=== PATIENT | female | born 1940 | race Caucasian/White ===

== ENCOUNTER 2016-03-19 00:30 | Emergency (ER) | payer MEDICARE, OTHER ==
[2016-03-19] MEDS ORDERED: SODIUM CHLORIDE 0.9% 1,000 ML IV ONE (00:59)
--- NOTE | 2016-03-19 01:16 | ED ---
Psych HPI - General Source: patient, EMS, RN notes reviewed Mode of arrival: EMS <Albertina Morgan - Last Filed: 03/19/16 03:36> <Vivek Lal - Last Filed: 03/19/16 07:09> - General Chief Complaint: Psychiatric Symptoms Stated Complaint: Mental Health Time Seen by Provider: 03/19/16 00:41 - History of Present Illness Initial Comments: Patient is 75-year-old female who presents to the emergency room for psychiatric evaluation. Patient has a history of schizophrenia and states that the Perez in. Patient's states he has been having increasing voices in her head. Patient states "the devil's are speaking to me". Patient states that she is on Seroquel and it has not been helping. Patient denies suicidal or homicidal ideations. Patient also states over the past few days she's been having pain in her bladder raiding up to her flank area. Patient states she feels like she is having a hard time eating and is urinating more frequently. Patient denies any fevers or chills. Patient denies chest pain, shortness of breath, headache, dizziness. (Albertina Morgan) - Related Data Home Medications Medication Instructions Recorded Confirmed Cholecalciferol [Vitamin D3] 2,000 unit PO BID 08/23/13 03/19/16 Donepezil [Aricept] 10 mg PO BID 08/23/13 03/19/16 Multivitamins, Thera [Multivitamin] 1 tab PO DAILY 08/23/13 03/19/16 Atorvastatin [Lipitor] 20 mg PO HS 04/12/15 03/19/16 QUEtiapine [SEROquel] 50 mg PO BID 04/12/15 03/19/16 Pepto-Bismol Puentes Chew 1 tab PO BID 07/30/15 03/19/16 traMADol HCL/ACETAMINOPHEN 1 tab PO BID PRN 07/30/15 03/19/16 [Ultracet 37.5-325] Carvedilol [Coreg] 3.125 mg PO BID 12/25/15 03/19/16 Melatonin 10 mg PO HS 12/25/15 03/19/16 amLODIPine [Norvasc] 2.5 mg PO HS 12/25/15 03/19/16 QUEtiapine FUMARATE [SEROquel] 450 mg PO HS 03/19/16 03/19/16 hydrOXYzine HCL 25 mg PO DAILY 03/19/16 03/19/16 Allergies Allergy/AdvReac Type Severity Reaction Status Date / Time adhesive tape Allergy Unknown Verified 03/19/16 00:52 cephalexin monohydrate Allergy Unknown Verified 03/19/16 00:52 [From Keflex] fluoxetine HCl [From Prozac] Allergy Unknown Verified 03/19/16 00:52 ketorolac tromethamine Allergy Unknown Verified 03/19/16 00:52 [From Toradol] latex Allergy Unknown Verified 03/19/16 00:52 phenelzine sulfate Allergy Unknown Verified 03/19/16 00:52 [From Nardil] Phenothiazines Allergy Unknown Verified 03/19/16 00:52 propoxyphene napsylate Allergy Unknown Verified 03/19/16 00:52 [From Darvocet-N 100] Review of Systems ROS Other: All systems not noted in ROS Statement are negative. <Albertina Morgan - Last Filed: 03/19/16 03:36> ROS Other: All systems not noted in ROS Statement are negative. <Vivek Lal - Last Filed: 03/19/16 07:09> ROS Statement: Those systems with pertinent positive or pertinent negative responses have been documented in the HPI. Past Medical History Past Medical History: COPD, GERD/Reflux, Hypertension, Seizure Disorder Additional Past Medical History / Comment(s): back pain, Alzheimers, vitamin D deficiency, right bundle branch block History of Any Multi-Drug Resistant Organisms: None Reported Past Surgical History: Orthopedic Surgery Past Psychological History: Schizophrenia Smoking Status: Former smoker Past Alcohol Use History: None Reported Past Drug Use History: None Reported <Albertina Morgan - Last Filed: 03/19/16 03:36> General Exam Limitations: no limitations General appearance: alert, in no apparent distress Head exam: Present: atraumatic, normocephalic, normal inspection Eye exam: Present: normal appearance ENT exam: Present: normal exam Neck exam: Present: normal inspection Respiratory exam: Present: normal lung sounds bilaterally. Absent: respiratory distress Cardiovascular Exam: Present: regular rate, normal rhythm, normal heart sounds GI/Abdominal exam: Present: soft, normal bowel sounds. Absent: distended, tenderness, guarding, rebound, rigid Extremities exam: Present: normal inspection Back exam: Present: normal inspection Neurological exam: Present: alert, oriented X3, CN II-XII intact, normal gait Psychiatric exam: Present: normal affect, normal mood Skin exam: Present: warm, dry, intact, normal color. Absent: rash <Albertina Morgan - Last Filed: 03/19/16 03:36> <Vivek Lal - Last Filed: 03/19/16 07:09> - General Exam Comments Initial Comments: Laying in exam room in no acute distress. (Albertina Morgan) Course <Albertina Morgan - Last Filed: 03/19/16 03:36> <Vivek Lal - Last Filed: 03/19/16 07:09> Vital Signs 03/19/16 00:48 Temperature 97.6 F Pulse Rate 58 L Respiratory 18 Rate Blood Pressure 139/63 O2 Sat by Pulse 97 Oximetry - Reevaluation(s) Reevaluation #1: 03/19/16 03:36 Patient's labs and urinalysis reviewed, no medical concerns noted. Patient cleared for psych evaluation (Albertina Morgan) Medical Decision Making - Lab Data Result diagrams: 03/19/16 03:05 03/19/16 03:05 <Albertina Morgan - Last Filed: 03/19/16 03:36> - Lab Data Result diagrams: 03/19/16 03:05 03/19/16 03:05 <Vivek Lal - Last Filed: 03/19/16 07:09> - Medical Decision Making 75 female year for evaluation of psychiatric disease, patient was cleared for psychiatric evaluation, patient seated viral bisected intake, patient cleared for discharge back to [facility]. (Vivek Lal) - Lab Data Lab Results 03/19/16 03/19/16 03/19/16 Range/Units 01:05 03:05 03:05 WBC 5.9 (3.8-10.6) k/uL RBC 4.55 (3.80-5.40) m/uL Hgb 13.2 (11.4-16.0) gm/dL Hct 41.8 (34.0-46.0) % MCV 91.8 (80.0-100.0) fL MCH 28.9 (25.0-35.0) pg MCHC 31.5 (31.0-37.0) g/dL RDW 13.5 (11.5-15.5) % Plt Count 226 (150-450) k/uL Neutrophils % 45 % Lymphocytes % 39 % Monocytes % 7 % Eosinophils % 5 % Basophils % 1 % Neutrophils # 2.6 (1.3-7.7) k/uL Lymphocytes # 2.3 (1.0-4.8) k/uL Monocytes # 0.4 (0-1.0) k/uL Eosinophils # 0.3 (0-0.7) k/uL Basophils # 0.0 (0-0.2) k/uL Hypochromasia Slight Sodium 146 H (137-145) mmol/L Potassium 4.2 (3.5-5.1) mmol/L Chloride 111 H (98-107) mmol/L Carbon Dioxide 23 (22-30) mmol/L Anion Gap 12 mmol/L BUN 33 H (7-17) mg/dL Creatinine 0.88 (0.52-1.04) mg/dL Est GFR (MDRD) Af Amer >60 (>60 ml/min/1.73 sqM) Est GFR (MDRD) Non-Af >60 (>60 ml/min/1.73 sqM) Glucose 87 (74-99) mg/dL Calcium 10.5 H (8.4-10.2) mg/dL Total Bilirubin 0.4 (0.2-1.3) mg/dL AST 26 (14-36) U/L ALT 29 (9-52) U/L Alkaline Phosphatase 84 (38-126) U/L Total Protein 6.8 (6.3-8.2) g/dL Albumin 3.9 (3.5-5.0) g/dL Urine Color Yellow Urine Appearance Clear (Clear) Urine pH 5.0 (5.0-8.0) Ur Specific [place] 1.023 (1.001-1.035) Urine Protein 1+ H (Negative) Urine Glucose (UA) Negative (Negative) Urine Ketones Negative (Negative) Urine Blood Negative (Negative) Urine Nitrate Negative (Negative) Urine Bilirubin Negative (Negative) Urine Urobilinogen <2.0 (<2.0) mg/dL Ur Leukocyte Esterase Trace H (Negative) Urine RBC 1 (0-5) /hpf Urine WBC 3 (0-5) /hpf Ur Squamous Epith Cells 3 (0-4) /hpf Urine Bacteria Rare H (None) /hpf Hyaline Casts 3 H (0-2) /lpf Urine Mucus Rare H (None) /hpf Urine Opiates Screen Not Detected (NotDetected) Ur Oxycodone Screen Not Detected (NotDetected) Urine Methadone Screen Not Detected (NotDetected) Ur Propoxyphene Screen Not Detected (NotDetected) Ur Barbiturates Screen Not Detected (NotDetected) U Tricyclic Antidepress Detected H (NotDetected) Ur Phencyclidine Scrn Not Detected (NotDetected) Ur Amphetamines Screen Not Detected (NotDetected) U Methamphetamines Scrn Not Detected (NotDetected) U Benzodiazepines Scrn Not Detected (NotDetected) Urine Cocaine Screen Not Detected (NotDetected) U Marijuana (THC) Screen Not Detected (NotDetected) Disposition <Albertina Morgan L - Last Filed: 03/19/16 03:36> <Vivek Lal B - Last Filed: 03/19/16 07:09> Clinical Impression: Psychosis, Acute anxiety Disposition: HOME SELF-CARE Condition: Good Instructions: Altered Mental Status (ED), Brief Psychotic Disorder (ED) Referrals: Ayad Chaparro MD [Primary Care Provider] - 1-2 days
[2016-03-19 01:33] LABS: Appearance,Urine Clear (Clear); Bacteria,Urine Rare /hpf; Bilirubin,Urine Negative (Negative); Glucose,Urine (UA) Negative (Negative); Ketones,Urine Negative (Negative); Leukocyte Esterase,Urine Trace (Negative); Mucus,Urine Rare /hpf; Nitrite,Urine Negative (Negative); Particle Count 2645; Protein,Urine 1+ (Negative); RBC,Urine 1 /hpf (0-5); Specific Gravity,Urine 1.023 (1.001-1.035); Squamous Epithelial Cell,Urine 3 /hpf (0-4); UA Billing (MACRO vs. MICRO) MICRO; Urobilinogen,Urine <2.0 mg/dL (<2.0); WBC,Urine 3 /hpf (0-5)
[2016-03-19 03:21] LABS: Basophils % (A) 1 %; CH 28.6; CHCM 31.3; Eosinophils # (A) 0.3 k/uL (0-0.7); Eosinophils % (A) 5 %; HCT 41.8 % (34.0-46.0); HDW 2.59; HGB 13.2 gm/dL (11.4-16.0); Hypochromasia Slight; Luc % (Auto) 4; Lymphocytes # (A) 2.3 k/uL (1.0-4.8); Lymphocytes % (A) 39 %; MCH 28.9 pg (25.0-35.0); MCHC 31.5 g/dL (31.0-37.0); MCV 91.8 fL (80.0-100.0); Mean Platelet Volume 6.6; Monocytes # (A) 0.4 k/uL (0-1.0); Monocytes % (A) 7 %; Neutrophils # (A) 2.6 k/uL (1.3-7.7); Neutrophils % (A) 45 %; RBC 4.55 m/uL (3.80-5.40); RDW 13.5 % (11.5-15.5); WBC 5.9 k/uL (3.8-10.6)
[2016-03-19 03:33] LABS: ALT 29 U/L (9-52); AST 26 U/L (14-36); Alkaline Phosphatase 84 U/L (38-126); Anion Gap 12 mmol/L; Blood Urea Nitrogen 33 mg/dL (7-17); Calcium 10.5 mg/dL (8.4-10.2); Carbon Dioxide 23 mmol/L (22-30); Chloride 111 mmol/L (98-107); Glucose 87 mg/dL (74-99); Non-African American GFR(MDRD) >60 (>60 ml/min/1.73 sqM); Potassium 4.2 mmol/L (3.5-5.1); Sodium 146 mmol/L (137-145); Total Bilirubin 0.4 mg/dL (0.2-1.3); Total Protein 6.8 g/dL (6.3-8.2)
[2016-03-19 08:29] VITALS: BP 106/60; PULSE 78; RESP 16; TEMP 98
== END 2016-03-19 08:40 | disposition home or self-care (01) ==
LOC: EC 00:30
DX: F20.9 Schizophrenia, unspecified (principal); R39.89 Other symptoms and signs involving the genitourinary system; R10.9 Unspecified abdominal pain; I10 Essential (primary) hypertension; G30.9 Alzheimer's disease, unspecified; G40.909 Epilepsy, unspecified, not intractable, without status epilepticus; Z87.891 Personal history of nicotine dependence; Z79.899 Other long term (current) drug therapy; Z91.09 Other allergy status, other than to drugs and biological substances; Z88.1 Allergy status to other antibiotic agents; Z88.8 Allergy status to other drugs, medicaments and biological substances; Z88.6 Allergy status to analgesic agent; Z91.040 Latex allergy status
CPT/HCPCS: 36415; 80053; 80306; 81001; 85025; 87086; 99284

== ENCOUNTER 2016-06-06 20:56 | Emergency (ER) | payer MEDICARE, OTHER ==
[2016-06-06 21:10] VITALS: RESP 18
--- NOTE | 2016-06-06 21:24 | ED ---
General Adult HPI - General Chief complaint: Urogenital Stated complaint: UTI Time Seen by Provider: 06/06/16 21:03 Source: patient, RN notes reviewed Mode of arrival: EMS Limitations: no limitations - History of Present Illness Initial comments: Patient 75-year-old female who presents emergency room today with a chief complaint of increased urinary frequency. She does admit that it feels like a bladder infection that she's had in the past. She does admit that symptoms been off and on over the last 4 weeks. Patient does admit to some low back pain. She admits that she's also worried about maybe a possible kidney stone that she's had once in the past. She denies any other complaints or symptoms. Patient denies any recent fever, chills, shortness of breath, chest pain, back pain, abdominal pain, nausea or vomiting, numbness or tingling, hematuria, constipation or diarrhea, headaches or visual changes, or any other complaints. - Related Data Home Medications Medication Instructions Recorded Confirmed Cholecalciferol [Vitamin D3] 2,000 unit PO BID 08/23/13 06/06/16 Donepezil [Aricept] 10 mg PO BID 08/23/13 06/06/16 Multivitamins, Thera [Multivitamin] 1 tab PO DAILY 08/23/13 06/06/16 Atorvastatin [Lipitor] 20 mg PO HS 04/12/15 06/06/16 QUEtiapine [SEROquel] 50 mg PO BID 04/12/15 06/06/16 Pepto-Bismol Puentes Chew 1 tab PO BID 07/30/15 06/06/16 traMADol HCL/ACETAMINOPHEN 1 tab PO TID PRN 07/30/15 06/06/16 [Ultracet 37.5-325] Carvedilol [Coreg] 3.125 mg PO BID 12/25/15 06/06/16 Melatonin 10 mg PO HS 12/25/15 06/06/16 amLODIPine [Norvasc] 2.5 mg PO HS 12/25/15 06/06/16 hydrOXYzine HCL 25 mg PO HS 03/19/16 06/06/16 QUEtiapine FUMARATE [SEROquel] 100 mg PO HS 06/06/16 06/06/16 QUEtiapine FUMARATE [SEROquel] 400 mg PO HS 06/06/16 06/06/16 Sennosides [Senna] 8.6 mg PO HS 06/06/16 06/06/16 Previous Rx's Medication Instructions Recorded Nitrofurantoin Monohyd/M-Cryst 100 mg PO Q12HR #14 cap 06/06/16 [Macrobid] Phenazopyridine [Pyridium] 100 mg PO TID 3 Days 06/06/16 Tamsulosin [Flomax] 0.4 mg PO DAILY #7 cap 06/06/16 Allergies Allergy/AdvReac Type Severity Reaction Status Date / Time adhesive tape Allergy Unknown Verified 06/06/16 21:45 cephalexin monohydrate Allergy Unknown Verified 06/06/16 21:45 [From Keflex] fluoxetine HCl [From Prozac] Allergy Unknown Verified 06/06/16 21:45 ketorolac tromethamine Allergy Unknown Verified 06/06/16 21:45 [From Toradol] latex Allergy Unknown Verified 06/06/16 21:45 phenelzine sulfate Allergy Unknown Verified 06/06/16 21:45 [From Nardil] Phenothiazines Allergy Unknown Verified 06/06/16 21:45 propoxyphene napsylate Allergy Unknown Verified 06/06/16 21:45 [From Darvocet-N 100] Review of Systems ROS Statement: Those systems with pertinent positive or pertinent negative responses have been documented in the HPI. ROS Other: All systems not noted in ROS Statement are negative. Past Medical History Past Medical History: COPD, GERD/Reflux, Hypertension, Seizure Disorder Additional Past Medical History / Comment(s): back pain, Alzheimers, vitamin D deficiency, right bundle branch block History of Any Multi-Drug Resistant Organisms: None Reported Past Surgical History: Orthopedic Surgery Past Psychological History: Schizophrenia Smoking Status: Former smoker Past Alcohol Use History: None Reported Past Drug Use History: None Reported General Exam - General Exam Comments Initial Comments: General: The patient is awake and alert, in no distress, and does not appear acutely ill. Eye: Pupils are equal, round and reactive to light, extra-ocular movements are intact. No nystagmus. There is normal conjunctiva bilaterally. No signs of icterus. Ears, nose, mouth and throat: There are moist mucous membranes and no oral lesions. Neck: The neck is supple, there is no tenderness or JVD. Cardiovascular: There is a regular rate and rhythm. No murmur, rub or gallop is appreciated. Respiratory: Lungs are clear to auscultation, respirations are non-labored, breath sounds are equal. No wheezes, stridor, rales, or rhonchi. Gastrointestinal: Soft, non-distended, non-tender abdomen without masses or organomegaly noted. There is no rebound or guarding present. No CVA tenderness. Bowel sounds are unremarkable. Musculoskeletal: Normal ROM, no tenderness. Strength 5/5. Sensation intact. Pulses equal bilaterally 2+. Neurological: A&O x 3. CN II-XII intact, There are no obvious motor or sensory deficits. Coordination appears grossly intact. Speech is normal. Skin: Skin is warm and dry and no rashes or lesions are noted. Psychiatric: Cooperative, appropriate mood & affect, normal judgment. Limitations: no limitations Course Vital Signs 06/06/16 20:59 Temperature 97.9 F Pulse Rate 82 Respiratory 18 Rate Blood Pressure 122/64 O2 Sat by Pulse 96 Oximetry Medical Decision Making - Medical Decision Making Patient reexamined at this time shows no signs of distress. Resting comfortably at the stretcher. Patient's urinalysis reviewed and does show 6 white cells. Patient does admit to increased dysuria symptoms. Will be started on antibiotics. Culture pending. Patient was given first dose here in the emergency room also given prescription to go home with. Patient advised follow-up the family doctor over the next 2 days return if any symptoms increase or worsen. - Lab Data Lab Results 06/06/16 Range/Units 22:10 Urine Color Yellow Urine Appearance Clear (Clear) Urine pH 5.5 (5.0-8.0) Ur Specific [place] 1.023 (1.001-1.035) Urine Protein 1+ H (Negative) Urine Glucose (UA) Negative (Negative) Urine Ketones Negative (Negative) Urine Blood Negative (Negative) Urine Nitrite Negative (Negative) Urine Bilirubin Negative (Negative) Urine Urobilinogen <2.0 (<2.0) mg/dL Ur Leukocyte Esterase Small H (Negative) Urine RBC 1 (0-5) /hpf Urine WBC 6 H (0-5) /hpf Ur Squamous Epith Cells 4 (0-4) /hpf Hyaline Casts 22 H (0-2) /lpf Urine Mucus Occasional H (None) /hpf Disposition Clinical Impression: UTI (urinary tract infection) Disposition: HOME SELF-CARE Condition: Good Instructions: Urinary Tract Infection in Women (ED) Additional Instructions: Please use medication as discussed. Please follow-up with family doctor in the next 2 days of symptoms have not improved. Please return to emergency room if the symptoms increase or worsen or for any other concerns. Prescriptions: Nitrofurantoin Monohyd/M-Cryst [Macrobid] 100 mg PO Q12HR #14 cap Phenazopyridine [Pyridium] 100 mg PO TID 3 Days Tamsulosin [Flomax] 0.4 mg PO DAILY #7 cap Referrals: None,Stated [Primary Care Provider] - 1-2 days Kwasi Adkins MD [STAFF PHYSICIAN] - 1-2 days Time of Disposition: 22:32
--- NOTE | 2016-06-06 22:06 | XR ---
EXAMINATION TYPE: XR KUB DATE OF EXAM: 06/06/2016 9:38 PM COMPARISON: 08/23/2013 HISTORY: Pain TECHNIQUE: Two standing upright views FINDINGS: The visualized lung bases and pleural spaces are negative. There is no bowel obstruction. N o pneumatosis or pneumoperitoneum. There are several surgical clips redemonstrated. There are also multifocal high density foci throughout the 4 quadrants of the abdomen, likely ingeste d material which was not seen on the prior study. Bones and soft tissues are otherwise unremarkable for acute findings. IMPRESSION: 1. NO ACUTE RADIOGRAPHIC PROCESS. 2. However, Scattered ingested material noted.
[2016-06-06 22:26] LABS: Appearance,Urine Clear (Clear); Bilirubin,Urine Negative (Negative); Glucose,Urine (UA) Negative (Negative); Ketones,Urine Negative (Negative); Leukocyte Esterase,Urine Small (Negative); Mucus,Urine Occasional /hpf; Nitrite,Urine Negative (Negative); PH, Urine 5.5 (5.0-8.0); Particle Count 4267; Protein,Urine 1+ (Negative); RBC,Urine 1 /hpf (0-5); Specific Gravity,Urine 1.023 (1.001-1.035); Squamous Epithelial Cell,Urine 4 /hpf (0-4); UA Billing (MACRO vs. MICRO) MICRO; Urobilinogen,Urine <2.0 mg/dL (<2.0); WBC,Urine 6 /hpf (0-5)
[2016-06-06] MEDS ORDERED: TAMSULOSIN 0.4 MG CAP.ER.24H PO STA (22:33)
[2016-06-06] MEDS ORDERED: NITROFURANTOIN MONOHYD/M-CRYST 100 MG CAP PO STA (22:33)
[2016-06-06] MEDS ORDERED: PHENAZOPYRIDINE 100 MG TAB PO STA (22:33)
[2016-06-06 23:11] VITALS: BP 128/75; PULSE 80; TEMP 98.1
== END 2016-06-06 23:11 | disposition home or self-care (01) ==
LOC: EC 20:56 → SUPCPDRO 20:56 → EC 23:11
DX: N39.0 Urinary tract infection, site not specified (principal); M54.5 Low back pain; K21.9 Gastro-esophageal reflux disease without esophagitis; I10 Essential (primary) hypertension; G40.909 Epilepsy, unspecified, not intractable, without status epilepticus; G30.9 Alzheimer's disease, unspecified; F20.9 Schizophrenia, unspecified; Z87.891 Personal history of nicotine dependence; Z79.899 Other long term (current) drug therapy; Z88.1 Allergy status to other antibiotic agents; Z88.6 Allergy status to analgesic agent; Z88.8 Allergy status to other drugs, medicaments and biological substances; Z91.040 Latex allergy status; Z91.018 Allergy to other foods; Z88.5 Allergy status to narcotic agent
CPT/HCPCS: 74000; 81001; 87086; 99284

== ENCOUNTER 2016-06-10 23:17 | Emergency (ER) | payer MEDICARE, OTHER ==
[2016-06-10 23:29] VITALS: RESP 18
[2016-06-11 00:27] LABS: Bacteria,Urine Occasional /hpf; Calcium Oxalate Crystals,Urine Moderate /hpf; Mucus,Urine Moderate /hpf; Particle Count 12985; RBC,Urine 17 /hpf (0-5); Squamous Epithelial Cell,Urine 3 /hpf (0-4); WBC,Urine 4 /hpf (0-5)
[2016-06-11 00:29] LABS: Appearance,Urine Slightly Cloudy (Clear)
[2016-06-11 00:30] LABS: UA Billing (MACRO vs. MICRO) MICRO
[2016-06-11] MEDS ORDERED: SULFAMETHOX-TMP 800-160MG 1 EACH TAB PO STA (01:28)
[2016-06-11] MEDS ORDERED: ACETAMINOPHEN TAB 325 MG TAB PO STA (01:29)
--- NOTE | 2016-06-11 01:29 | ED ---
General Adult HPI - General Chief complaint: Back Pain/Injury Stated complaint: Pain all over Time Seen by Provider: 06/10/16 23:28 Source: patient Mode of arrival: EMS Limitations: no limitations - Related Data Home Medications Medication Instructions Recorded Confirmed Cholecalciferol [Vitamin D3] 2,000 unit PO BID 08/23/13 06/06/16 Donepezil [Aricept] 10 mg PO BID 08/23/13 06/06/16 Multivitamins, Thera [Multivitamin] 1 tab PO DAILY 08/23/13 06/06/16 Atorvastatin [Lipitor] 20 mg PO HS 04/12/15 06/06/16 QUEtiapine [SEROquel] 50 mg PO BID 04/12/15 06/06/16 Pepto-Bismol Puentes Chew 1 tab PO BID 07/30/15 06/06/16 traMADol HCL/ACETAMINOPHEN 1 tab PO TID PRN 07/30/15 06/06/16 [Ultracet 37.5-325] Carvedilol [Coreg] 3.125 mg PO BID 12/25/15 06/06/16 Melatonin 10 mg PO HS 12/25/15 06/06/16 amLODIPine [Norvasc] 2.5 mg PO HS 12/25/15 06/06/16 hydrOXYzine HCL 25 mg PO HS 03/19/16 06/06/16 QUEtiapine FUMARATE [SEROquel] 100 mg PO HS 06/06/16 06/06/16 QUEtiapine FUMARATE [SEROquel] 400 mg PO HS 06/06/16 06/06/16 Sennosides [Senna] 8.6 mg PO HS 06/06/16 06/06/16 Previous Rx's Medication Instructions Recorded Nitrofurantoin Monohyd/M-Cryst 100 mg PO Q12HR #14 cap 06/06/16 [Macrobid] Phenazopyridine [Pyridium] 100 mg PO TID 3 Days 06/06/16 Tamsulosin [Flomax] 0.4 mg PO DAILY #7 cap 06/06/16 Sulfamethox-Tmp 800-160Mg [Bactrim 1 each PO Q12HR #6 tab 06/11/16 Ds] Allergies Allergy/AdvReac Type Severity Reaction Status Date / Time adhesive tape Allergy Unknown Verified 06/06/16 21:45 cephalexin monohydrate Allergy Unknown Verified 06/06/16 21:45 [From Keflex] fluoxetine HCl [From Prozac] Allergy Unknown Verified 06/06/16 21:45 ketorolac tromethamine Allergy Unknown Verified 06/06/16 21:45 [From Toradol] latex Allergy Unknown Verified 06/06/16 21:45 phenelzine sulfate Allergy Unknown Verified 06/06/16 21:45 [From Nardil] Phenothiazines Allergy Unknown Verified 06/06/16 21:45 propoxyphene napsylate Allergy Unknown Verified 06/06/16 21:45 [From Darvocet-N 100] Review of Systems ROS Statement: Those systems with pertinent positive or pertinent negative responses have been documented in the HPI. ROS Other: All systems not noted in ROS Statement are negative. Past Medical History Past Medical History: COPD, GERD/Reflux, Hypertension, Seizure Disorder Additional Past Medical History / Comment(s): back pain, Alzheimers, vitamin D deficiency, right bundle branch block History of Any Multi-Drug Resistant Organisms: None Reported Past Surgical History: Orthopedic Surgery Past Psychological History: Schizophrenia Smoking Status: Former smoker Past Alcohol Use History: None Reported Past Drug Use History: None Reported General Exam Limitations: no limitations Course Vital Signs 06/10/16 23:25 Temperature 97.6 F Pulse Rate 89 Respiratory 18 Rate Blood Pressure 121/58 O2 Sat by Pulse 98 Oximetry Medical Decision Making - Lab Data Lab Results 06/11/16 Range/Units 00:00 Urine Color Dark [place] Urine Appearance Slightly Cloudy H (Clear) Urine RBC 17 H (0-5) /hpf Urine WBC 4 (0-5) /hpf Ur Squamous Epith Cells 3 (0-4) /hpf Calcium Oxalate Crystal Moderate H (None) /hpf Urine Bacteria Occasional H (None) /hpf Hyaline Casts 8 H (0-2) /lpf Urine Mucus Moderate H (None) /hpf Disposition Clinical Impression: Urinary tract infection Disposition: HOME SELF-CARE Condition: Fair Instructions: Chronic Back Pain (ED) Prescriptions: Sulfamethox-Tmp 800-160Mg [Bactrim Ds] 1 each PO Q12HR #6 tab Referrals: None,Stated [Primary Care Provider] - 1-2 days
[2016-06-11 03:09] VITALS: BP 124/60; PULSE 92; TEMP 98.4
== END 2016-06-11 02:55 | disposition home or self-care (01) ==
LOC: EC 23:17
DX: N39.0 Urinary tract infection, site not specified (principal); J44.9 Chronic obstructive pulmonary disease, unspecified; K21.9 Gastro-esophageal reflux disease without esophagitis; I10 Essential (primary) hypertension; G40.909 Epilepsy, unspecified, not intractable, without status epilepticus; F20.9 Schizophrenia, unspecified; Z87.891 Personal history of nicotine dependence; Z79.899 Other long term (current) drug therapy; Z88.1 Allergy status to other antibiotic agents; Z88.6 Allergy status to analgesic agent; Z91.040 Latex allergy status; Z88.5 Allergy status to narcotic agent; Z88.8 Allergy status to other drugs, medicaments and biological substances; Z91.048 Other nonmedicinal substance allergy status
CPT/HCPCS: 81001; 87086; 99284

== ENCOUNTER 2016-08-28 23:11 | Emergency (ER) | payer MEDICARE, OTHER ==
[2016-08-28] MEDS ORDERED: ONDANSETRON 4 MG/2 ML VIAL IVP STA (23:38)
[2016-08-29 00:28] LABS: Appearance,Urine Clear (Clear); Bilirubin,Urine Negative (Negative); Glucose,Urine (UA) Negative (Negative); Ketones,Urine Negative (Negative); Leukocyte Esterase,Urine Trace (Negative); Mucus,Urine Rare /hpf; Nitrite,Urine Negative (Negative); Particle Count 663; Protein,Urine Trace (Negative); RBC,Urine <1 /hpf (0-5); Specific Gravity,Urine 1.016 (1.001-1.035); Squamous Epithelial Cell,Urine <1 /hpf (0-4); UA Billing (MACRO vs. MICRO) MICRO; Urobilinogen,Urine <2.0 mg/dL (<2.0); WBC,Urine 4 /hpf (0-5)
[2016-08-29 00:33] LABS: Basophils # (A) 0.1 k/uL (0-0.2); Basophils % (A) 1 %; CH 28.1; CHCM 32.5; Eosinophils # (A) 0.2 k/uL (0-0.7); Eosinophils % (A) 4 %; HCT 38.8 % (34.0-46.0); HDW 2.78; HGB 12.7 gm/dL (11.4-16.0); Luc # (Auto) 0.17; Luc % (Auto) 3; Lymphocytes # (A) 2.1 k/uL (1.0-4.8); Lymphocytes % (A) 39 %; MCH 28.6 pg (25.0-35.0); MCHC 32.9 g/dL (31.0-37.0); MCV 87.1 fL (80.0-100.0); Mean Platelet Volume 7.1; Monocytes # (A) 0.4 k/uL (0-1.0); Monocytes % (A) 7 %; Neutrophils # (A) 2.4 k/uL (1.3-7.7); Neutrophils % (A) 45 %; RBC 4.45 m/uL (3.80-5.40); RDW 15.2 % (11.5-15.5); WBC 5.3 k/uL (3.8-10.6); WBC (Perox) 5.38
[2016-08-29 00:41] LABS: Partial Thromboplastin Time 23.3 sec (22.0-30.0); Prothrombin Time 10.1 sec (9.0-12.0)
[2016-08-29 00:42] LABS: ALT 36 U/L (9-52); AST 30 U/L (14-36); Alkaline Phosphatase 85 U/L (38-126); Amylase 53 U/L (30-110); Anion Gap 9 mmol/L; Blood Urea Nitrogen 28 mg/dL (7-17); Carbon Dioxide 23 mmol/L (22-30); Chloride 111 mmol/L (98-107); Glucose 92 mg/dL (74-99); Non-African American GFR(MDRD) >60 (>60 ml/min/1.73 sqM); Potassium 4.2 mmol/L (3.5-5.1); Sodium 143 mmol/L (137-145); Total Bilirubin 0.3 mg/dL (0.2-1.3); Total Protein 6.4 g/dL (6.3-8.2)
[2016-08-29 00:56] LABS: Creatine Kinase 167 U/L (30-135)
[2016-08-29 01:09] LABS: Troponin I <0.012 ng/mL (0.000-0.034)
[2016-08-29 01:20] LABS: Creatine Kinase MB 2.5 ng/mL (0.0-2.4)
--- NOTE | 2016-08-29 02:07 | XR ---
EXAM: XR Abdomen, 1 View CLINICAL HISTORY: Reason: abdominal pain TECHNIQUE: Frontal supine view of the abdomen/pelvis. COMPARISON: 06/06/2016 FINDINGS: Abdomen: Nonobstructive bowel gas pattern. No free air. Cholecystectomy clips in the right upper quadrant. Multiple scattered densities are again noted likely within the bowel which may be related to ingested material. Calcified uterine fibroid projected over the pelvis. Bones: Degenerative changes of the spine. Soft tissues: Surgical clips projected over the right breast. Lower chest: Normal. IMPRESSION: Nonobstructive bowel gas pattern with scattered disease likely throughout the bowel which may represent ingested material. No free air.
--- NOTE | 2016-08-29 02:26 | ED ---
General Adult HPI - General Chief complaint: Abdominal Pain Stated complaint: CHEST PAIN Time Seen by Provider: 08/28/16 23:16 Source: patient, EMS, RN notes reviewed, old records reviewed Mode of arrival: EMS Limitations: no limitations - History of Present Illness Initial comments: 75-year-old female presenting with chief complaint dysuria and urinary frequency. Patient states she's had these symptoms for approximately 6 weeks. Her primary care physician is aware. She was treated with Bactrim for UTI. She believes her urinary tract infection is persisting. She also reports some intermittent abdominal pain. Patient denies fever. Denies flank pain. Denies chest pain or shortness of breath. Denies nausea vomiting or diarrhea. - Related Data Home Medications Medication Instructions Recorded Confirmed Cholecalciferol [Vitamin D3] 2,000 unit PO BID 08/23/13 06/06/16 Donepezil [Aricept] 10 mg PO BID 08/23/13 06/06/16 Multivitamins, Thera [Multivitamin] 1 tab PO DAILY 08/23/13 06/06/16 Atorvastatin [Lipitor] 20 mg PO HS 04/12/15 06/06/16 QUEtiapine [SEROquel] 50 mg PO BID 04/12/15 06/06/16 Pepto-Bismol Puentes Chew 1 tab PO BID 07/30/15 06/06/16 traMADol HCL/ACETAMINOPHEN 1 tab PO TID PRN 07/30/15 06/06/16 [Ultracet 37.5-325] Carvedilol [Coreg] 3.125 mg PO BID 12/25/15 06/06/16 Melatonin 10 mg PO HS 12/25/15 06/06/16 amLODIPine [Norvasc] 2.5 mg PO HS 12/25/15 06/06/16 hydrOXYzine HCL 25 mg PO HS 03/19/16 06/06/16 QUEtiapine FUMARATE [SEROquel] 100 mg PO HS 06/06/16 06/06/16 QUEtiapine FUMARATE [SEROquel] 400 mg PO HS 06/06/16 06/06/16 Sennosides [Senna] 8.6 mg PO HS 06/06/16 06/06/16 Previous Rx's Medication Instructions Recorded Nitrofurantoin Monohyd/M-Cryst 100 mg PO Q12HR #14 cap 06/06/16 [Macrobid] Phenazopyridine [Pyridium] 100 mg PO TID 3 Days 06/06/16 Tamsulosin [Flomax] 0.4 mg PO DAILY #7 cap 06/06/16 Sulfamethox-Tmp 800-160Mg [Bactrim 1 each PO Q12HR #6 tab 06/11/16 Ds] Allergies Allergy/AdvReac Type Severity Reaction Status Date / Time adhesive tape Allergy Unknown Verified 06/06/16 21:45 cephalexin monohydrate Allergy Unknown Verified 06/06/16 21:45 [From Keflex] fluoxetine HCl [From Prozac] Allergy Unknown Verified 06/06/16 21:45 ketorolac tromethamine Allergy Unknown Verified 06/06/16 21:45 [From Toradol] latex Allergy Unknown Verified 06/06/16 21:45 phenelzine sulfate Allergy Unknown Verified 06/06/16 21:45 [From Nardil] Phenothiazines Allergy Unknown Verified 06/06/16 21:45 propoxyphene napsylate Allergy Unknown Verified 06/06/16 21:45 [From Darvocet-N 100] Review of Systems ROS Statement: Those systems with pertinent positive or pertinent negative responses have been documented in the HPI. ROS Other: All systems not noted in ROS Statement are negative. Past Medical History Past Medical History: COPD, GERD/Reflux, Hypertension, Seizure Disorder Additional Past Medical History / Comment(s): back pain, Alzheimers, vitamin D deficiency, right bundle branch block History of Any Multi-Drug Resistant Organisms: None Reported Past Surgical History: Orthopedic Surgery Past Psychological History: Schizophrenia Smoking Status: Former smoker Past Alcohol Use History: None Reported Past Drug Use History: None Reported General Exam Limitations: no limitations General appearance: alert, in no apparent distress Head exam: Present: atraumatic, normocephalic Eye exam: Present: normal appearance, PERRL ENT exam: Present: normal exam, mucous membranes moist Neck exam: Present: normal inspection. Absent: tenderness, full ROM Respiratory exam: Present: normal lung sounds bilaterally. Absent: respiratory distress, wheezes Cardiovascular Exam: Present: regular rate, normal rhythm GI/Abdominal exam: Present: soft. Absent: distended, tenderness, guarding, rebound Extremities exam: Present: normal inspection, normal capillary refill. Absent: pedal edema Neurological exam: Present: alert, oriented X3, CN II-XII intact. Absent: motor sensory deficit Psychiatric exam: Present: normal affect, normal mood Skin exam: Present: warm, dry. Absent: cyanosis, diaphoretic Course Vital Signs 08/28/16 08/29/16 23:31 01:12 Temperature 98.2 F Pulse Rate 65 65 Respiratory 20 20 Rate Blood Pressure 115/62 130/59 O2 Sat by Pulse 95 96 Oximetry Medical Decision Making - Medical Decision Making 75-year-old female presenting with chief complaint of dysuria and urinary frequency. She does have a history of urinary tract infection. She states the symptoms have been present for 6 months. She denies fever or chills. Denies nausea vomiting or diarrhea. Patient's vital signs are unremarkable. Laboratory studies which included CMP and CBC because the patient did report some intermittent abdominal pain were unremarkable. Urinalysis is not significant for infection, urine culture is obtained and results are pending. X -ray of the abdomen shows scattered radiopaque material throughout the colon, no obstruction, no free air. Patient denies ingesting anything other than food. Is unknown what this radiopaque material represents. Patient's abdomen is soft, no rebound or guarding. Patient does live in a assisted living facility, and she sees a physician at this facility. She will be able to follow up with this physician regarding urine culture. She does state that this physician is aware of these symptoms. Diagnosis: Dysuria, without signs of urinary tract infection. - Lab Data Result diagrams: 08/29/16 00:25 08/29/16 00:25 Lab Results 08/29/16 08/29/16 08/29/16 Range/Units 00:15 00:25 00:25 WBC (3.8-10.6) k/uL RBC (3.80-5.40) m/uL Hgb (11.4-16.0) gm/dL Hct (34.0-46.0) % MCV (80.0-100.0) fL MCH (25.0-35.0) pg MCHC (31.0-37.0) g/dL RDW (11.5-15.5) % Plt Count (150-450) k/uL Neutrophils % % Lymphocytes % % Monocytes % % Eosinophils % % Basophils % % Neutrophils # (1.3-7.7) k/uL Lymphocytes # (1.0-4.8) k/uL Monocytes # (0-1.0) k/uL Eosinophils # (0-0.7) k/uL Basophils # (0-0.2) k/uL PT (9.0-12.0) sec INR (<1.2) APTT (22.0-30.0) sec Sodium 143 (137-145) mmol/L Potassium 4.2 (3.5-5.1) mmol/L Chloride 111 H (98-107) mmol/L Carbon Dioxide 23 (22-30) mmol/L Anion Gap 9 mmol/L BUN 28 H (7-17) mg/dL Creatinine 0.90 (0.52-1.04) mg/dL Est GFR (MDRD) Af Amer >60 (>60 ml/min/1.73 sqM) Est GFR (MDRD) Non-Af >60 (>60 ml/min/1.73 sqM) Glucose 92 (74-99) mg/dL Plasma Lactic Acid Sergio (0.7-2.0) mmol/L Calcium 10.0 (8.4-10.2) mg/dL Total Bilirubin 0.3 (0.2-1.3) mg/dL AST 30 (14-36) U/L ALT 36 (9-52) U/L Alkaline Phosphatase 85 (38-126) U/L Total Creatine Kinase 167 H (30-135) U/L CK-MB (CK-2) 2.5 H* (0.0-2.4) ng/mL CK-MB (CK-2) Rel Index 1.5 Troponin I <0.012 (0.000-0.034) ng/mL Total Protein 6.4 (6.3-8.2) g/dL Albumin 3.8 (3.5-5.0) g/dL Amylase 53 (30-110) U/L Lipase 194 (23-300) U/L Urine Color Light Yellow Urine Appearance Clear (Clear) Urine pH 6.0 (5.0-8.0) Ur Specific [place] 1.016 (1.001-1.035) Urine Protein Trace H (Negative) Urine Glucose (UA) Negative (Negative) Urine Ketones Negative (Negative) Urine Blood Negative (Negative) Urine Nitrite Negative (Negative) Urine Bilirubin Negative (Negative) Urine Urobilinogen <2.0 (<2.0) mg/dL Ur Leukocyte Esterase Trace H (Negative) Urine RBC <1 (0-5) /hpf Urine WBC 4 (0-5) /hpf Ur Squamous Epith Cells <1 (0-4) /hpf Hyaline Casts 1 (0-2) /lpf Urine Mucus Rare H (None) /hpf 08/29/16 08/29/16 08/29/16 Range/Units 00:25 00:25 00:25 WBC 5.3 (3.8-10.6) k/uL RBC 4.45 (3.80-5.40) m/uL Hgb 12.7 (11.4-16.0) gm/dL Hct 38.8 (34.0-46.0) % MCV 87.1 (80.0-100.0) fL MCH 28.6 (25.0-35.0) pg MCHC 32.9 (31.0-37.0) g/dL RDW 15.2 (11.5-15.5) % Plt Count 244 (150-450) k/uL Neutrophils % 45 % Lymphocytes % 39 % Monocytes % 7 % Eosinophils % 4 % Basophils % 1 % Neutrophils # 2.4 (1.3-7.7) k/uL Lymphocytes # 2.1 (1.0-4.8) k/uL Monocytes # 0.4 (0-1.0) k/uL Eosinophils # 0.2 (0-0.7) k/uL Basophils # 0.1 (0-0.2) k/uL PT 10.1 (9.0-12.0) sec INR 1.0 (<1.2) APTT 23.3 (22.0-30.0) sec Sodium (137-145) mmol/L Potassium (3.5-5.1) mmol/L Chloride (98-107) mmol/L Carbon Dioxide (22-30) mmol/L Anion Gap mmol/L BUN (7-17) mg/dL Creatinine (0.52-1.04) mg/dL Est GFR (MDRD) Af Amer (>60 ml/min/1.73 sqM) Est GFR (MDRD) Non-Af (>60 ml/min/1.73 sqM) Glucose (74-99) mg/dL Plasma Lactic Acid Sergio 1.2 (0.7-2.0) mmol/L Calcium (8.4-10.2) mg/dL Total Bilirubin (0.2-1.3) mg/dL AST (14-36) U/L ALT (9-52) U/L Alkaline Phosphatase (38-126) U/L Total Creatine Kinase (30-135) U/L CK-MB (CK-2) (0.0-2.4) ng/mL CK-MB (CK-2) Rel Index Troponin I (0.000-0.034) ng/mL Total Protein (6.3-8.2) g/dL Albumin (3.5-5.0) g/dL Amylase (30-110) U/L Lipase (23-300) U/L Urine Color Urine Appearance (Clear) Urine pH (5.0-8.0) Ur Specific [place] (1.001-1.035) Urine Protein (Negative) Urine Glucose (UA) (Negative) Urine Ketones (Negative) Urine Blood (Negative) Urine Nitrite (Negative) Urine Bilirubin (Negative) Urine Urobilinogen (<2.0) mg/dL Ur Leukocyte Esterase (Negative) Urine RBC (0-5) /hpf Urine WBC (0-5) /hpf Ur Squamous Epith Cells (0-4) /hpf Hyaline Casts (0-2) /lpf Urine Mucus (None) /hpf Disposition Clinical Impression: Dysuria Disposition: HOME SELF-CARE Condition: Good Instructions: Dysuria (ED) Referrals: Miguel Wilkes DO [Primary Care Provider] - 1-2 days Time of Disposition: 02:25
[2016-08-29 02:38] VITALS: BP 123/65; PULSE 78; RESP 18; TEMP 97.7
== END 2016-08-29 02:44 | disposition home or self-care (01) ==
LOC: EC 23:11
DX: R30.0 Dysuria (principal); R35.0 Frequency of micturition; R10.9 Unspecified abdominal pain; R93.3 Abnormal findings on diagnostic imaging of other parts of digestive tract; I10 Essential (primary) hypertension; E55.9 Vitamin D deficiency, unspecified; F20.9 Schizophrenia, unspecified; Z87.891 Personal history of nicotine dependence; Z79.899 Other long term (current) drug therapy; G30.9 Alzheimer's disease, unspecified; Z88.1 Allergy status to other antibiotic agents; Z88.5 Allergy status to narcotic agent; Z88.6 Allergy status to analgesic agent; Z88.8 Allergy status to other drugs, medicaments and biological substances; Z91.040 Latex allergy status; Z91.09 Other allergy status, other than to drugs and biological substances; Z87.440 Personal history of urinary (tract) infections
CPT/HCPCS: 36415; 80053; 82150; 82550; 82553; 83605; 83690; 84484; 85025; 85610; 85730; 81001; 87086; 74000; 99285; 96374; J2405

== ENCOUNTER 2016-10-20 07:08 | Day surgery (SDC) | payer MEDICARE, OTHER ==
[2016-10-19 14:12] VITALS: BMI 26.6
[~2016-10-20 07:08] MED LIST: DEXAMETHASONE SOD PHOSPHATE 10 MG/ML 1 ML VIAL IV ONE; HEPARIN SODIUM,PORCINE 5,000 UNIT/ML 1 ML VIAL SQ ONE; HYDROmorphone 1 MG/ML 1 ML SYRINGE IVP PRN; LACTATED RINGERS 1,000 ML IV SCH; LIDOCAINE 1% 20 ML VIAL (10MG/ML) FOR IV START INTRADERMA PRN; ONDANSETRON 4 MG/2 ML VIAL IVP ONE; Pre Op ABX Message 1 EACH MISC MISCELLANE ONE
[2016-10-20 09:11] LABS: Glucose,Whole Blood 84 mg/dL (75-99)
[2016-10-20] MEDS ORDERED: LIDOCAINE 1% INJ 10MG/ML (20 ML MDV) ONE (10:34)
[2016-10-20] MEDS ORDERED: fentaNYL (PF) 50 MCG/ML 2 ML AMP ONE (10:34)
[2016-10-20] MEDS ORDERED: PROPOFOL 10 MG/ML 20 ML VIAL IV ONE (10:34)
[2016-10-20] MEDS ORDERED: SUCCINYLCHOLINE CHLORIDE 100 MG/5 ML SYR IV ONE (10:34)
[2016-10-20] MEDS ORDERED: MIDAZOLAM 2 MG/2 ML VIAL ONE (10:34)
[2016-10-20] MEDS ORDERED: ePHEDrine SULFATE/0.9% NACL/PF 50 MG/5 ML SYRINGE IV ONE (10:34)
[2016-10-20] MEDS ORDERED: BUPIVACAINE (PF) 0.25% 30 ML VIAL SQ ONE ×2 (10:59)
--- NOTE | 2016-10-20 11:33 | P.OP ---
Date of Procedure: 10/20/16 Preoperative Diagnosis: Left upper back lipoma Postoperative Diagnosis: Left upper back lipoma Procedure(s) Performed: Excision of the left upper back lipoma Deep subcutaneous extending intramuscular. Anesthesia: CORNELLA Surgeon: Fredis Howard Pathology: other Operative Findings: There by 4.5 cm x 2.5 cm lobular lipoma was intramuscular and deep subcutaneous Description of Procedure: Patient name 6-year-old female who presented with painful swelling in the left upper back. She was diagnosed as having a lipoma. Patient had had preoperative operating holding area and appropriate consent was obtained using the operating room placed in left lateral decubitus position after anesthesia. There was prepped and draped in usual sterile surgical fashion after appropriate timeout. After introduction local anesthesia and incision was made in the transverse direction with the help of a 15 blade and the skin and subcutis tissue with the help of electrocautery exposing the deep subcutaneous lipoma. Bleeding particularly careful not to transect through the lipoma capsule was dissected from surrounding tissue the left cautery and blunt dissection and noted to be arm intramuscular. Started with the electrocautery and was completely removed and submitted for pathology. Mrs. secured with the help of electrocautery and subcutis tissue was closed with interrupted 3-0 Vicryl skin was closed 4-0 Monocryl and Dermabond was applied. Patient was extubated and taken to recovery room in stable condition after the application of appropriate pressure dressing. Patient tolerated procedure well though no complications. Plan - Discharge Summary New Discharge Prescriptions: New Ibuprofen [Motrin] 800 mg PO Q8H PRN #20 tab PRN Reason: Pain No Action Donepezil [Aricept] 10 mg PO BID Multivitamins, Thera [Multivitamin] 1 tab PO DAILY Cholecalciferol [Vitamin D3] 2,000 unit PO BID Atorvastatin [Lipitor] 20 mg PO HS traMADol HCL/ACETAMINOPHEN [Ultracet 37.5-325] 1 tab PO TID PRN PRN Reason: Pain Pepto-Bismol Puentes Chew 1 tab PO BID Melatonin 10 mg PO HS Carvedilol [Coreg] 3.125 mg PO BID amLODIPine [Norvasc] 2.5 mg PO HS hydrOXYzine HCL 25 mg PO HS QUEtiapine FUMARATE [SEROquel] 100 mg PO HS Sennosides [Senna] 8.6 mg PO HS QUEtiapine FUMARATE [SEROquel] 400 mg PO HS Sulfamethox-Tmp 800-160Mg [Bactrim Ds] 1 each PO Q12HR #6 tab [place]-3 Fatty Acids/Fish Oil [Fish Oil 1,000 mg Softgel] 1 each PO DAILY Loperamide [Imodium] 2 mg PO DAILY PRN PRN Reason: Diarrhea Discharge Medication List Cholecalciferol [Vitamin D3] 2,000 unit PO BID 08/23/13 [History] Donepezil [Aricept] 10 mg PO BID 08/23/13 [History] Multivitamins, Thera [Multivitamin] 1 tab PO DAILY 08/23/13 [History] Atorvastatin [Lipitor] 20 mg PO HS 04/12/15 [History] Pepto-Bismol Puentes Chew 1 tab PO BID 07/30/15 [History] traMADol HCL/ACETAMINOPHEN [Ultracet 37.5-325] 1 tab PO TID PRN 07/30/15 [ History] Carvedilol [Coreg] 3.125 mg PO BID 12/25/15 [History] Melatonin 10 mg PO HS 12/25/15 [History] amLODIPine [Norvasc] 2.5 mg PO HS 12/25/15 [History] hydrOXYzine HCL 25 mg PO HS 03/19/16 [History] QUEtiapine FUMARATE [SEROquel] 100 mg PO HS 06/06/16 [History] QUEtiapine FUMARATE [SEROquel] 400 mg PO HS 06/06/16 [History] Sennosides [Senna] 8.6 mg PO HS 06/06/16 [History] Sulfamethox-Tmp 800-160Mg [Bactrim Ds] 1 each PO Q12HR #6 tab 06/11/16 [Rx] Loperamide [Imodium] 2 mg PO DAILY PRN 10/19/16 [History] [place]-3 Fatty Acids/Fish Oil [Fish Oil 1,000 mg Softgel] 1 each PO DAILY [History] Ibuprofen [Motrin] 800 mg PO Q8H PRN #20 tab 10/20/16 [Rx] Follow up Appointment(s)/Referral(s): Fredis Howard MD [STAFF PHYSICIAN] - 2 Weeks Activity/Diet/Wound Care/Special Instructions: regular diet ambulate a tolerated. Shower in 24 hours Discharge Disposition: HOME SELF-CARE
[2016-10-20 11:36] VITALS: RESP 16; TEMP 97.1
[2016-10-20] MEDS ORDERED: ACETAMINOPHEN TAB 325 MG TAB PO ONE (12:34)
[2016-10-20] MEDS ORDERED: traMADol 50 MG TAB PO ONE (12:34)
[2016-10-20 12:44] VITALS: BP 151/72; PULSE 86
== END 2016-10-20 13:20 ==
LOC: OR 07:08
PROVIDERS: ATTEND Surgery
DX: D17.1 Benign lipomatous neoplasm of skin and subcutaneous tissue of trunk (principal); F09 Unspecified mental disorder due to known physiological condition; F20.9 Schizophrenia, unspecified; F31.9 Bipolar disorder, unspecified; G60.9 Hereditary and idiopathic neuropathy, unspecified; I10 Essential (primary) hypertension; K21.9 Gastro-esophageal reflux disease without esophagitis; E11.9 Type 2 diabetes mellitus without complications; I73.9 Peripheral vascular disease, unspecified; E78.2 Mixed hyperlipidemia; K58.9 Irritable bowel syndrome, unspecified; I45.10 Unspecified right bundle-branch block; J44.9 Chronic obstructive pulmonary disease, unspecified; E55.9 Vitamin D deficiency, unspecified; R56.9 Unspecified convulsions; Z79.82 Long term (current) use of aspirin; Z79.899 Other long term (current) drug therapy; Z88.6 Allergy status to analgesic agent; Z88.1 Allergy status to other antibiotic agents; Z88.5 Allergy status to narcotic agent; Z88.8 Allergy status to other drugs, medicaments and biological substances; Z87.891 Personal history of nicotine dependence; Z91.048 Other nonmedicinal substance allergy status; Z91.040 Latex allergy status
CPT/HCPCS: 88304; 21932; J2250; J1644; J1100; J2405; J2001; J3010; J0330; J2704

== ENCOUNTER 2016-11-26 09:04 | Emergency (ER) | payer MEDICARE, OTHER ==
[2016-11-26] MEDS ORDERED: IPRATROPIUM-ALBUTEROL 3 ML NEB INHALATION STA (09:51)
--- NOTE | 2016-11-26 10:12 | ED ---
URI HPI - General Chief Complaint: Upper Respiratory Infection Stated Complaint: Allergies Time Seen by Provider: 11/26/16 09:18 Source: patient, EMS, RN notes reviewed Mode of arrival: EMS Limitations: no limitations - History of Present Illness Initial Comments: 76-year-old female presents emergency Department chief complaint of ALLERGIES. Patient states that she's had increased sees no ALLERGIES issues. She does take Claritin 10 mg daily. She states is not helping and she is requesting Flonase. Patient states that she believes she has bronchitis that she has a productive cough at times. She states she has noticed some wheezing. Denies smoking. Patient also complains urinary frequency though she states is a chronic problem. She states that medicines that she's taken in the past for have not helped. Patient denies fever, chills, chest pain, vomiting diarrhea constipation. - Related Data Home Medications Medication Instructions Recorded Confirmed Cholecalciferol [Vitamin D3] 2,000 unit PO BID 08/23/13 10/20/16 Donepezil [Aricept] 10 mg PO BID 08/23/13 10/20/16 Multivitamins, Thera [Multivitamin] 1 tab PO DAILY 08/23/13 10/20/16 Atorvastatin [Lipitor] 20 mg PO HS 04/12/15 10/20/16 Pepto-Bismol Puentes Chew 1 tab PO BID 07/30/15 10/20/16 traMADol HCL/ACETAMINOPHEN 1 tab PO TID PRN 07/30/15 10/20/16 [Ultracet 37.5-325] Carvedilol [Coreg] 3.125 mg PO BID 12/25/15 10/20/16 Melatonin 10 mg PO HS 12/25/15 10/20/16 amLODIPine [Norvasc] 2.5 mg PO HS 12/25/15 10/20/16 hydrOXYzine HCL 25 mg PO HS 03/19/16 10/20/16 QUEtiapine FUMARATE [SEROquel] 100 mg PO HS 06/06/16 10/20/16 QUEtiapine FUMARATE [SEROquel] 400 mg PO HS 06/06/16 10/20/16 Sennosides [Senna] 8.6 mg PO HS 06/06/16 10/20/16 Loperamide [Imodium] 2 mg PO DAILY PRN 10/19/16 10/20/16 [place]-3 Fatty Acids/Fish Oil [Fish 1 each PO DAILY 10/19/16 10/20/16 Oil 1,000 mg Softgel] Previous Rx's Medication Instructions Recorded Sulfamethox-Tmp 800-160Mg [Bactrim 1 each PO Q12HR #6 tab 06/11/16 Ds] Ibuprofen [Motrin] 800 mg PO Q8H PRN #20 tab 10/20/16 Azithromycin [Zithromax Z-pack] 0 mg PO DIRECTED #1 pack 11/26/16 Fluticasone Nasal [place] [Flonase 2 spr EA NOSTRIL DAILY #1 bottle 11/26/16 Nasal [place]] methylPREDNISolone [Medrol Dose 4 mg PO DIRECTED #1 pack 11/26/16 Pack] Allergies Allergy/AdvReac Type Severity Reaction Status Date / Time adhesive tape Allergy Unknown Verified 11/26/16 09:08 cephalexin monohydrate Allergy Unknown Verified 11/26/16 09:08 [From Keflex] fluoxetine HCl [From Prozac] Allergy Unknown Verified 11/26/16 09:08 ketorolac tromethamine Allergy Unknown Verified 11/26/16 09:08 [From Toradol] latex Allergy Unknown Verified 11/26/16 09:08 phenelzine sulfate Allergy Unknown Verified 11/26/16 09:08 [From Nardil] Phenothiazines Allergy Unknown Verified 11/26/16 09:08 propoxyphene napsylate Allergy Unknown Verified 11/26/16 09:08 [From Darvocet-N 100] Review of Systems ROS Statement: Those systems with pertinent positive or pertinent negative responses have been documented in the HPI. ROS Other: All systems not noted in ROS Statement are negative. Past Medical History Past Medical History: COPD, GERD/Reflux, Hypertension, Seizure Disorder Additional Past Medical History / Comment(s): back pain, Alzheimers, vitamin D deficiency, right bundle branch block History of Any Multi-Drug Resistant Organisms: None Reported Past Surgical History: Orthopedic Surgery Past Anesthesia/Blood Transfusion Reactions: Unable to Obtain Past Psychological History: Schizophrenia Smoking Status: Former smoker Past Alcohol Use History: None Reported Past Drug Use History: None Reported - Past Family History Mother Family Medical History: Unable to Obtain General Exam General appearance: alert, in no apparent distress Head exam: Present: atraumatic, normocephalic, normal inspection Eye exam: Present: normal appearance, PERRL, EOMI. Absent: scleral icterus, conjunctival injection, periorbital swelling ENT exam: Present: normal exam, normal oropharynx, mucous membranes moist, TM's normal bilaterally, normal external ear exam Neck exam: Present: normal inspection, full ROM. Absent: tenderness, meningismus, lymphadenopathy Respiratory exam: Present: wheezes. Absent: normal lung sounds bilaterally, respiratory distress, rales, rhonchi, stridor Cardiovascular Exam: Present: regular rate, normal rhythm, normal heart sounds. Absent: systolic murmur, diastolic murmur, rubs, gallop, clicks GI/Abdominal exam: Present: soft, normal bowel sounds. Absent: distended, tenderness, guarding, rebound, rigid Course Vital Signs 11/26/16 11/26/16 11/26/16 09:09 09:54 10:00 Temperature 98 F Pulse Rate 60 74 74 Respiratory 16 16 16 Rate Blood Pressure 165/85 O2 Sat by Pulse 98 Oximetry Medical Decision Making - Medical Decision Making 76-year-old female presented emergency from for cough congestion. Patient has atelectasis noted on x-ray. Patient has acute bronchitis and will be started on Steroids, antibiotics. Patient also some proteinuria which she states she's had this in the past but did recommend that she needs to follow up for 24-hour urine protein. Return parameters were discussed. - Lab Data Lab Results 11/26/16 Range/Units 11:05 Urine Color Yellow Urine Appearance Clear (Clear) Urine pH 6.5 (5.0-8.0) Ur Specific [place] 1.021 (1.001-1.035) Urine Protein 3+ H (Negative) Urine Glucose (UA) Negative (Negative) Urine Ketones Negative (Negative) Urine Blood Trace H (Negative) Urine Nitrite Negative (Negative) Urine Bilirubin Negative (Negative) Urine Urobilinogen <2.0 (<2.0) mg/dL Ur Leukocyte Esterase Negative (Negative) Urine RBC 4 (0-5) /hpf Urine WBC 4 (0-5) /hpf Ur Squamous Epith Cells 1 (0-4) /hpf Urine Bacteria Rare H (None) /hpf Hyaline Casts 1 (0-2) /lpf Urine Mucus Occasional H (None) /hpf Disposition Clinical Impression: Urinary frequency, Acute bronchitis Disposition: HOME SELF-CARE Condition: Stable Instructions: Acute Bronchitis (ED) Additional Instructions: Please return to the Emergency Department if symptoms worsen or any other concerns. Prescriptions: Azithromycin [Zithromax Z-pack] 0 mg PO DIRECTED #1 pack Fluticasone Nasal [place] [Flonase Nasal [place]] 2 spr EA NOSTRIL DAILY #1 bottle methylPREDNISolone [Medrol Dose Pack] 4 mg PO DIRECTED #1 pack Referrals: Todd Rushnig MD [Primary Care Provider] - 1-2 days Time of Disposition: 11:22
--- NOTE | 2016-11-26 10:35 | XR ---
EXAMINATION TYPE: XR chest 2V DATE OF EXAM: 11/26/2016 HISTORY: Cough. REFERENCE: Previous study dated 12/25/2015. FINDINGS: There is chronic volume loss in the right hemithorax. There is some platelike atelectasis i n the right midlung. The lungs are otherwise clear. Pleural space are clear. The heart is not enlarge d. IMPRESSION: PLATELIKE ATELECTASIS, RIGHT MIDLUNG.
[2016-11-26 11:17] LABS: Appearance,Urine Clear (Clear); Bacteria,Urine Rare /hpf; Bilirubin,Urine Negative (Negative); Glucose,Urine (UA) Negative (Negative); Ketones,Urine Negative (Negative); Leukocyte Esterase,Urine Negative (Negative); Mucus,Urine Occasional /hpf; Nitrite,Urine Negative (Negative); PH, Urine 6.5 (5.0-8.0); Particle Count 4153; Protein,Urine 3+ (Negative); RBC,Urine 4 /hpf (0-5); Specific Gravity,Urine 1.021 (1.001-1.035); Squamous Epithelial Cell,Urine 1 /hpf (0-4); UA Billing (MACRO vs. MICRO) MICRO; Urobilinogen,Urine <2.0 mg/dL (<2.0); WBC,Urine 4 /hpf (0-5)
[2016-11-26 11:42] VITALS: BP 169/82; PULSE 78; RESP 18; TEMP 97.4
== END 2016-11-26 13:00 | disposition home or self-care (01) ==
LOC: EC 09:04
DX: J20.9 Acute bronchitis, unspecified (principal); R35.0 Frequency of micturition; K21.9 Gastro-esophageal reflux disease without esophagitis; I10 Essential (primary) hypertension; G40.909 Epilepsy, unspecified, not intractable, without status epilepticus; F20.9 Schizophrenia, unspecified; Z87.891 Personal history of nicotine dependence; Z79.899 Other long term (current) drug therapy; Z88.1 Allergy status to other antibiotic agents; Z88.5 Allergy status to narcotic agent; Z88.6 Allergy status to analgesic agent; Z91.040 Latex allergy status; Z91.018 Allergy to other foods; Z88.8 Allergy status to other drugs, medicaments and biological substances
CPT/HCPCS: 71020; 81001; 94640; 99284

== ENCOUNTER 2017-04-24 16:31 | Emergency (ER) | payer MEDICARE, OTHER ==
[2017-04-24 16:42] VITALS: BP 155/75; PULSE 77; RESP 18; TEMP 98.5
[2017-04-24 17:20] LABS: Basophils % (A) 1 %; Eosinophils # (A) 0.3 k/uL (0-0.7); Eosinophils % (A) 6 %; HCT 40.7 % (34.0-46.0); HGB 12.9 gm/dL (11.4-16.0); Lymphocytes # (A) 1.8 k/uL (1.0-4.8); Lymphocytes % (A) 32 %; MCH 26.5 pg (25.0-35.0); MCHC 31.8 g/dL (31.0-37.0); MCV 83.4 fL (80.0-100.0); Mean Platelet Volume 7.2; Monocytes # (A) 0.5 k/uL (0-1.0); Monocytes % (A) 10 %; Neutrophils # (A) 2.6 k/uL (1.3-7.7); Neutrophils % (A) 48 %; Platelet Count 269 k/uL (150-450); RBC 4.88 m/uL (3.80-5.40); RDW 15.1 % (11.5-15.5); WBC 5.5 k/uL (3.8-10.6)
[2017-04-24 17:22] LABS: Appearance,Urine Cloudy (Clear); Bacteria,Urine Occasional /hpf; Bilirubin,Urine Negative (Negative); Blood,Urine Moderate (Negative); Color,Urine Yellow; Glucose,Urine (UA) Negative (Negative); Ketones,Urine Negative (Negative); Leukocyte Esterase,Urine Trace (Negative); Mucus,Urine Rare /hpf; Nitrite,Urine Negative (Negative); Protein,Urine 2+ (Negative); RBC,Urine 141 /hpf (0-5); Specific Gravity,Urine 1.015 (1.001-1.035); Squamous Epithelial Cell,Urine 1 /hpf (0-4); Urobilinogen,Urine <2.0 mg/dL (<2.0); WBC,Urine 40 /hpf (0-5)
[2017-04-24 17:31] LABS: Amphetamine Screen,Urine Not Detected (NotDetected); Barbiturate Screen,Urine Not Detected (NotDetected); Benzodiazepines Screen,Urine Not Detected (NotDetected); Cocaine Screen,Urine Not Detected (NotDetected); Methadone Screen, Urine Not Detected (NotDetected); Opiate Screen,Urine Detected (NotDetected); Oxycodone Screen, Urine Not Detected (NotDetected); Phencyclidine Screen,Urine Not Detected (NotDetected); Tricyclic Antidepressant,Urine Detected (NotDetected); Urn Cannabinoid Scrn Not Detected (NotDetected)
--- NOTE | 2017-04-24 17:32 | ED ---
General Adult HPI - General Source: patient, RN notes reviewed, old records reviewed Mode of arrival: EMS Limitations: no limitations <Vivek Lal - Last Filed: 04/24/17 17:31> <Pal Gonzalez - Last Filed: 04/24/17 22:36> - General Chief complaint: Altered Mental Status Stated complaint: Mental Health Eval Time Seen by Provider: 04/24/17 16:36 - History of Present Illness Initial comments: This 76-year-old female for evaluation today. He presents today for evaluation because she is hearing and seeing spirits. Patient denies focal suicide or homicide. Denies new drugs or alcohol (Vivek Lal) - Related Data Home Medications Medication Instructions Recorded Confirmed Cholecalciferol [Vitamin D3] 2,000 unit PO BID@0900,1700 08/23/13 04/24/17 Donepezil [Aricept] 10 mg PO BID@0900,2100 08/23/13 04/24/17 Multivitamins, Thera [Multivitamin] 1 tab PO DAILY@0900 08/23/13 04/24/17 Atorvastatin [Lipitor] 20 mg PO HS@2100 04/12/15 04/24/17 Carvedilol [Coreg] 3.125 mg PO BID@0900,2100 12/25/15 04/24/17 Melatonin 10 mg PO HS@2100 12/25/15 04/24/17 amLODIPine [Norvasc] 2.5 mg PO HS@2100 12/25/15 04/24/17 QUEtiapine FUMARATE [SEROquel] 100 mg PO HS@2100 06/06/16 04/24/17 QUEtiapine FUMARATE [SEROquel] 400 mg PO HS@2100 06/06/16 04/24/17 Loperamide [Imodium] 2 mg PO DAILY PRN 10/19/16 04/24/17 [place]-3 Fatty Acids/Fish Oil [Fish 1 cap PO DAILY@0900 10/19/16 04/24/17 Oil 1,000 mg Softgel] Acetaminophen [Tylenol] 650 mg PO Q6H PRN 04/24/17 04/24/17 Albuterol Nebulized [Ventolin 2.5 mg INHALATION RT-Q6H PRN 04/24/17 04/24/17 Nebulized] Bismuth Subsalicylate [Kaopectate] 262 mg PO BID@0900,209904/24/17 04/24/17 Ciprofloxacin HCl [Cipro] 250 mg PO BID@0900,209904/24/17 04/24/17 Ciprofloxacin HCl [Cipro] 250 mg PO ONCE PRN 04/24/17 04/24/17 Divalproex [Depakote] 250 mg PO DAILY@1700 04/24/17 04/24/17 HYDROcodone/APAP 5-325MG [[place] 1 tab PO BID@0900,209904/24/17 04/24/17 5-325] Loratadine 10 mg PO HS@209904/24/17 04/24/17 Nitrofurantoin Monohyd/M-Cryst 100 mg PO BID@0900,1700 04/24/17 04/24/17 [Macrobid] QUEtiapine [SEROquel] 200 mg PO BID@0900,1700 04/24/17 04/24/17 Sodium Chloride [[place]] 1 spray EA NOSTRIL DAILY PRN 04/24/17 04/24/17 guaiFENesin [guaiFENesin Oral 200 mg PO Q4H 04/24/17 04/24/17 Solution] traZODone HCL 25 mg PO HS@209904/24/17 04/24/17 Allergies Allergy/AdvReac Type Severity Reaction Status Date / Time adhesive tape Allergy Unknown Verified 04/24/17 17:07 cephalexin monohydrate Allergy Unknown Verified 04/24/17 17:07 [From Keflex] fluoxetine HCl [From Prozac] Allergy Unknown Verified 04/24/17 17:07 ketorolac tromethamine Allergy Unknown Verified 04/24/17 17:07 [From Toradol] latex Allergy Unknown Verified 04/24/17 17:07 phenelzine sulfate Allergy Unknown Verified 04/24/17 17:07 [From Nardil] Phenothiazines Allergy Unknown Verified 04/24/17 17:07 propoxyphene napsylate Allergy Unknown Verified 04/24/17 17:07 [From Darvocet-N 100] Review of Systems ROS Other: All systems not noted in ROS Statement are negative. <Vivek Lal - Last Filed: 04/24/17 17:31> ROS Other: All systems not noted in ROS Statement are negative. <Pal Gonzalez - Last Filed: 04/24/17 22:36> ROS Statement: Those systems with pertinent positive or pertinent negative responses have been documented in the HPI. Past Medical History Past Medical History: COPD, GERD/Reflux, Hypertension, Seizure Disorder Additional Past Medical History / Comment(s): back pain, Alzheimers, vitamin D deficiency, right bundle branch block History of Any Multi-Drug Resistant Organisms: ESBL Date of last positivie culture/infection: 04/20/17 MDRO Source:: ESBL URINE Past Surgical History: Orthopedic Surgery Past Anesthesia/Blood Transfusion Reactions: Unable to Obtain Past Psychological History: Schizophrenia Smoking Status: Former smoker Past Alcohol Use History: None Reported Past Drug Use History: None Reported - Past Family History Mother Family Medical History: Unable to Obtain <Vivek Lal - Last Filed: 04/24/17 17:31> General Exam Limitations: no limitations <Vivek Lal - Last Filed: 04/24/17 17:31> Course <Vivek Lal - Last Filed: 04/24/17 17:31> <Pal Gonzalez - Last Filed: 04/24/17 22:36> Vital Signs 04/24/17 16:37 Temperature 98.5 F Pulse Rate 77 Respiratory 18 Rate Blood Pressure 155/75 O2 Sat by Pulse 98 Oximetry - Reevaluation(s) Reevaluation #1: 04/24/17 17:32 Patient is medically clear for psychiatric evaluation (Vivek Lal) Medical Decision Making <Vivek Lal - Last Filed: 04/24/17 17:31> - Lab Data Result diagrams: 04/24/17 17:09 04/24/17 17:09 <Pal Gonzalez - Last Filed: 04/24/17 22:36> - Medical Decision Making 76 yo female signed out by previous physician awaiting EPS evaluation for hallucinations. Patient does have history of mental illness, she follows with [facility]. She is evaluated by EPS emergency department, and his tremor patient is stable for discharge. Urinalysis does show signs of infection , she will be treated for cystitis and UTI. Patient will be discharged to the detention. Patient and her family are comfortable with this plan. (Pal Gonzalez) - Lab Data Lab Results 04/24/17 04/24/17 04/24/17 Range/Units 17:09 17:09 17:09 WBC 5.5 (3.8-10.6) k/uL RBC 4.88 (3.80-5.40) m/uL Hgb 12.9 (11.4-16.0) gm/dL Hct 40.7 (34.0-46.0) % MCV 83.4 (80.0-100.0) fL MCH 26.5 (25.0-35.0) pg MCHC 31.8 (31.0-37.0) g/dL RDW 15.1 (11.5-15.5) % Plt Count 269 (150-450) k/uL Neutrophils % 48 % Lymphocytes % 32 % Monocytes % 10 % Eosinophils % 6 % Basophils % 1 % Neutrophils # 2.6 (1.3-7.7) k/uL Lymphocytes # 1.8 (1.0-4.8) k/uL Monocytes # 0.5 (0-1.0) k/uL Eosinophils # 0.3 (0-0.7) k/uL Basophils # 0.0 (0-0.2) k/uL Sodium 145 (137-145) mmol/L Potassium 4.6 (3.5-5.1) mmol/L Chloride 106 (98-107) mmol/L Carbon Dioxide 27 (22-30) mmol/L Anion Gap 12 mmol/L BUN 23 H (7-17) mg/dL Creatinine 0.83 (0.52-1.04) mg/dL Est GFR (CKD-EPI)AfAm 80 (>60 ml/min/1.73 sqM) Est GFR (CKD-EPI)NonAf 69 (>60 ml/min/1.73 sqM) Glucose 100 H (74-99) mg/dL Calcium 10.4 H (8.4-10.2) mg/dL Phosphorus 3.5 (2.5-4.5) mg/dL Magnesium 2.0 (1.6-2.3) mg/dL Total Bilirubin 0.3 (0.2-1.3) mg/dL AST 34 (14-36) U/L ALT 25 (9-52) U/L Alkaline Phosphatase 90 (38-126) U/L Total Protein 6.9 (6.3-8.2) g/dL Albumin 4.0 (3.5-5.0) g/dL Urine Color Yellow Urine Appearance Cloudy H (Clear) Urine pH 8.0 (5.0-8.0) Ur Specific [place] 1.015 (1.001-1.035) Urine Protein 2+ H (Negative) Urine Glucose (UA) Negative (Negative) Urine Ketones Negative (Negative) Urine Blood Moderate H (Negative) Urine Nitrite Negative (Negative) Urine Bilirubin Negative (Negative) Urine Urobilinogen <2.0 (<2.0) mg/dL Ur Leukocyte Esterase Trace H (Negative) Urine RBC 141 H (0-5) /hpf Urine WBC 40 H (0-5) /hpf Ur Squamous Epith Cells 1 (0-4) /hpf Urine Bacteria Occasional H (None) /hpf Urine Mucus Rare H (None) /hpf Salicylates <1.0 mg/dL Urine Opiates Screen Detected H (NotDetected) Ur Oxycodone Screen Not Detected (NotDetected) Urine Methadone Screen Not Detected (NotDetected) Ur Propoxyphene Screen Not Detected (NotDetected) Acetaminophen <10.0 ug/mL Ur Barbiturates Screen Not Detected (NotDetected) U Tricyclic Antidepress Detected H (NotDetected) Ur Phencyclidine Scrn Not Detected (NotDetected) Ur Amphetamines Screen Not Detected (NotDetected) U Methamphetamines Scrn Not Detected (NotDetected) U Benzodiazepines Scrn Not Detected (NotDetected) Urine Cocaine Screen Not Detected (NotDetected) U Marijuana (THC) Screen Not Detected (NotDetected) Serum Alcohol <10 mg/dL Disposition <Vivek Lal - Last Filed: 04/24/17 17:31> Time of Disposition: 22:36 <Pal Gonzalez - Last Filed: 04/24/17 22:36> Clinical Impression: Urinary tract infection, Delirium due to general medical condition Disposition: HOME SELF-CARE Condition: Good Instructions: Urinary Tract Infection in Women (ED) Referrals: Todd Rushing MD [Primary Care Provider] - 1-2 days
[2017-04-24 17:37] LABS: ALT 25 U/L (9-52); AST 34 U/L (14-36); Acetaminophen <10.0 ug/mL; Alcohol <10 mg/dL; Alkaline Phosphatase 90 U/L (38-126); Anion Gap 12 mmol/L; Blood Urea Nitrogen 23 mg/dL (7-17); Calcium 10.4 mg/dL (8.4-10.2); Carbon Dioxide 27 mmol/L (22-30); Chloride 106 mmol/L (98-107); Glucose 100 mg/dL (74-99); Phosphorus 3.5 mg/dL (2.5-4.5); Potassium 4.6 mmol/L (3.5-5.1); Salicylate <1.0 mg/dL; Sodium 145 mmol/L (137-145); Total Bilirubin 0.3 mg/dL (0.2-1.3); Total Protein 6.9 g/dL (6.3-8.2)
[2017-04-24] MEDS ORDERED: NITROFURANTOIN MONOHYD/M-CRYST 100 MG CAP PO STA (20:54)
[2017-04-24] MEDS ORDERED: NITROFURANTOIN MONOHYD/M-CRYST 100 MG CAP PO SCH (21:00)
== END 2017-04-24 23:19 | disposition home or self-care (01) ==
LOC: EC 16:31
DX: N39.0 Urinary tract infection, site not specified (principal); F05 Delirium due to known physiological condition; G40.909 Epilepsy, unspecified, not intractable, without status epilepticus; I10 Essential (primary) hypertension; G30.9 Alzheimer's disease, unspecified; E55.9 Vitamin D deficiency, unspecified; F20.9 Schizophrenia, unspecified; Z87.891 Personal history of nicotine dependence; Z79.891 Long term (current) use of opiate analgesic; Z79.899 Other long term (current) drug therapy; Z88.1 Allergy status to other antibiotic agents; Z88.5 Allergy status to narcotic agent; Z88.6 Allergy status to analgesic agent; Z88.8 Allergy status to other drugs, medicaments and biological substances; Z91.040 Latex allergy status; Z91.048 Other nonmedicinal substance allergy status; Z87.39 Personal history of other diseases of the musculoskeletal system and connective tissue
CPT/HCPCS: 36415; 80053; 80306; 80320; 81001; 83520; 83735; 84100; 85025; 99285

== ENCOUNTER 2017-07-05 22:30 | Emergency (ER) | payer MEDICARE, OTHER ==
[2017-07-05 22:44] VITALS: TEMP 98.9
[2017-07-06 00:04] VITALS: BP 117/56; PULSE 77; RESP 18
[2017-07-06 00:09] LABS: Appearance,Urine Cloudy (Clear); Bacteria,Urine Many /hpf; Bilirubin,Urine Negative (Negative); Blood,Urine Negative (Negative); Color,Urine Yellow; Glucose,Urine (UA) Negative (Negative); Hyaline Casts,Urine 5 /lpf (0-2); Ketones,Urine Negative (Negative); Leukocyte Esterase,Urine Large (Negative); Mucus,Urine Occasional /hpf; Nitrite,Urine Positive (Negative); PH, Urine 6.5 (5.0-8.0); Protein,Urine 1+ (Negative); RBC,Urine 2 /hpf (0-5); Specific Gravity,Urine 1.021 (1.001-1.035); Squamous Epithelial Cell,Urine 4 /hpf (0-4); Urobilinogen,Urine <2.0 mg/dL (<2.0); WBC,Urine 155 /hpf (0-5)
[2017-07-06] MEDS ORDERED: ACETAMINOPHEN TAB 325 MG TAB PO STA (00:18)
[2017-07-06 00:48] LABS: Basophils % (A) 1 %; Eosinophils # (A) 0.3 k/uL (0-0.7); Eosinophils % (A) 5 %; HCT 39.5 % (34.0-46.0); HGB 12.7 gm/dL (11.4-16.0); Lymphocytes # (A) 1.8 k/uL (1.0-4.8); Lymphocytes % (A) 36 %; MCV 84.2 fL (80.0-100.0); Mean Platelet Volume 6.9; Monocytes # (A) 0.5 k/uL (0-1.0); Monocytes % (A) 9 %; Neutrophils # (A) 2.3 k/uL (1.3-7.7); Neutrophils % (A) 46 %; Platelet Count 252 k/uL (150-450); RBC 4.69 m/uL (3.80-5.40); RDW 15.5 % (11.5-15.5); WBC 5.1 k/uL (3.8-10.6)
[2017-07-06] MEDS ORDERED: CIPROFLOXACIN HCL 500 MG TAB PO STA (00:52)
--- NOTE | 2017-07-06 00:55 | ED ---
General Adult HPI - General Chief complaint: Recheck/Abnormal Lab/Rx Stated complaint: Back pain Time Seen by Provider: 07/06/17 00:03 Source: patient, EMS Mode of arrival: EMS Limitations: no limitations - History of Present Illness Initial comments: 6 years O female complaining about pain in the supine. The area denies any fever or chills she said she also has pain in the lower back area she denies any trauma any fall recently. Denies any headache no neck stiffness no chest pain or shortness of breath no nausea no vomiting no sinus symptoms of TIA or CVA - Related Data Home Medications Medication Instructions Recorded Confirmed Cholecalciferol [Vitamin D3] 2,000 unit PO BID@0900,17008/23/13 07/05/17 Donepezil [Aricept] 10 mg PO BID@0900,209908/23/13 07/05/17 Multivitamins, Thera [Multivitamin] 1 tab PO DAILY@89908/23/13 07/05/17 Atorvastatin [Lipitor] 20 mg PO HS@209904/12/15 07/05/17 Carvedilol [Coreg] 3.125 mg PO BID@0900,209912/25/15 07/05/17 Melatonin 10 mg PO HS@209912/25/15 07/05/17 amLODIPine [Norvasc] 2.5 mg PO HS@209912/25/15 07/05/17 QUEtiapine FUMARATE [SEROquel] 400 mg PO HS@209906/06/16 07/05/17 Loperamide [Imodium] 2 mg PO DAILY PRN 10/19/16 07/05/17 [place]-3 Fatty Acids/Fish Oil [Fish 1 cap PO DAILY@89910/19/16 07/05/17 Oil 1,000 mg Softgel] Acetaminophen [Tylenol] 650 mg PO Q6H PRN 04/24/17 07/05/17 Albuterol Nebulized [Ventolin 2.5 mg INHALATION RT-Q6H PRN 04/24/17 07/05/17 Nebulized] Bismuth Subsalicylate [Kaopectate] 262 mg PO BID@0900,209904/24/17 07/05/17 Divalproex [Depakote] 250 mg PO DAILY@169904/24/17 07/05/17 HYDROcodone/APAP 5-325MG [[place] 1 tab PO BID@0900,2100 04/24/17 07/05/17 5-325] Loratadine 10 mg PO HS@209904/24/17 07/05/17 Sodium Chloride [[place]] 1 spray EA NOSTRIL DAILY PRN 04/24/17 07/05/17 guaiFENesin [guaiFENesin Oral 200 mg PO Q4H 04/24/17 07/05/17 Solution] traZODone HCL 25 mg PO HS@2100 04/24/17 07/05/17 QUEtiapine FUMARATE [SEROquel] 200 mg PO BID@0900,1700 07/05/17 07/05/17 Allergies Allergy/AdvReac Type Severity Reaction Status Date / Time adhesive tape Allergy Unknown Verified 07/05/17 23:07 cephalexin monohydrate Allergy Unknown Verified 07/05/17 23:07 [From Keflex] fluoxetine HCl [From Prozac] Allergy Unknown Verified 07/05/17 23:07 ketorolac tromethamine Allergy Unknown Verified 07/05/17 23:07 [From Toradol] latex Allergy Unknown Verified 07/05/17 23:07 phenelzine sulfate Allergy Unknown Verified 07/05/17 23:07 [From Nardil] Phenothiazines Allergy Unknown Verified 07/05/17 23:07 propoxyphene napsylate Allergy Unknown Verified 07/05/17 23:07 [From Darvocet-N 100] Review of Systems ROS Statement: Those systems with pertinent positive or pertinent negative responses have been documented in the HPI. ROS Other: All systems not noted in ROS Statement are negative. Past Medical History Past Medical History: COPD, GERD/Reflux, Hypertension, Seizure Disorder Additional Past Medical History / Comment(s): back pain, Alzheimers, vitamin D deficiency, right bundle branch block History of Any Multi-Drug Resistant Organisms: ESBL Date of last positivie culture/infection: 04/20/17 MDRO Source:: ESBL URINE Past Surgical History: Orthopedic Surgery Past Anesthesia/Blood Transfusion Reactions: Unable to Obtain Past Psychological History: Schizophrenia Smoking Status: Former smoker Past Alcohol Use History: None Reported Past Drug Use History: None Reported - Past Family History Mother Family Medical History: Unable to Obtain General Exam - General Exam Comments Initial Comments: General: The patient is awake and alert, in no distress, and does not appear acutely ill. GCS is 15 Skin: Skin is warm and dry and no rashes or lesions are noted. Eye: Pupils are equal, round and reactive to light, extra-ocular movements are intact; there is normal conjunctiva bilaterally. Ears, nose, mouth and throat: There are moist mucous membranes and no oral lesions. Neck: The neck is supple, there is no tenderness or JVD. Cardiovascular: There is a regular rate and rhythm. No murmur, rub or gallop is appreciated. Respiratory: To auscultation bilateral, no wheezing no rhonchi no distress respiratory rose noticed Gastrointestinal: Tender over the suprapubic area apart from that rest of the abdomen is fine positive bowel sounds no guarding no rebounds Back: There is no tenderness to palpation in the midline. There is no obvious deformity. Musculoskeletal: Normal ROM, no tenderness, There is no pedal edema. There is no calf tenderness or swelling. No cords were appreciated. Neurological: CN II-XII intact, Cranial nerves III through XII are intact. There are no obvious motor or sensory deficits. Coordination appears grossly intact. Speech is normal. Psychiatric: Cooperative, appropriate mood & affect, normal judgment. Limitations: no limitations Course Vital Signs 07/05/17 07/06/17 22:41 00:03 Temperature 98.9 F Pulse Rate 76 77 Respiratory 16 18 Rate Blood Pressure 137/65 117/56 O2 Sat by Pulse 91 L 94 L Oximetry Medical Decision Making - Lab Data Result diagrams: 07/06/17 00:34 07/06/17 00:34 Lab Results 07/05/17 07/06/17 07/06/17 Range/Units 23:47 00:34 00:34 WBC 5.1 (3.8-10.6) k/uL RBC 4.69 (3.80-5.40) m/uL Hgb 12.7 (11.4-16.0) gm/dL Hct 39.5 (34.0-46.0) % MCV 84.2 (80.0-100.0) fL MCH 27.0 (25.0-35.0) pg MCHC 32.0 (31.0-37.0) g/dL RDW 15.5 (11.5-15.5) % Plt Count 252 (150-450) k/uL Neutrophils % 46 % Lymphocytes % 36 % Monocytes % 9 % Eosinophils % 5 % Basophils % 1 % Neutrophils # 2.3 (1.3-7.7) k/uL Lymphocytes # 1.8 (1.0-4.8) k/uL Monocytes # 0.5 (0-1.0) k/uL Eosinophils # 0.3 (0-0.7) k/uL Basophils # 0.0 (0-0.2) k/uL Sodium 147 H (137-145) mmol/L Potassium 4.2 (3.5-5.1) mmol/L Chloride 108 H (98-107) mmol/L Carbon Dioxide 28 (22-30) mmol/L Anion Gap 11 mmol/L BUN 28 H (7-17) mg/dL Creatinine 0.80 (0.52-1.04) mg/dL Est GFR (CKD-EPI)AfAm 83 (>60 ml/min/1.73 sqM) Est GFR (CKD-EPI)NonAf 72 (>60 ml/min/1.73 sqM) Glucose 90 (74-99) mg/dL Calcium 10.2 (8.4-10.2) mg/dL Total Bilirubin 0.2 (0.2-1.3) mg/dL AST 26 (14-36) U/L ALT 35 (9-52) U/L Alkaline Phosphatase 74 (38-126) U/L Total Protein 6.1 L (6.3-8.2) g/dL Albumin 3.6 (3.5-5.0) g/dL Amylase 57 (30-110) U/L Lipase 133 (23-300) U/L Urine Color Yellow Urine Appearance Cloudy H (Clear) Urine pH 6.5 (5.0-8.0) Ur Specific [place] 1.021 (1.001-1.035) Urine Protein 1+ H (Negative) Urine Glucose (UA) Negative (Negative) Urine Ketones Negative (Negative) Urine Blood Negative (Negative) Urine Nitrite Positive H (Negative) Urine Bilirubin Negative (Negative) Urine Urobilinogen <2.0 (<2.0) mg/dL Ur Leukocyte Esterase Large H (Negative) Urine RBC 2 (0-5) /hpf Urine WBC 155 H (0-5) /hpf Ur Squamous Epith Cells 4 (0-4) /hpf Urine Bacteria Many H (None) /hpf Hyaline Casts 5 H (0-2) /lpf Urine Mucus Occasional H (None) /hpf Disposition Clinical Impression: Cystitis Disposition: HOME SELF-CARE Condition: Good Is patient prescribed a controlled substance at d/c from ED?: No Referrals: Charles Adames MD [Primary Care Provider] - 1-2 days
[2017-07-06] MEDS ORDERED: CIPROFLOXACIN HCL 500 MG TAB ONE (01:00)
[2017-07-06 06:00] LABS: Albumin 3.6 g/dL (3.5-5.0); Calcium 10.2 mg/dL (8.4-10.2); Potassium 4.2 mmol/L (3.5-5.1); Total Bilirubin 0.2 mg/dL (0.2-1.3); Total Protein 6.1 g/dL (6.3-8.2)
--- NOTE | 2017-07-06 06:24 | XR ---
EXAM: XR Abdomen, 2 Views CLINICAL HISTORY: Poor historian, bladder pain. TECHNIQUE: Frontal supine view of the abdomen/pelvis. Two images were obtained. COMPARISON: Radiograph dated 08/29/2016. FINDINGS: Intraperitoneal space: Coarse calcification located centrally in the pelvis measuring approximately 3 cm. Surgical clips in the right upper quadrant and right lateral abdominal region. Gastrointestinal tract: Nonspecific and nonobstructive bowel gas pattern. Bones/joints: Osseous degenerative changes. Osseous structures appear intact. IMPRESSION: 1. Stable coarse calcification located centrally in the pelvis measuring approximately 3 cm. This may represent a calcified uterine fibroid although bladder calculus is not excluded. Recommend correlation with prior CT or US imaging if available. 2. Postsurgical changes in the right abdomen. 3. Nonspecific and nonobstructive bowel gas pattern.
== END 2017-07-06 05:10 | disposition home or self-care (01) ==
LOC: EC 22:30
DX: J44.9 Chronic obstructive pulmonary disease, unspecified (principal); I10 Essential (primary) hypertension; E55.9 Vitamin D deficiency, unspecified; G30.9 Alzheimer's disease, unspecified; F20.9 Schizophrenia, unspecified; Z87.891 Personal history of nicotine dependence; Z79.02 Long term (current) use of antithrombotics/antiplatelets; Z79.891 Long term (current) use of opiate analgesic; Z79.899 Other long term (current) drug therapy; Z91.048 Other nonmedicinal substance allergy status; Z88.1 Allergy status to other antibiotic agents; Z88.8 Allergy status to other drugs, medicaments and biological substances; Z88.6 Allergy status to analgesic agent; Z91.040 Latex allergy status; Z88.5 Allergy status to narcotic agent; N30.90 Cystitis, unspecified without hematuria
CPT/HCPCS: 36415; 74018; 80053; 81001; 82150; 83690; 85025; 99284

== ENCOUNTER → 2017-07-10 | Outpatient (CLI) | payer MEDICARE, OTHER ==
--- NOTE | 2017-07-11 13:16 | MM ---
Reason for exam: screening (asymptomatic). Last mammogram was performed 3 years and 3 months ago. History: Patient is postmenopausal and has history of breast cancer at age 67. Benign US breast aspiration single LT of the left breast, April 17, 2014. Excisional biopsy of the right breast, April 18, 2008. Malignant US right guided VAD of the right breast, April 11, 2008. Benign stereotactic core biopsy of the right breast, June 05, 1998. Core biopsy of the right breast. Excisional biopsy of the left breast. Physical Findings: A clinical breast exam by your physician is recommended on an annual basis and results should be correlated with mammographic findings. MG 3D Screening Mammo W/Cad Bilateral CC and MLO view(s) were taken. Prior study comparison: April 17, 2014, left breast MG diagnostic mammo LT wo CAD. March 20, 2014, left breast MG work up mamm w CAD LT. There are scattered fibroglandular densities. Finding: There is a typically benign 18 mm high density, oval mass in the upper outer quadrant of the left breast, previously aspirated. ASSESSMENT: Benign, BI-RAD 2 RECOMMENDATION: Routine screening mammogram of both breasts in 1 year.
== END | disposition home or self-care (01) ==
LOC: RADMAMWWP 14:42
PROVIDERS: ATTEND Family Medicine
DX: Z12.31 Encounter for screening mammogram for malignant neoplasm of breast (principal)
CPT/HCPCS: 77063; 77067

== ENCOUNTER 2018-01-09 17:41 | Inpatient (IN) | payer MEDICARE, OTHER ==
[2018-01-09] MEDS ORDERED: SODIUM CHLORIDE 0.9% 1,000 ML IV STA ×2 (18:01)
--- NOTE | 2018-01-09 18:01 | ED ---
Female Urogenital HPI - General Chief complaint: Urogenital Stated complaint: UTI Time Seen by Provider: 01/09/18 17:53 Source: patient, RN notes reviewed, old records reviewed Mode of arrival: EMS Limitations: no limitations - History of Present Illness Initial comments: This is a 77-year-old female the ER for evaluation of back pain, dysuria, frequency. No fevers no abdominal pain. Patient states she was recently diagnosed with urinary tract infection started on antibiotics, her pain is increased. Patient is a poor strain secondary to history of psychiatric illness MD Complaint: dysuria, other (back pain) -: week(s) Location: other (back) Radiation: non-radiating Severity: moderate Severity scale (1-10): 4 Quality: aching Consistency: constant Improves with: none Worsens with: urination Patient : No Associated Symptoms: abdominal pain, weakness - Related Data Home Medications Medication Instructions Recorded Confirmed Cholecalciferol [Vitamin D3] 2,000 unit PO BID@0900,1700 08/23/13 01/09/18 Donepezil [Aricept] 10 mg PO BID@0900,2100 08/23/13 01/09/18 Multivitamins, Thera [Multivitamin] 1 tab PO DAILY@0900 08/23/13 01/09/18 Atorvastatin [Lipitor] 20 mg PO HS@2100 04/12/15 01/09/18 Carvedilol [Coreg] 3.125 mg PO BID@0900,2100 12/25/15 01/09/18 Melatonin 10 mg PO HS@2100 12/25/15 01/09/18 amLODIPine [Norvasc] 2.5 mg PO HS@2100 12/25/15 01/09/18 QUEtiapine FUMARATE [SEROquel] 400 mg PO HS@2100 06/06/16 01/09/18 [place]-3 Fatty Acids/Fish Oil [Fish 1 cap PO DAILY@0900 10/19/16 01/09/18 Oil 1,000 mg Softgel] Acetaminophen [Tylenol] 650 mg PO Q6H PRN 04/24/17 01/09/18 Albuterol Nebulized [Ventolin 2.5 mg INHALATION RT-Q6H PRN 04/24/17 01/09/18 Nebulized] Bismuth Subsalicylate [Kaopectate] 262 mg PO BID@0900,2100 04/24/17 01/09/18 Divalproex [Depakote] 250 mg PO DAILY@1700 04/24/17 01/09/18 HYDROcodone/APAP 5-325MG [[place] 1 tab PO TID PRN 04/24/17 01/09/18 5-325] Loratadine 10 mg PO HS@2100 04/24/17 01/09/18 QUEtiapine FUMARATE [SEROquel] 200 mg PO BID@0900,1700 07/05/17 01/09/18 QUEtiapine [SEROquel] 100 mg PO HS@2100 01/09/18 01/09/18 Allergies Allergy/AdvReac Type Severity Reaction Status Date / Time adhesive tape Allergy Unknown Verified 01/09/18 17:57 ceftriaxone [From Rocephin] Allergy Rash/Hives Verified 01/09/18 19:05 cephalexin monohydrate Allergy Unknown Verified 01/09/18 17:57 [From Keflex] fluoxetine HCl [From Prozac] Allergy Unknown Verified 01/09/18 17:57 ketorolac tromethamine Allergy Unknown Verified 01/09/18 17:57 [From Toradol] latex Allergy Unknown Verified 01/09/18 17:57 phenelzine sulfate Allergy Unknown Verified 01/09/18 17:57 [From Nardil] Phenothiazines Allergy Unknown Verified 01/09/18 17:57 propoxyphene napsylate Allergy Unknown Verified 01/09/18 17:57 [From Darvocet-N 100] Review of Systems ROS Statement: Those systems with pertinent positive or pertinent negative responses have been documented in the HPI. ROS Other: All systems not noted in ROS Statement are negative. Past Medical History Past Medical History: COPD, Dementia, GERD/Reflux, Hypertension, Seizure Disorder Additional Past Medical History / Comment(s): back pain, Alzheimers, vitamin D deficiency, right bundle branch block History of Any Multi-Drug Resistant Organisms: ESBL Date of last positivie culture/infection: 07/19/17 MDRO Source:: ESBL URINE Past Surgical History: Orthopedic Surgery Past Anesthesia/Blood Transfusion Reactions: Unable to Obtain Past Psychological History: Schizophrenia Smoking Status: Former smoker Past Alcohol Use History: None Reported Past Drug Use History: None Reported - Past Family History Mother Family Medical History: Unable to Obtain General Exam Limitations: no limitations General appearance: alert, in no apparent distress Head exam: Present: atraumatic, normocephalic, normal inspection Eye exam: Present: normal appearance, PERRL, EOMI. Absent: scleral icterus, conjunctival injection, periorbital swelling ENT exam: Present: normal exam, mucous membranes moist Neck exam: Present: normal inspection. Absent: tenderness, meningismus, lymphadenopathy Respiratory exam: Present: normal lung sounds bilaterally. Absent: respiratory distress, wheezes, rales, rhonchi, stridor Cardiovascular Exam: Present: regular rate, normal rhythm, normal heart sounds. Absent: systolic murmur, diastolic murmur, rubs, gallop, clicks GI/Abdominal exam: Present: soft, normal bowel sounds. Absent: distended, tenderness, guarding, rebound, rigid Extremities exam: Present: normal inspection, full ROM, normal capillary refill. Absent: tenderness, pedal edema, joint swelling, calf tenderness Back exam: Present: normal inspection Neurological exam: Present: alert, oriented X3, CN II-XII intact Psychiatric exam: Present: normal affect, normal mood Skin exam: Present: warm, dry, intact, normal color. Absent: rash Course Vital Signs 01/09/18 17:56 Temperature 97.8 F Pulse Rate 86 Respiratory 18 Rate Blood Pressure 131/67 O2 Sat by Pulse 96 Oximetry - Reevaluation(s) Reevaluation #1: 01/09/18 20:03 Medical record is reviewed Reevaluation #2: 01/09/18 20:03 Outpatient testing is reviewed Reevaluation #3: 01/09/18 20:03 Patient still complaining of back pain Medical Decision Making - Medical Decision Making 77 female is a poor strain coming in for ER for evaluation of persistent UTI, UTI symptoms 3 weeks started antibiotics yesterday, pain is improved increased to today, patient will be admitted for IV antibiotics - Lab Data Result diagrams: 01/09/18 18:24 01/09/18 18:24 Lab Results 01/09/18 01/09/18 01/09/18 Range/Units 18:00 18:24 18:24 WBC 5.2 (3.8-10.6) k/uL RBC 4.83 (3.80-5.40) m/uL Hgb 13.0 (11.4-16.0) gm/dL Hct 41.2 (34.0-46.0) % MCV 85.2 (80.0-100.0) fL MCH 26.9 (25.0-35.0) pg MCHC 31.6 (31.0-37.0) g/dL RDW 15.2 (11.5-15.5) % Plt Count 252 (150-450) k/uL Neutrophils % 48 % Lymphocytes % 35 % Monocytes % 8 % Eosinophils % 6 % Basophils % 1 % Neutrophils # 2.5 (1.3-7.7) k/uL Lymphocytes # 1.8 (1.0-4.8) k/uL Monocytes # 0.4 (0-1.0) k/uL Eosinophils # 0.3 (0-0.7) k/uL Basophils # 0.0 (0-0.2) k/uL Sodium 143 (137-145) mmol/L Potassium 4.6 (3.5-5.1) mmol/L Chloride 109 H (98-107) mmol/L Carbon Dioxide 26 (22-30) mmol/L Anion Gap 8 mmol/L BUN 21 H (7-17) mg/dL Creatinine 0.71 (0.52-1.04) mg/dL Est GFR (CKD-EPI)AfAm >90 (>60 ml/min/1.73 sqM) Est GFR (CKD-EPI)NonAf 83 (>60 ml/min/1.73 sqM) Glucose 104 H (74-99) mg/dL Calcium 10.3 H (8.4-10.2) mg/dL Total Bilirubin 0.5 (0.2-1.3) mg/dL AST 34 (14-36) U/L ALT 18 (9-52) U/L Alkaline Phosphatase 93 (38-126) U/L Total Protein 6.9 (6.3-8.2) g/dL Albumin 3.8 (3.5-5.0) g/dL Amylase 55 (30-110) U/L Lipase 119 (23-300) U/L Urine Color Yellow Urine Appearance Clear (Clear) Urine pH 6.5 (5.0-8.0) Ur Specific [place] 1.016 (1.001-1.035) Urine Protein Trace H (Negative) Urine Glucose (UA) Negative (Negative) Urine Ketones Negative (Negative) Urine Blood Negative (Negative) Urine Nitrite Negative (Negative) Urine Bilirubin Negative (Negative) Urine Urobilinogen <2.0 (<2.0) mg/dL Ur Leukocyte Esterase Large H (Negative) Urine RBC 2 (0-5) /hpf Urine WBC 52 H (0-5) /hpf Ur Squamous Epith Cells 4 (0-4) /hpf Urine Bacteria Many H (None) /hpf Urine Mucus Occasional H (None) /hpf - Radiology Data Radiology results: report reviewed (CT abdomen pelvis), image reviewed Disposition Clinical Impression: Urinary tract infection, Urinary frequency, Back pain Disposition: ADMITTED IP TO THIS HOSP Condition: Fair Is patient prescribed a controlled substance at d/c from ED?: No Referrals: Todd Rushing MD [Primary Care Provider] - 1-2 days
[2018-01-09] MEDS ORDERED: cefTRIAXone 2,000 MG in SODIUM CHLORIDE 0.9% 100 ML IVPB STA (18:03)
[2018-01-09 18:13] LABS: Appearance,Urine Clear (Clear); Bacteria,Urine Many /hpf; Bilirubin,Urine Negative (Negative); Blood,Urine Negative (Negative); Color,Urine Yellow; Glucose,Urine (UA) Negative (Negative); Ketones,Urine Negative (Negative); Leukocyte Esterase,Urine Large (Negative); Mucus,Urine Occasional /hpf; Nitrite,Urine Negative (Negative); PH, Urine 6.5 (5.0-8.0); Protein,Urine Trace (Negative); RBC,Urine 2 /hpf (0-5); Specific Gravity,Urine 1.016 (1.001-1.035); Squamous Epithelial Cell,Urine 4 /hpf (0-4); Urobilinogen,Urine <2.0 mg/dL (<2.0); WBC,Urine 52 /hpf (0-5)
[2018-01-09] MEDS ORDERED: MORPHINE SULFATE 4 MG/ML SYRINGE IVP STA (18:32)
[2018-01-09 18:39] LABS: Basophils % (A) 1 %; Eosinophils # (A) 0.3 k/uL (0-0.7); Eosinophils % (A) 6 %; HCT 41.2 % (34.0-46.0); Lymphocytes # (A) 1.8 k/uL (1.0-4.8); Lymphocytes % (A) 35 %; MCH 26.9 pg (25.0-35.0); MCHC 31.6 g/dL (31.0-37.0); MCV 85.2 fL (80.0-100.0); Mean Platelet Volume 6.7; Monocytes # (A) 0.4 k/uL (0-1.0); Monocytes % (A) 8 %; Neutrophils # (A) 2.5 k/uL (1.3-7.7); Neutrophils % (A) 48 %; Platelet Count 252 k/uL (150-450); RBC 4.83 m/uL (3.80-5.40); RDW 15.2 % (11.5-15.5); WBC 5.2 k/uL (3.8-10.6)
[2018-01-09 18:45] LABS: ALT 18 U/L (9-52); AST 34 U/L (14-36); Albumin 3.8 g/dL (3.5-5.0); Alkaline Phosphatase 93 U/L (38-126); Amylase 55 U/L (30-110); Anion Gap 8 mmol/L; Blood Urea Nitrogen 21 mg/dL (7-17); Calcium 10.3 mg/dL (8.4-10.2); Carbon Dioxide 26 mmol/L (22-30); Chloride 109 mmol/L (98-107); Glucose 104 mg/dL (74-99); Lipase 119 U/L (23-300); Potassium 4.6 mmol/L (3.5-5.1); Sodium 143 mmol/L (137-145); Total Bilirubin 0.5 mg/dL (0.2-1.3); Total Protein 6.9 g/dL (6.3-8.2)
[2018-01-09] MEDS ORDERED: SODIUM CHLORIDE 0.9% 1,000 ML IV ONE (20:01)
[2018-01-09] MEDS ORDERED: LEVOFLOXACIN 750MG-D5W PMX 750 MG in DEXTROSE/WATER 1 150ML.BAG IVPB STA (20:01)
[2018-01-09] MEDS ORDERED: QUEtiapine 400 MG TAB PO SCH (21:00)
--- NOTE | 2018-01-09 21:19 | CT ---
EXAMINATION TYPE: CT abdomen pelvis wo con DATE OF EXAM: 01/09/2018 COMPARISON: 08/07/2015 HISTORY: pain, UTI CT DLP: 662 mGycm Automated exposure control for dose reduction was used. TECHNIQUE: Helical acquisition of images was performed from the lung bases through the pelvis. FINDINGS: There is some patchy atelectasis at the right lung base. There is mild pleural thickening right poste rior lung base. There are clips apparently from cholecystectomy. There is 4 cm rounded low-density fo cus in the posterior right lobe of the liver. Bile ducts are not dilated. There is no evidence of spl enic mass. There is no pancreatic mass. Stomach appears normal. There is no adrenal mass. Kidneys show left-sided calcifications that could b e mostly vascular. Abdominal aorta is atheromatous. There is no retroperitoneal adenopathy. Bladder d istends smoothly. There is no free fluid in the pelvis. There is no inguinal hernia. There is no sign of pelvic mass. There is no intestinal wall thickening. There are no dilated loops. There is no mese nteric edema. There are some dilated vessels over the anterior lower abdomen. This could be collatera l flow from venous occlusive disease. IMPRESSION: MULTIPLE NONOBSTRUCTING LEFT RENAL CALCIFICATIONS. THIS IS NOT SIGNIFICANTLY DIFFERENT THAN OLD EXAM. NO RENAL OBSTRUCTION. Varicose veins over the anterior lower abdomen. Low-density liver mass in the posterior right lobe is probably a cyst and unchanged compared to old exam.
[2018-01-09] MEDS ORDERED: ALBUTEROL NEBULIZED 2.5 MG/3 ML INHALATION PRN (23:09)
[2018-01-09] MEDS ORDERED: ACETAMINOPHEN TAB 325 MG TAB PO PRN (23:09)
[2018-01-10] MEDS: amLODIPine 2.5 MG TAB PO SCH ×2 (00:29→20:35)
[2018-01-10] MEDS: QUEtiapine 100 MG TAB PO SCH ×2 (00:29→20:37)
[2018-01-10] MEDS: ATORVASTATIN 20 MG TAB PO SCH ×2 (00:29→20:35)
[2018-01-10] MEDS: MORPHINE SULFATE 4 MG/ML SYRINGE IVP PRN ×2 (00:33→08:54)
[2018-01-10 06:17] VITALS: BMI 29.6
[2018-01-10] MEDS: CHOLECALCIFEROL 1,000 UNIT TAB PO SCH ×2 (08:12→16:23)
[2018-01-10] MEDS: DONEPEZIL 10 MG TAB PO SCH ×2 (08:12→20:35)
[2018-01-10] MEDS: QUEtiapine 200 MG TAB PO SCH ×3 (08:12→20:37)
[2018-01-10] MEDS: ENOXAPARIN 40 MG/0.4 ML SYRINGE SQ SCH (08:12)
[2018-01-10] MEDS: MULTIVITAMINS, THERA 1 EACH TAB PO SCH (08:12)
[2018-01-10] MEDS: ACETAMINOPHEN TAB 500 MG TAB PO SCH (17:47)
[2018-01-10] MEDS: BACLOFEN 10 MG TAB PO SCH ×2 (17:47→20:42)
[2018-01-10] MEDS: NAPROXEN 250 MG TAB PO SCH ×2 (17:47→20:41)
--- NOTE | 2018-01-10 17:52 | HP ---
HISTORY AND PHYSICAL DATE OF ADMISSION: 01/09/2018 DATE OF SERVICE: 01/10/2018 PRESENTING COMPLAINT: Urinary frequency. HISTORY OF PRESENTING COMPLAINT: This is a 77-year-old patient who is a resident of [facility], being followed by Dr. Rushing. Chronic stable medical conditions include coronary artery disease, COPD, dementia, GERD, hypertension, seizure disorder, hypothyroid, vitamin D deficiency, right bundle branch block. The patient has had chronic low back pain. The patient also had a UTI with ESBL back in July of this year. The patient has been having more urinary frequency, dysuria and she was therefore admitted from the [facility] thru the EMS ambulance. Ambulance report states that the patient is able to actually get up from bed and walk to the stretcher. The patient denies any fever and chills. Appetite is okay. Does feel a bit weak and tired. Admitted for the same. REVIEW OF SYSTEM: CONSTITUTIONAL: Tired. HEENT none. RESPIRATORY: Occasionally short of breath. CARDIOVASCULAR: No chest pain. GASTROINTESTINAL: None. GENITOURINARY: Frequency, dysuria. MUSCULOSKELETAL: Chronic low back pain. HEMATOLOGICAL: None. LYMPHATICS: None. PSYCHIATRIC: A bit forgetful. The patient is paranoid about things. Nurse explains that the patient does not want to talk to people at times. Does not want to know people's names. NEUROLOGICAL: None. PAST MEDICAL HISTORY: Coronary artery disease, COPD, dementia, GERD, hypertension, seizure disorder, hypothyroid, chronic low back pain, Alzheimer's, vitamin D deficiency, right bundle branch block, cataract removal, hypothyroid, insomnia, epilepsy, history of DVT, ESBL infection. PAST SURGICAL HISTORY: Right leg fracture surgery. PSYCH HISTORY: History of depression, schizophrenia. SOCIAL HISTORY: Smoked in the past. No alcohol. Resident of [facility]. FAMILY HISTORY: Patient cannot remember. HOME MEDICATIONS: 1. [place] 5 one tablet p.o. t.i.d. p.r.n. 2. Vitamin D3 2000 units p.o. b.i.d. 3. Ventolin 2.5 inhalation every 6 hours p.r.n. 4. Seroquel 200 mg b.i.d. 5. Kaopectate 262 mg b.i.d. 6. Multivitamin 1 tablet p.o. daily. 7. Aricept 10 mg p.o. b.i.d. 8. Coreg 3.125 p.o. b.i.d. 9. Seroquel 400 mg p.o. q.h.s. 10.Seroquel 100 mg q.h.s. 11.Fish oil 1 capsule p.o. daily. 12.Melatonin 10 mg p.o. q.h.s. 13.Claritin 10 mg p.o. q.h.s. 14.Norvasc 2.5 mg p.o. at bedtime. 15.Depakote 250 mg p.o. daily. 16.Lipitor 20 mg q.h.s. ALLERGIES: TO ADHESIVES, CEFTRIAXONE, KEFLEX, AND PROZAC, KETOROLAC, LATEX, AND [QAMARKER] 100. EXAMINATION: VITAL SIGNS: Afebrile, pulse 86, respiratory 18, blood pressure 130/67, pulse ox 96% on room air. GENERAL APPEARANCE: Average build, lying in bed, a bit anxious-appearing. EYES: Pupils equal. Conjunctivae normal. HEENT: External appearance of nose and ears normal. Oral cavity normal. NECK: JVD not raised. Mass not palpable. Respiratory effort normal. LUNGS: Decreased breath sounds. CARDIOVASCULAR: 1st and 2nd sounds normal. No edema. ABDOMEN: Minimal suprapubic tenderness. Liver and spleen not palpable. LYMPHATICS: No lymph nodes palpable in neck or axillae. PSYCHIATRY: Patient is able answer simple questions. There is no tenderness in the renal angle. NEUROLOGICAL: Pupils equal. Cranial nerves grossly intact. Power and sensation grossly intact. MUSCULOSKELETAL: Evidence of osteoarthritis especially in the hands and knees. INVESTIGATIONS: White count 5.2, hemoglobin 13, potassium 4.6, BUN 21, creatinine 0.71. UA positive for leukocyte esterase, WBC. ASSESSMENT: 1. Acute urinary tract infection with cystitis. 2. Chronic low back pain, probably musculoskeletal. 3. Mild cognitive impairment from underlying probably late onset Alzheimer's dementia. 4. Coronary artery disease. 5. Chronic obstructive pulmonary disease in an ex-smoker. 6. Gastroesophageal reflux disease. 7. Hypertension. PLAN: Patient is started on Levaquin. For the patient's chronic back pain, we will start the patient on naproxen 250 mg 3 times a day. Also use baclofen for muscle spasms and heating pad. Other home medications are resumed. Urine was sent off for culture. Care was discussed with the patient. Because of patient's paranoia, will also get a psychiatry opinion. Patient on a rather hefty dose of Seroquel. Copy to Dr. Rushing. EKATERINA / SIMEON: [id number] /
[2018-01-10] MEDS ORDERED: LEVOFLOXACIN 750MG-D5W PMX 750 MG in DEXTROSE/WATER 1 150ML.BAG IVPB SCH (20:00)
--- NOTE | 2018-01-10 20:22 | XR ---
EXAMINATION TYPE: XR lumbosacral spine min 4V DATE OF EXAM: 01/10/2018 COMPARISON: 08/23/2013 HISTORY: Low back pain TECHNIQUE: 5 views FINDINGS: There is mild lumbar levoscoliosis. There is degenerative disc space narrowing throughout t he lumbar spine. There is vacuum disc phenomenon at multiple levels. There is no compression fracture . Sacroiliac joints are intact. IMPRESSION: Spondylotic changes with levoscoliosis. No fracture seen. No significant change compared to old exam.
[2018-01-10] MEDS: HYDROcodone/APAP 5-325MG 1 EACH TAB PO PRN (20:35)
[2018-01-10] MEDS: MELATONIN 5 MG TABLET PO SCH (20:37)
[2018-01-10] MEDS: DIVALPROEX 250 MG TABLET.DR PO SCH (20:38)
[2018-01-10] MEDS: CARVEDILOL 3.125 MG TAB PO SCH (20:44)
[2018-01-10] MEDS: BISMUTH SUBSALICYLATE 262 MG PO SCH (22:52)
[2018-01-11] MEDS: ACETAMINOPHEN TAB 500 MG TAB PO SCH ×4 (00:31→17:34)
[2018-01-11] MEDS: BACLOFEN 10 MG TAB PO SCH ×3 (09:15→20:01)
[2018-01-11] MEDS: CHOLECALCIFEROL 1,000 UNIT TAB PO SCH ×2 (09:16→17:33)
[2018-01-11] MEDS: CARVEDILOL 3.125 MG TAB PO SCH ×2 (09:16→20:02)
[2018-01-11] MEDS: BISMUTH SUBSALICYLATE 262 MG PO SCH ×2 (09:16→20:17)
[2018-01-11] MEDS: DONEPEZIL 10 MG TAB PO SCH ×2 (09:17→20:00)
[2018-01-11] MEDS: NAPROXEN 250 MG TAB PO SCH ×3 (09:17→20:01)
[2018-01-11] MEDS: ENOXAPARIN 40 MG/0.4 ML SYRINGE SQ SCH (09:17)
[2018-01-11] MEDS: QUEtiapine 200 MG TAB PO SCH ×3 (09:18→20:00)
[2018-01-11] MEDS: MULTIVITAMINS, THERA 1 EACH TAB PO SCH (12:28)
[2018-01-11] MEDS: DIVALPROEX 250 MG TABLET.DR PO SCH (17:34)
[2018-01-11] MEDS: HYDROcodone/APAP 5-325MG 1 EACH TAB PO PRN (19:39)
[2018-01-11] MEDS: MELATONIN 5 MG TABLET PO SCH (19:59)
[2018-01-11] MEDS ORDERED: LEVOFLOXACIN 750 MG TAB PO SCH (20:00)
[2018-01-11] MEDS: QUEtiapine 100 MG TAB PO SCH (20:00)
[2018-01-11] MEDS: ATORVASTATIN 20 MG TAB PO SCH (20:01)
[2018-01-11] MEDS: amLODIPine 2.5 MG TAB PO SCH (20:01)
--- NOTE | 2018-01-11 21:59 | PN ---
PROGRESS NOTE DATE OF SERVICE: 01/11/2018 PRESENTING COMPLAINT: Urinary frequency. INTERVAL HISTORY: This patient was admitted with acute UTI, cystitis, low back pain, x-rays confirming arthritis of the lumbar spine. Also awaiting psychiatry input for paranoia. Otherwise, tolerating a diet. Urine symptoms are a bit better. Lying in bed. REVIEW OF SYSTEMS: Done for constitutional, cardiovascular, GI, pulmonary; relevant findings as above. CURRENT MEDICATIONS: Reviewed. They include Levaquin. PHYSICAL EXAMINATION: VITAL SIGNS: Temperature 97.8, pulse 85, respiration 20, blood pressure 156/83, pulse ox 93% on room air. GENERAL APPEARANCE: Lying in bed, awake. EYES: Pupils equal. Conjunctivae normal. NECK: JVD not raised. Mass not palpable. RESPIRATORY: Effort normal. LUNGS: Decreased breath sounds. CARDIOVASCULAR: First and second sounds normal. No edema. ABDOMEN: Soft, non-tender. Liver and spleen not palpable. PSYCHIATRY: Awake. Does answer simple questions. INVESTIGATIONS: No blood work from today. Urine culture growing gram-negative bacilli. ASSESSMENT: 1. Acute urinary tract infection with cystitis growing gram-negative bacilli. 2. Chronic low back pain from lumbar osteoarthritis. 3. Mild cognitive impairment from underlying late-onset Alzheimer's dementia. 4. Coronary artery disease. 5. Chronic obstructive pulmonary disease in an ex-smoker. 6. Gastroesophageal reflux disease. 7. Hypertension. PLAN: Continue with current antibiotic. Patient's back pain is somewhat better. Awaiting input from Psychiatry. Care was discussed with the patient. MMODL / IJN: [id number] /
[2018-01-12] MEDS: ACETAMINOPHEN TAB 500 MG TAB PO SCH ×4 (02:19→17:12)
[2018-01-12] MEDS: HYDROcodone/APAP 5-325MG 1 EACH TAB PO PRN (06:19)
[2018-01-12 06:31] VITALS: BP 147/82; PULSE 81; RESP 18; TEMP 98.1
[2018-01-12] MEDS: BISMUTH SUBSALICYLATE 262 MG PO SCH (08:04)
[2018-01-12] MEDS: NAPROXEN 250 MG TAB PO SCH ×2 (08:12→15:25)
[2018-01-12] MEDS: DONEPEZIL 10 MG TAB PO SCH (08:12)
[2018-01-12] MEDS: CHOLECALCIFEROL 1,000 UNIT TAB PO SCH ×2 (08:12→17:11)
[2018-01-12] MEDS: CARVEDILOL 3.125 MG TAB PO SCH (08:12)
[2018-01-12] MEDS: BACLOFEN 10 MG TAB PO SCH ×2 (08:12→15:25)
[2018-01-12] MEDS: QUEtiapine 200 MG TAB PO SCH ×2 (08:12→17:11)
[2018-01-12] MEDS: MULTIVITAMINS, THERA 1 EACH TAB PO SCH (08:13)
[2018-01-12] MEDS: ENOXAPARIN 40 MG/0.4 ML SYRINGE SQ SCH (08:13)
--- NOTE | 2018-01-12 10:10 | P.CN ---
Psychiatric Consult - . Consult date: 01/12/18 Consult:: Lin 01/11/18 17:06 Assessment and Plan Assessment: This is a 77-year-old female the ER for evaluation of back pain, dysuria, frequency. No fevers no abdominal pain. Patient states she was recently diagnosed with urinary tract infection started on antibiotics, her pain is increased. Home Medications Medication Instructions Recorded Confirmed Cholecalciferol [Vitamin D3] 2,000 unit PO BID@0900,1700 08/23/13 01/09/18 Donepezil [Aricept] 10 mg PO BID@0900,209908/23/13 01/09/18 Multivitamins, Thera [Multivitamin] 1 tab PO DAILY@0900 08/23/13 01/09/18 Atorvastatin [Lipitor] 20 mg PO HS@209904/12/15 01/09/18 Carvedilol [Coreg] 3.125 mg PO BID@0900,209912/25/15 01/09/18 Melatonin 10 mg PO HS@209912/25/15 01/09/18 amLODIPine [Norvasc] 2.5 mg PO HS@209912/25/15 01/09/18 QUEtiapine FUMARATE [SEROquel] 400 mg PO HS@209906/06/16 01/09/18 [place]-3 Fatty Acids/Fish Oil [Fish 1 cap PO DAILY@0900 10/19/16 01/09/18 Oil 1,000 mg Softgel] Acetaminophen [Tylenol] 650 mg PO Q6H PRN 04/24/17 01/09/18 Albuterol Nebulized [Ventolin 2.5 mg INHALATION RT-Q6H PRN 04/24/17 01/09/18 Nebulized] Bismuth Subsalicylate [Kaopectate] 262 mg PO BID@0900,209904/24/17 01/09/18 Divalproex [Depakote] 250 mg PO DAILY@169904/24/17 01/09/18 HYDROcodone/APAP 5-325MG [[place] 1 tab PO TID PRN 04/24/17 01/09/18 5-325] Loratadine 10 mg PO HS@209904/24/17 01/09/18 QUEtiapine FUMARATE [SEROquel] 200 mg PO BID@0900,1700 07/05/17 01/09/18 QUEtiapine [SEROquel] 100 mg PO HS@2100 01/09/18 01/09/18 Allergies Allergy/AdvReac Type Severity Reaction Status Date / Time adhesive tape Allergy Unknown Verified 01/09/18 17:57 ceftriaxone [From Rocephin] Allergy Rash/Hives Verified 01/09/18 19:05 cephalexin monohydrate Allergy Unknown Verified 01/09/18 17:57 [From Keflex] fluoxetine HCl [From Prozac] Allergy Unknown Verified 01/09/18 17:57 ketorolac tromethamine Allergy Unknown Verified 01/09/18 17:57 [From Toradol] latex Allergy Unknown Verified 01/09/18 17:57 phenelzine sulfate Allergy Unknown Verified 01/09/18 17:57 [From Nardil] Phenothiazines Allergy Unknown Verified 01/09/18 17:57 propoxyphene napsylate Allergy Unknown Verified 01/09/18 17:57 [From Darvocet-N 100] Past Medical History Past Medical History: COPD, Dementia, GERD/Reflux, Hypertension, Seizure Disorder Additional Past Medical History / Comment(s): back pain, Alzheimers, vitamin D deficiency, right bundle branch block History of Any Multi-Drug Resistant Organisms: ESBL Date of last positivie culture/infection: 07/19/17 MDRO Source:: ESBL URINE Past Surgical History: Orthopedic Surgery Past Anesthesia/Blood Transfusion Reactions: Unable to Obtain Past Psychological History: Schizophrenia Smoking Status: Former smoker Past Alcohol Use History: None Reported Past Drug Use History: None Reported - Past Family History Mother Family Medical History: Unable to Obtain Mental Status Examination - General Appearance: [casual, bizarre, appears older than stated age, Speech/Language: [spontaneous, slow, monotone, expressive, soft] Attitude/Behavior: [cooperative, indifferent] Mood: [euthymic, anxious, elated Affect: [full range] Orientation: [not time, person, place situation] Thought Content: [wnl Risk Factors: [She is not suicidal (ideations, plan), and/or Homicidal ( ideations, plan), other] Perception: [ hallucinations (auditory which has been a lifelong not an acute issue Thought Processes: [goal-oriented, Concentration/Attention Span: [wnl] [Per observation and interview with the patient] Recent Memory: [wnl] [ 2 or 3 out of 3 in 3 minutes] Remote Memory: [wnl] [past events, as related history] Intelligence: [below average[based on history, based on vocabulary, syntax, grammar, and content] Judgement: [good] [per patient's behavior/history of present illness] Insight: [good [understanding severity of illness/history of present illness] Psychiatric impression: 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 exacerbating existing schizophrenia Psychiatric recommendations: Medical comorbidity needs to be treated and continues to be psychotic needs not to be transferred to the geriatric psych unit Thank you for the consult Lewis Samuel do PhD (1) Major neurocognitive disorder due to another medical condition with behavioral disturbance Current Visit: Yes Status: Acute Priority: High Code(s): F02.81 - DEMENTIA IN OTH DISEASES CLASSD ELSWHR W BEHAVIORAL DISTURB SNOMED Code(s): 279000337 (2) Urinary tract infection Current Visit: Yes Status: Acute Priority: High Code(s): N39.0 - URINARY TRACT INFECTION, SITE NOT SPECIFIED SNOMED Code(s): 25257532
[2018-01-12] MEDS ORDERED: NITROFURANTOIN MONOHYD/M-CRYST 100 MG CAP PO SCH (15:00)
--- NOTE | 2018-01-12 15:15 | DS ---
DISCHARGE SUMMARY DATE OF ADMISSION: 01/09/2018 DATE OF DISCHARGE: 01/12/2018 FINAL DIAGNOSES: 1. Acute urinary tract infection with cystitis growing Escherichia coli with extended- spectrum beta-lactamase. 2. Chronic low back pain from lumbar osteoarthritis. 3. Mild cognitive impairment from underlying late onset of Alzheimer's dementia. 4. Coronary artery disease. 5. Chronic obstructive pulmonary disease in an ex-smoker. 6. Gastroesophageal reflux disease. 7. Essential hypertension. 8. Acute psychosis exacerbation from underlying urinary tract infection, exacerbating existing schizophrenia. HOSPITAL COURSE: This patient presented with urinary frequency. Urine culture came back positive for E coli/ESBL. Antibiotic was switched to nitrofurantoin. Also for low back pain she was put on NSAIDs. Lumbar spine x-ray did confirm osteoarthritis. Doing much better right now. Care was discussed with the patient. CONSULTATION: Dr. Samuel from Psychiatry. No change in medications. PHYSICAL EXAMINATION: Temperature 98.1, pulse 81, respiration 18, blood pressure 127/82, pulse ox 93% on room air. LUNGS: Clear. PSYCH: Answering questions. INVESTIGATIONS: White count 5.2, hemoglobin 13. DISCHARGE MEDICATIONS: 1. Vitamin D3 2000 units p.o. b.i.d. 2. Aricept 10 mg b.i.d. 3. Multivitamin 1 tablet p.o. daily. 4. Lipitor 20 mg at bedtime. 5. Coreg 3.125 p.o. b.i.d. 6. Melatonin 10 mg at bedtime. 7. Norvasc 2.5 mg p.o. at bedtime. 8. Fish oil 1000 mg p.o. daily. 9. Tylenol 650 mg q.6 p.r.n. 10.Ventolin 2.5 q.6 p.r.n. 11.Kaopectate 262 mg p.o. b.i.d. 12.Depakote 250 mg p.o. daily at 5 p.m. 13.Baclofen 5 mg p.o. t.i.d. p.r.n. 14.[place] 5 one tablet p.o. t.i.d. p.r.n. 15.Naproxen 250 mg p.o. t.i.d. 16.Macrodantin 100 mg p.o. b.i.d. 17.Seroquel 200 mg b.i.d. 18.Seroquel 400 mg at bedtime. 19.Seroquel 100 mg at bedtime. DISPOSITION: [facility]. Follow up with Dr. Rushing at [facility]. EKATERINA / SIMEON: [id number] /
[2018-01-12] MEDS: DIVALPROEX 250 MG TABLET.DR PO SCH (17:11)
== END 2018-01-12 19:40 | DRG 690 ==
LOC: EC 17:41 → EEVIPCON 20:03 → 4MS4W 20:03
PROVIDERS: ADMIT Hospitalist; ATTEND Hospitalist
DX: N30.00 Acute cystitis without hematuria (principal); F02.81 Dementia in other diseases classified elsewhere, unspecified severity, with behavioral disturbance; J44.9 Chronic obstructive pulmonary disease, unspecified; F20.9 Schizophrenia, unspecified; F02.80 Dementia in other diseases classified elsewhere, unspecified severity, without behavioral disturbance, psychotic disturbance, mood disturbance, and anxiety; G30.1 Alzheimer's disease with late onset; I45.10 Unspecified right bundle-branch block; G40.909 Epilepsy, unspecified, not intractable, without status epilepticus; B96.20 Unspecified Escherichia coli [E. coli] as the cause of diseases classified elsewhere; E03.9 Hypothyroidism, unspecified; E55.9 Vitamin D deficiency, unspecified; G89.29 Other chronic pain; I10 Essential (primary) hypertension; I25.10 Atherosclerotic heart disease of native coronary artery without angina pectoris; K21.9 Gastro-esophageal reflux disease without esophagitis; F32.9 Major depressive disorder, single episode, unspecified; G47.00 Insomnia, unspecified; M47.816 Spondylosis without myelopathy or radiculopathy, lumbar region; Z79.899 Other long term (current) drug therapy; Z87.891 Personal history of nicotine dependence; Z86.718 Personal history of other venous thrombosis and embolism; Z88.1 Allergy status to other antibiotic agents; Z88.5 Allergy status to narcotic agent; Z88.8 Allergy status to other drugs, medicaments and biological substances; Z87.440 Personal history of urinary (tract) infections
CPT/HCPCS: 36415; 72110; 74176; 80053; 81001; 82150; 83690; 85025; 87077; 87086; 87186; 93005; 96361; 96365; 96367; 96375; 99285

== ENCOUNTER 2018-01-20 14:12 | Emergency (ER) | payer MEDICARE, OTHER ==
[2018-01-20 14:39] VITALS: TEMP 98.6
[2018-01-20 15:15] LABS: Basophils % (A) 1 %; Eosinophils # (A) 0.3 k/uL (0-0.7); Eosinophils % (A) 6 %; HCT 40.5 % (34.0-46.0); HGB 12.5 gm/dL (11.4-16.0); Hypochromasia Slight; Lymphocytes # (A) 1.6 k/uL (1.0-4.8); Lymphocytes % (A) 29 %; MCH 26.9 pg (25.0-35.0); MCV 86.7 fL (80.0-100.0); Mean Platelet Volume 7.1; Monocytes # (A) 0.5 k/uL (0-1.0); Monocytes % (A) 9 %; Neutrophils # (A) 2.8 k/uL (1.3-7.7); Neutrophils % (A) 51 %; Platelet Count 203 k/uL (150-450); RBC 4.67 m/uL (3.80-5.40); RDW 15.5 % (11.5-15.5); WBC 5.6 k/uL (3.8-10.6)
[2018-01-20] MEDS ORDERED: ACETAMINOPHEN TAB 500 MG TAB PO STA (15:19)
[2018-01-20 15:24] LABS: Albumin 3.7 g/dL (3.5-5.0); Calcium 10.3 mg/dL (8.4-10.2); Potassium 4.3 mmol/L (3.5-5.1); Total Bilirubin 0.5 mg/dL (0.2-1.3); Total Protein 6.8 g/dL (6.3-8.2)
--- NOTE | 2018-01-20 15:25 | ED ---
Abdominal Pain HPI - General Source: patient, EMS, old records reviewed Mode of arrival: EMS Limitations: altered mental status - History of Present Illness MD Complaint: abdominal pain -: days(s) Location: suprapubic Quality: aching Improves With: nothing Worsens With: nothing Associated Symptoms: denies other symptoms <Jasmin Stock - Last Filed: 01/20/18 15:22> <Hernandez Clark - Last Filed: 01/20/18 20:15> - General Chief Complaint: Abdominal Pain Stated Complaint: UTI Time Seen by Provider: 01/20/18 14:21 - History of Present Illness Initial Comments: 77-year-old female presents with lower abdominal pain that got worse today. [facility]. Patient has been treated for chronic UTIs over the last 2 weeks and 3 rounds of antibiotics and admission to this hospital. Patient states it's very painful in the suprapubic region. Patient denies any fever nausea vomiting or change of bowels. Patient does wear a depends. Patient denies any back pain. Patient also complaining of some chest pain as well. Patient was brought here by ambulance. Patient does have some dementia difficulty getting history from the patient. (Jasmin Stock) - Related Data Home Medications Medication Instructions Recorded Confirmed Cholecalciferol [Vitamin D3] 2,000 unit PO BID@0900,1700 08/23/13 01/09/18 Donepezil [Aricept] 10 mg PO BID@0900,2100 08/23/13 01/09/18 Multivitamins, Thera [Multivitamin 1 tab PO DAILY@0900 08/23/13 01/09/18 (formulary)] Atorvastatin [Lipitor] 20 mg PO HS@2100 04/12/15 01/09/18 Carvedilol [Coreg] 3.125 mg PO BID@0900,2100 12/25/15 01/09/18 Melatonin 10 mg PO HS@2100 12/25/15 01/09/18 amLODIPine [Norvasc] 2.5 mg PO HS@2100 12/25/15 01/09/18 [place]-3 Fatty Acids/Fish Oil [Fish 1 cap PO DAILY@0900 10/19/16 01/09/18 Oil 1,000 mg Softgel] Acetaminophen [Tylenol] 650 mg PO Q6H PRN 04/24/17 01/09/18 Albuterol Nebulized [Ventolin 2.5 mg INHALATION RT-Q6H PRN 04/24/17 01/09/18 Nebulized] Bismuth Subsalicylate [Kaopectate] 262 mg PO BID@0900,2100 04/24/17 01/09/18 Divalproex [Depakote] 250 mg PO DAILY@1700 04/24/17 01/09/18 Previous Rx's Medication Instructions Recorded Baclofen [Lioresal] 5 mg PO TID PRN tab 01/12/18 HYDROcodone/APAP 5-325MG [[place] 1 tab PO TID PRN #9 tab 01/12/18 5-325] Naproxen [Naprosyn] 250 mg PO TID #21 tab 01/12/18 Nitrofurantoin Macrocrystal 100 mg PO BID #14 cap 01/12/18 [Macrodantin] QUEtiapine FUMARATE [SEROquel] 200 mg PO BID@0900,1700 #6 tablet 01/12/18 QUEtiapine FUMARATE [SEROquel] 400 mg PO HS@2100 #3 tablet 01/12/18 QUEtiapine [SEROquel] 100 mg PO HS@2100 #3 tab 01/12/18 Allergies Allergy/AdvReac Type Severity Reaction Status Date / Time adhesive tape Allergy Unknown Verified 01/09/18 17:57 ceftriaxone [From Rocephin] Allergy Rash/Hives Verified 01/09/18 19:05 cephalexin monohydrate Allergy Unknown Verified 01/09/18 17:57 [From Keflex] fluoxetine HCl [From Prozac] Allergy Unknown Verified 01/09/18 17:57 ketorolac tromethamine Allergy Unknown Verified 01/09/18 17:57 [From Toradol] latex Allergy Unknown Verified 01/09/18 17:57 phenelzine sulfate Allergy Unknown Verified 01/09/18 17:57 [From Nardil] Phenothiazines Allergy Unknown Verified 01/09/18 17:57 propoxyphene napsylate Allergy Unknown Verified 01/09/18 17:57 [From Darvocet-N 100] Review of Systems ROS Other: All systems not noted in ROS Statement are negative. Constitutional: Denies: fever, chills ENT: Denies: throat pain Respiratory: Denies: cough Cardiovascular: Reports: chest pain. Denies: palpitations, dyspnea on exertion Endocrine: Denies: fatigue Gastrointestinal: Reports: abdominal pain. Denies: nausea, vomiting, diarrhea Genitourinary: Denies: urgency, dysuria, frequency, hematuria Musculoskeletal: Denies: back pain Skin: Denies: rash Neurological: Denies: headache, weakness <Jasmin Stock - Last Filed: 01/20/18 15:22> ROS Other: All systems not noted in ROS Statement are negative. <Hernandez Clark - Last Filed: 01/20/18 20:15> ROS Statement: Those systems with pertinent positive or pertinent negative responses have been documented in the HPI. Past Medical History Past Medical History: Coronary Artery Disease (CAD), COPD, Dementia, GERD/Reflux , Hypertension, Seizure Disorder, Thyroid Disorder Additional Past Medical History / Comment(s): Chronic back pain, Alzheimer's, vitamin D deficiency, right bundle branch block, borderline diabetic, cataracts (w/ removal), hypothyroid, insomnia, epilepsy without status epilepticus (per [facility] paperwork), reports DVT and GIB (not in paperwork, self reported). History of Any Multi-Drug Resistant Organisms: ESBL Date of last positivie culture/infection: 01/09/18 MDRO Source:: ESBL URINE Past Surgical History: Orthopedic Surgery Additional Past Surgical History / Comment(s): Right leg fracture w/ surgery Past Anesthesia/Blood Transfusion Reactions: Unable to Obtain Past Psychological History: Depression, Schizophrenia Smoking Status: Former smoker Past Alcohol Use History: None Reported Past Drug Use History: None Reported - Past Family History Mother Family Medical History: Unable to Obtain <Jasmin Stock - Last Filed: 01/20/18 15:22> General Exam Limitations: altered mental status (Dementia) General appearance: alert Head exam: Present: atraumatic, normocephalic, normal inspection Eye exam: Present: normal appearance, PERRL, EOMI. Absent: scleral icterus, conjunctival injection, periorbital swelling ENT exam: Present: normal exam, mucous membranes moist Respiratory exam: Present: normal lung sounds bilaterally. Absent: respiratory distress, wheezes, rales, rhonchi, stridor Cardiovascular Exam: Present: regular rate, normal rhythm, normal heart sounds. Absent: systolic murmur, diastolic murmur, rubs, gallop, clicks GI/Abdominal exam: Present: soft, tenderness (Suprapubic), guarding, normal bowel sounds. Absent: distended, rebound, rigid Neurological exam: Present: alert Psychiatric exam: Present: normal mood, anxious Skin exam: Present: warm, dry, intact, normal color. Absent: rash <Jasmin Stock - Last Filed: 01/20/18 15:22> Vital Signs 01/20/18 01/20/18 01/20/18 14:30 15:50 18:47 Temperature 98.6 F Pulse Rate 71 72 71 Respiratory 18 18 14 Rate Blood Pressure 147/88 143/87 180/74 O2 Sat by Pulse 93 L 94 L 98 Oximetry Medical Decision Making - Lab Data Result diagrams: 01/20/18 14:46 <Jasmin Stock - Last Filed: 01/20/18 15:22> - Lab Data Result diagrams: 01/20/18 14:46 01/20/18 14:46 <Hernandez Clark - Last Filed: 01/20/18 20:15> - Medical Decision Making Medical decision making; this is a 77-year-old female coming from [facility]. Several complaints. She complains of lower abdominal discomfort think she has a persistent urinary tract infection. She's been on antibiotics and currently on Macrobid. Patient's past medical history significant for recurrent urinary tract infections, schizophrenia, multiple chronic medical problems. The patient's labs show white count of 5.6 hemoglobin 12 hematocrit of 40 with a potassium 4.3. BUN 25 creatinine 0.76 GFR 76. Troponin less than 0.012. Urine is otherwise clean times no signs of signs of infection. Patient had CAT scan and reviewed radiologist's his final impression is nonobstructing left renal calcifications. Patchy atelectasis and pleural thickening at the lung bases on the right side more than the left. Mild sigmoid diverticulosis. No sign of acute abdomen and pelvis. No significant change compared to old exam. As read by Dr. Crystal. I discussed the findings with the patient and she states she is glad to hear that she no longer has urinary tract infection. Wants to go back to [facility], her jail. Denying any other medical problems at this time. (Hernandez Clark) - Lab Data Lab Results 01/20/18 01/20/18 01/20/18 Range/Units 14:46 14:46 14:46 WBC 5.6 (3.8-10.6) k/uL RBC 4.67 (3.80-5.40) m/uL Hgb 12.5 (11.4-16.0) gm/dL Hct 40.5 (34.0-46.0) % MCV 86.7 (80.0-100.0) fL MCH 26.9 (25.0-35.0) pg MCHC 31.0 (31.0-37.0) g/dL RDW 15.5 (11.5-15.5) % Plt Count 203 (150-450) k/uL Neutrophils % 51 % Lymphocytes % 29 % Monocytes % 9 % Eosinophils % 6 % Basophils % 1 % Neutrophils # 2.8 (1.3-7.7) k/uL Lymphocytes # 1.6 (1.0-4.8) k/uL Monocytes # 0.5 (0-1.0) k/uL Eosinophils # 0.3 (0-0.7) k/uL Basophils # 0.0 (0-0.2) k/uL Hypochromasia Slight Sodium 147 H (137-145) mmol/L Potassium 4.3 (3.5-5.1) mmol/L Chloride 109 H (98-107) mmol/L Carbon Dioxide 30 (22-30) mmol/L Anion Gap 8 mmol/L BUN 27 H (7-17) mg/dL Creatinine 0.76 (0.52-1.04) mg/dL Est GFR (CKD-EPI)AfAm 88 (>60 ml/min/1.73 sqM) Est GFR (CKD-EPI)NonAf 76 (>60 ml/min/1.73 sqM) Glucose 96 (74-99) mg/dL Calcium 10.3 H (8.4-10.2) mg/dL Total Bilirubin 0.5 (0.2-1.3) mg/dL AST 28 (14-36) U/L ALT 28 (9-52) U/L Alkaline Phosphatase 84 (38-126) U/L Total Creatine Kinase 71 (30-135) U/L CK-MB (CK-2) 1.5 (0.0-2.4) ng/mL CK-MB (CK-2) Rel Index 2.1 Troponin I <0.012 (0.000-0.034) ng/mL Total Protein 6.8 (6.3-8.2) g/dL Albumin 3.7 (3.5-5.0) g/dL Urine Color Urine Appearance (Clear) Urine pH (5.0-8.0) Ur Specific [place] (1.001-1.035) Urine Protein (Negative) Urine Glucose (UA) (Negative) Urine Ketones (Negative) Urine Blood (Negative) Urine Nitrite (Negative) Urine Bilirubin (Negative) Urine Urobilinogen (<2.0) mg/dL Ur Leukocyte Esterase (Negative) 01/20/18 Range/Units 16:25 WBC (3.8-10.6) k/uL RBC (3.80-5.40) m/uL Hgb (11.4-16.0) gm/dL Hct (34.0-46.0) % MCV (80.0-100.0) fL MCH (25.0-35.0) pg MCHC (31.0-37.0) g/dL RDW (11.5-15.5) % Plt Count (150-450) k/uL Neutrophils % % Lymphocytes % % Monocytes % % Eosinophils % % Basophils % % Neutrophils # (1.3-7.7) k/uL Lymphocytes # (1.0-4.8) k/uL Monocytes # (0-1.0) k/uL Eosinophils # (0-0.7) k/uL Basophils # (0-0.2) k/uL Hypochromasia Sodium (137-145) mmol/L Potassium (3.5-5.1) mmol/L Chloride (98-107) mmol/L Carbon Dioxide (22-30) mmol/L Anion Gap mmol/L BUN (7-17) mg/dL Creatinine (0.52-1.04) mg/dL Est GFR (CKD-EPI)AfAm (>60 ml/min/1.73 sqM) Est GFR (CKD-EPI)NonAf (>60 ml/min/1.73 sqM) Glucose (74-99) mg/dL Calcium (8.4-10.2) mg/dL Total Bilirubin (0.2-1.3) mg/dL AST (14-36) U/L ALT (9-52) U/L Alkaline Phosphatase (38-126) U/L Total Creatine Kinase (30-135) U/L CK-MB (CK-2) (0.0-2.4) ng/mL CK-MB (CK-2) Rel Index Troponin I (0.000-0.034) ng/mL Total Protein (6.3-8.2) g/dL Albumin (3.5-5.0) g/dL Urine Color Dark Yellow Urine Appearance Clear (Clear) Urine pH 6.0 (5.0-8.0) Ur Specific [place] 1.024 (1.001-1.035) Urine Protein Trace H (Negative) Urine Glucose (UA) Negative (Negative) Urine Ketones Negative (Negative) Urine Blood Negative (Negative) Urine Nitrite Negative (Negative) Urine Bilirubin Negative (Negative) Urine Urobilinogen <2.0 (<2.0) mg/dL Ur Leukocyte Esterase Negative (Negative) Disposition <Jasmin Stock - Last Filed: 01/20/18 15:22> Is patient prescribed a controlled substance at d/c from ED?: No Time of Disposition: 20:15 <Hernandez Clark - Last Filed: 01/20/18 20:15> Clinical Impression: Abdominal complaints Disposition: HOME SELF-CARE Condition: Fair Referrals: Todd Rushing MD [Primary Care Provider] - 1-2 days
[2018-01-20 15:34] LABS: Creatine Kinase 71 U/L (30-135)
[2018-01-20] MEDS ORDERED: Acetaminophen-Codeine 300-30mg TAB PO STA (15:45)
[2018-01-20 15:47] LABS: Creatine Kinase MB 1.5 ng/mL (0.0-2.4); Troponin I <0.012 ng/mL (0.000-0.034)
--- NOTE | 2018-01-20 15:49 | XR ---
EXAMINATION TYPE: XR abdomen 2V DATE OF EXAM: 01/20/2018 COMPARISON: 07/06/2017 HISTORY: Altered mental status abdominal pain TECHNIQUE: 3 views FINDINGS: There is no sign of intestinal obstruction or pneumoperitoneum. There are clips from cholec ystectomy. Lung bases show subsegmental atelectasis at the lateral right lung base. There is 2 cm jenniffer cified uterine fibroid. There is no evidence of a mass. There are no pathologic calcifications over t he kidneys. IMPRESSION: Nonacute abdomen. No change.
[2018-01-20 16:53] LABS: Appearance,Urine Clear (Clear); Bilirubin,Urine Negative (Negative); Blood,Urine Negative (Negative); Color,Urine Dark Yellow; Glucose,Urine (UA) Negative (Negative); Ketones,Urine Negative (Negative); Leukocyte Esterase,Urine Negative (Negative); Nitrite,Urine Negative (Negative); Protein,Urine Trace (Negative); Specific Gravity,Urine 1.024 (1.001-1.035); Urobilinogen,Urine <2.0 mg/dL (<2.0)
--- NOTE | 2018-01-20 18:51 | CT ---
EXAMINATION TYPE: CT abdomen pelvis wo con DATE OF EXAM: 01/20/2018 COMPARISON: 01/09/2018 HISTORY: Lower abdominal pain, uti CT DLP: 880.2 mGycm Automated exposure control for dose reduction was used. TECHNIQUE: Helical acquisition of images was performed from the lung bases through the pelvis. FINDINGS: There is patchy atelectasis at the lung bases. There is mild pleural thickening at the right posterio r lung base. There is no pericardial effusion. There is 3.5 cm rounded area of hypodensity in the posterior right lobe of the liver. Bile ducts are not dilated. Spleen appears normal. There is no pancreatic mass. There are clips from cholecystectomy . Bile ducts are not dilated. There is no adrenal mass. There are a few calcifications in the left kidney. There is no hydronephros is. Ureters are not dilated. There is no retroperitoneal adenopathy. Bladder distends smoothly. There is no inguinal hernia. There are varicose veins over the lower anterior abdomen in the subcutaneous tissues. There are scattered sigmoid diverticula. There is no sign of diverticulitis. There is 2 cm c alcified mass on the posterior aspect of the uterine fundus that could be calcified exophytic fibroid . There is no compression fracture in the lumbar spine. There is mild lumbar levoscoliosis. There is no free fluid in the pelvis. There is no sign of free air. There is no evidence of bowel obstruction. There is no mesenteric edema or adenopathy. IMPRESSION: NONOBSTRUCTING LEFT RENAL CALCIFICATIONS. PATCHY ATELECTASIS AND PLEURAL THICKENING AT THE LUNG BASES ON THE RIGHT SIDE MORE THAN THE LEFT. MILD SIGMOID DIVERTICULOSIS. NO SIGN OF ACUTE ABDOMEN AND PELV IS. NO SIGNIFICANT CHANGE COMPARED TO OLD EXAM.
[2018-01-20] MEDS ORDERED: HYDROcodone/APAP 5-325MG 1 EACH TAB PO STA (20:36)
[2018-01-20 22:04] VITALS: BP 149/70; PULSE 65; RESP 16
== END 2018-01-20 22:05 | disposition home or self-care (01) ==
LOC: EC 14:12
DX: R10.30 Lower abdominal pain, unspecified (principal); F20.9 Schizophrenia, unspecified; I25.10 Atherosclerotic heart disease of native coronary artery without angina pectoris; J44.9 Chronic obstructive pulmonary disease, unspecified; G30.9 Alzheimer's disease, unspecified; F02.80 Dementia in other diseases classified elsewhere, unspecified severity, without behavioral disturbance, psychotic disturbance, mood disturbance, and anxiety; G40.909 Epilepsy, unspecified, not intractable, without status epilepticus; F32.9 Major depressive disorder, single episode, unspecified; I10 Essential (primary) hypertension; Z79.02 Long term (current) use of antithrombotics/antiplatelets; Z79.899 Other long term (current) drug therapy; Z88.8 Allergy status to other drugs, medicaments and biological substances; Z88.5 Allergy status to narcotic agent; Z88.6 Allergy status to analgesic agent; Z91.048 Other nonmedicinal substance allergy status; Z88.1 Allergy status to other antibiotic agents; Z87.891 Personal history of nicotine dependence
CPT/HCPCS: 36415; 74019; 74176; 80053; 81003; 82550; 82553; 84484; 85025; 93005; 99285

== ENCOUNTER 2018-02-06 22:26 | Inpatient (IN) | payer MEDICARE, OTHER ==
[2018-02-06] MEDS ORDERED: MORPHINE SULFATE 2 MG/ML SYRINGE IVP STA (23:22)
[2018-02-06] MEDS ORDERED: SODIUM CHLORIDE 0.9% 1,000 ML IV STA (23:22)
--- NOTE | 2018-02-07 00:32 | ED ---
Back Pain HPI - General Chief Complaint: Back Pain/Injury Stated Complaint: Back Pain Time Seen by Provider: 02/06/18 22:31 Source: EMS, RN notes reviewed, old records reviewed Limitations: no limitations - History of Present Illness Initial Comments: 77-year-old female presents emergency department today which point of back pain and lower abdominal pain and dysuria. She's been treated multiple times for urinary tract infections. Patient has had low-grade fevers. She lives at [facility] on the [facility]. Was sent here for trouble pain. She's had some chronic abdominal and lower back pain. Patient also states that she's been having some chest pain over the past hour since arriving to emergency department. She complains of wheezing and difficulty in breathing. - Related Data Home Medications Medication Instructions Recorded Confirmed Cholecalciferol [Vitamin D3] 2,000 unit PO BID@0900,1700 08/23/13 01/09/18 Donepezil [Aricept] 10 mg PO BID@0900,209908/23/13 01/09/18 Multivitamins, Thera [Multivitamin 1 tab PO DAILY@0900 08/23/13 01/09/18 (formulary)] Atorvastatin [Lipitor] 20 mg PO HS@2100 04/12/15 01/09/18 Carvedilol [Coreg] 3.125 mg PO BID@0900,2100 12/25/15 01/09/18 Melatonin 10 mg PO HS@2100 12/25/15 01/09/18 amLODIPine [Norvasc] 2.5 mg PO HS@2100 12/25/15 01/09/18 [place]-3 Fatty Acids/Fish Oil [Fish 1 cap PO DAILY@0900 10/19/16 01/09/18 Oil 1,000 mg Softgel] Acetaminophen [Tylenol] 650 mg PO Q6H PRN 04/24/17 01/09/18 Albuterol Nebulized [Ventolin 2.5 mg INHALATION RT-Q6H PRN 04/24/17 01/09/18 Nebulized] Bismuth Subsalicylate [Kaopectate] 262 mg PO BID@0900,2100 04/24/17 01/09/18 Divalproex [Depakote] 250 mg PO DAILY@1700 04/24/17 01/09/18 Previous Rx's Medication Instructions Recorded Baclofen [Lioresal] 5 mg PO TID PRN tab 01/12/18 HYDROcodone/APAP 5-325MG [[place] 1 tab PO TID PRN #9 tab 01/12/18 5-325] Naproxen [Naprosyn] 250 mg PO TID #21 tab 01/12/18 Nitrofurantoin Macrocrystal 100 mg PO BID #14 cap 01/12/18 [Macrodantin] QUEtiapine FUMARATE [SEROquel] 200 mg PO BID@0900,1700 #6 tablet 01/12/18 QUEtiapine FUMARATE [SEROquel] 400 mg PO HS@2100 #3 tablet 01/12/18 QUEtiapine [SEROquel] 100 mg PO HS@2100 #3 tab 01/12/18 Allergies Allergy/AdvReac Type Severity Reaction Status Date / Time adhesive tape Allergy Unknown Verified 02/06/18 22:28 ceftriaxone [From Rocephin] Allergy Rash/Hives Verified 02/06/18 22:28 cephalexin monohydrate Allergy Unknown Verified 02/06/18 22:28 [From Keflex] fluoxetine HCl [From Prozac] Allergy Unknown Verified 02/06/18 22:28 ketorolac tromethamine Allergy Unknown Verified 02/06/18 22:28 [From Toradol] latex Allergy Unknown Verified 02/06/18 22:28 phenelzine sulfate Allergy Unknown Verified 02/06/18 22:28 [From Nardil] Phenothiazines Allergy Unknown Verified 02/06/18 22:28 propoxyphene napsylate Allergy Unknown Verified 02/06/18 22:28 [From Darvocet-N 100] Review of Systems ROS Statement: Those systems with pertinent positive or pertinent negative responses have been documented in the HPI. ROS Other: All systems not noted in ROS Statement are negative. Past Medical History Past Medical History: Coronary Artery Disease (CAD), COPD, Dementia, GERD/Reflux , Hypertension, Seizure Disorder, Thyroid Disorder Additional Past Medical History / Comment(s): Chronic back pain, Alzheimer's, vitamin D deficiency, right bundle branch block, borderline diabetic, cataracts (w/ removal), hypothyroid, insomnia, epilepsy without status epilepticus (per [facility] paperwork), reports DVT and GIB (not in paperwork, self reported). History of Any Multi-Drug Resistant Organisms: ESBL Date of last positivie culture/infection: 01/09/18 MDRO Source:: ESBL URINE Past Surgical History: Orthopedic Surgery Additional Past Surgical History / Comment(s): Right leg fracture w/ surgery Past Anesthesia/Blood Transfusion Reactions: Unable to Obtain Past Psychological History: Depression, Schizophrenia Smoking Status: Former smoker Past Alcohol Use History: None Reported Past Drug Use History: None Reported - Past Family History Mother Family Medical History: Unable to Obtain General Exam - General Exam Comments Initial Comments: 77-year-old female. Alert and oriented. No significant distress. Limitations: no limitations General appearance: alert, in no apparent distress Head exam: Present: atraumatic, normocephalic, normal inspection Eye exam: Present: normal appearance, PERRL, EOMI. Absent: scleral icterus, conjunctival injection, periorbital swelling ENT exam: Present: normal exam, mucous membranes moist Neck exam: Present: normal inspection. Absent: tenderness, meningismus, lymphadenopathy Respiratory exam: Present: normal lung sounds bilaterally. Absent: respiratory distress, wheezes, rales, rhonchi, stridor Cardiovascular Exam: Present: regular rate, normal rhythm, normal heart sounds. Absent: systolic murmur, diastolic murmur, rubs, gallop, clicks GI/Abdominal exam: Present: soft, tenderness (Lower abdominal tenderness), normal bowel sounds. Absent: distended, guarding, rebound, rigid Extremities exam: Present: normal inspection, full ROM, normal capillary refill. Absent: tenderness, pedal edema, joint swelling, calf tenderness Back exam: Present: normal inspection Neurological exam: Present: alert, oriented X3, CN II-XII intact Psychiatric exam: Present: normal affect, normal mood Skin exam: Present: warm, dry, intact, normal color. Absent: rash Course Vital Signs 02/06/18 02/07/18 22:28 00:39 Temperature 99.1 F Pulse Rate 83 74 Respiratory 16 20 Rate Blood Pressure 119/66 120/58 O2 Sat by Pulse 93 L 94 L Oximetry Medical Decision Making - Medical Decision Making Patient is a 77-year-old female with lower abdominal pain, dysuria. Patient reports she's been having chronic lower abdominal pain for quite some time. She 's been off and on antibiotics for the past month. She was recently treated for UTI. Patient is demented. She also complains of some chest pain in our prior to onset. D-dimer was noted to be elevated. CT angio chest was completed. This was negative for PE. There is evidence of some right-sided effusion and atelectasis. Patient CT abdomen and pelvis was completed. This was negative for any acute intra-abdominal process. Patient was noted to have a significant UTI given at this time. Did start the Patient on Levaquin. She does have a multiple antibiotic ALLERGY list. Patient will be admitted at this time for continued IV antibiotics for the UTI and chest pain. - Lab Data Result diagrams: 02/07/18 00:40 02/07/18 00:40 Lab Results 02/07/18 02/07/18 02/07/18 Range/Units 00:11 00:40 00:40 WBC 7.3 (3.8-10.6) k/uL RBC 4.22 (3.80-5.40) m/uL Hgb 11.4 (11.4-16.0) gm/dL Hct 36.7 (34.0-46.0) % MCV 86.8 (80.0-100.0) fL MCH 26.9 (25.0-35.0) pg MCHC 31.0 (31.0-37.0) g/dL RDW 15.6 H (11.5-15.5) % Plt Count 218 (150-450) k/uL Neutrophils % 65 % Lymphocytes % 22 % Monocytes % 6 % Eosinophils % 5 % Basophils % 0 % Neutrophils # 4.7 (1.3-7.7) k/uL Lymphocytes # 1.6 (1.0-4.8) k/uL Monocytes # 0.4 (0-1.0) k/uL Eosinophils # 0.3 (0-0.7) k/uL Basophils # 0.0 (0-0.2) k/uL Hypochromasia Slight PT (9.0-12.0) sec INR (<1.2) APTT (22.0-30.0) sec D-Dimer (<0.60) mg/L FEU Sodium 143 (137-145) mmol/L Potassium 4.8 (3.5-5.1) mmol/L Chloride 110 H (98-107) mmol/L Carbon Dioxide 26 (22-30) mmol/L Anion Gap 7 mmol/L BUN 43 H (7-17) mg/dL Creatinine 0.89 (0.52-1.04) mg/dL Est GFR (CKD-EPI)AfAm 72 (>60 ml/min/1.73 sqM) Est GFR (CKD-EPI)NonAf 63 (>60 ml/min/1.73 sqM) Glucose 109 H (74-99) mg/dL Calcium 10.0 (8.4-10.2) mg/dL Total Bilirubin 0.4 (0.2-1.3) mg/dL AST 26 (14-36) U/L ALT 31 (9-52) U/L Alkaline Phosphatase 83 (38-126) U/L Troponin I (0.000-0.034) ng/mL Total Protein 6.1 L (6.3-8.2) g/dL Albumin 3.4 L (3.5-5.0) g/dL Amylase 40 (30-110) U/L Lipase 72 (23-300) U/L Urine Color Yellow Urine Appearance Cloudy H (Clear) Urine pH 5.5 (5.0-8.0) Ur Specific [place] 1.025 (1.001-1.035) Urine Protein 1+ H (Negative) Urine Glucose (UA) Negative (Negative) Urine Ketones Negative (Negative) Urine Blood Large H (Negative) Urine Nitrite Negative (Negative) Urine Bilirubin Negative (Negative) Urine Urobilinogen 2.0 (<2.0) mg/dL Ur Leukocyte Esterase Large H (Negative) Urine RBC 76 H (0-5) /hpf Urine WBC 128 H (0-5) /hpf Ur Squamous Epith Cells 9 H (0-4) /hpf Hyaline Casts 388 H (0-2) /lpf Urine Mucus Few H (None) /hpf 02/07/18 02/07/18 Range/Units 00:40 00:40 WBC (3.8-10.6) k/uL RBC (3.80-5.40) m/uL Hgb (11.4-16.0) gm/dL Hct (34.0-46.0) % MCV (80.0-100.0) fL MCH (25.0-35.0) pg MCHC (31.0-37.0) g/dL RDW (11.5-15.5) % Plt Count (150-450) k/uL Neutrophils % % Lymphocytes % % Monocytes % % Eosinophils % % Basophils % % Neutrophils # (1.3-7.7) k/uL Lymphocytes # (1.0-4.8) k/uL Monocytes # (0-1.0) k/uL Eosinophils # (0-0.7) k/uL Basophils # (0-0.2) k/uL Hypochromasia PT 9.5 (9.0-12.0) sec INR 0.9 (<1.2) APTT 28.7 (22.0-30.0) sec D-Dimer 2.47 H (<0.60) mg/L FEU Sodium (137-145) mmol/L Potassium (3.5-5.1) mmol/L Chloride (98-107) mmol/L Carbon Dioxide (22-30) mmol/L Anion Gap mmol/L BUN (7-17) mg/dL Creatinine (0.52-1.04) mg/dL Est GFR (CKD-EPI)AfAm (>60 ml/min/1.73 sqM) Est GFR (CKD-EPI)NonAf (>60 ml/min/1.73 sqM) Glucose (74-99) mg/dL Calcium (8.4-10.2) mg/dL Total Bilirubin (0.2-1.3) mg/dL AST (14-36) U/L ALT (9-52) U/L Alkaline Phosphatase (38-126) U/L Troponin I <0.012 (0.000-0.034) ng/mL Total Protein (6.3-8.2) g/dL Albumin (3.5-5.0) g/dL Amylase (30-110) U/L Lipase (23-300) U/L Urine Color Urine Appearance (Clear) Urine pH (5.0-8.0) Ur Specific [place] (1.001-1.035) Urine Protein (Negative) Urine Glucose (UA) (Negative) Urine Ketones (Negative) Urine Blood (Negative) Urine Nitrite (Negative) Urine Bilirubin (Negative) Urine Urobilinogen (<2.0) mg/dL Ur Leukocyte Esterase (Negative) Urine RBC (0-5) /hpf Urine WBC (0-5) /hpf Ur Squamous Epith Cells (0-4) /hpf Hyaline Casts (0-2) /lpf Urine Mucus (None) /hpf 02/07/18 03:25 EKG performed at 015 shows normal sinus rhythm, right bundle-branch block. Abnormal EKG. Ventricular rate 76 bpm. NH interval is 1 200 ms. QRS duration is 138 ms. QT QTc is 46/456 ms. - Radiology Data Radiology results: report reviewed CT shows no evidence of PE. Infiltrate atelectasis mainly in the right lower lobe improved compared to old computed tomography scan. CT abdomen and pelvis shows mild sigmoid diverticulosis without diverticulitis. Mild infiltrate and atelectasis of the right lung base. Nonobstructing small left renal colliculi. Hepatic cysts is unchanged. No acute abdomen on the in the abdomen or pelvis. There is dilated subcutaneous veins in lower abdomen. Pains are not well visualized on exam. Left iliac vein is hypoplastic or absent. This is unchanged. Chest x-ray shows minimal pleural fluid or atelectasis in the right lung without significant change. No heart failure. Disposition Clinical Impression: Urinary tract infection, Back pain, Chest pain Disposition: ADMITTED IP TO THIS HOSP Condition: Stable Is patient prescribed a controlled substance at d/c from ED?: No Referrals: Todd Rushing MD [Primary Care Provider] - 1-2 days Time of Disposition: 03:49
[2018-02-07 00:40] LABS: Appearance,Urine Cloudy (Clear); Bilirubin,Urine Negative (Negative); Blood,Urine Large (Negative); Color,Urine Yellow; Glucose,Urine (UA) Negative (Negative); Hyaline Casts,Urine 388 /lpf (0-2); Ketones,Urine Negative (Negative); Leukocyte Esterase,Urine Large (Negative); Mucus,Urine Few /hpf; Nitrite,Urine Negative (Negative); PH, Urine 5.5 (5.0-8.0); Protein,Urine 1+ (Negative); RBC,Urine 76 /hpf (0-5); Specific Gravity,Urine 1.025 (1.001-1.035); Squamous Epithelial Cell,Urine 9 /hpf (0-4); WBC,Urine 128 /hpf (0-5)
[2018-02-07 00:58] LABS: Basophils % (A) 0 %; Eosinophils # (A) 0.3 k/uL (0-0.7); Eosinophils % (A) 5 %; HCT 36.7 % (34.0-46.0); HGB 11.4 gm/dL (11.4-16.0); Hypochromasia Slight; Lymphocytes # (A) 1.6 k/uL (1.0-4.8); Lymphocytes % (A) 22 %; MCH 26.9 pg (25.0-35.0); MCV 86.8 fL (80.0-100.0); Mean Platelet Volume 7.1; Monocytes # (A) 0.4 k/uL (0-1.0); Monocytes % (A) 6 %; Neutrophils # (A) 4.7 k/uL (1.3-7.7); Neutrophils % (A) 65 %; Platelet Count 218 k/uL (150-450); RBC 4.22 m/uL (3.80-5.40); RDW 15.6 % (11.5-15.5); WBC 7.3 k/uL (3.8-10.6)
[2018-02-07] MEDS ORDERED: LEVOFLOXACIN 750MG-D5W PMX 750 MG in DEXTROSE/WATER 1 150ML.BAG IVPB STA (00:59)
[2018-02-07 01:07] LABS: Albumin 3.4 g/dL (3.5-5.0); Potassium 4.8 mmol/L (3.5-5.1); Total Bilirubin 0.4 mg/dL (0.2-1.3); Total Protein 6.1 g/dL (6.3-8.2)
--- NOTE | 2018-02-07 01:13 | XR ---
EXAMINATION TYPE: XR chest 2V DATE OF EXAM: 02/07/2018 COMPARISON: 11/26/2016 HISTORY: Low back pain TECHNIQUE: Frontal and lateral views of the chest are obtained. FINDINGS: There is no heart failure nor confluent pneumonic infiltrate. There is tiny amount of flui d in the right minor fissure. The bony thorax is intact. Thoracic aorta is atheromatous. IMPRESSION: Minimal pleural fluid or atelectasis in the right lung without significant change. No he art failure.
--- NOTE | 2018-02-07 01:15 | XR ---
EXAMINATION TYPE: XR KUB DATE OF EXAM: 02/07/2018 COMPARISON: 01/20/2018 HISTORY: Low back pain TECHNIQUE: 2 views supine FINDINGS: There is no sign of intestinal obstruction or pneumoperitoneum. Fecal pattern is normal. Th ere is calcified uterine fibroid. There are clips from cholecystectomy. There is mild lumbar levoscol iosis. IMPRESSION: Nonacute abdomen. No change.
[2018-02-07 01:42] LABS: INR 0.9 (<1.2); Partial Thromboplastin Time 28.7 sec (22.0-30.0); Prothrombin Time 9.5 sec (9.0-12.0)
[2018-02-07 01:50] LABS: D-Dimer 2.47 mg/L FEU (<0.60)
--- NOTE | 2018-02-07 03:06 | CT ---
EXAMINATION TYPE: CT chest angio for PE DATE OF EXAM: 02/07/2018 COMPARISON: 07/09/2012 HISTORY: R/O PE CT DLP: 426.20 mGycm Automated exposure control for dose reduction was used. CONTRAST: CT Chest for pulmonary embolism performed with with IV Contrast, patient injected with 100 mL of Isov ue 370. There are 3-D post processed images. FINDINGS: The heart size is normal. There is no pericardial effusion. There is some patchy infiltrate and atele ctasis in the right lower lobe and to a lesser extent the left lower lobe. There is no definite pleur al effusion. Thoracic aorta is intact. There is no evidence of aneurysm or dissection. There is normal contrast op acification of the pulmonary arteries. I see no filling defect. There is no mediastinal adenopathy. T here are no hilar masses. The bony thorax is intact. IMPRESSION: No evidence of pulmonary embolism. There is infiltrate and atelectasis mainly in the right lower lobe that is improved compared to old CT scan.
[2018-02-07] MEDS ORDERED: MORPHINE SULFATE 2 MG/ML SYRINGE IVP ONE (03:12)
--- NOTE | 2018-02-07 03:20 | CT ---
EXAMINATION TYPE: CT abdomen pelvis w con DATE OF EXAM: 02/07/2018 COMPARISON: 01/20/2018 HISTORY: Pain CT DLP: 824.20 mGycm Automated exposure control for dose reduction was used. TECHNIQUE: Helical acquisition of images was performed from the lung bases through the pelvis. CONTRAST: Performed without Oral Contrast and with IV Contrast, patient injected with 100 mL of Isovue 370. FINDINGS: There is some atelectasis and mild pleural thickening at the right lung base. There is no pericardial effusion. Heart size is normal. There is a oval-shaped 4.3 cm low-density area in the posterior lateral right lobe of the liver. Sple en appears normal. There is no pancreatic mass. There are clips from cholecystectomy. Bile ducts are not dilated. There is no adrenal mass. There are multiple small calculi in the left kidney that measure up to 5 mm. There is no hydronephros is. Ureters are not dilated. Abdominal aorta appears normal. There is no retroperitoneal adenopathy. The stomach appears normal. There is no evidence of free air. The bladder distends smoothly. There is no inguinal hernia. There a re some varicose veins over the anterior abdomen. There are multiple sigmoid diverticula. I see no si gn of diverticulitis. Uterus is anteverted. There are some spondylotic changes in the lumbar spine. T here is degenerative disc space narrowing at multiple levels. There is no compression fracture. Bony pelvis is intact. There is mild lumbar levoscoliosis. I see no focal bone destruction. There is poste rior 2.5 cm calcified mass in the pelvis that could be exophytic uterine fibroid on the posterior wal l. IMPRESSION: MILD SIGMOID DIVERTICULOSIS WITHOUT DIVERTICULITIS. MILD INFILTRATE AND ATELECTASIS AT THE RIGHT LUNG BASE. NONOBSTRUCTING SMALL LEFT RENAL CALCULI. HEPATIC CYST UNCHANGED. NO ACUTE ABNORMALITY WITHIN THE ABDOMEN AND PELVIS. THERE IS DILATED SUBCUTANEOUS VEINS ACROSS THE LOWER ABDOMEN. VEINS ARE NOT WELL EVALUATED ON THIS E XAM. THE LEFT ILIAC VEIN IS HYPOPLASTIC OR ABSENT. UNCHANGED.
[2018-02-07] MEDS ORDERED: ALBUTEROL NEBULIZED 2.5 MG/3 ML INHALATION PRN (03:49)
[2018-02-07] MEDS ORDERED: NALOXONE 0.4 MG/ML 1 ML VIAL IV PRN (04:24)
[2018-02-07] MEDS ORDERED: IBUPROFEN 400 MG TAB PO PRN (04:24)
[2018-02-07] MEDS ORDERED: ACETAMINOPHEN TAB 325 MG TAB PO PRN (04:24)
[2018-02-07] MEDS ORDERED: ONDANSETRON 4 MG/2 ML VIAL IVP PRN (04:24)
[2018-02-07] MEDS ORDERED: NON-FORMULARY DRUG (Omega-3 Fatty Acids/Fish Oil [Fish Oil 1,000 Mg Softgel] 1 CAP) PO SCH (09:00)
[2018-02-07] MEDS ORDERED: PANTOPRAZOLE 40 MG/10 ML VIAL IV SCH (09:00)
[2018-02-07] MEDS ORDERED: BISMUTH SUBSALICYLATE 262 MG PO SCH (09:00)
[2018-02-07] MEDS: DONEPEZIL 10 MG TAB PO SCH ×2 (09:54→21:31)
[2018-02-07] MEDS: CARVEDILOL 3.125 MG TAB PO SCH ×2 (09:54→21:30)
[2018-02-07] MEDS: CHOLECALCIFEROL 1,000 UNIT TAB PO SCH ×2 (09:54→17:09)
[2018-02-07] MEDS: NAPROXEN 250 MG TAB PO SCH ×3 (09:54→23:50)
[2018-02-07] MEDS: QUEtiapine 200 MG TAB PO SCH ×2 (09:54→17:09)
[2018-02-07] MEDS: HYDROcodone/APAP 5-325MG 1 EACH TAB PO PRN ×2 (15:17→21:38)
[2018-02-07] MEDS: DIVALPROEX 250 MG TABLET.DR PO SCH (17:09)
[2018-02-07] MEDS ORDERED: ALPRAZolam 0.25 MG TAB PO PRN (18:39)
[2018-02-07 19:31] VITALS: BMI 32.3
--- NOTE | 2018-02-07 19:45 | HP ---
DOS: 02/07/18 HISTORY AND PHYSICAL CHIEF COMPLAINTS: Back pain and UTI. HISTORY OF PRESENT ILLNESS: This 77-year-old woman with a past medical history of COPD, CAD, dementia, history of GERD, hypertension, seizure disorder, being followed by Dr. Rushing in the outpatient setting, was complaining of back pain, lower abdominal pain, dysuria. Patient was found to have UTI. Patient was admitted for further evaluation and treatment. There is no history of any fever, rigor or chills. No history of headache, loss of consciousness, seizures. D-dimer was elevated at 2.47. The patient also had a chest CTA which showed no evidence of pulmonary embolism. Infiltrate in the right lower lobe was suspected. The patient also had abdomen and pelvis CT scan which showed mild sigmoid diverticulosis without any diverticulitis. No chest pain. No palpitations. No fever. PAST MEDICAL HISTORY: 1. History of dementia. 2. History of COPD. 3. GERD. 4. Hypertension. 5. Seizure disorder. 6. Hypothyroidism. 7. Chronic low back pain. 8. History of dementia. 9. Right bundle block. 10.ESBL urine. HOME MEDICATIONS: 1. Seroquel 400 mg at bedtime. 2. Seroquel 200 mg p.o. b.i.d. 3. Seroquel 100 mg p.o. at bedtime. 4. Fish oil 1 p.o. daily. 5. Naprosyn 250 mg p.o. daily. 6. Multivitamins 1 p.o. daily. 7. Melatonin 10 mg at bedtime. 8. Claritin 10 mg daily. 9. [place] 5 mg t.i.d. p.r.n. 10.Aricept 10 mg b.i.d. 11.Depakote 250 mg p.o. daily. 12.Vitamin D3 2000 b.i.d. 13.Coreg 3.125 mg p.o. b.i.d. 14.Bismuth 262 mg p.o. b.i.d. 15.Lioresal 5 mg p.o. t.i.d. p.r.n. 16.Lipitor 20 mg at bedtime. 17.Tylenol 650 q.6 p.r.n. ALLERGIES: 1. ADHESIVE TAPE. 2. CEFTRIAXONE. 3. CEPHALEXIN. 4. FLUOXETINE. 5. KETOROLAC. 6. LATEX. 7. NARDIL. 8. PHENOTHIAZINE. 9. PROPOXYPHENE. Family history, social history, review of systems could not be taken because of the patient's change in mental status. PHYSICAL EXAMINATION: Patient's pulse is 73, blood pressure 138/77, respiration 16, temperature 97.9, pulse ox 94% on room air. HEENT: Conjunctivae normal. NECK: No jugular venous distention. CARDIOVASCULAR SYSTEM: S1, S2 muffled. RESPIRATORY SYSTEM: Breath sounds diminished at the bases. A few scattered rhonchi and crackles. ABDOMEN: Soft, non-tender. No mass palpable. LEGS: No edema. No swelling. NERVOUS SYSTEM: Higher functions as mentioned earlier. Moves all 4 limbs. No focal motor or sensory deficit. LYMPHATICS: No lymph node palpable in neck, axillae or groin. SKIN: No ulcer, rash, bleeding. LABS: CBC within normal limits. D-dimer is 2.47. Sodium 143, potassium 4.8 and albumin is 3.4. UA noted. ASSESSMENT: 1. Acute urinary tract infection, present on admission, not related to Zhang catheter. 2. Low back pain. 3. Lower abdominal pain. 4. Possible atelectasis, infiltrate in the right lower lobe. 5. History of coronary artery disease. 6. History of chronic obstructive pulmonary disease. 7. Dementia. 8. Gastroesophageal reflux disease. 9. Hypertension. 10.History of seizure disorder. 11.Hypothyroidism. 12.Chronic back pain. 13.History of vitamin D deficiency. 14.Right bundle branch block on EKG. 15.History of cataracts. 16.History of hypothyroidism. 17.History of epilepsy and status epilepticus. 18.History of deep venous thrombosis and gastrointestinal bleed. 19.History of extended-spectrum beta-lactamase in the urine. 20.History of depression. 21.Schizophrenia. RECOMMENDATIONS AND DISCUSSION: In this 77-year-old woman who presented with multiple complex medical issues, we will monitor the patient closely, continue the current management, continue with symptomatic treatment, continue with the broad-spectrum IV antibiotics. Resume the home medications. Cultures. Guarded prognosis because of multiple complex medical issues. Further recommendations to follow. See orders for further details. MMODL / IJN: [id number] / [facility]ALLY INSANEInna
[2018-02-07] MEDS: HEPARIN SODIUM,PORCINE 5,000 UNIT/ML 1 ML VIAL SQ SCH (21:31)
[2018-02-07] MEDS: ATORVASTATIN 20 MG TAB PO SCH (21:31)
[2018-02-07] MEDS: amLODIPine 2.5 MG TAB PO SCH (21:31)
[2018-02-07] MEDS: MELATONIN 5 MG TABLET PO SCH (21:31)
[2018-02-07] MEDS: QUEtiapine 100 MG TAB PO SCH (23:30)
[2018-02-07] MEDS: QUEtiapine 400 MG TAB PO SCH (23:30)
[2018-02-08] MEDS ORDERED: LEVOFLOXACIN 500MG-D5W PMX 500 MG in DEXTROSE/WATER 1 100ML.BAG IVPB SCH (02:00)
[2018-02-08] MEDS: MULTIVITAMINS, THERA 1 EACH TAB PO SCH (07:51)
[2018-02-08] MEDS: HYDROcodone/APAP 5-325MG 1 EACH TAB PO PRN ×2 (07:52→19:25)
[2018-02-08] MEDS: LORATADINE 10 MG TAB PO SCH (07:52)
[2018-02-08] MEDS: DONEPEZIL 10 MG TAB PO SCH ×2 (07:52→22:03)
[2018-02-08] MEDS: PANTOPRAZOLE 40 MG TABLET PO SCH (07:52)
[2018-02-08] MEDS: CARVEDILOL 3.125 MG TAB PO SCH ×2 (07:52→22:02)
[2018-02-08] MEDS: CHOLECALCIFEROL 1,000 UNIT TAB PO SCH ×2 (07:53→16:46)
[2018-02-08] MEDS: QUEtiapine 200 MG TAB PO SCH ×2 (07:54→16:47)
[2018-02-08] MEDS: HEPARIN SODIUM,PORCINE 5,000 UNIT/ML 1 ML VIAL SQ SCH ×2 (07:54→22:03)
[2018-02-08] MEDS: NAPROXEN 250 MG TAB PO SCH ×3 (07:54→22:04)
[2018-02-08 09:39] LABS: Anion Gap 6 mmol/L; Blood Urea Nitrogen 26 mg/dL (7-17); Calcium 9.6 mg/dL (8.4-10.2); Carbon Dioxide 26 mmol/L (22-30); Chloride 111 mmol/L (98-107); Glucose 100 mg/dL (74-99); Potassium 4.4 mmol/L (3.5-5.1); Sodium 143 mmol/L (137-145)
[2018-02-08 10:25] LABS: Basophils % (A) 1 %; Eosinophils # (A) 0.3 k/uL (0-0.7); Eosinophils % (A) 8 %; HCT 36.8 % (34.0-46.0); HGB 11.4 gm/dL (11.4-16.0); Hypochromasia Moderate; Lymphocytes # (A) 1.2 k/uL (1.0-4.8); Lymphocytes % (A) 30 %; MCH 27.5 pg (25.0-35.0); MCHC 31.1 g/dL (31.0-37.0); MCV 88.4 fL (80.0-100.0); Mean Platelet Volume 7.2; Monocytes # (A) 0.3 k/uL (0-1.0); Monocytes % (A) 8 %; Neutrophils % (A) 50 %; Platelet Count 218 k/uL (150-450); RBC 4.16 m/uL (3.80-5.40); RDW 15.5 % (11.5-15.5)
[2018-02-08] MEDS: DIVALPROEX 250 MG TABLET.DR PO SCH (16:46)
[2018-02-08] MEDS: ATORVASTATIN 20 MG TAB PO SCH (22:02)
[2018-02-08] MEDS: MELATONIN 5 MG TABLET PO SCH (22:03)
[2018-02-08] MEDS: QUEtiapine 400 MG TAB PO SCH (22:03)
[2018-02-08] MEDS: amLODIPine 2.5 MG TAB PO SCH (22:03)
[2018-02-08] MEDS: QUEtiapine 100 MG TAB PO SCH (22:03)
[2018-02-08] MEDS: PHENAZOPYRIDINE 100 MG TAB PO SCH (22:05)
[2018-02-08] MEDS: BACLOFEN 10 MG TAB PO PRN (23:00)
--- NOTE | 2018-02-08 23:55 | PN ---
PROGRESS NOTE DATE OF SERVICE: 02/08/2018. HISTORY: This 77-year-old woman was admitted with back pain and urinary tract infection related to Zhang catheter. She has improved significantly. No chest pain. No palpitations. No fever. EXAM: Alert and oriented x3. Pulse is 71, blood pressure 159/90, respirations 17, temperature 98.2, pulse ox normal at 93 percent on room air. HEENT: Conjunctivae normal. NECK: Supple. No JVD. CARDIOVASCULAR: S1 and S2 muffled. LUNGS: Breath sounds diminished at the bases. No rhonchi, no crackles. ABDOMEN: Soft, nontender. No mass. EXTREMITIES: No edema, no swelling. NERVOUS SYSTEM: No focal deficits. LABS: CBC within normal, sodium 140, potassium 4.3. Microbiology culture showed . Urine culture grew gram-negative bacilli. ASSESSMENT: 1. Acute urinary tract infection, present on admission, not related to Zhang catheter. 2. Low back pain. 3. Lower abdominal pain. 4. Possible atelectasis/infiltrate in the right lower lobe. 5. History of coronary artery disease. 6. History of chronic obstructive pulmonary disease. 7. Dementia. 8. Gastroesophageal reflux disease. 9. Hypertension. 10.History off seizure disorder. 11.Hypothyroidism. 12.History of back pain. 13.History of vitamin D deficiency. 14.Right bundle branch block on EKG. 15.History of cataracts. 16.History of hypothyroidism. 17.History of epilepsy and status epilepticus. 18.History of deep venous thrombosis and GI bleed. 19.History of ESBL organism in the urine. 20.History of depression. 21.History of schizophrenia. 22.FULL CODE. RECOMMENDATIONS AND DISCUSSION: I recommend to continue current management and symptomatic treatment. Await for the final ID of the organism. Guarded prognosis because of multiple complex medical issues. Further recommendations to follow. MMODL / IJN: [id number] /
[2018-02-09] MEDS: MORPHINE SULFATE 4 MG/ML SYRINGE IV PRN (00:58)
[2018-02-09] MEDS ORDERED: LEVOFLOXACIN 500 MG TAB PO SCH (05:00)
[2018-02-09] MEDS: HYDROcodone/APAP 5-325MG 1 EACH TAB PO PRN ×2 (06:02→22:40)
[2018-02-09 08:07] LABS: Basophils % (A) 0 %; Eosinophils # (A) 0.3 k/uL (0-0.7); Eosinophils % (A) 6 %; HGB 11.1 gm/dL (11.4-16.0); Hypochromasia Slight; Lymphocytes # (A) 0.8 k/uL (1.0-4.8); Lymphocytes % (A) 17 %; MCH 26.6 pg (25.0-35.0); MCHC 30.9 g/dL (31.0-37.0); MCV 86.1 fL (80.0-100.0); Mean Platelet Volume 6.9; Monocytes # (A) 0.4 k/uL (0-1.0); Monocytes % (A) 8 %; Neutrophils # (A) 3.2 k/uL (1.3-7.7); Neutrophils % (A) 66 %; Platelet Count 241 k/uL (150-450); RBC 4.18 m/uL (3.80-5.40); RDW 15.4 % (11.5-15.5); WBC 4.8 k/uL (3.8-10.6)
[2018-02-09 08:26] LABS: Calcium 9.8 mg/dL (8.4-10.2); Potassium 4.6 mmol/L (3.5-5.1)
[2018-02-09] MEDS: CARVEDILOL 3.125 MG TAB PO SCH ×2 (09:03→22:39)
[2018-02-09] MEDS: PANTOPRAZOLE 40 MG TABLET PO SCH (09:03)
[2018-02-09] MEDS: DONEPEZIL 10 MG TAB PO SCH ×2 (09:03→22:40)
[2018-02-09] MEDS: MULTIVITAMINS, THERA 1 EACH TAB PO SCH (09:03)
[2018-02-09] MEDS: HEPARIN SODIUM,PORCINE 5,000 UNIT/ML 1 ML VIAL SQ SCH ×2 (09:03→22:39)
[2018-02-09] MEDS: CHOLECALCIFEROL 1,000 UNIT TAB PO SCH ×2 (09:03→16:38)
[2018-02-09] MEDS: LORATADINE 10 MG TAB PO SCH (09:03)
[2018-02-09] MEDS: PHENAZOPYRIDINE 100 MG TAB PO SCH ×3 (09:04→22:41)
[2018-02-09] MEDS: QUEtiapine 200 MG TAB PO SCH ×2 (09:04→18:36)
[2018-02-09] MEDS: NAPROXEN 250 MG TAB PO SCH ×3 (09:05→22:41)
[2018-02-09] MEDS: ERTAPENEM 1 GM in SODIUM CHLORIDE 0.9% 50 ML IVPB SCH (16:39)
[2018-02-09] MEDS: DIVALPROEX 250 MG TABLET.DR PO SCH (16:39)
--- NOTE | 2018-02-09 21:47 | PN ---
PROGRESS NOTE DATE OF SERVICE: 02/09/2018 This 77-year-old woman who was admitted with pain and UTI not related to Zhang catheter is improving significantly. No chest pain. No palpitations. No fever. ESBL E coli has been grown from the culture. The patient was started on Invanz and ID has been consulted. No chest pain. No palpitation. PHYSICAL EXAMINATION: Pulse 86, blood pressure 141/90, respirations 16, temperature 98.1, pulse ox 93% on room air. HEENT: Conjunctivae normal. NECK: No jugular venous distention. CARDIOVASCULAR SYSTEM: S1, S2 muffled. RESPIRATORY SYSTEM: Breath sounds diminished at the bases. A few scattered rhonchi. ABDOMEN: Soft, non-tender. NERVOUS SYSTEM: No focal deficit. LABS: Urine culture noted. WBC 4.8. Sodium 143. ASSESSMENT: 1. Acute urinary tract infection with extended-spectrum beta-lactamase Escherichia coli. 2. Low back pain. 3. Lower abdominal pain. 4. Possible atelectasis/infiltrate in the right lower lobe. 5. History of coronary artery disease. 6. History of chronic obstructive pulmonary disease. 7. Dementia. 8. Gastroesophageal reflux disease. 9. Hypertension. 10.History of seizure disorder. 11.Hypothyroidism. 12.History of back pain. 13.History of vitamin D deficiency. 14.Right bundle branch block on the EKG. 15.History of cataracts. 16.History of hypothyroidism. 17.History of epilepsy and status epilepticus. 18.History of deep venous thrombosis and gastrointestinal bleed. 19.History of extended-spectrum beta-lactamase organism in the urine. 20.History of depression. 21.History of schizophrenia. 22.FULL CODE. RECOMMENDATIONS AND DISCUSSION: I recommend to continue current medication, continue with the monitoring, symptomatic treatment. Continue with Invanz. Closely follow with Infectious Disease. Guarded prognosis because of multiple complex medical issues. Further recommendations to follow. MMODL / IJN: [id number] /
--- NOTE | 2018-02-09 21:53 | CONS ---
CONSULTATION DATE OF SERVICE: 02/09/2018 REASON FOR CONSULTATION: ESBL E coli, urinary tract infection. HISTORY OF PRESENT ILLNESS: The patient is a 77-year-old female with past medical history significant for recurrent urinary tract infection, presenting to the ER with chief complaints of flank pain and dysuria. The patient's symptoms have been going on for about a week. Pain described to be more of a dull aching pain 4-5 out of 10 and no radiation. The patient has been complaining of burning of urine but no hematuria, suprapubic pain, nausea but no vomiting. The patient denies having any chest pain or shortness of breath or cough and no diarrhea. With these symptoms, the patient has been evaluated. On arrival to the ER the patient did have a low-grade fever of 99.1. The patient's white count has been normal. UA was positive with large leukocyte esterases, 128 WBC. The culture showing ESBL E coli. The patient has been treated with Levaquin. I was asked to see the patient today for further recommendation regarding antibiotic therapy. REVIEW OF SYSTEMS: Positive points have been mentioned in the HPI. The rest of 14 review of systems has been negative. PAST MEDICAL HISTORY: Recurrent urinary tract infection, coronary artery disease, COPD, dementia, gastroesophageal reflux disease, hypertension, seizure disorder, hypothyroidism, chronic back pain and recurrent UTI. PAST SURGICAL HISTORY: Right leg fracture with surgery. SOCIAL HISTORY: Remote history of smoking. No drinking or drug use. FAMILY HISTORY: No pertinent findings noticed. ALLERGIES: TO CEFTRIAXONE, CEPHALEXIN, FLUOXETINE, LASIX. MEDICATION: Medications include the patient is currently on Levaquin, Tylenol, [place], Norvasc, Lipitor, baclofen, Coreg, vitamin D3, Depakote, Aricept, heparin, Motrin, Claritin, melatonin, Narcan, naproxen, Zofran, Protonix. EXAMINATION: Blood pressure is 141/90 with a pulse of 83, temperature 98.1. She is 93% on room air. General description is an elderly female lying in bed in no distress. No tachypnea or accessory muscles of respiration use. HEENT: Shows no pallor or scleral icterus. Oral mucosa membranes are dry. No pharyngeal erythema or thrush. Neck: Trachea central. No thyromegaly. Lungs: Unlabored breathing. Clear to auscultation anteriorly. No wheeze or crackles. Heart S1, S2. Regular rate and rhythm. ABDOMEN: Soft, no tenderness. No guarding or rigidity. No organomegaly. EXTREMITIES: No edema of the feet. Skin examination: No rash or mass palpable. Neurological: Patient is awake, alert, oriented times three. Mood and affect normal. LABS: Hemoglobin 11.1, white count 4.3, BUN of 28, creatinine 0.71. Electrolytes have been normal. Urine has been positive. The patient did have a KUB x-ray which shows no acute abdomen. No change. The patient also had a CT of the abdomen and pelvis which shows mild sigmoid diverticulosis without diverticulitis and nonspecific small left renal calculi. DIAGNOSTIC IMPRESSION AND PLAN: 1. Patient with ESBL E coli urinary tract infection in a patient who does have recurrent urinary tract infection. The CT abdomen and pelvis does shows a left renal calculi but nonobstructive and no evidence of any hydronephrosis. 2. Positive blood culture with gram-positive cocci. PLAN: 1. Discontinue Levaquin. 2. Repeat blood cultures x1 to document clearance of bacteremia. 3. Will add Invanz 1 g daily to cover for ESBL E coli. Patient likely will need a midline. 4. Followup blood culture has been negative. To finish at least 10 day course of therapy. 5. We will follow up on clinical condition and culture to further adjust medication if needed. Thank you for this consultation. Will follow this patient along with you. MMODL / IJN: [id number] /
[2018-02-09] MEDS: ATORVASTATIN 20 MG TAB PO SCH (22:39)
[2018-02-09] MEDS: amLODIPine 2.5 MG TAB PO SCH (22:39)
[2018-02-09] MEDS: MELATONIN 5 MG TABLET PO SCH (22:40)
[2018-02-09] MEDS: QUEtiapine 400 MG TAB PO SCH (22:40)
[2018-02-09] MEDS: QUEtiapine 100 MG TAB PO SCH (22:40)
[2018-02-09] MEDS: LORATADINE 10 MG TAB PO PRN (23:18)
[2018-02-10] MEDS: MORPHINE SULFATE 4 MG/ML SYRINGE IV PRN (01:38)
[2018-02-10] MEDS: PHENAZOPYRIDINE 100 MG TAB PO SCH ×3 (09:32→23:10)
[2018-02-10] MEDS: QUEtiapine 200 MG TAB PO SCH ×2 (09:32→19:32)
[2018-02-10] MEDS: DONEPEZIL 10 MG TAB PO SCH ×2 (09:33→22:09)
[2018-02-10] MEDS: NAPROXEN 250 MG TAB PO SCH ×3 (09:33→23:10)
[2018-02-10] MEDS: CHOLECALCIFEROL 1,000 UNIT TAB PO SCH ×2 (09:33→19:30)
[2018-02-10] MEDS: MULTIVITAMINS, THERA 1 EACH TAB PO SCH (09:34)
[2018-02-10] MEDS: LORATADINE 10 MG TAB PO PRN (09:34)
[2018-02-10] MEDS: PANTOPRAZOLE 40 MG TABLET PO SCH (09:34)
[2018-02-10] MEDS: CARVEDILOL 3.125 MG TAB PO SCH ×2 (09:35→22:09)
[2018-02-10] MEDS: HEPARIN SODIUM,PORCINE 5,000 UNIT/ML 1 ML VIAL SQ SCH ×2 (09:35→22:09)
[2018-02-10] MEDS: ERTAPENEM 1 GM in SODIUM CHLORIDE 0.9% 50 ML IVPB SCH (11:46)
[2018-02-10] MEDS: HYDROcodone/APAP 5-325MG 1 EACH TAB PO PRN ×2 (12:32→19:32)
[2018-02-10] MEDS: BACLOFEN 10 MG TAB PO PRN (12:37)
[2018-02-10] MEDS: DIVALPROEX 250 MG TABLET.DR PO SCH (19:31)
[2018-02-10] MEDS: amLODIPine 2.5 MG TAB PO SCH (22:09)
[2018-02-10] MEDS: ATORVASTATIN 20 MG TAB PO SCH (22:09)
[2018-02-10] MEDS: MELATONIN 5 MG TABLET PO SCH (22:09)
[2018-02-10 22:16] LABS: Glucose,Whole Blood 140 mg/dL (75-99)
[2018-02-10] MEDS: QUEtiapine 100 MG TAB PO SCH (23:10)
[2018-02-10] MEDS: QUEtiapine 400 MG TAB PO SCH (23:10)
[2018-02-11] MEDS: HYDROcodone/APAP 5-325MG 1 EACH TAB PO PRN ×2 (07:06→15:38)
[2018-02-11] MEDS: PANTOPRAZOLE 40 MG TABLET PO SCH (07:06)
--- NOTE | 2018-02-11 07:57 | PN ---
PROGRESS NOTE DATE OF SERVICE: 02/10/2018 This 77-year-old woman was admitted with acute UTI with ESBL E coli, is being closely monitored. No chest pain. No palpitations. No fever. Sensorium is improving. EXAM: Alert and oriented x3. pulse 67, blood pressure 97/60, respiration 20, temperature 97.9, pulse ox 91 percent on room air. HEENT: Conjunctivae normal. Oral mucosa moist. NECK: No jugular venous distention. No lymph node enlargement. CARDIOVASCULAR: S1, S2. RESPIRATORY: Diminished breath sounds muffled at the bases. Bilateral scattered rhonchi, no crackles. ABDOMEN: Soft, nontender. LEGS: No swelling. NERVOUS SYSTEM: Higher function mentioned earlier. Moves all four limbs. LAB STUDIES: At this time shows WBC 4.2, hemoglobin 7.1. Cultures noted and blood cultures grew out Micrococcus. ASSESSMENT: 1. Acute urinary tract infection with ESBL E coli. 2. Micrococcus from the blood cultures. 3. Low back pain. 4. Lower abdominal pain. 5. Possible atelectasis, infiltrate of the right lower lobe. 6. History of coronary artery disease. 7. History of chronic obstructive pulmonary disease. 8. Dementia. 9. Gastroesophageal reflux disease. 10.Hypertension. 11.History of seizure disorder. 12.History hypothyroidism. 13.History back pain. 14.History of vitamin D deficiency. 15.Right bundle branch block on EKG. 16.History of cataracts. 17.History of hypothyroidism. 18.History of epilepsy and status epilepticus. 19.History of DVT and GI bleed. 20.History ESBL organisms previously in the urine. 21.History of depression. 22.History of schizophrenia. 23.FULL CODE. RECOMMENDATION: Continue current management, continue symptomatic treatment. Continue with IV antibiotics. Closely follow with Infectious Disease. Increase ambulation. Further recommendation to follow: Prognosis guarded. Blood cultures noted. MMODL / IJN: [id number] /
[2018-02-11] MEDS: HEPARIN SODIUM,PORCINE 5,000 UNIT/ML 1 ML VIAL SQ SCH ×2 (08:39→20:39)
[2018-02-11] MEDS: CHOLECALCIFEROL 1,000 UNIT TAB PO SCH ×2 (08:40→17:49)
[2018-02-11] MEDS: PHENAZOPYRIDINE 100 MG TAB PO SCH ×3 (08:40→20:40)
[2018-02-11] MEDS: CARVEDILOL 3.125 MG TAB PO SCH ×2 (08:40→23:05)
[2018-02-11] MEDS: DONEPEZIL 10 MG TAB PO SCH ×2 (08:40→20:39)
[2018-02-11] MEDS: NAPROXEN 250 MG TAB PO SCH ×3 (08:42→23:06)
[2018-02-11] MEDS: QUEtiapine 200 MG TAB PO SCH ×2 (08:43→17:49)
[2018-02-11] MEDS: MULTIVITAMINS, THERA 1 EACH TAB PO SCH (08:45)
[2018-02-11] MEDS: LORATADINE 10 MG TAB PO PRN (09:24)
--- NOTE | 2018-02-11 09:25 | PN ---
PROGRESS NOTE DATE OF SERVICE: 02/10/2018 REASON FOR FOLLOWUP: 1. ESBL E. coli urinary tract infection. 2. Positive blood culture with micrococcus species. INTERVAL HISTORY: The patient is currently afebrile. She is breathing comfortably. The patient denies any chest pain or shortness of breath, cough, abdominal pain, nausea, vomiting or diarrhea. PHYSICAL EXAMINATION: Blood pressure 124/77, pulse of 91, temperature 98.7, he is 91% on room air. General description is an elderly female lying in bed in no distress. Respiratory System: Unlabored breathing, clear to auscultation anteriorly. Heart: S1, S2. Regular rate and rhythm. Abdomen: Soft, no tenderness. LABS: Hemoglobin is 11.1, white count 4.8, BUN of 28, creatinine 0.7. The blood culture is a micrococcus species. DIAGNOSTIC IMPRESSION AND PLAN: 1. Patient with ESBL E. coli urinary tract infection. The patient did have a history of recurrent UTI. She will continue with IV Invanz for another 7-10 days. 2. Positive blood culture with micrococcus species, likely contamination. No need for therapy for the same. MMODL / IJN: [id number] /
[2018-02-11] MEDS: ERTAPENEM 1 GM in SODIUM CHLORIDE 0.9% 50 ML IVPB SCH (11:25)
[2018-02-11] MEDS: DIVALPROEX 250 MG TABLET.DR PO SCH (17:50)
[2018-02-11] MEDS: ATORVASTATIN 20 MG TAB PO SCH (20:40)
[2018-02-11] MEDS: MELATONIN 5 MG TABLET PO SCH (20:40)
[2018-02-11] MEDS: QUEtiapine 400 MG TAB PO SCH (20:40)
[2018-02-11] MEDS: QUEtiapine 100 MG TAB PO SCH (20:40)
[2018-02-11] MEDS: amLODIPine 2.5 MG TAB PO SCH (23:05)
--- NOTE | 2018-02-11 23:43 | PN ---
PROGRESS NOTE DATE OF SERVICE: 02/11/2018 REASON FOR FOLLOWUP: ESBL E coli urinary tract infection with positive blood culture, likely contamination. INTERVAL HISTORY: The patient is currently afebrile. She is breathing comfortably. Complaining of some substernal discomfort. No nausea, no vomiting. No chest pain, shortness of breath or cough and no diarrhea. PHYSICAL EXAMINATION: Blood pressure is 122/78 with a pulse of 94, temperature 98.8. She is 98% on room air. GENERAL DESCRIPTION: An elderly female lying in bed in no distress. RESPIRATORY SYSTEM: Unlabored breathing. Clear to auscultation anteriorly. HEART: S1, S2. Regular rate and rhythm. ABDOMEN: Soft. LABS: No new labs been obtained today. Blood culture repeat has been negative so far. DIAGNOSTIC IMPRESSION AND PLAN: 1. Patient with ESBL and E coli urinary tract infection. The patient is currently on . She will get PICC line tomorrow to continue with IV Invanz for another week to finish a course of therapy. 2. Positive blood culture, likely contamination. If repeat culture negative no need for therapy for the same condition. MMODL / IJN: [id number] /
--- NOTE | 2018-02-12 01:19 | PN ---
PROGRESS NOTE DATE OF SERVICE: 02/11/2018. HISTORY: This 77-year-old woman was admitted with UTI, ESBL E coli. The patient is on broad- spectrum IV antibiotics. Infectious Disease is following the patient closely. Recommend Invanz for another 7 to 10 days. No chest pain. No palpitations. No fever. Blood culture, positive, possibly contaminant. No chest pain, no palpitation. EXAM: Alert, oriented x3. Pulse 94, blood pressure 140/70, respirations 18, temperature 98.8, pulse ox 90% on room air. HEENT: Conjunctivae normal. NECK: No JVD. CARDIOVASCULAR: S1 and S2 muffled. LUNGS: Breath sounds diminished at the bases. No rhonchi, no crackles. ABDOMEN: Soft, nontender. EXTREMITIES: No edema. NERVOUS SYSTEM: No focal deficits. LABS: At this time WBC 4.2, hemoglobin 7.1, glucose 140. Blood culture noted. ASSESSMENT: 1. Acute urinary tract infection with ESBL E coli present on admission. 2. Micrococcus from the blood culture, possibly contaminant. 3. Low back pain. 4. Lower abdominal pain. 5. Possible atelectasis, right lower lobe, without any evidence of pneumonia. 6. History of coronary artery disease. 7. Chronic obstructive pulmonary disease. 8. Dementia. 9. Gastroesophageal reflux disease. 10.Hypertension. 11.History of seizure disorder. 12.History of hypothyroidism. 13.History of back pain. 14.History of vitamin D deficiency. 15.Right bundle branch block on EKG. 16.History of cataracts. 17.Hypothyroidism. 18.History of epilepsy and status epilepticus. 19.History of DVT, GI bleed history. 20.ESBL organism previously in the urine. 21.History of depression. 22.FULL CODE. RECOMMENDATIONS: Recommend to continue current medications, monitoring and symptomatic treatment. Continue Invanz as recommended by Dr. Schilling. PT and OT evaluation and social work and case management to evaluate for discharge planning. Guarded prognosis. Further recommendations to follow. MMODL / IJN: [id number] / MTDD
[2018-02-12] MEDS: MULTIVITAMINS, THERA 1 EACH TAB PO SCH (07:43)
[2018-02-12 07:44] VITALS: RESP 16
[2018-02-12] MEDS: CARVEDILOL 3.125 MG TAB PO SCH (07:44)
[2018-02-12] MEDS: PANTOPRAZOLE 40 MG TABLET PO SCH (07:44)
[2018-02-12] MEDS: CHOLECALCIFEROL 1,000 UNIT TAB PO SCH ×2 (07:44→16:17)
[2018-02-12] MEDS: DONEPEZIL 10 MG TAB PO SCH ×2 (07:44→22:35)
[2018-02-12] MEDS: NAPROXEN 250 MG TAB PO SCH ×2 (07:45→16:17)
[2018-02-12] MEDS: HEPARIN SODIUM,PORCINE 5,000 UNIT/ML 1 ML VIAL SQ SCH ×2 (07:45→22:35)
[2018-02-12] MEDS: PHENAZOPYRIDINE 100 MG TAB PO SCH ×2 (07:46→16:16)
[2018-02-12] MEDS: QUEtiapine 200 MG TAB PO SCH ×2 (07:46→16:17)
[2018-02-12 09:03] LABS: HCT 35.8 % (34.0-46.0); HGB 11.4 gm/dL (11.4-16.0); Hypochromasia Slight; MCH 27.2 pg (25.0-35.0); MCHC 31.9 g/dL (31.0-37.0); MCV 85.5 fL (80.0-100.0); Mean Platelet Volume 7.5; Platelet Count 236 k/uL (150-450); RBC 4.18 m/uL (3.80-5.40); RDW 15.6 % (11.5-15.5); WBC 4.2 k/uL (3.8-10.6)
[2018-02-12 10:35] LABS: Band Neutrophils % 22 %; Eosinophils # (M) 0.04 k/uL (0-0.7); Lymphocytes # (M) 0.71 k/uL (1.0-4.8); Monocytes # (M) 0.34 k/uL (0-1.0); Neutrophils % (M) 54 %; Nucleated Red Blood Cells 0 /100 WBC (0-0); Total Cells Counted 200
[2018-02-12 10:36] LABS: Anisocytosis (M) Present; Poikilocytosis (M) Present
[2018-02-12 10:37] LABS: Ovalocytes Present; Polychromasia Present
[2018-02-12 10:56] LABS: Glucose,Whole Blood 216 mg/dL (75-99)
--- NOTE | 2018-02-12 11:24 | CT ---
EXAMINATION TYPE: CT brain wo con for TPA DATE OF EXAM: 02/12/2018 HISTORY: Stroke symptoms CT DLP: 1020.8 mGycm. Automated Exposure Control for Dose Reduction was Utilized. TECHNIQUE: CT scan of the head is performed without contrast. COMPARISON: CT brain July 08, 2014. FINDINGS: There is no acute intracranial hemorrhage or midline shift identified. There is diffuse v entricular and sulcal prominence consistent with diffuse age-related cerebral atrophy. Slightly more prominent atrophy of bilateral frontal and temporal lobes, left slightly greater than right is redemo nstrated. There is low-attenuation in the deep and periventricular white matter consistent with chron ic small vessel ischemic change. Vague area of low-attenuation high right parietal superficial white matter axial image 39 is unchanged from prior study favoring chronic small vessel ischemic change. Th e globes are intact and the visualized sinuses are clear. Hypoplastic or non-formed right frontal sin us is redemonstrated. Prominent tortuous basilar artery is redemonstrated without significant inter desiree change. IMPRESSION: No acute intracranial hemorrhage or midline shift. There is fairly moderate diffuse age -related cerebral atrophy most prominent over bilateral frontal and temporal lobes, left greater than right and moderate chronic small vessel ischemic change redemonstrated. No significant change from prior CT
--- NOTE | 2018-02-12 11:56 | CT ---
EXAMINATION TYPE: CODE STROKE: CTA head neck DATE OF EXAM: 02/12/2018 HISTORY: Stroke symptoms COMPARISON: CT brain of the same date CT DLP: 343.4 mGycm. Automated Exposure Control for Dose Reduction was Utilized. TECHNIQUE: CTA scan of the neck is performed with IV Contrast, patient injected with 64 mL of Isovue 370, axial images are obtained, coronal and sagittal reformatted images are reviewed. Three-D recons tructed images are created on an independent workstation and reviewed. FINDINGS: Carotid/Vascular Structures: There is a conventional three-vessel branch pattern of the aortic arch. There is tortuosity of the left common carotid however the carotid arteries appear patent bilaterally including the common carotid arteries, carotid bulbs, and internal carotid arteries. The distal left internal carotid artery is also tortuous. No hemodynamically significant stenosis is seen. However, there is minimal less than 30% caliber on the left of the M3 segment of the middle cerebral artery me asuring a distance of 2 mm with narrowing of approximately 30% as seen on the 3-D images. The vertebral arteries are patent. The basilar artery demonstrates tortuosity and ectasia measuring u p to 5.0 cm. The [place] appears intact. No sizable intracranial aneurysm is seen. No large vessel vascular occlusion or focal stenosis. No evidence of arterial venous malformation or significa nt shunting. Other: Visualized portions of the brain are discussed on the CT brain dictation of same date. IMPRESSION: 1. No evidence of vascular occlusion. 2. Short segment nonhemodynamically significant mild stenosis of the M3 segment of the left middle ce rebral artery. 3. 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 4. No hemodynamically significant stenosis of major vasculature the head or neck.
[2018-02-12] MEDS ORDERED: ASPIRIN 325 MG TAB PO SCH (12:00)
[2018-02-12] MEDS: ERTAPENEM 1 GM in SODIUM CHLORIDE 0.9% 50 ML IVPB SCH (12:23)
--- NOTE | 2018-02-12 13:01 | P.CN ---
Psychiatric Consult - . Consult date: 02/12/18 Consult:: 02/12/18 10:06 psychiatric history and noncompliance? 02/12/18 12:59 Assessment and Plan Assessment: 77-year-old female presents emergency department today which point of back pain and lower abdominal pain and dysuria. She's been treated multiple times for urinary tract infections. Patient has had low-grade fevers. She lives at [facility] on the [facility]. Was sent here for trouble pain. She's had some chronic abdominal and lower back pain. Patient also states that she's been having some chest pain over the past hour since arriving to emergency department. She complains of wheezing and difficulty in breathing. - Related Data Home Medications Medication Instructions Recorded Confirmed Cholecalciferol [Vitamin D3] 2,000 unit PO BID@0900,1700 08/23/13 01/09/18 Donepezil [Aricept] 10 mg PO BID@0900,209908/23/13 01/09/18 Multivitamins, Thera [Multivitamin 1 tab PO DAILY@0900 08/23/13 01/09/18 (formulary)] Atorvastatin [Lipitor] 20 mg PO HS@2100 04/12/15 01/09/18 Carvedilol [Coreg] 3.125 mg PO BID@0900,209912/25/15 01/09/18 Melatonin 10 mg PO HS@209912/25/15 01/09/18 amLODIPine [Norvasc] 2.5 mg PO HS@2100 12/25/15 01/09/18 [place]-3 Fatty Acids/Fish Oil [Fish 1 cap PO DAILY@0900 10/19/16 01/09/18 Oil 1,000 mg Softgel] Acetaminophen [Tylenol] 650 mg PO Q6H PRN 04/24/17 01/09/18 Albuterol Nebulized [Ventolin 2.5 mg INHALATION RT-Q6H PRN 04/24/17 01/09/18 Nebulized] Bismuth Subsalicylate [Kaopectate] 262 mg PO BID@0900,2100 04/24/17 01/09/18 Divalproex [Depakote] 250 mg PO DAILY@1700 04/24/17 01/09/18 Previous Rx's Medication Instructions Recorded Baclofen [Lioresal] 5 mg PO TID PRN tab 12/07/18 HYDROcodone/APAP 5-325MG [[place] 1 tab PO TID PRN #9 tab 01/12/18 5-325] Naproxen [Naprosyn] 250 mg PO TID #21 tab 01/12/18 Nitrofurantoin Macrocrystal 100 mg PO BID #14 cap 01/12/18 [Macrodantin] QUEtiapine FUMARATE [SEROquel] 200 mg PO BID@0900,1700 #6 tablet 01/12/18 QUEtiapine FUMARATE [SEROquel] 400 mg PO HS@2100 #3 tablet 01/12/18 QUEtiapine [SEROquel] 100 mg PO HS@2100 #3 tab 01/12/18 Allergies Allergy/AdvReac Type Severity Reaction Status Date / Time adhesive tape Allergy Unknown Verified 02/06/18 22:28 ceftriaxone [From Rocephin] Allergy Rash/Hives Verified 02/06/18 22:28 cephalexin monohydrate Allergy Unknown Verified 02/06/18 22:28 [From Keflex] fluoxetine HCl [From Prozac] Allergy Unknown Verified 02/06/18 22:28 ketorolac tromethamine Allergy Unknown Verified 02/06/18 22:28 [From Toradol] latex Allergy Unknown Verified 02/06/18 22:28 phenelzine sulfate Allergy Unknown Verified 02/06/18 22:28 [From Nardil] Phenothiazines Allergy Unknown Verified 02/06/18 22:28 propoxyphene napsylate Allergy Unknown Verified 02/06/18 22:28 [From Darvocet-N 100] Past Medical History Past Medical History: Coronary Artery Disease (CAD), COPD, Dementia, GERD/Reflux , Hypertension, Seizure Disorder, Thyroid Disorder Additional Past Medical History / Comment(s): Chronic back pain, Alzheimer's, vitamin D deficiency, right bundle branch block, borderline diabetic, cataracts (w/ removal), hypothyroid, insomnia, epilepsy without status epilepticus (per [facility] paperwork), reports DVT and GIB (not in paperwork, self reported). History of Any Multi-Drug Resistant Organisms: ESBL Date of last positivie culture/infection: 01/09/18 MDRO Source:: ESBL URINE Past Surgical History: Orthopedic Surgery Additional Past Surgical History / Comment(s): Right leg fracture w/ surgery Past Anesthesia/Blood Transfusion Reactions: Unable to Obtain Past Psychological History: Depression, Schizophrenia Smoking Status: Former smoker Past Alcohol Use History: None Reported Past Drug Use History: None Reported - Past Family History Mother Family Medical History: Unable to Obtain Mental Status Examination - General Appearance: [casual, bizarre, appears older than stated age, Speech/Language: [spontaneous, slow, monotone, expressive, soft] Attitude/Behavior: [cooperative, indifferent] Mood: [euthymic, anxious Affect: [full range] Orientation: [not time, person, place situation] Thought Content: [wnl Risk Factors: [She is not suicidal (ideations, plan), and/or Homicidal ( ideations, plan), other] Perception: [ hallucinations (auditory which has been a lifelong not an acute issue Thought Processes: [goal-oriented, Concentration/Attention Span: [wnl] [Per observation and interview with the patient] Recent Memory: [wnl] [ 2 or 3 out of 3 in 3 minutes] Remote Memory: [wnl] [past events, as related history] Intelligence: [below average[based on history, based on vocabulary, syntax, grammar, and content] Judgement: [good] [per patient's behavior/history of present illness] Insight: [good [understanding severity of illness/history of present illness] Psychiatric impression: Neurocognitive disorder worsened due to urinary tract infection causing acute psychosis exacerbating existing schizophrenia Psychiatric recommendations: Medical comorbidity needs to be treated and continue the psychiatric medications and needs not to be transferred to a geriatric psych unit or any other psychiatric unit Thank you for the consult Lewis Samuel do PhD Time with Patient: Less than 30
[2018-02-12] MEDS: DIVALPROEX 250 MG TABLET.DR PO SCH (16:17)
[2018-02-12 16:54] LABS: Appearance,Urine Clear (Clear); Bacteria,Urine Rare /hpf; Bilirubin,Urine 2+ (Negative); Blood,Urine Negative (Negative); Color,Urine Dark Brown; Glucose,Urine (UA) Negative (Negative); Granular Casts,Urine 3 /lpf (0); Ketones,Urine Negative (Negative); Leukocyte Esterase,Urine Negative (Negative); Mucus,Urine Rare /hpf; Nitrite,Urine Positive (Negative); Protein,Urine 1+ (Negative); RBC,Urine 11 /hpf (0-5)
--- NOTE | 2018-02-12 17:35 | PN ---
PROGRESS NOTE DATE OF SERVICE: 02/12/2018 REASON FOR FOLLOWUP VISIT: 1. ESBL E. coli urinary tract infection. 2. Positive blood culture, likely contamination. INTERVAL HISTORY: The patient is currently afebrile. She is breathing comfortably. Denies having any chest pain. No cough. No abdominal pain or any diarrhea. PHYSICAL EXAMINATION: Blood pressure 97/55 with a pulse of 79, temperature is 97.5, she is 91% on room air. General description is an elderly female, lying in bed in no distress. Respiratory system: Unlabored breathing. Clear to auscultation anteriorly. Heart: S1, S2. Regular rate and rhythm. Abdomen soft. LABS: Hemoglobin 11.4, white count 4.2. DIAGNOSTIC IMPRESSION AND PLAN: 1. Patient with an ESBL E. coli urinary tract infection. Patient is currently on Invanz. She will need a med line and continue with Invanz for about a week to finish course of therapy. 2. Positive blood culture, likely skin contamination. No need for therapy for the same. MMODL / IJN: [id number] /
[2018-02-12] MEDS: MELATONIN 5 MG TABLET PO SCH (22:35)
[2018-02-12] MEDS: ATORVASTATIN 20 MG TAB PO SCH (22:35)
[2018-02-12] MEDS: QUEtiapine 400 MG TAB PO SCH (22:36)
[2018-02-12] MEDS: QUEtiapine 100 MG TAB PO SCH (22:36)
--- NOTE | 2018-02-13 00:02 | PN ---
PROGRESS NOTE DATE OF SERVICE: 02/12/2018. PRESENTING COMPLAINT: Altered mental status. INTERVAL HISTORY: This is a patient admitted with fevers and chills. Found to have a UTI with ESBL E coli. Has been on antibiotics. The patient was also evaluated by Psychiatry who felt the patient probably had acute psychosis with worsening from schizophrenia. Earlier today, the patient became more lethargic and CT scan of the brain was done that did not show any stroke. I did order a stat CT scan of the brain and also spoke to the nurse who spoke to the stroke team. They did not feel the need for any further workup. It was felt to be more metabolic. I did order some Narcan in the evening, to which the patient did respond. The patient also being followed by Dr. Schilling. REVIEW OF SYSTEMS: Could not be done earlier today as patient was still somewhat lethargic. CURRENT MEDICATIONS: Reviewed, that include IV Invanz, Seroquel. The patient has also got Xanax, p.r.n. baclofen, p.r.n. Depakote, Aricept, [place] and Claritin. PHYSICAL EXAMINATION: Temperature 97.5, pulse 79, respirations 16, blood pressure 97/65, pulse ox 91 percent. GENERAL APPEARANCE: Lying in bed, lethargic, but arousable. EYES: Pupils equal. Conjunctivae normal. HEENT: External nose and ears normal. Oral cavity normal. NECK: JVD unable to assess. Mass not palpable. Respiratory effort normal. LUNGS: Clear. CARDIOVASCULAR: 1st and 2nd heart sounds. No edema. ABDOMEN: Soft, nontender, liver and spleen not palpable. PSYCHIATRY: Lethargic but arousable. Pupils equal. No facial asymmetry. No weakness on any particular side. INVESTIGATIONS: White count 4.2, hemoglobin 11.4. Accu-Cheks are noted. CT angio does not show any acute stroke. CT scan of the brain also does not show any acute event. ASSESSMENT: 1. Acute metabolic encephalopathy, probably combination of medications and sepsis infection. 2. Coronary artery disease. 3. Chronic obstructive pulmonary disease in a prior smoker. 4. Gastroesophageal reflux disease. 5. Essential hypertension. 6. Chronic lumbar osteoarthritis. 7. Chronic schizophrenia. 8. Acute urinary tract infection from E coli/ESBL. PLAN: I did the neuro workup in the daytime. It all came back negative. I will go ahead and stop patient's Xanax, Claritin, any morphine, and also the baclofen, antihistamine, Aricept, Claritin. Continue with Seroquel. I do expect patient to turn around. I do expect patient to turn around in 24 hours. EKATERINA / SIMEON: [id number] /
[2018-02-13] MEDS: NAPROXEN 250 MG TAB PO SCH ×4 (00:13→21:19)
[2018-02-13] MEDS: PHENAZOPYRIDINE 100 MG TAB PO SCH ×2 (00:13→11:58)
[2018-02-13] MEDS: amLODIPine 2.5 MG TAB PO SCH ×2 (00:15→22:39)
[2018-02-13] MEDS: CARVEDILOL 3.125 MG TAB PO SCH ×3 (00:15→22:39)
[2018-02-13] MEDS: HEPARIN SODIUM,PORCINE 5,000 UNIT/ML 1 ML VIAL SQ SCH ×2 (11:54→21:20)
[2018-02-13] MEDS: PANTOPRAZOLE 40 MG TABLET PO SCH (11:55)
[2018-02-13] MEDS: CHOLECALCIFEROL 1,000 UNIT TAB PO SCH ×2 (11:55→17:27)
[2018-02-13] MEDS: ASPIRIN 81 MG PO SCH (11:55)
[2018-02-13] MEDS: MULTIVITAMINS, THERA 1 EACH TAB PO SCH (11:56)
[2018-02-13] MEDS: QUEtiapine 200 MG TAB PO SCH ×2 (11:57→17:27)
[2018-02-13] MEDS: ERTAPENEM 1 GM in SODIUM CHLORIDE 0.9% 50 ML IVPB SCH (12:32)
[2018-02-13] MEDS: DIVALPROEX 250 MG TABLET.DR PO SCH (17:27)
[2018-02-13] MEDS: QUEtiapine 400 MG TAB PO SCH (21:20)
[2018-02-13] MEDS: QUEtiapine 100 MG TAB PO SCH (21:20)
[2018-02-13] MEDS: MELATONIN 5 MG TABLET PO SCH (21:20)
[2018-02-13] MEDS: ATORVASTATIN 20 MG TAB PO SCH (21:20)
--- NOTE | 2018-02-14 03:13 | PN ---
PROGRESS NOTE DATE OF SERVICE: 02/13/2018. REASON FOR FOLLOWUP: ESBL E coli urinary tract infection. INTERVAL HISTORY: The patient is currently afebrile. She is breathing comfortably. Slightly lethargic, though no chest pain. No abdominal pain and no diarrhea. PHYSICAL EXAMINATION: Blood pressure 126/74 with a pulse of 71, temperature 98.4. He is 92% on room air. GENERAL DESCRIPTION: An elderly female lying in bed in no distress. RESPIRATORY SYSTEM: Unlabored breathing. Clear to auscultation anteriorly. HEART: S1, S2. Regular rate and rhythm. ABDOMEN: Soft, no tenderness. LABS: No new lab have been obtained today. DIAGNOSTIC IMPRESSION/PLAN: Patient with ESBL E coli urinary tract infection, currently covered with Invanz, for which the patient has received about 5 days of antibiotic therapy. Continue to monitor the patient closely. Continue supportive care. MMODL / IJN: [id number] /
--- NOTE | 2018-02-14 03:13 | PN ---
PROGRESS NOTE DATE OF SERVICE: 02/13/2018. PRESENTING COMPLAINT: Tired. INTERVAL HISTORY: Patient admitted with fever, chills. Found to have a UTI with ESBL E coli, on antibiotics. The patient also has underlying schizophrenia, also had episode of metabolic encephalopathy. Some of the sedative medications were held back. The patient is doing much better, awake today. Did tolerate some diet. Lying in bed. REVIEW OF SYSTEMS: Done for constitutional, cardiovascular, GI, pulmonary; relevant findings as above. CURRENT MEDICATIONS: Reviewed, include IV Invanz. PHYSICAL EXAMINATION: Temperature 98.6, pulse 76, respirations 16, blood pressure 111/74, pulse ox 92 percent on room air. GENERAL APPEARANCE: Lying in bed, more awake. EYES: Conjunctivae normal. NECK: JVD unable to assess. Mass not palpable. Respiratory effort normal. LUNGS: Clear. CARDIOVASCULAR: 1st and 2nd sounds. No edema. ABDOMEN: Soft, nontender. Liver and spleen not palpable. PSYCHIATRY: Far more awake, answering questions. INVESTIGATIONS: 1. C diff negative. Acute metabolic encephalopathy, probably combination of medication and sepsis, much improved. 2. Coronary artery disease. 3. Chronic obstructive pulmonary disease in a prior smoker. 4. Gastroesophageal reflux disease. 5. Essential hypertension. 6. Chronic lumbar osteoarthritis. 7. Chronic schizophrenia. 8. Acute urinary tract infection from E coli/ESBL. PLAN: Overall patient is doing better. Continue current medication and treatment plan. Looking at possible ECF. MMODL / IJN: [id number] /
[2018-02-14] MEDS: ERTAPENEM 1 GM in SODIUM CHLORIDE 0.9% 50 ML IVPB SCH (10:38)
[2018-02-14] MEDS: CARVEDILOL 3.125 MG TAB PO SCH (10:39)
[2018-02-14] MEDS: QUEtiapine 200 MG TAB PO SCH ×2 (10:39→16:15)
[2018-02-14] MEDS: HEPARIN SODIUM,PORCINE 5,000 UNIT/ML 1 ML VIAL SQ SCH (10:39)
[2018-02-14] MEDS: NAPROXEN 250 MG TAB PO SCH ×2 (10:39→16:14)
[2018-02-14] MEDS: CHOLECALCIFEROL 1,000 UNIT TAB PO SCH ×2 (10:39→16:14)
[2018-02-14] MEDS: PANTOPRAZOLE 40 MG TABLET PO SCH (10:39)
[2018-02-14] MEDS: ASPIRIN 81 MG PO SCH (10:41)
[2018-02-14] MEDS: MULTIVITAMINS, THERA 1 EACH TAB PO SCH (10:41)
[2018-02-14 14:48] VITALS: BP 133/83; PULSE 73; TEMP 98.2
--- NOTE | 2018-02-14 15:03 | PN ---
PROGRESS NOTE DATE OF SERVICE: 02/14/2018 REASON FOR FOLLOWUP: ESBL E coli urinary tract infection. INTERVAL HISTORY: The patient is currently afebrile. She is more awake, alert. She is breathing comfortably. No chest pain. No cough. No abdominal pain and no diarrhea. PHYSICAL EXAMINATION: Blood pressure 130/81 with a pulse of 76, temperature 98.7. She is 92% on room air. General description is an elderly female, lying in bed in no distress. RESPIRATORY SYSTEM: Unlabored breathing, clear to auscultation anteriorly. HEART: S1, S2. Regular rate and rhythm. ABDOMEN: Soft, no tenderness. LABS: White count of 4.8. DIAGNOSTIC IMPRESSION AND PLAN: Patient with ESBL Escherichia coli urinary tract infection. The patient did have history of recurrent urinary tract infection. Currently on Invanz with clinical improvement. Continue with Invanz for another 5 days to finish a course of therapy. Continue supportive care. MMODL / IJN: [id number] /
--- NOTE | 2018-02-14 15:55 | DS ---
DISCHARGE SUMMARY DATE OF ADMISSION: 02/09/2018 DATE OF DISCHARGE: 02/14/2018 FINAL DIAGNOSES: 1. Acute urinary tract infection from Escherichia coli ESBL causing sepsis, present on admission. 2. Acute metabolic encephalopathy from above and sepsis, now resolved. 3. Coronary artery disease. 4. Chronic obstructive pulmonary disease in an ex-smoker. 5. Gastroesophageal reflux disease. 6. Essential hypertension. 7. Chronic lumbar osteoarthritis. 8. Chronic schizophrenia. CONSULTATIONS: Dr. Schilling from ID, Dr. Samuel from Psychiatry. HOSPITAL COURSE: This patient presented with sepsis picture, found to have UTI, ESBL in the urine. Responded well to antibiotics. The patient becoming encephalopathic. I did stop patient's Aricept and antihistaminic, probably corresponding with the side effects. Did really well after these were stopped and will not start these again. The patient can be given DC trial of Zhang down the road. Patient is tolerating a diet. PHYSICAL EXAMINATION: Temperature 98.2, pulse 73, respiratory rate 16, blood pressure 133/83, pulse ox 98 percent on room air. LUNGS: Decreased breath sounds. ABDOMEN: Soft, nontender. The patient is able to answer simple questions. INVESTIGATIONS: White count 4.2, hemoglobin 11.4. Urine culture did show E coli ESBL. Blood cultures grew micrococcus, felt to be contaminant. DISCHARGE MEDICATIONS: 1. Multivitamin 1 tablet p.o. daily. 2. Lipitor 20 mg q.h.s. 3. Coreg 3.125 p.o. b.i.d. 4. Melatonin 10 mg p.o. q.h.s. 5. Fish oil 1000 mg p.o. daily. 6. Depakote 250 mg p.o. daily 5:00 pm. 7. Baclofen 5 mg p.o. t.i.d. p.r.n. 8. Naproxen 250 mg p.o. t.i.d. for 1 week, then p.r.n. 9. Seroquel 200 mg b.i.d. at 9:00 am and 5:00 pm 400 mg q.h.s. at 9:00 pm. 10.Seroquel 100 mg q.h.s. at 9:00 pm. 11.Ventolin 2.5 q.6h p.r.n. 12.Aspirin 81 mg a day. 13.Invanz 1 g IV piggyback daily for 5 days. 14.[place] 5 one tablet p.o. t.i.d. p.r.n. DISPOSITION: [facility]. FOLLOWUP: Follow up with Dr. Rushing at the [facility]. Prognosis is guarded. Copy to Dr. Rushing. MMODL / TOBIN: [id number] /
[2018-02-14] MEDS: DIVALPROEX 250 MG TABLET.DR PO SCH (16:14)
== END 2018-02-14 17:49 | DRG 871 ==
LOC: EC 22:26 → INTOOBSV 02-07 03:49 → 4SSUR 02-07 03:49 → OBSVTOIN 02-09 12:24
PROVIDERS: ADMIT Hospitalist; ATTEND Hospitalist
PROC: 05HC33Z Insertion of Infusion Device into Left Basilic Vein, Percutaneous Approach (ICD-10-PCS; principal; 2018-02-12 10:00)
PROC: B54NZZA Ultrasonography of Left Upper Extremity Veins, Guidance (ICD-10-PCS; 2018-02-12 10:00)
DX: A41.51 Sepsis due to Escherichia coli [E. coli] (principal); G92 Toxic encephalopathy; N39.0 Urinary tract infection, site not specified; E03.9 Hypothyroidism, unspecified; F02.80 Dementia in other diseases classified elsewhere, unspecified severity, without behavioral disturbance, psychotic disturbance, mood disturbance, and anxiety; F20.9 Schizophrenia, unspecified; G30.9 Alzheimer's disease, unspecified; G40.909 Epilepsy, unspecified, not intractable, without status epilepticus; G89.29 Other chronic pain; T50.905A Adverse effect of unspecified drugs, medicaments and biological substances, initial encounter; I10 Essential (primary) hypertension; I25.10 Atherosclerotic heart disease of native coronary artery without angina pectoris; I45.10 Unspecified right bundle-branch block; J44.9 Chronic obstructive pulmonary disease, unspecified; K21.9 Gastro-esophageal reflux disease without esophagitis; K57.30 Diverticulosis of large intestine without perforation or abscess without bleeding; M47.816 Spondylosis without myelopathy or radiculopathy, lumbar region; N20.0 Calculus of kidney; Z16.12 Extended spectrum beta lactamase (ESBL) resistance; Z79.899 Other long term (current) drug therapy; Z86.19 Personal history of other infectious and parasitic diseases; Z86.718 Personal history of other venous thrombosis and embolism; Z87.440 Personal history of urinary (tract) infections; Z87.891 Personal history of nicotine dependence; Z88.1 Allergy status to other antibiotic agents; Z88.5 Allergy status to narcotic agent; Z88.8 Allergy status to other drugs, medicaments and biological substances; Z91.040 Latex allergy status; Z98.42 Cataract extraction status, left eye; Z98.41 Cataract extraction status, right eye
CPT/HCPCS: 36410; 36415; 70450; 70496; 70498; 71046; 71275; 74018; 74177; 76937; 80048; 80053; 81001; 82150; 83690; 84484; 85025; 85379; 85610; 85730; 87040; 87077; 87086; 87186; 87324; 93005; 94640; 96361; 96365; 96366; 96375; 96376; 99285

== ENCOUNTER 2018-06-20 02:26 | Inpatient (IN) | payer MEDICARE, OTHER ==
[2018-06-20] MEDS ORDERED: cefTRIAXone IN SWFI 1,000 MG/10 ML SYRINGE IVP ONE (04:09)
[2018-06-20 07:47] LABS: Albumin 3.5 g/dL (3.5-5.0); Calcium 10.5 mg/dL (8.4-10.2); Magnesium 2.6 mg/dL (1.6-2.3); T4, Free (Free Thyroxine) 0.96 ng/dL (0.78-2.19); Total Bilirubin 0.7 mg/dL (0.2-1.3); Total Protein 6.3 g/dL (6.3-8.2)
[2018-06-20 07:48] LABS: Potassium 5.3 mmol/L (3.5-5.1)
[2018-06-20 07:52] LABS: Basophils % (A) 1 %; Eosinophils # (A) 0.4 k/uL (0-0.7); Eosinophils % (A) 6 %; HCT 38.3 % (34.0-46.0); Lymphocytes # (A) 1.8 k/uL (1.0-4.8); Lymphocytes % (A) 30 %; MCH 27.3 pg (25.0-35.0); MCHC 31.2 g/dL (31.0-37.0); MCV 87.5 fL (80.0-100.0); Monocytes # (A) 0.4 k/uL (0-1.0); Monocytes % (A) 6 %; Neutrophils # (A) 3.2 k/uL (1.3-7.7); Neutrophils % (A) 54 %; Platelet Count 196 k/uL (150-450); RBC 4.37 m/uL (3.80-5.40); RDW 15.4 % (11.5-15.5); WBC 5.9 k/uL (3.8-10.6)
[2018-06-20 08:21] LABS: Appearance,Urine Cloudy (Clear); Bacteria,Urine Occasional /hpf; Bilirubin,Urine 1+ (Negative); Blood,Urine Negative (Negative); Color,Urine Dark Brown; Glucose,Urine (UA) Negative (Negative); Hyaline Casts,Urine 28 /lpf (0-2); Ketones,Urine Trace (Negative); Leukocyte Esterase,Urine Large (Negative); Mucus,Urine Few /hpf; Nitrite,Urine Negative (Negative); PH, Urine 5.5 (5.0-8.0); Protein,Urine 1+ (Negative); RBC,Urine 12 /hpf (0-5); Specific Gravity,Urine 1.032 (1.001-1.035); Squamous Epithelial Cell,Urine 1 /hpf (0-4); WBC,Urine 34 /hpf (0-5)
[2018-06-20] MEDS ORDERED: ALBUTEROL NEBULIZED 2.5 MG/3 ML INHALATION PRN (10:44)
[2018-06-20] MEDS ORDERED: ACETAMINOPHEN TAB 325 MG TAB PO PRN (10:44)
[2018-06-20] MEDS ORDERED: SODIUM CHLORIDE 0.9% 1,000 ML IV SCH (11:00)
[2018-06-20] MEDS ORDERED: LEVOFLOXACIN 500MG-D5W PMX 500 MG in DEXTROSE/WATER 1 100ML.BAG IVPB SCH (12:00)
--- NOTE | 2018-06-20 12:14 | XR ---
EXAM: XR Chest, 2 Views CLINICAL HISTORY: chest pain, sob TECHNIQUE: Frontal and lateral views of the chest. COMPARISON: No relevant prior studies available. FINDINGS: Lungs: Low lung volumes. Prominent pulmonary vascularity. Mild basilar atelectasis or developing infiltrate. Pleural space: Possible trace right pleural effusion. Heart: Prominent cardiac mediastinal silhouette. Mediastinum: See above. Bones/joints: No definite acute fracture. IMPRESSION: 1. Prominent pulmonary vascularity. Mild basilar atelectasis or developing infiltrate. 2. Possible trace right pleural effusion. 3. Prominent cardiac mediastinal silhouette. Compare to priors if available.
--- NOTE | 2018-06-20 14:06 | P.HPIM ---
History of Present Illness 77-year-old female the has some mild developmental issues and mental issues along with the dementia was sent in here from long term where she resides at mostly bedbound, was sent in here because of altered mental status. Patient is being treated for urinary tract infection with Macrobid without any significant improvement in her UTI symptoms. Patient denied any cough cough fever chills. Patient is comparing of dysuria and she says she has urinary tract infection patient does have suprapubic tenderness as well as left lower quadrant tenderness as there is no symptoms of colitis will not order any imaging study looking for colitis patient was started on meropenem as patient has ESBL in the past. We'll also consult infectious disease. My suspicion for the colitis is low clinically although patient does have minimal tenderness in the left lower quadrant along with suprapubic tenderness. Patient does have prominence bronchovascular markings and thickening of the lobar septum on the chest x-ray because of borderline kidney function I'll order a BNP I cannot really assess JVD, patient will not be started on Lasix yet patient is saturating well. Review of Systems PHYSICAL EXAMINATION: GENERAL: The patient is alert and oriented x2-3, not in any acute distress. Well developed, well nourished. HEENT: Pupils are round and equally reacting to light. EOMI. No scleral icterus. No conjunctival pallor. Normocephalic, atraumatic. No pharyngeal erythema. No thyromegaly. CARDIOVASCULAR: S1 and S2 present. No murmurs, rubs, or gallops. PULMONARY: Chest is clear to auscultation, no wheezing or crackles. ABDOMEN: Soft, nontender, nondistended, normoactive bowel sounds. No palpable or ganomegaly. MUSCULOSKELETAL: No joint swelling or deformity. EXTREMITIES: No cyanosis, clubbing, or pedal edema. NEUROLOGICAL: Gross neurological examination did not reveal any focal deficits. SKIN: No rashes. Past Medical History Past Medical History: Coronary Artery Disease (CAD), Heart Failure, COPD, Dementia, GERD/Reflux, Hypertension, Seizure Disorder, Thyroid Disorder Additional Past Medical History / Comment(s): Chronic back pain, Alzheimer's, vitamin D deficiency, right bundle branch block, hypothyroid, insomnia, epilepsy -unknown date of last seizure, diverticulosis, gait disturbance-lately in wheelchair, reports DVT and GIB (not in paperwork, self reported). History of Any Multi-Drug Resistant Organisms: ESBL Date of last positivie culture/infection: 03/20/18 MDRO Source:: ESBL URINE Past Surgical History: Orthopedic Surgery Additional Past Surgical History / Comment(s): Right leg fracture w/ surgery, L upper back lipoma removed, bilateral cataract surgery. Past Anesthesia/Blood Transfusion Reactions: Unable to Obtain Smoking Status: Former smoker - Past Family History Mother Family Medical History: Unable to Obtain Additional Family Medical History / Comment(s): Migraines. Father Family Medical History: No Reported History Additional Family Medical History / Comment(s): Father was healthy. Medications and Allergies Home Medications Medication Instructions Recorded Confirmed Type Multivitamins, Thera [Multivitamin 1 tab PO DAILY@0900 08/23/13 06/20/18 History (formulary)] Atorvastatin [Lipitor] 20 mg PO HS@2100 04/12/15 06/20/18 History Carvedilol [Coreg] 3.125 mg PO BID@0900,2100 12/25/15 06/20/18 History Melatonin 10 mg PO HS@2100 12/25/15 06/20/18 History [place]-3 Fatty Acids/Fish Oil [Fish 1 cap PO DAILY@0900 10/19/16 06/20/18 History Oil 1,000 mg Softgel] Acetaminophen [Tylenol] 650 mg PO Q6H PRN 04/24/17 06/20/18 History Divalproex [Depakote] 250 mg PO DAILY@1700 04/24/17 06/20/18 History Naproxen [Naprosyn] 250 mg PO TID #21 tab 01/12/18 06/20/18 Rx QUEtiapine FUMARATE [SEROquel] 200 mg PO BID@0900,1700 #6 tablet 01/12/18 06/20/18 Rx QUEtiapine FUMARATE [SEROquel] 400 mg PO HS@2100 #3 tablet 01/12/18 06/20/18 Rx QUEtiapine [SEROquel] 100 mg PO HS@2100 #3 tab 01/12/18 06/20/18 Rx Albuterol Nebulized [Ventolin 2.5 mg INHALATION RT-Q6H PRN nebu 02/14/18 06/20/18 Rx Nebulized] Aspirin 81 mg PO DAILY chew 02/14/18 06/20/18 Rx HYDROcodone/APAP 5-325MG [[place] 1 tab PO TID PRN #9 tab 02/14/18 06/20/18 Rx 5-325] Baclofen [Lioresal] 5 mg PO TID PRN 06/20/18 06/20/18 History Cholecalciferol (Vitamin D3) 2,000 unit PO DAILY@0900 06/20/18 06/20/18 History [Vitamin D3] Nitrofurantoin Monohyd/M-Cryst 100 mg PO DAILY@0900 06/20/18 06/20/18 History [Macrobid] Allergies Allergy/AdvReac Type Severity Reaction Status Date / Time adhesive tape Allergy Unknown Verified 06/20/18 06:46 ceftriaxone [From Rocephin] Allergy Rash/Hives Verified 06/20/18 06:46 cephalexin monohydrate Allergy Unknown Verified 06/20/18 06:46 [From Keflex] fluoxetine HCl [From Prozac] Allergy Unknown Verified 06/20/18 06:46 ketorolac tromethamine Allergy Unknown Verified 06/20/18 06:46 [From Toradol] latex Allergy Unknown Verified 06/20/18 06:46 phenelzine sulfate Allergy Unknown Verified 06/20/18 06:46 [From Nardil] Phenothiazines Allergy Unknown Verified 06/20/18 06:46 propoxyphene napsylate Allergy Unknown Verified 06/20/18 06:46 [From Darvocet-N 100] Physical Exam Vitals: Vital Signs Temp Pulse Resp BP Pulse Ox 06/20/18 07:33 97.8 F 74 18 124/63 97 Intake and Output 06/19/18 06/20/18 06/20/18 22:59 06:59 14:59 Other: Weight 74.843 kg Results CBC & Chem 7: 06/20/18 02:50 06/20/18 02:50 Labs: Abnormal Lab Results - Last 24 Hours (Table) 06/20/18 06/20/18 Range/Units 02:50 02:50 Potassium 5.3 H (3.5-5.1) mmol/L BUN 51 H (7-17) mg/dL Creatinine 1.19 H (0.52-1.04) mg/dL Calcium 10.5 H (8.4-10.2) mg/dL Magnesium 2.6 H (1.6-2.3) mg/dL AST 38 H (14-36) U/L Alkaline Phosphatase 131 H (38-126) U/L Urine Appearance Cloudy H (Clear) Urine Protein 1+ H (Negative) Urine Ketones Trace H (Negative) Urine Bilirubin 1+ H (Negative) Ur Leukocyte Esterase Large H (Negative) Urine RBC 12 H (0-5) /hpf Urine WBC 34 H (0-5) /hpf Urine WBC Clumps Many H (None) /hpf Urine Bacteria Occasional H (None) /hpf Hyaline Casts 28 H (0-2) /lpf Urine Mucus Few H (None) /hpf Thrombosis Risk Factor Assmnt - Choose All That Apply Any of the Below Risk Factors Present?: Yes Each Factor Represents 1 point: Abnormal pulmonary function (COPD), Obesity (BMI >25), Serious lung disease incl. pneumonia (< 1month) Other Risk Factors: Yes Each Risk Factor Represents 3 Points: Age 75 years or older Other congenital or acquired thrombophilia - If yes, enter type in comment: No Thrombosis Risk Factor Assessment Total Risk Factor Score: 6 Thrombosis Risk Factor Assessment Level: High Risk Assessment and Plan Plan: -Urinary tract infection and cystitis: Patient had ESBL, E. coli in the past patient will be started on meropenem infectious disease will be consulted. -Toxic encephalopathy from urinary tract infection -Possibility pulmonary edema cannot be ruled out we'll obtain BNP patient may required Lasix for oxygen saturations dropped. Do not have any echo cardiac exam reveals this will be ordered -COPD without any acute exacerbation Coronary artery disease -Gastroesophageal reflux disease -Seizure disorder -Hypothyroidism -Mildly elevated the serum potassium: Secondary to hemolysis repeat tomorrow For above-mentioned chronic medical problems patient will be resumed on appropriate home medications -Patient will need pharmacologic GI and DVT prophylaxis
[2018-06-20] MEDS: MEROPENEM 500 MG in SODIUM CHLORIDE 0.9% 50 ML IVPB SCH ×2 (15:15→20:53)
[2018-06-20] MEDS: HEPARIN SODIUM,PORCINE 5,000 UNIT/ML 1 ML VIAL SQ SCH ×2 (17:12→23:36)
[2018-06-20] MEDS: QUEtiapine 200 MG TAB PO SCH (17:12)
[2018-06-20] MEDS: DIVALPROEX 250 MG TABLET.DR PO SCH (17:12)
[2018-06-20] MEDS: MELATONIN 5 MG TABLET PO PRN (20:52)
[2018-06-20] MEDS: ATORVASTATIN 20 MG TAB PO SCH (20:53)
[2018-06-20] MEDS: CARVEDILOL 3.125 MG TAB PO SCH (20:53)
[2018-06-20] MEDS: FAMOTIDINE 20 MG TAB PO SCH (20:53)
[2018-06-20] MEDS ORDERED: FAMOTIDINE 20 MG TAB PO SCH (21:00)
[2018-06-20] MEDS: QUEtiapine 100 MG TAB PO SCH (21:00)
[2018-06-20] MEDS ORDERED: QUEtiapine 400 MG TAB PO SCH (21:00)
--- NOTE | 2018-06-20 22:14 | P.CONS ---
History of Present Illness - Reason for Consult Consult date: 06/20/18 Urinary tract infection Requesting physician: Favian García - Chief Complaint Mental status changes - History of Present Illness Patient is 77 year female senior living resident has been admitted to the hospital for mental status changes and a urinary tract infection apparently not responded to the oral Macrobid, the patient denies high-grade fever rigors o r chills no chest pain or shortness of breath occasional cough patient be complaining of lower abdominal pain mostly suprapubic area more of a dull aching pain and unable to quantify it any further today complaining of some burning and frequency of urine but no flank pain no nausea no vomiting no diarrhea with the symptoms that the patient has been admitted to the hospital on admission the patient has been afebrile and white count was normal the patient did have significantly positive UA and this patient has recent urine culture done back in March 2018 was positive for ESBL E. coli hence the patient was started on meropenem 500 mg twice a day and infectious disease was consulted for further recommendation regarding antibiotic therapy Review of Systems Positive points has been mentioned in HPI rest of the systems negative Past Medical History Past Medical History: Coronary Artery Disease (CAD), Heart Failure, COPD, D ementia, GERD/Reflux, Hypertension, Seizure Disorder, Thyroid Disorder Additional Past Medical History / Comment(s): Chronic back pain, Alzheimer's, vitamin D deficiency, right bundle branch block, hypothyroid, insomnia, epilepsy -unknown date of last seizure, diverticulosis, gait disturbance-lately in wheelchair, reports DVT and GIB (not in paperwork, self reported). History of Any Multi-Drug Resistant Organisms: ESBL Year Discovered:: 03/20/18 MDRO Source:: ESBL URINE Past Surgical History: Orthopedic Surgery Additional Past Surgical History / Comment(s): Right leg fracture w/ surgery, L upper back lipoma removed, bilateral cataract surgery. Past Anesthesia/Blood Transfusion Reactions: Unable to Obtain Smoking Status: Former smoker - Past Family History Mother Family Medical History: Unable to Obtain Additional Family Medical History / Comment(s): Migraines. Father Family Medical History: No Reported History Additional Family Medical History / Comment(s): Father was healthy. Medications and Allergies Home Medications Medication Instructions Recorded Confirmed Type Multivitamins, Thera [Multivitamin 1 tab PO DAILY@0900 08/23/06/20/18 History (formulary)] Atorvastatin [Lipitor] 20 mg PO HS@2100 04/12/15 06/20/18 History Carvedilol [Coreg] 3.125 mg PO BID@0900,2100 12/25/15 06/20/18 History Melatonin 10 mg PO HS@2100 12/25/15 06/20/18 History [place]-3 Fatty Acids/Fish Oil [Fish 1 cap PO DAILY@0900 10/19/16 06/20/18 History Oil 1,000 mg Softgel] Acetaminophen [Tylenol] 650 mg PO Q6H PRN 04/24/17 06/20/18 History Divalproex [Depakote] 250 mg PO DAILY@1700 04/24/17 06/20/18 History Naproxen [Naprosyn] 250 mg PO TID #21 tab 01/12/18 06/20/18 Rx QUEtiapine FUMARATE [SEROquel] 200 mg PO BID@0900,1700 #6 tablet 01/12/18 06/20/18 Rx QUEtiapine FUMARATE [SEROquel] 400 mg PO HS@2100 #3 tablet 01/12/18 06/20/18 Rx QUEtiapine [SEROquel] 100 mg PO HS@2100 #3 tab 01/12/18 06/20/18 Rx Albuterol Nebulized [Ventolin 2.5 mg INHALATION RT-Q6H PRN nebu 02/14/18 Rx Nebulized] Aspirin 81 mg PO DAILY chew 02/14/18 06/20/18 Rx HYDROcodone/APAP 5-325MG [[place] 1 tab PO TID PRN #9 tab 02/14/18 06/20/18 Rx 5-325] Baclofen [Lioresal] 5 mg PO TID PRN 06/20/18 06/20/18 History Cholecalciferol (Vitamin D3) 2,000 unit PO DAILY@0900 06/20/18 06/20/18 History [Vitamin D3] Nitrofurantoin Monohyd/M-Cryst 100 mg PO DAILY@0900 06/20/18 06/20/18 History [Macrobid] Allergies Allergy/AdvReac Type Severity Reaction Status Date / Time adhesive tape Allergy Unknown Verified 06/20/18 06:46 ceftriaxone [From Rocephin] Allergy Rash/Hives Verified 06/20/18 06:46 cephalexin monohydrate Allergy Unknown Verified 06/20/18 06:46 [From Keflex] fluoxetine HCl [From Prozac] Allergy Unknown Verified 06/20/18 06:46 ketorolac tromethamine Allergy Unknown Verified 06/20/18 06:46 [From Toradol] latex Allergy Unknown Verified 06/20/18 06:46 phenelzine sulfate Allergy Unknown Verified 06/20/18 06:46 [From Nardil] Phenothiazines Allergy Unknown Verified 06/20/18 06:46 propoxyphene napsylate Allergy Unknown Verified 06/20/18 06:46 [From Darvocet-N 100] Physical Exam Vitals: Vital Signs Temp Pulse Resp BP Pulse Ox 06/20/18 14:01 97.9 F 75 18 131/63 100 06/20/18 07:33 97.8 F 74 18 124/63 97 Intake and Output 06/20/18 06/20/18 06/20/18 06:59 14:59 22:59 Intake Total 100 Balance 100 Intake: Intake, IV Titration 100 Amount Sodium Chloride 0.9% 1, 100 000 ml @ 100 mls/hr IV . Q10H [facility] Rx#:[id number] Other: # Voids 2 Weight 74.843 kg GENERAL DESCRIPTION: An elderly female lying in bed, no distress. No tachypnea or accessory muscle of respiration use. HEENT: Shows Pallor , no scleral icterus. Oral mucous membrane is dry. No pharyngeal erythema or thrush NECK: Trachea central, no thyromegaly. LUNGS: Unlabored breathing. Clear to auscultation anteriorly. No wheeze or crackle. HEART: S1, S2, regular rate and rhythm. No loud murmur ABDOMEN: Soft, no tenderness , guarding or rigidity, no organomegaly EXTREMITIES: No edema of feet. SKIN: No rash, no masses palpable. NEUROLOGICAL: The patient is awake, alert, oriented x2, mood and affect normal. Results CBC & Chem 7: 06/20/18 02:50 06/20/18 02:50 Labs: Abnormal Lab Results - Last 24 Hours (Table) 06/20/18 06/20/18 Range/Units 02:50 02:50 Potassium 5.3 H (3.5-5.1) mmol/L BUN 51 H (7-17) mg/dL Creatinine 1.19 H (0.52-1.04) mg/dL Calcium 10.5 H (8.4-10.2) mg/dL Magnesium 2.6 H (1.6-2.3) mg/dL AST 38 H (14-36) U/L Alkaline Phosphatase 131 H (38-126) U/L Urine Appearance Cloudy H (Clear) Urine Protein 1+ H (Negative) Urine Ketones Trace H (Negative) Urine Bilirubin 1+ H (Negative) Ur Leukocyte Esterase Large H (Negative) Urine RBC 12 H (0-5) /hpf Urine WBC 34 H (0-5) /hpf Urine WBC Clumps Many H (None) /hpf Urine Bacteria Occasional H (None) /hpf Hyaline Casts 28 H (0-2) /lpf Urine Mucus Few H (None) /hpf Assessment and Plan Assessment: 1-patient admitted to the hospital with mental status changes which is likely multifactorial in this patient who do have a lower abdominal pain with significant positive UA and urinary symptoms likely representing a symptomatic urinary tract infection that has failed outpatient Macrobid therapy with a history of ESBL E. coli could be dealing with the same pathogen or other resistant gram-negative in this patient who is a senior living resident (1) Urinary tract infection Current Visit: Yes Status: Acute Priority: High Code(s): N39.0 - URINARY TRACT INFECTION, SITE NOT SPECIFIED SNOMED Code(s): 74115824 Plan: 1-the meropenem dose should be adjusted up to 1 g every 12 hours according to her creatinine clearance of 47 ml/ minute 2-gentle IV fluid We will follow-up on clinical condition and cultures to further adjust medication if needed Thank you for this consultation will follow this patient along with you Time with Patient: Greater than 30
[2018-06-21] MEDS: FAMOTIDINE 20 MG TAB PO SCH (07:34)
[2018-06-21] MEDS: CARVEDILOL 3.125 MG TAB PO SCH ×2 (07:34→20:12)
[2018-06-21] MEDS: HEPARIN SODIUM,PORCINE 5,000 UNIT/ML 1 ML VIAL SQ SCH ×3 (07:34→23:29)
[2018-06-21] MEDS: ASPIRIN 81 MG PO SCH (07:34)
[2018-06-21] MEDS: QUEtiapine 200 MG TAB PO SCH ×2 (07:34→18:01)
[2018-06-21] MEDS: MEROPENEM 1,000 MG in SODIUM CHLORIDE 0.9% 50 ML IVPB SCH ×2 (07:34→20:11)
[2018-06-21 09:17] VITALS: BMI 27.6
[2018-06-21 09:26] LABS: HCT 38.2 % (34.0-46.0); HGB 11.6 gm/dL (11.4-16.0); Hypochromasia Slight; MCH 26.9 pg (25.0-35.0); MCHC 30.3 g/dL (31.0-37.0); MCV 88.9 fL (80.0-100.0); Mean Platelet Volume 7.6; Platelet Count 201 k/uL (150-450); RBC 4.29 m/uL (3.80-5.40); WBC 4.3 k/uL (3.8-10.6)
[2018-06-21 09:46] LABS: Potassium 4.2 mmol/L (3.5-5.1)
[2018-06-21] MEDS: NITROGLYCERIN OINT 1 INCH/GM PACKET TOPICAL SCH ×3 (11:42→23:29)
--- NOTE | 2018-06-21 11:48 | ECHOF ---
Referral Reason:chf MEASUREMENTS -------- HEIGHT: 165.1 cm WEIGHT: 74.8 kg BP: 131/63 RVIDd: 3.5 cm (< 3.3) IVSd: 1.1 cm (0.6 - 1.1) LVIDd: 3.2 cm (3.9 - 5.3) LVPWd: 1.2 cm (0.6 - 1.1) IVSs: 1.5 cm LVIDs: 2.5 cm LVPWs: 1.3 cm LA Diam: 3.0 cm (2.7 - 3.8) LAESV Index (A-L): 17.62 ml/m Ao Diam: 2.9 cm (2.0 - 3.7) AV Cusp: 1.7 cm (1.5 - 2.6) EPSS: 0.4 cm MV E Ignacio: 0.87 m/s MV DecT: 179 ms MV A Ignacio: 1.16 m/s MV E/A Ratio: 0.75 RAP: 15.00 mmHg RVSP: 34.37 mmHg %FS: 0.00 % IVSd: 1.47 cm (0.6 - 1.1) MV EF SLOPE: 21.32 mm/s (70 - 150) MV EXCURSION: 0.89 cm (> 18.000) FINDINGS -------- Sinus rhythm. This was a technically adequate study. The left ventricular size is normal. There is borderline concentric left ventricular hypertrophy. Overall left ventricular systolic function is normal with, an EF between 60 - 65 %. The right ventricle is mildly enlarged. The left atrial size is normal. The right atrium is normal in size. Interatrial and interventricular septum intact. There is mild aortic valve sclerosis. The mitral valve leaflets are mildly thickened. Mild mitral annular calcification present. Mild m itral regurgitation is present. Mild tricuspid regurgitation present. There is borderline pulmonary hypertension. The right ventr icular systolic pressure, as measured by Doppler, is 34.37mmHg. The pulmonic valve was not well visualized. The aortic root size is normal. Normal inferior vena cava with less than 50% inspiratory collapse consistent with estimated right atr ial pressure of 15 mmHg. There is no pericardial effusion. CONCLUSIONS -------- 1. Sinus rhythm. 2. This was a technically adequate study. 3. The left ventricular size is normal. 4. There is borderline concentric left ventricular hypertrophy. 5. Overall left ventricular systolic function is normal with, an EF between 60 - 65 %. 6. The right ventricle is mildly enlarged. 7. The left atrial size is normal. 8. The right atrium is normal in size. 9. Interatrial and interventricular septum intact. 10. There is mild aortic valve sclerosis. 11. The mitral valve leaflets are mildly thickened. 12. Mild mitral annular calcification present. 13. Mild mitral regurgitation is present. 14. Mild tricuspid regurgitation present. 15. There is borderline pulmonary hypertension. 16. The right ventricular systolic pressure, as measured by Doppler, is 34.37mmHg. 17. The pulmonic valve was not well visualized. 18. The aortic root size is normal. 19. Normal inferior vena cava with less than 50% inspiratory collapse consistent with estimated right atrial pressure of 15 mmHg. 20. There is no pericardial effusion. ASSOCIATE PROFESSOR OF PHYSICS: CATHY Helms
[2018-06-21] MEDS ORDERED: LEVOFLOXACIN 250MG-D5W PMX 250 MG in DEXTROSE/WATER 1 50ML.BAG IVPB SCH (13:00)
[2018-06-21] MEDS: DIVALPROEX 250 MG TABLET.DR PO SCH (18:00)
--- NOTE | 2018-06-21 18:07 | PN ---
PROGRESS NOTE DATE OF SERVICE: 06/21/2018. REASON FOR FOLLOWUP: Urinary tract infection. INTERVAL HISTORY: The patient is currently afebrile. The patient is breathing comfortably. She was complaining of some chest pain earlier for which the patient says that she took some medication. No shortness of breath or cough. Still has some abdominal pain though and no diarrhea. PHYSICAL EXAMINATION: Blood pressure 148/72 with a pulse of 80, temperature 98. She is 96% on room air. General description is an elderly female, lying in bed in no distress. Respiratory system: Unlabored breathing. Clear to auscultation anteriorly. Heart S1, S2. Regular rate and rhythm. Abdomen soft. No tenderness. LABS: Hemoglobin is 11.1, white count 4.3, BUN of 30, creatinine 0.78. No urine culture in the system. DIAGNOSTIC IMPRESSION AND PLAN: Patient admitted to the hospital with mental status changes. The patient who did have a history of ESBL E coli UTI with concern for a infection. Unfortunately no urine culture has been done. Those will be ordered. Keep the patient on meropenem 2 g to which the patient has clinically responded. Continue with meropenem 1 g q12 and continue supportive care. MMODL / IJN: [id number] /
[2018-06-21 19:17] LABS: Appearance,Urine Cloudy (Clear); Bilirubin,Urine Negative (Negative); Blood,Urine Negative (Negative); Color,Urine Yellow; Glucose,Urine (UA) Negative (Negative); Ketones,Urine Negative (Negative); Leukocyte Esterase,Urine Negative (Negative); Mucus,Urine Rare /hpf; Nitrite,Urine Negative (Negative); Protein,Urine Trace (Negative); Specific Gravity,Urine 1.018 (1.001-1.035); Urobilinogen,Urine <2.0 mg/dL (<2.0)
[2018-06-21] MEDS: QUEtiapine 100 MG TAB PO SCH (20:12)
[2018-06-21] MEDS: ATORVASTATIN 20 MG TAB PO SCH (20:12)
[2018-06-21] MEDS: MELATONIN 5 MG TABLET PO PRN (20:52)
--- NOTE | 2018-06-21 22:58 | PN ---
PROGRESS NOTE DATE OF SERVICE: 06/21/2018. PRESENTING COMPLAINT: UTI. INTERVAL HISTORY: Patient admitted with UTI, on antibiotics. Did tolerate some diet. Earlier when I saw the patient, she did complain of some chest pain, but really could not qualify more. Lying in bed, awake. Appears to be comfortable. REVIEW OF SYSTEMS: Attempted for constitutional, cardiovascular, GI, pulmonary; relevant findings as above. CURRENT MEDICATIONS: Reviewed that include IV meropenem. PHYSICAL EXAMINATION: VITAL SIGNS: Temperature 97.7. Pulse 81, respiration 16, blood pressure 130/84, pulse ox 99% on 2 L. GENERAL APPEARANCE: Lying in bed, awake. EYES: Pupils equal. Conjunctivae normal. NECK: JVD not raised. Mass not palpable. RESPIRATORY: Effort normal. LUNGS: Fair entry. CARDIOVASCULAR: First and second sounds normal. No edema. ABDOMEN: Soft, nontender. PSYCHIATRY: Answering simple questions. INVESTIGATIONS: White count 4.3, potassium 4.2, repeat UA negative for leukocyte esterase. ASSESSMENT: 1. Possible urinary tract infection from cystitis. 2. Coronary artery disease. 3. Chronic obstructive pulmonary disease in an ex-smoker. 4. Gastroesophageal reflux disease. 5. Essential hypertension. 6. Chronic lumbar osteoarthritis. 7. Chronic schizophrenia. PLAN: 1. Continue current medication and treatment plan. 2. Antibiotics per Dr. Schilling. He has ordered a repeat UA. 3. Follow. MMODL / IJN: [id number] /
[2018-06-22 05:25] VITALS: TEMP 98.3
[2018-06-22] MEDS ORDERED: MEROPENEM 1 GM in SODIUM CHLORIDE 0.9% 100 ML IVPB SCH (09:00)
[2018-06-22] MEDS: ASPIRIN 81 MG PO SCH (09:57)
[2018-06-22] MEDS: HEPARIN SODIUM,PORCINE 5,000 UNIT/ML 1 ML VIAL SQ SCH (09:57)
[2018-06-22] MEDS: QUEtiapine 200 MG TAB PO SCH (09:57)
[2018-06-22] MEDS: CARVEDILOL 3.125 MG TAB PO SCH (09:57)
[2018-06-22] MEDS: FAMOTIDINE 20 MG TAB PO SCH (09:57)
[2018-06-22] MEDS: NITROGLYCERIN OINT 1 INCH/GM PACKET TOPICAL SCH (09:58)
[2018-06-22 11:53] VITALS: BP 156/97; PULSE 86; RESP 17
--- NOTE | 2018-06-22 14:27 | DS ---
DISCHARGE SUMMARY DATE OF ADMISSION: 06/20/2018 DATE OF DISCHARGE: 06/22/2018 FINAL DIAGNOSES: 1. Acute urinary tract infection from cystitis, cultures being negative. 2. Coronary artery disease. 3. Chronic obstructive pulmonary disease in an ex-smoker. 4. Gastroesophageal reflux disease. 5. Essential hypertension. 6. Chronic lumbar osteoarthritis. 7. Chronic schizophrenia. HOSPITAL COURSE: This patient with some delay with changing from worsening mental status. Treated for UTI. The patient was doing well here. Afebrile. Normal white count. Today we obtained the results of cultures from the senior care. Dr. Schilling reviewed the same. I discussed with him at length. Decided to give 3 more days of oral antibiotic. Otherwise, patient tolerating a diet, doing well. The patient otherwise is doing well. On examination, temperature 98.3, pulse 86, respiration 17, blood pressure 156/97, pulse ox 96% on room air. LUNGS: Slightly decreased breath sounds. Able to answer simple questions. INVESTIGATIONS: White count of 4.3, hemoglobin 11.6. DISCHARGE MEDICATIONS: 1. Multivitamin 1 tablet p.o. daily. 2. Lipitor 20 mg q.h.s. 3. Coreg 3.125 p.o. b.i.d. 4. Melatonin 10 mg q.h.s. 5. Fish oil 1000 mg p.o. daily. 6. Tylenol 650 mg q.6 p.r.n. 7. Depakote 250 mg p.o. daily at 5 p.m. 8. Seroquel 200 mg b.i.d. at 9 a.m. and 5 p.m.; 400 mg p.o. q.h.s. at 9 p.m. 9. Seroquel 100 mg p.o. q.h.s. at 9 p.m. 10.Ventolin 2.5 q.6 p.r.n. 11.Aspirin 81 mg a day. 12.Baclofen 5 mg p.o. t.i.d. p.r.n. 13.Vitamin D3, 2000 units p.o. daily at 9 a.m. 14.[place] 5 one tablet p.o. t.i.d. p.r.n. 9 tablets. 15.Avelox 400 mg p.o. daily, 3 tablets. 16.Naproxen 250 mg p.o. b.i.d. DISPOSITION: [facility]. Follow up with Dr. Rushing on 06/23/2018. Discussion and discharge planning more 35 minutes. MMBREAL / TOBIN: [id number] /
--- NOTE | 2018-06-22 15:42 | PN ---
PROGRESS NOTE DATE OF SERVICE: 06/22/2018 REASON FOR FOLLOWUP: Urinary tract infection. INTERVAL HISTORY: The patient is currently afebrile. The patient is breathing comfortably. No chest pain, shortness of breath or cough. No abdominal pain. Urinary symptoms have improved. PHYSICAL EXAMINATION: Blood pressure 156/97, pulse of 83, temperature 98.3. She is 96% on room air. General description is an elderly female lying in bed in no distress. RESPIRATORY SYSTEM: Unlabored breathing. Clear to auscultation anteriorly. HEART: S1, S2. Regular rate and rhythm. ABDOMEN: Soft. No tenderness. LABS: The patient did have a repeat urine panel yesterday that is essentially clear. Urine culture has been negative so far. DIAGNOSTIC IMPRESSION AND PLAN: Patient admitted to hospital with mental status changes with concern for a urinary tract infection in a patient with a previous history of ESBL E coli. That is why the patient was treated with meropenem. She did have a repeat UA obtained yesterday which is essentially negative, with no leukocyte esterases. Recommend a short course of oral Levaquin on discharge. This was discussed with the admitting physician and discharge physician. Continue with supportive care. MMODL / IJN: [id number] /
[2018-06-22] MEDS ORDERED: FAMOTIDINE 20 MG TAB PO SCH (21:00)
== END 2018-06-22 16:00 | DRG 689 ==
LOC: EC 02:26 → 3NMEDONC 05:00 → EC 06:11 → OBSVTOIN 08:47
PROVIDERS: ADMIT Hospitalist; ATTEND Hospitalist
DX: N30.90 Cystitis, unspecified without hematuria (principal); G92 Toxic encephalopathy; E03.9 Hypothyroidism, unspecified; F02.80 Dementia in other diseases classified elsewhere, unspecified severity, without behavioral disturbance, psychotic disturbance, mood disturbance, and anxiety; F20.9 Schizophrenia, unspecified; G30.9 Alzheimer's disease, unspecified; G40.909 Epilepsy, unspecified, not intractable, without status epilepticus; I11.0 Hypertensive heart disease with heart failure; I25.10 Atherosclerotic heart disease of native coronary artery without angina pectoris; I50.9 Heart failure, unspecified; J44.9 Chronic obstructive pulmonary disease, unspecified; K21.9 Gastro-esophageal reflux disease without esophagitis; M47.816 Spondylosis without myelopathy or radiculopathy, lumbar region; Z79.82 Long term (current) use of aspirin; Z79.899 Other long term (current) drug therapy; Z86.19 Personal history of other infectious and parasitic diseases; Z87.891 Personal history of nicotine dependence; G89.29 Other chronic pain; Z98.42 Cataract extraction status, left eye; Z98.41 Cataract extraction status, right eye; E55.9 Vitamin D deficiency, unspecified; Z79.891 Long term (current) use of opiate analgesic; Z88.8 Allergy status to other drugs, medicaments and biological substances; Z88.1 Allergy status to other antibiotic agents; Z91.040 Latex allergy status
CPT/HCPCS: 71046; 80048; 80053; 81001; 83735; 83880; 84439; 84443; 84484; 85025; 85027; 87077; 87086; 87186; 93005; 93306; 94760; 96374; 99285

== ENCOUNTER → 2018-12-31 | Day surgery (SDC) | payer MEDICARE, OTHER ==
[2018-12-27 14:44] VITALS: BMI 27.6
[~2018-12-31] MED LIST changes: -DEXAMETHASONE SOD PHOSPHATE 10 MG/ML 1 ML VIAL IV ONE; -HEPARIN SODIUM,PORCINE 5,000 UNIT/ML 1 ML VIAL SQ ONE; -HYDROmorphone 1 MG/ML 1 ML SYRINGE IVP PRN; +LIDOCAINE 1% 20 ML VIAL (10MG/ML) FOR IV START INTRADERMA ONE; -LIDOCAINE 1% 20 ML VIAL (10MG/ML) FOR IV START INTRADERMA PRN; -ONDANSETRON 4 MG/2 ML VIAL IVP ONE; +PROPOFOL 10 MG/ML 20 ML VIAL IV ONE; -Pre Op ABX Message 1 EACH MISC MISCELLANE ONE
[2018-12-31 08:33] VITALS: TEMP 98.4
--- NOTE | 2018-12-31 09:52 | P.PCN ---
Date of Procedure: 12/31/18 Description of Procedure: Brief history: 78-year-old who presents for outpatient EGD and colonoscopy. The patient was initially seen in clinic and found to have an iron deficiency anemia. No signs or symptoms of GI bleeding has been reported however stool testing was positive for blood. The patient is on iron therapy. She reports a remote history of endoscopic evaluation. Procedure performed: Esophagogastroduodenoscopy with biopsy Colonoscopy with biopsy and polypectomy Estimated blood loss: Minimal. Preoperative diagnosis: Iron deficiency anemia Anesthesia: MAC Procedure: After informed consent was obtained from the patient was brought into the endoscopy unit and IV sedation was administered by anesthesia under continuous monitoring. Initially upper endoscopy was done. The Olympus GF 190 video endoscope was inserted into the mouth and esophagus intubated without any difficulty and was gradually advanced into the stomach and duodenum and carefully examined. The bulb and second part of the duodenum appeared normal, with biopsies taken to rule out celiac sprue. The scope was then withdrawn into the stomach adequately insufflated with air and upon careful examination the antrum and body, cardia and fundus appeared normal except for some mild scattered erythema in antrum and body suggestive of mild gastritis with biopsies taken as well as a superficial nonbleeding ulcer in the gastric body. The scope was then withdrawn into the esophagus. The GE junction was located at 40 cm to the incisors. It appeared regular with no erythema erosions or ulcerations. Rest of the esophagus appeared normal. Patient tolerated the procedure well. At this time the patient continued to remain sedation. Initial digital rectal examination was normal. Olympus CF 190 video colonoscope was then inserted into the rectum and gradually advanced to the cecum without any difficulty. The terminal ileum was intubated and appeared normal. Careful examination was performed as the scope was gradually being withdrawn. The prep was excellent. The cecum, ascending colon, transverse colon, descending colon, sigmoid colon and rectum appeared grossly normal with biopsies taken of the right and left colon to rule out microscopic colitis. There was some patchy erythema in the left colon with no other gross abnormalities noted. A thickened fold in the ascending colon was biopsied likely representing a lipoma. A diminutive 2 mm descending colon polyp was removed with cold forceps. Retroflexion was performed in the rectum and no lesions were noted. Patient tolerated the procedure well. Impression: 1. Nonbleeding superficial ulcer in the gastric body. Mild gastritis antrum and body biopsied. Duodenal biopsies. 2. Diminutive descending colon polyp removed with cold forceps. Biopsies of the right and left colon to rule out microscopic colitis (2 areas of mild patchy erythema with no other gross abnormalities noted in the left colon which were included in the biopsies). Thickened ascending colon fold likely representing a lipoma biopsied. Recommendations: Findings of this examination were discussed with the patient as well as her caregiver. Okay to resume diet. Okay to resume medication. Await pathology from biopsies and polypectomy. Continue daily Pepcid. Recommendation is to avoid NSAID use.
[2018-12-31 10:10] VITALS: BP 124/77; PULSE 71; RESP 17
== END | disposition home or self-care (01) ==
LOC: ORWHC2ENDO 07:50
PROVIDERS: ATTEND Internal Medicine
DX: D12.4 Benign neoplasm of descending colon (principal); K52.9 Noninfective gastroenteritis and colitis, unspecified; K29.80 Duodenitis without bleeding; K31.9 Disease of stomach and duodenum, unspecified; K29.70 Gastritis, unspecified, without bleeding; K25.9 Gastric ulcer, unspecified as acute or chronic, without hemorrhage or perforation; D50.9 Iron deficiency anemia, unspecified; E78.5 Hyperlipidemia, unspecified; I50.9 Heart failure, unspecified; I25.10 Atherosclerotic heart disease of native coronary artery without angina pectoris; J44.9 Chronic obstructive pulmonary disease, unspecified; F03.90 Unspecified dementia, unspecified severity, without behavioral disturbance, psychotic disturbance, mood disturbance, and anxiety; K21.9 Gastro-esophageal reflux disease without esophagitis; Z91.040 Latex allergy status; Z88.1 Allergy status to other antibiotic agents; Z88.6 Allergy status to analgesic agent; Z88.5 Allergy status to narcotic agent; Z86.69 Personal history of other diseases of the nervous system and sense organs; Z79.02 Long term (current) use of antithrombotics/antiplatelets; Z79.82 Long term (current) use of aspirin; Z79.1 Long term (current) use of non-steroidal anti-inflammatories (NSAID); Z79.899 Other long term (current) drug therapy; Z87.891 Personal history of nicotine dependence; Z91.048 Other nonmedicinal substance allergy status; Z98.49 Cataract extraction status, unspecified eye; Z98.890 Other specified postprocedural states
CPT/HCPCS: 88305; 45380; 43239; J2704; 45385

== ENCOUNTER 2021-03-07 00:25 | Emergency (ER) | payer MEDICARE, OTHER ==
[2021-03-07 00:31] VITALS: TEMP 97.9
--- NOTE | 2021-03-07 01:36 | CT ---
EXAMINATION TYPE: CT brain cspine wo con DATE OF EXAM: 03/07/2021 COMPARISON: CT brain 02/12/2018, CT scan 6-15 HISTORY: Fall CT DLP: 1358.60 mGycm Automated exposure control for dose reduction was used. There is cerebral cortical atrophy. There is no mass effect or midline shift. There is no evidence of intracranial hemorrhage. Calvarium is intact. There is no evidence of cerebral edema. Cervical vertebra show multilevel spondylotic changes with disc space narrowing and spurring of the e ndplates. Posterior elements are intact. Facet joints are intact. Prevertebral soft tissues are intac t. There is mucosal thickening left maxillary sinus. There is normal aeration of the mastoid air cells. IMPRESSION: Multilevel cervical spondylotic changes. No significant change compared to old exam. Cerebral atrophy. No acute intracranial abnormality. No significant change compared to old exam.
--- NOTE | 2021-03-07 01:47 | XR ---
EXAMINATION TYPE: XR Hip RT and AP Pelvis DATE OF EXAM: 03/07/2021 COMPARISON: 01/20/2018 pelvis x-ray HISTORY: Hip pain TECHNIQUE: 3 views FINDINGS: The pelvic ring appears intact. There is hip joint space narrowing and more on the right si de. Proximal right femur is intact. There is no evidence of fracture. Right uterine fibroid. Sacroili ac joints are intact. IMPRESSION: No acute abnormality of the pelvis and right hip. No change.
--- NOTE | 2021-03-07 01:50 | ED ---
Fall HPI - General Chief Complaint: Fall Stated Complaint: Fall Time Seen by Provider: 03/07/21 00:27 Source: patient Mode of arrival: ambulatory - History of Present Illness Initial Comments: 80 year-old female patient presents to the emergency department for evaluation after having a fall. Patient states she got up to the bathroom without her walker when she lost her balance and fell. She states she did hit her head. She denies loss of consciousness. Denies any neck pain to me but did mention it to the triaging nurse. Patient reports right hip pain. Denies numbness or tingling. Denies any back pain. Denies nausea or vomiting. Denies any use of blood thinners. Patient denies any chest pain, shortness of breath, dizziness, weakness, abdominal pain, or difficulties with bowel movements or urination. - Related Data Home Medications Medication Instructions Recorded Confirmed Multivitamins, Thera [Multivitamin 1 tab PO DAILY 08/23/13 12/31/18 (formulary)] Atorvastatin [Lipitor] 20 mg PO HS 04/12/15 12/31/18 carvediloL [Coreg] 3.125 mg PO BID 12/25/15 12/31/18 Acetaminophen [Tylenol] 650 mg PO Q6H PRN 04/24/17 12/31/18 Divalproex [Depakote] 250 mg PO DAILY@1700 04/24/17 12/31/18 Baclofen [Lioresal] 5 mg PO TID PRN 06/20/18 12/31/18 Cholecalciferol (Vitamin D3) 2,000 unit PO DAILY 06/20/18 12/31/18 [Vitamin D3] Famotidine [Pepcid] 20 mg PO DAILY 12/27/18 12/31/18 Ferrous Sulfate [Feosol] 325 mg PO DAILY 12/27/18 12/31/18 Melatonin 10 mg PO HS 12/27/18 12/31/18 Icard-3 Fatty Acids/Fish Oil [Fish 1 each PO DAILY 12/27/18 12/31/18 Oil 1,000 mg Softgel] QUEtiapine FUMARATE [SEROquel] 400 mg PO HS 12/27/18 12/31/18 Previous Rx's Medication Instructions Recorded QUEtiapine FUMARATE [SEROquel] 200 mg PO BID@0900,1700 #6 tablet 01/12/18 Albuterol Nebulized [Ventolin 2.5 mg INHALATION RT-Q6H PRN nebu 02/14/18 Nebulized] Aspirin 81 mg PO DAILY chew 02/14/18 HYDROcodone/APAP 5-325MG [[place] 1 tab PO TID PRN #9 tab 06/22/18 5-325] Naproxen [Naprosyn] 250 mg PO BID #21 tab 06/22/18 Allergies Allergy/AdvReac Type Severity Reaction Status Date / Time adhesive tape Allergy Unknown Verified 03/07/21 00:30 ceftriaxone [From Rocephin] Allergy Rash/Hives Verified 03/07/21 00:30 cephalexin monohydrate Allergy Unknown Verified 03/07/21 00:30 [From Keflex] fluoxetine HCl [From Prozac] Allergy Unknown Verified 03/07/21 00:30 ketorolac tromethamine Allergy Unknown Verified 03/07/21 00:30 [From Toradol] latex Allergy Unknown Verified 03/07/21 00:30 phenelzine sulfate Allergy Unknown Verified 03/07/21 00:30 [From Nardil] Phenothiazines Allergy Unknown Verified 03/07/21 00:30 propoxyphene napsylate Allergy Unknown Verified 03/07/21 00:30 [From Darvocet-N 100] Review of Systems ROS Statement: Those systems with pertinent positive or pertinent negative responses have been documented in the HPI. ROS Other: All systems not noted in ROS Statement are negative. Past Medical History Past Medical History: Coronary Artery Disease (CAD), Heart Failure, COPD, Dementia, GERD/Reflux, Hypertension, Seizure Disorder, Thyroid Disorder Additional Past Medical History / Comment(s): Chronic back pain, Alzheimer's, vitamin D deficiency, right bundle branch block, hypothyroid, insomnia, epilepsy -unknown date of last seizure, diverticulosis, blood in stool, hx falls, can stand to transfer with assistance., Pt resides at [facility]. History of Any Multi-Drug Resistant Organisms: ESBL Date of last positivie culture/infection: 03/20/18 MDRO Source:: ESBL URINE Past Surgical History: Orthopedic Surgery Additional Past Surgical History / Comment(s): Right leg fracture w/ surgery, L upper back lipoma removed, cataracts Past Anesthesia/Blood Transfusion Reactions: Unable to Obtain Past Psychological History: Anxiety, Depression, Schizoaffective Disorder, Schizophrenia Past Alcohol Use History: None Reported Past Drug Use History: None Reported - Past Family History Mother Family Medical History: Unable to Obtain Additional Family Medical History / Comment(s): Migraines. Father Family Medical History: Unable to Obtain Additional Family Medical History / Comment(s): . General Exam Limitations: no limitations General appearance: alert, in no apparent distress, other (This is a well-developed, well-nourished adult female in no acute distress.) Eye exam: Present: normal appearance, PERRL, EOMI. Absent: scleral icterus, conjunctival injection, nystagmus, periorbital swelling ENT exam: Present: normal exam, normal oropharynx, mucous membranes moist Neck exam: Present: normal inspection, other (Posterior cervical spinal tenderness). Absent: tenderness, meningismus, full ROM (C-spine precautions due to neck pain), lymphadenopathy Respiratory exam: Present: normal lung sounds bilaterally. Absent: respiratory distress, wheezes, rales, rhonchi, stridor Cardiovascular Exam: Present: regular rate, normal rhythm, normal heart sounds. Absent: systolic murmur, diastolic murmur, rubs, gallop, clicks GI/Abdominal exam: Present: soft, normal bowel sounds. Absent: distended, tenderness, guarding, rebound, rigid Back exam: Present: normal inspection. Absent: vertebral tenderness Neurological exam: Present: alert, oriented X3, CN II-XII intact Psychiatric exam: Present: normal affect, normal mood Skin exam: Present: warm, dry, intact, normal color. Absent: rash Course Vital Signs 03/07/21 00:26 Temperature 97.9 F Pulse Rate 77 Respiratory 20 Rate Blood Pressure 148/91 O2 Sat by Pulse 94 L Oximetry Medical Decision Making - Medical Decision Making 80-year-old female patient presenting from [facility] for evaluation after a fall. Physical examination did reveal right lateral hip tenderness. Posterior cervical spinal tenderness. She is neurologically intact. CT brain and C-spine was negative. X-ray of the right hip and pelvis was negative. She'll be discharged back to [facility]. She is agreeable this plan. My attending is Dr. Lal. - Radiology Data Radiology results: report reviewed, image reviewed CT brain and C-spine without contrast was obtained. Report was reviewed in its entirety. Impression by Dr. Knight shows multilevel cervical spondylotic changes. No significant change compared to old exam. Cerebral atrophy. No ac tribal intracranial abnormality. No significant change compared to old exam. X-ray of the right hip and AP pelvis is obtained. Report was reviewed in its entirety. Impression by Dr. Knight shows no acute abnormality of the pelvis and right hip. No change. Disposition Clinical Impression: Fall, Headache, Contusion of right hip Disposition: HOME SELF-CARE Condition: Good Instructions (If sedation given, give patient instructions): Fall Prevention for Older Adults (ED), Head Injury (ED), Contusion in Adults (ED) Additional Instructions: Follow-up with the primary care physician for recheck in 1-2 days. Return parameters were discussed in detail. She verbalizes understanding and agrees with this plan. Is patient prescribed a controlled substance at d/c from ED?: No Referrals: Todd Rushing MD [Primary Care Provider] - 1-2 days Time of Disposition: 01:51
[2021-03-07] MEDS ORDERED: ACETAMINOPHEN TAB 500 MG TAB PO STA (01:55)
[2021-03-07 02:21] VITALS: BP 140/87; PULSE 81; RESP 18
== END 2021-03-07 02:20 | disposition home or self-care (01) ==
LOC: EEVIPCON 00:25 → EC 00:25
DX: S70.01XA Contusion of right hip, initial encounter (principal); R51.9 Headache, unspecified; M54.2 Cervicalgia; I11.0 Hypertensive heart disease with heart failure; I50.9 Heart failure, unspecified; J44.9 Chronic obstructive pulmonary disease, unspecified; I25.10 Atherosclerotic heart disease of native coronary artery without angina pectoris; K21.9 Gastro-esophageal reflux disease without esophagitis; G40.909 Epilepsy, unspecified, not intractable, without status epilepticus; F32.A Depression, unspecified; F41.9 Anxiety disorder, unspecified; F25.9 Schizoaffective disorder, unspecified; G30.9 Alzheimer's disease, unspecified; F02.80 Dementia in other diseases classified elsewhere, unspecified severity, without behavioral disturbance, psychotic disturbance, mood disturbance, and anxiety; Z79.51 Long term (current) use of inhaled steroids; Z79.1 Long term (current) use of non-steroidal anti-inflammatories (NSAID); Z79.82 Long term (current) use of aspirin; Z79.899 Other long term (current) drug therapy; W01.0XXA Fall on same level from slipping, tripping and stumbling without subsequent striking against object, initial encounter
CPT/HCPCS: 70450; 72125; 73502; 99284

== ENCOUNTER 2021-03-14 09:02 | Observation (INO) | payer MEDICARE, OTHER ==
[2021-03-14 09:26] VITALS: RESP 18
--- NOTE | 2021-03-14 09:34 | ED ---
General Adult HPI - General Chief complaint: Fever Stated complaint: fever Time Seen by Provider: 03/14/21 09:03 Source: patient, EMS, RN notes reviewed Mode of arrival: EMS Limitations: no limitations - History of Present Illness Initial comments: Patient is a pleasant 80-year-old female presenting to the emergency department with fever from nursing care facility. Onset of symptoms was unclear. Patient is a poor historian. Patient reported he also had low oxygen levels. Patient does admit to having dry cough however denies any dyspnea. Patient also complains of sinus congestion. Patient denies chronic lung problems. No vomiting or diarrhea. No loss of taste or smell. Patient states overall she is doing fairly well at this time. - Related Data Home Medications Medication Instructions Recorded Confirmed Atorvastatin [Lipitor] 20 mg PO HS@209904/12/15 03/14/21 carvediloL [Coreg] 3.125 mg PO BID@0900,209912/25/15 03/14/21 Acetaminophen [Tylenol] 650 mg PO Q6H PRN 04/24/17 03/14/21 Divalproex [Depakote] 250 mg PO BID@1700,209904/24/17 03/14/21 Baclofen [Lioresal] 5 mg PO TID@0600,1400,2200 06/20/18 03/14/21 Famotidine [Pepcid] 20 mg PO DAILY@0900 12/27/18 03/14/21 Melatonin 10 mg PO HS@209912/27/18 03/14/21 QUEtiapine FUMARATE [SEROquel] 400 mg PO HS@209912/27/18 03/14/21 Aspirin 81 mg PO DAILY@0900 03/14/21 03/14/21 Bismuth Subsalicylate 524 mg PO Q4H PRN 03/14/21 03/14/21 [Pepto-Bismol] Calcium Carbonate [Tums] 1,000 mg PO Q6H PRN 03/14/21 03/14/21 Dextran/Hypromellose/Glycerin 1 drop LEFT EYE Q12H PRN 03/14/21 03/14/21 [Genteal Tears 0.1%-0.2%-0.3%] HYDROcodone/APAP 5-325MG [[place] 1 tab PO Q6H PRN 03/14/21 03/14/21 5-325] Phenyleph/Mineral Oil/Petrolat 1 applic RECTAL QID PRN 03/14/21 03/14/21 [Preparation H Ointment] Suvorexant [Belsomra] 5 mg PO HS@2100 03/14/21 03/14/21 metFORMIN HCL ER [Glucophage XR] 500 mg PO DAILY@0900 03/14/21 03/14/21 Previous Rx's Medication Instructions Recorded QUEtiapine FUMARATE [SEROquel] 200 mg PO BID@0900,1700 #6 tablet 01/12/18 Allergies Allergy/AdvReac Type Severity Reaction Status Date / Time adhesive tape Allergy Unknown Verified 03/14/21 09:10 ceftriaxone [From Rocephin] Allergy Rash/Hives Verified 03/14/21 09:10 cephalexin monohydrate Allergy Unknown Verified 03/14/21 09:10 [From Keflex] fluoxetine HCl [From Prozac] Allergy Unknown Verified 03/14/21 09:10 ketorolac tromethamine Allergy Unknown Verified 03/14/21 09:10 [From Toradol] latex Allergy Unknown Verified 03/14/21 09:10 phenelzine sulfate Allergy Unknown Verified 03/14/21 09:10 [From Nardil] Phenothiazines Allergy Unknown Verified 03/14/21 09:10 propoxyphene napsylate Allergy Unknown Verified 03/14/21 09:10 [From Darvocet-N 100] Review of Systems ROS Statement: Those systems with pertinent positive or pertinent negative responses have been documented in the HPI. ROS Other: All systems not noted in ROS Statement are negative. Constitutional: Reports: as per HPI, fever Eyes: Denies: eye pain ENT: Reports: congestion. Denies: ear pain Respiratory: Reports: cough. Denies: dyspnea Cardiovascular: Denies: chest pain Endocrine: Denies: fatigue Gastrointestinal: Denies: abdominal pain Musculoskeletal: Denies: back pain Skin: Denies: rash Neurological: Denies: weakness Past Medical History Past Medical History: Coronary Artery Disease (CAD), Heart Failure, COPD, Dementia, GERD/Reflux, Hypertension, Seizure Disorder, Thyroid Disorder Additional Past Medical History / Comment(s): Chronic back pain, Alzheimer's, vitamin D deficiency, right bundle branch block, hypothyroid, insomnia, epilepsy -unknown date of last seizure, diverticulosis, blood in stool, hx falls, can stand to transfer with assistance., Pt resides at [facility] on the [place]. History of Any Multi-Drug Resistant Organisms: ESBL Date of last positivie culture/infection: 03/20/18 MDRO Source:: ESBL URINE Past Surgical History: Orthopedic Surgery Additional Past Surgical History / Comment(s): Right leg fracture w/ surgery, L upper back lipoma removed, cataracts Past Anesthesia/Blood Transfusion Reactions: Unable to Obtain Past Psychological History: Anxiety, Depression, Schizoaffective Disorder, Schizophrenia Smoking Status: Former smoker Past Alcohol Use History: None Reported Past Drug Use History: None Reported - Past Family History Mother Family Medical History: Unable to Obtain Additional Family Medical History / Comment(s): Migraines. Father Family Medical History: Unable to Obtain Additional Family Medical History / Comment(s): . General Exam Limitations: no limitations General appearance: alert, in no apparent distress Head exam: Present: normocephalic Eye exam: Present: normal appearance ENT exam: Present: normal oropharynx Neck exam: Present: normal inspection. Absent: tenderness, meningismus Respiratory exam: Present: normal lung sounds bilaterally Cardiovascular Exam: Present: regular rate, normal rhythm GI/Abdominal exam: Present: soft. Absent: tenderness Extremities exam: Present: normal inspection. Absent: pedal edema, calf tenderness Neurological exam: Present: alert Psychiatric exam: Present: normal affect, normal mood Skin exam: Present: normal color. Absent: rash Course Vital Signs 03/14/21 03/14/21 03/14/21 09:10 09:17 09:19 Temperature 98 F Pulse Rate 67 68 Respiratory 16 16 18 Rate Blood Pressure 135/65 O2 Sat by Pulse 90 L 97 Oximetry EKG Findings - EKG Comments: EKG Findings:: Normal sinus rhythm with rate of 68. CO 196. QRS 146. QT 418. QTC 444. Right axis. Right bundle block. No acute ST change. Medical Decision Making - Medical Decision Making Patient reevaluated and resting comfortably in bed. Patient updated on results and plan. Case discussed with Dr. García, who will admit covering Dr. Rushing. - Lab Data Result diagrams: 03/14/21 09:34 03/14/21 09:34 Lab Results 03/14/21 03/14/21 03/14/21 Range/Units 09:20 09:21 09:34 WBC 3.5 L (3.8-10.6) k/uL RBC 4.56 (3.80-5.40) m/uL Hgb 12.9 (11.4-16.0) gm/dL Hct 40.8 (34.0-46.0) % MCV 89.4 (80.0-100.0) fL MCH 28.4 (25.0-35.0) pg MCHC 31.7 (31.0-37.0) g/dL RDW 14.8 (11.5-15.5) % Plt Count 190 (150-450) k/uL MPV 7.9 Neutrophils % 43 % Lymphocytes % 38 % Monocytes % 8 % Eosinophils % 7 % Basophils % 1 % Neutrophils # 1.5 (1.3-7.7) k/uL Lymphocytes # 1.3 (1.0-4.8) k/uL Monocytes # 0.3 (0-1.0) k/uL Eosinophils # 0.3 (0-0.7) k/uL Basophils # 0.0 (0-0.2) k/uL Hypochromasia Slight PT (9.0-12.0) sec INR (<1.2) APTT (22.0-30.0) sec D-Dimer (<0.60) mg/L FEU Sodium (137-145) mmol/L Potassium (3.5-5.1) mmol/L Chloride (98-107) mmol/L Carbon Dioxide (22-30) mmol/L Anion Gap mmol/L BUN (7-17) mg/dL Creatinine (0.52-1.04) mg/dL Est GFR (CKD-EPI)AfAm (>60 ml/min/1.73 sqM) Est GFR (CKD-EPI)NonAf (>60 ml/min/1.73 sqM) Glucose (74-99) mg/dL Plasma Lactic Acid Sergio 0.9 (0.7-2.0) mmol/L Calcium (8.4-10.2) mg/dL Total Bilirubin (0.2-1.3) mg/dL AST (14-36) U/L ALT (4-34) U/L Alkaline Phosphatase (38-126) U/L Troponin I (0.000-0.034) ng/mL Total Protein (6.3-8.2) g/dL Albumin (3.5-5.0) g/dL Urine Color Urine Appearance (Clear) Urine pH (5.0-8.0) Ur Specific [place] (1.001-1.035) Urine Protein (Negative) Urine Glucose (UA) (Negative) Urine Ketones (Negative) Urine Blood (Negative) Urine Nitrite (Negative) Urine Bilirubin (Negative) Urine Urobilinogen (<2.0) mg/dL Ur Leukocyte Esterase (Negative) Urine RBC (0-5) /hpf Urine WBC (0-5) /hpf Ur Squamous Epith Cells (0-4) /hpf Urine Mucus (None) /hpf Coronavirus (PCR) Not Detected (Not Detectd) Influenza Type A RNA (Not Detectd) Influenza Type B (PCR) (Not Detectd) 03/14/21 03/14/21 03/14/21 Range/Units 09:34 09:34 09:34 WBC (3.8-10.6) k/uL RBC (3.80-5.40) m/uL Hgb (11.4-16.0) gm/dL Hct (34.0-46.0) % MCV (80.0-100.0) fL MCH (25.0-35.0) pg MCHC (31.0-37.0) g/dL RDW (11.5-15.5) % Plt Count (150-450) k/uL MPV Neutrophils % % Lymphocytes % % Monocytes % % Eosinophils % % Basophils % % Neutrophils # (1.3-7.7) k/uL Lymphocytes # (1.0-4.8) k/uL Monocytes # (0-1.0) k/uL Eosinophils # (0-0.7) k/uL Basophils # (0-0.2) k/uL Hypochromasia PT 10.3 (9.0-12.0) sec INR 0.9 (<1.2) APTT 25.0 (22.0-30.0) sec D-Dimer 1.22 H (<0.60) mg/L FEU Sodium 140 (137-145) mmol/L Potassium 4.2 (3.5-5.1) mmol/L Chloride 105 (98-107) mmol/L Carbon Dioxide 31 H (22-30) mmol/L Anion Gap 4 mmol/L BUN 25 H (7-17) mg/dL Creatinine 0.91 (0.52-1.04) mg/dL Est GFR (CKD-EPI)AfAm 69 (>60 ml/min/1.73 sqM) Est GFR (CKD-EPI)NonAf 60 (>60 ml/min/1.73 sqM) Glucose 94 (74-99) mg/dL Plasma Lactic Acid Sergio (0.7-2.0) mmol/L Calcium 9.8 (8.4-10.2) mg/dL Total Bilirubin 0.7 (0.2-1.3) mg/dL AST 37 H (14-36) U/L ALT 18 (4-34) U/L Alkaline Phosphatase 88 (38-126) U/L Troponin I 0.037 H* (0.000-0.034) ng/mL Total Protein 6.2 L (6.3-8.2) g/dL Albumin 3.4 L (3.5-5.0) g/dL Urine Color Urine Appearance (Clear) Urine pH (5.0-8.0) Ur Specific [place] (1.001-1.035) Urine Protein (Negative) Urine Glucose (UA) (Negative) Urine Ketones (Negative) Urine Blood (Negative) Urine Nitrite (Negative) Urine Bilirubin (Negative) Urine Urobilinogen (<2.0) mg/dL Ur Leukocyte Esterase (Negative) Urine RBC (0-5) /hpf Urine WBC (0-5) /hpf Ur Squamous Epith Cells (0-4) /hpf Urine Mucus (None) /hpf Coronavirus (PCR) (Not Detectd) Influenza Type A RNA (Not Detectd) Influenza Type B (PCR) (Not Detectd) 03/14/21 03/14/21 Range/Units 09:45 10:04 WBC (3.8-10.6) k/uL RBC (3.80-5.40) m/uL Hgb (11.4-16.0) gm/dL Hct (34.0-46.0) % MCV (80.0-100.0) fL MCH (25.0-35.0) pg MCHC (31.0-37.0) g/dL RDW (11.5-15.5) % Plt Count (150-450) k/uL MPV Neutrophils % % Lymphocytes % % Monocytes % % Eosinophils % % Basophils % % Neutrophils # (1.3-7.7) k/uL Lymphocytes # (1.0-4.8) k/uL Monocytes # (0-1.0) k/uL Eosinophils # (0-0.7) k/uL Basophils # (0-0.2) k/uL Hypochromasia PT (9.0-12.0) sec INR (<1.2) APTT (22.0-30.0) sec D-Dimer (<0.60) mg/L FEU Sodium (137-145) mmol/L Potassium (3.5-5.1) mmol/L Chloride (98-107) mmol/L Carbon Dioxide (22-30) mmol/L Anion Gap mmol/L BUN (7-17) mg/dL Creatinine (0.52-1.04) mg/dL Est GFR (CKD-EPI)AfAm (>60 ml/min/1.73 sqM) Est GFR (CKD-EPI)NonAf (>60 ml/min/1.73 sqM) Glucose (74-99) mg/dL Plasma Lactic Acid Sergio (0.7-2.0) mmol/L Calcium (8.4-10.2) mg/dL Total Bilirubin (0.2-1.3) mg/dL AST (14-36) U/L ALT (4-34) U/L Alkaline Phosphatase (38-126) U/L Troponin I (0.000-0.034) ng/mL Total Protein (6.3-8.2) g/dL Albumin (3.5-5.0) g/dL Urine Color Yellow Urine Appearance Clear (Clear) Urine pH 5.5 (5.0-8.0) Ur Specific [place] 1.027 (1.001-1.035) Urine Protein 1+ H (Negative) Urine Glucose (UA) Negative (Negative) Urine Ketones 1+ H (Negative) Urine Blood Negative (Negative) Urine Nitrite Negative (Negative) Urine Bilirubin 1+ H (Negative) Urine Urobilinogen 2.0 (<2.0) mg/dL Ur Leukocyte Esterase Moderate H (Negative) Urine RBC 2 (0-5) /hpf Urine WBC 16 H (0-5) /hpf Ur Squamous Epith Cells 2 (0-4) /hpf Urine Mucus Rare H (None) /hpf Coronavirus (PCR) (Not Detectd) Influenza Type A RNA Not Detected (Not Detectd) Influenza Type B (PCR) Not Detected (Not Detectd) - Radiology Data Radiology results: report reviewed (CT angios chest shows no pulmonary embolism. Possible mild edema. CT abdomen shows no acute finding.), image reviewed (Ches t x-ray shows stable right effusion. Left basilar opacity.) Disposition Clinical Impression: Urinary tract infection, Fever, Hypoxia Disposition: ADMITTED IP TO THIS HOSP Is patient prescribed a controlled substance at d/c from ED?: No Referrals: Todd Rushing MD [Primary Care Provider] - 1-2 days Decision Time: 11:49
--- NOTE | 2021-03-14 09:48 | XR ---
EXAMINATION TYPE: XR chest 2V DATE OF EXAM: 03/14/2021 COMPARISON: Chest x-ray June 20, 2018 HISTORY: Fever. TECHNIQUE: Frontal and lateral views of the chest are obtained. FINDINGS: Low lung volumes redemonstrated. Small amount of fluid in the right mid lung fissure and t iny basilar effusion redemonstrated. Left basilar opacity also again seen. Patient is more rotated t o right on current study. The cardiac silhouette size is stable and upper limits of normal with ectat ic aortic knob. The osseous structures are intact. IMPRESSION: Stable tiny right pleural effusion. Left basilar opacity could reflect atelectasis and/o r infiltrate. No significant change from prior.
[2021-03-14 09:49] LABS: Basophils % (A) 1 %; Eosinophils # (A) 0.3 k/uL (0-0.7); Eosinophils % (A) 7 %; HCT 40.8 % (34.0-46.0); HGB 12.9 gm/dL (11.4-16.0); Hypochromasia Slight; Lymphocytes # (A) 1.3 k/uL (1.0-4.8); Lymphocytes % (A) 38 %; MCH 28.4 pg (25.0-35.0); MCHC 31.7 g/dL (31.0-37.0); MCV 89.4 fL (80.0-100.0); Mean Platelet Volume 7.9; Monocytes # (A) 0.3 k/uL (0-1.0); Monocytes % (A) 8 %; Neutrophils # (A) 1.5 k/uL (1.3-7.7); Neutrophils % (A) 43 %; Platelet Count 190 k/uL (150-450); RBC 4.56 m/uL (3.80-5.40); RDW 14.8 % (11.5-15.5); WBC 3.5 k/uL (3.8-10.6)
[2021-03-14 10:06] LABS: Albumin 3.4 g/dL (3.5-5.0); Calcium 9.8 mg/dL (8.4-10.2); Potassium 4.2 mmol/L (3.5-5.1); Total Bilirubin 0.7 mg/dL (0.2-1.3); Total Protein 6.2 g/dL (6.3-8.2)
[2021-03-14 10:15] LABS: INR 0.9 (<1.2); Prothrombin Time 10.3 sec (9.0-12.0)
[2021-03-14 10:29] LABS: Appearance,Urine Clear (Clear); Bilirubin,Urine 1+ (Negative); Blood,Urine Negative (Negative); Color,Urine Yellow; Glucose,Urine (UA) Negative (Negative); Ketones,Urine 1+ (Negative); Leukocyte Esterase,Urine Moderate (Negative); Mucus,Urine Rare /hpf; Nitrite,Urine Negative (Negative); PH, Urine 5.5 (5.0-8.0); Protein,Urine 1+ (Negative); RBC,Urine 2 /hpf (0-5); Specific Gravity,Urine 1.027 (1.001-1.035); Squamous Epithelial Cell,Urine 2 /hpf (0-4); WBC,Urine 16 /hpf (0-5)
--- NOTE | 2021-03-14 11:21 | CT ---
EXAMINATION TYPE: CT angio chest DATE OF EXAM: 03/14/2021 COMPARISON: Prior CTA chest July 09, 2012 and February 07, 2018 HISTORY: Elevated d-dimer and hypoxia. CT DLP: 378.0 mGycm. Automated Exposure Control for Dose Reduction was Utilized. CONTRAST: CTA scan of the thorax is performed with IV Contrast, patient injected with 80 mL of Isovue 370, pulm onary embolism protocol. MIP Images are created on CT scanner and reviewed. FINDINGS: LUNGS: Patient unable to hold breath making evaluation suboptimal. Overall mosaic attenuation with ar eas of increased opacity bilaterally. Mild to moderate scattered linear scarring and/or atelectasis i n the mid to lower lungs. Elevated right hemidiaphragm. No pneumothorax seen bilaterally. MEDIASTINUM: There is satisfactory enhancement of the pulmonary artery and its branches, there is no CT evidence for pulmonary embolism. Prominent pulmonary arteries suggesting underlying pulmonary leatha ry hypertension are redemonstrated. Ascending aorta measures up to 3.8 cm in diameter. There are no g reater than 1 cm hilar or mediastinal lymph nodes. No cardiomegaly or pericardial effusion is seen. Cardiac position deviated to the right similar to prior OTHER: Please refer to same day CT abdomen report for complete details on the upper abdomen. IMPRESSION: No CT evidence for acute pulmonary embolism. Possible mild diffuse edema and mild scatter ed atelectatic change. Correlate for fluid overload state. No suspicious focal consolidation.
--- NOTE | 2021-03-14 11:28 | CT ---
EXAMINATION TYPE: CT abdomen pelvis w con DATE OF EXAM: 03/14/2021 HISTORY: Left lower quadrant pain CT DLP: 1054.2mGycm Automated Exposure Control for Dose Reduction was Utilized. CONTRAST: CT scan of the abdomen and pelvis is performed without oral but with IV Contrast, patient injected wi th 100mL of Isovue 370. COMPARISON: CT abdomen and pelvis February 07, 2018 FINDINGS: LUNG BASES: Please refer to same day CTA chest report for complete details on the lung bases. Calcifi cation level of the mitral and aortic valves are present. LIVER/GB: Stable 3.8 x 2.8 cm thin-walled cyst in the right hepatic lobe. Cholecystectomy clips redem onstrated. Mild extrahepatic biliary dilatation with minimal central left intrahepatic biliary dilata tion unchanged from prior. PANCREAS: Mild to moderate generalized atrophy. SPLEEN: No significant abnormality is seen. ADRENALS: No significant abnormality is seen. KIDNEYS: There are approximately 8-10 small nonobstructing left renal calculi measuring up to 6 mm in size redemonstrated. No right-sided renal calculi. Symmetric cortical medullary uptake and excretion without hydronephrosis is noted. BOWEL: Suboptimal evaluation without enteric contrast. No suspicious small or large bowel dilatation is seen. UTERUS/ADNEXA: Anteverted uterus. Persistent 2.5 cm calcified structure posterior pelvic cul-de-sac o f uncertain etiology. Finding presumed benign. LYMPH NODES: No greater than 1cm abdominal or pelvic lymph nodes are appreciated. OSSEOUS STRUCTURES: Osseous structures are demineralized. There is S-shaped scoliosis with moderate t o severe multilevel disc space narrowing and multilevel vacuum disc phenomenon. There is moderate mul tilevel spurring redemonstrated. Multilevel facet arthropathy lower lumbar spine. OTHER: [id number] calcified plaque of the aorta extends into branch vessels. Persistent asymmet mila small caliber left iliac veins. There is tortuous anterior draining vein extending into the right common femoral vein redemonstrated. IMPRESSION: No significant acute finding is seen to account for patient's clinical symptoms of left l ower quadrant pain.
[2021-03-14] MEDS ORDERED: ACETAMINOPHEN TAB 325 MG TAB PO PRN ×2 (11:50→13:43)
[2021-03-14] MEDS ORDERED: NALOXONE 0.4 MG/ML 1 ML VIAL IV PRN (11:50)
[2021-03-14] MEDS ORDERED: LEVOFLOXACIN 500MG-D5W PMX 500 MG in DEXTROSE/WATER 1 100ML.BAG IVPB STA (11:52)
[2021-03-14] MEDS ORDERED: LEVOFLOXACIN 500MG-D5W PMX 500 MG in DEXTROSE/WATER 1 100ML.BAG IVPB SCH (12:00)
[2021-03-14] MEDS: SODIUM CHLORIDE 0.9% 1,000 ML IV SCH ×2 (13:00→22:56)
[2021-03-14] MEDS ORDERED: BACLOFEN 10 MG TAB PO PRN (13:43)
--- NOTE | 2021-03-14 13:43 | P.HPIM ---
History of Present Illness Patient is an 80-year-old pleasant female came in with compensative fever generalized weakness and tiredness has been going on for last 2 days patient was sent in from shelter patient the believes she has urinary tract infection she says she has UTI. Patient is also complaining of upper respiratory tract symptoms including sinusitis. Patient's COVID-19 test is still pending. Patient did have fever here because of which patient had a CT of the chest rule out pulmonary embolism which did not show any PE or pneumonia. Abdominal and pelvic CT is also within normal limits. Patient denied nausea vomiting diarrhea. Patient's COVID-19 PCR and influenza PCR are negative. Urinalysis is bit abnormal but not really impressive for urinary tract infection REVIEW OF SYSTEMS: CONSTITUTIONAL: No fever, no malaise, no fatigue. HEENT: No recent visual problems or hearing problems. Denied any sore throat. CARDIOVASCULAR: No chest pain, orthopnea, PND, no palpitations, no syncope. PULMONARY: No shortness of breath, no cough, no hemoptysis. GASTROINTESTINAL: No diarrhea, no nausea, no vomiting, no abdominal pain. NEUROLOGICAL: No headaches, no weakness, no numbness. HEMATOLOGICAL: Denies any bleeding or petechiae. GENITOURINARY: Denies any urgency. MUSCULOSKELETAL/RHEUMATOLOGICAL: Denies any joint pain, swelling, or any muscle pain. ENDOCRINE: Denies any polyuria or polydipsia. The rest of the 14-point review of systems is negative. PHYSICAL EXAMINATION: GENERAL: The patient is alert and oriented x3, not in any acute distress. Well developed, well nourished. HEENT: Pupils are round and equally reacting to light. EOMI. No scleral icterus. No conjunctival pallor. Normocephalic, atraumatic. No pharyngeal erythema. No thyromegaly. CARDIOVASCULAR: S1 and S2 present. No murmurs, rubs, or gallops. PULMONARY: Chest is clear to auscultation, no wheezing or crackles. ABDOMEN: Soft, nontender, nondistended, normoactive bowel sounds. No palpable organomegaly. MUSCULOSKELETAL: No joint swelling or deformity. EXTREMITIES: No cyanosis, clubbing, or pedal edema. NEUROLOGICAL: Gross neurological examination did not reveal any focal deficits. SKIN: No rashes. Assessment and plan -Fever most probable source being sinusitis: Patient is presently on Rocephin which will be continued. Possibly of UTIs low in spite of her symptoms. -Mildly elevated troponin secondary to assessment #1 patient doesn't have any chest pain, EKG did not show any acute ST-T wave changes. -Ruled out pulmonary embolism -History of coronary disease next and-COPD without any acceleration -Gases reflux disease next line-seizure disorder -Hypothyroidism DVT prophylaxis: Lovenox For above-mentioned chronic medical problems patient will be resumed on appropriate home medications Past Medical History Past Medical History: Coronary Artery Disease (CAD), Heart Failure, COPD, Dementia, GERD/Reflux, Hypertension, Seizure Disorder, Thyroid Disorder Additional Past Medical History / Comment(s): Chronic back pain, Alzheimer's, vitamin D deficiency, right bundle branch block, hypothyroid, insomnia, epilepsy -unknown date of last seizure, diverticulosis, blood in stool, hx falls, can stand to transfer with assistance., Pt resides at [facility]. History of Any Multi-Drug Resistant Organisms: ESBL Date of last positivie culture/infection: 03/20/18 MDRO Source:: ESBL URINE Past Surgical History: Orthopedic Surgery Additional Past Surgical History / Comment(s): Right leg fracture w/ surgery, L upper back lipoma removed, cataracts Past Anesthesia/Blood Transfusion Reactions: Unable to Obtain Past Psychological History: Anxiety, Depression, Schizoaffective Disorder, Schizophrenia Smoking Status: Former smoker Past Alcohol Use History: None Reported Past Drug Use History: None Reported - Past Family History Mother Family Medical History: Unable to Obtain Additional Family Medical History / Comment(s): Migraines. Father Family Medical History: Unable to Obtain Additional Family Medical History / Comment(s): . Medications and Allergies Home Medications Medication Instructions Recorded Confirmed Type Atorvastatin [Lipitor] 20 mg PO HS@209904/12/15 03/14/21 History carvediloL [Coreg] 3.125 mg PO BID@0900,2100 12/25/15 03/14/21 History Acetaminophen [Tylenol] 650 mg PO Q6H PRN 04/24/17 03/14/21 History Divalproex [Depakote] 250 mg PO BID@1700,2100 04/24/17 03/14/21 History QUEtiapine FUMARATE [SEROquel] 200 mg PO BID@0900,1700 #6 tablet 01/12/18 03/14/21 Rx Baclofen [Lioresal] 5 mg PO TID@0600,1400,2200 06/20/18 03/14/21 History Famotidine [Pepcid] 20 mg PO DAILY@0900 12/27/18 03/14/21 History Melatonin 10 mg PO HS@2100 12/27/18 03/14/21 History QUEtiapine FUMARATE [SEROquel] 400 mg PO HS@2100 12/27/18 03/14/21 History Aspirin 81 mg PO DAILY@0903/14/21 03/14/21 History Bismuth Subsalicylate 524 mg PO Q4H PRN 03/14/21 03/14/21 History [Pepto-Bismol] Calcium Carbonate [Tums] 1,000 mg PO Q6H PRN 03/14/21 03/14/21 History Dextran/Hypromellose/Glycerin 1 drop LEFT EYE Q12H PRN 03/14/21 03/14/21 History [Genteal Tears 0.1%-0.2%-0.3%] HYDROcodone/APAP 5-325MG [[place] 1 tab PO Q6H PRN 03/14/21 03/14/21 History 5-325] Phenyleph/Mineral Oil/Petrolat 1 applic RECTAL QID PRN 03/14/21 03/14/21 History [Preparation H Ointment] Suvorexant [Belsomra] 5 mg PO HS@2100 03/14/21 03/14/21 History metFORMIN HCL ER [Glucophage XR] 500 mg PO DAILY@0903/14/21 03/14/21 History Allergies Allergy/AdvReac Type Severity Reaction Status Date / Time adhesive tape Allergy Unknown Verified 03/14/21 09:10 ceftriaxone [From Rocephin] Allergy Rash/Hives Verified 03/14/21 09:10 cephalexin monohydrate Allergy Unknown Verified 03/14/21 09:10 [From Keflex] fluoxetine HCl [From Prozac] Allergy Unknown Verified 03/14/21 09:10 ketorolac tromethamine Allergy Unknown Verified 03/14/21 09:10 [From Toradol] latex Allergy Unknown Verified 03/14/21 09:10 phenelzine sulfate Allergy Unknown Verified 03/14/21 09:10 [From Nardil] Phenothiazines Allergy Unknown Verified 03/14/21 09:10 propoxyphene napsylate Allergy Unknown Verified 03/14/21 09:10 [From [facility]-N 100] Physical Exam Vitals: Vital Signs Temp Pulse Resp BP Pulse Ox 03/14/21 13:00 70 18 155/79 100 03/14/21 09:19 18 03/14/21 09:17 68 16 97 03/14/21 09:10 98 F 67 16 135/65 90 L Intake and Output 03/13/21 03/14/21 03/14/21 22:59 06:59 14:59 Other: Weight 113 kg Results CBC & Chem 7: 03/14/21 09:34 03/14/21 09:34 Labs: Abnormal Lab Results - Last 24 Hours (Table) 03/14/21 03/14/21 03/14/21 Range/Units 09:34 09:34 09:34 WBC 3.5 L (3.8-10.6) k/uL D-Dimer 1.22 H (<0.60) mg/L FEU Carbon Dioxide 31 H (22-30) mmol/L BUN 25 H (7-17) mg/dL AST 37 H (14-36) U/L Troponin I (0.000-0.034) ng/mL Total Protein 6.2 L (6.3-8.2) g/dL Albumin 3.4 L (3.5-5.0) g/dL Urine Protein (Negative) Urine Ketones (Negative) Urine Bilirubin (Negative) Ur Leukocyte Esterase (Negative) Urine WBC (0-5) /hpf Urine Mucus (None) /hpf 03/14/21 03/14/21 Range/Units 09:34 10:04 WBC (3.8-10.6) k/uL D-Dimer (<0.60) mg/L FEU Carbon Dioxide (22-30) mmol/L BUN (7-17) mg/dL AST (14-36) U/L Troponin I 0.037 H* (0.000-0.034) ng/mL Total Protein (6.3-8.2) g/dL Albumin (3.5-5.0) g/dL Urine Protein 1+ H (Negative) Urine Ketones 1+ H (Negative) Urine Bilirubin 1+ H (Negative) Ur Leukocyte Esterase Moderate H (Negative) Urine WBC 16 H (0-5) /hpf Urine Mucus Rare H (None) /hpf
[2021-03-14] MEDS ORDERED: CALCIUM CARBONATE 500 MG CHEWABLE PO PRN (13:44)
[2021-03-14] MEDS ORDERED: ARTIFICIAL TEARS-HYPROMELLOSE DROPS 15 ML BTL LEFT EYE PRN (13:44)
[2021-03-14] MEDS ORDERED: BISMUTH SUBSALICYLATE 4,192 MG/240 ML BOTTLE PO PRN (13:44)
[2021-03-14] MEDS ORDERED: MELATONIN 5 MG TABLET PO PRN (13:44)
[2021-03-14] MEDS: DIVALPROEX 250 MG TABLET.DR PO SCH ×2 (16:44→21:04)
[2021-03-14] MEDS: HYDROcodone/APAP 5-325MG 1 EACH TAB PO PRN (16:45)
[2021-03-14] MEDS: QUEtiapine 200 MG TAB PO SCH (16:46)
[2021-03-14] MEDS ORDERED: ATORVASTATIN 20 MG TAB PO SCH (21:00)
[2021-03-14] MEDS ORDERED: QUEtiapine 400 MG TAB PO SCH (21:00)
[2021-03-14] MEDS ORDERED: Suvorexant [Belsomra] PO SCH (21:00)
[2021-03-14] MEDS: carvediloL 3.125 MG TAB PO SCH (21:03)
[2021-03-15] MEDS: HYDROcodone/APAP 5-325MG 1 EACH TAB PO PRN ×2 (00:41→13:40)
[2021-03-15 06:45] LABS: HCT 40.4 % (34.0-46.0); HGB 12.7 gm/dL (11.4-16.0); Hypochromasia Slight; MCH 27.9 pg (25.0-35.0); MCHC 31.4 g/dL (31.0-37.0); MCV 88.7 fL (80.0-100.0); Mean Platelet Volume 8.7; Platelet Count 167 k/uL (150-450); RBC 4.56 m/uL (3.80-5.40); RDW 14.7 % (11.5-15.5); WBC 3.1 k/uL (3.8-10.6)
[2021-03-15 06:59] LABS: Band Neutrophils % 1 %; Eosinophils # (M) 0.22 k/uL (0-0.7); Lymphocytes # (M) 1.55 k/uL (1.0-4.8); Neutrophils % (M) 29 %; Nucleated Red Blood Cells 0 /100 WBC (0-0); Total Cells Counted 100
[2021-03-15 07:00] LABS: Anisocytosis (M) Present; Ovalocytes Present
[2021-03-15 07:10] LABS: ALT 15 U/L (4-34); AST 30 U/L (14-36); African American GFR (CKD) >90 (>60 ml/min/1.73 sqM); Alkaline Phosphatase 73 U/L (38-126); Anion Gap 4 mmol/L; Blood Urea Nitrogen 20 mg/dL (7-17); Calcium 9.7 mg/dL (8.4-10.2); Carbon Dioxide 29 mmol/L (22-30); Chloride 107 mmol/L (98-107); Glucose 93 mg/dL (74-99); Non-African American GFR(CKD) 82 (>60 ml/min/1.73 sqM); Potassium 4.3 mmol/L (3.5-5.1); Sodium 140 mmol/L (137-145); Total Bilirubin 0.6 mg/dL (0.2-1.3); Total Protein 5.7 g/dL (6.3-8.2)
--- NOTE | 2021-03-15 07:53 | XR ---
EXAMINATION TYPE: XR chest 2V DATE OF EXAM: 03/15/2021 COMPARISON: 03/14/2021 TECHNIQUE: PA and lateral views submitted. HISTORY: Fever FINDINGS: Small amount of fluid in the right mid lung fissure and tiny basilar effusion redemonstrated. Left ba silar opacity also again seen. Patient is more rotated to right on current study. The cardiac silhoue tte size is stable and upper limits of normal with ectatic aorta. The osseous structures are intact. IMPRESSION: 1. Patchy bilateral areas of infiltrate and small right effusion are stable..
[2021-03-15] MEDS ORDERED: FAMOTIDINE 20 MG TAB PO SCH (09:00)
[2021-03-15] MEDS ORDERED: ASPIRIN 81 MG PO SCH (09:00)
[2021-03-15] MEDS: carvediloL 3.125 MG TAB PO SCH (10:06)
[2021-03-15] MEDS: QUEtiapine 200 MG TAB PO SCH (10:06)
[2021-03-15 10:28] VITALS: TEMP 98.5
--- NOTE | 2021-03-15 13:24 | P.DS ---
Providers Date of admission: 03/14/21 12:21 Attending physician: Favian García Primary care physician: [facility] Course: Patient is an 80-year-old pleasant female came in with compensative fever generalized weakness and tiredness has been going on for last 2 days patient was sent in from correction patient the believes she has urinary tract infection she says she has UTI. Patient is also complaining of upper respiratory tract symptoms including sinusitis. Patient's COVID-19 test is still pending. Patient did have fever here because of which patient had a CT of the chest rule out pulmonary embolism which did not show any PE or pneumonia. Abdominal and pelvic CT is also within normal limits. Patient denied nausea vomiting diarrhea. Patient's COVID-19 PCR and influenza PCR are negative. Urinalysis is bit abnormal but not really impressive for urinary tract infection 03/15/2021 Patient is clinically doing well wanted to go back to the correction. Patient is afebrile. Patient will be discharged on levofloxacin 500 daily for 5 more days. Patient most probably has bacterial sinusitis possibility of UTI is low I repeated EKG because of patient being on multiple due to prolonging medications her QTCs around 4:30 patient can continue levofloxacin for 5 more days PHYSICAL EXAMINATION: GENERAL: The patient is alert and oriented x3, not in any acute distress. Well developed, well nourished. HEENT: Pupils are round and equally reacting to light. EOMI. No scleral icterus. No conjunctival pallor. Normocephalic, atraumatic. No pharyngeal erythema. No thyromegaly. CARDIOVASCULAR: S1 and S2 present. No murmurs, rubs, or gallops. PULMONARY: Chest is clear to auscultation, no wheezing or crackles. ABDOMEN: Soft, nontender, nondistended, normoactive bowel sounds. No palpable organomegaly. MUSCULOSKELETAL: No joint swelling or deformity. EXTREMITIES: No cyanosis, clubbing, or pedal edema. NEUROLOGICAL: Gross neurological examination did not reveal any focal deficits. SKIN: No rashes. Assessment and plan -Fever most probable source being sinusitis: Patient is presently on Rocephin which will be continued. Possibly of UTIs low in spite of her symptoms. -Mildly elevated troponin secondary to assessment #1 patient doesn't have any chest pain, EKG did not show any acute ST-T wave changes. -Ruled out pulmonary embolism -History of coronary disease next and-COPD without any acute exacerbation -Gases reflux disease -seizure disorder -Hypothyroidism Patient will be discharged to subacute rehabitation today Plan - Discharge Summary New Discharge Prescriptions: New Levofloxacin [Levaquin] 500 mg PO DAILY 5 Days #5 tab Continue Atorvastatin [Lipitor] 20 mg PO HS@2100 carvediloL [Coreg] 3.125 mg PO BID@0900,2100 Acetaminophen [Tylenol] 650 mg PO Q6H PRN PRN Reason: GENERAL DISCOMFORT Divalproex [Depakote] 250 mg PO BID@1700,2100 QUEtiapine FUMARATE [SEROquel] 200 mg PO BID@0900,1700 #6 tablet Baclofen [Lioresal] 5 mg PO TID@0600,1400,2200 Famotidine [Pepcid] 20 mg PO DAILY@0900 Melatonin 10 mg PO HS@2100 QUEtiapine FUMARATE [SEROquel] 400 mg PO HS@2100 Bismuth Subsalicylate [Pepto-Bismol] 524 mg PO Q4H PRN PRN Reason: Gi Upset Phenyleph/Mineral Oil/Petrolat [Preparation H Ointment] 1 applic RECTAL QID PRN PRN Reason: Hemorrhoids Suvorexant [Belsomra] 5 mg PO HS@2100 Calcium Carbonate [Tums] 1,000 mg PO Q6H PRN PRN Reason: Gi Upset Dextran/Hypromellose/Glycerin [Genteal Tears 0.1%-0.2%-0.3%] 1 drop LEFT EYE Q12H PRN PRN Reason: Dry Eye(S) metFORMIN HCL ER [Glucophage XR] 500 mg PO DAILY@0900 Aspirin 81 mg PO DAILY@0900 Changed HYDROcodone/APAP 5-325MG [Whitt 5-325] 1 tab PO Q6H PRN #20 tab PRN Reason: Pain Discharge Medication List Atorvastatin [Lipitor] 20 mg PO HS@2100 04/12/15 [History] carvediloL [Coreg] 3.125 mg PO BID@0900,2100 12/25/15 [History] Acetaminophen [Tylenol] 650 mg PO Q6H PRN 04/24/17 [History] Divalproex [Depakote] 250 mg PO BID@1700,2100 04/24/17 [History] QUEtiapine FUMARATE [SEROquel] 200 mg PO BID@0900,1700 #6 tablet 01/12/18 [Rx] Baclofen [Lioresal] 5 mg PO TID@0600,1400,2200 06/20/18 [History] Famotidine [Pepcid] 20 mg PO DAILY@0912/27/18 [History] Melatonin 10 mg PO HS@209912/27/18 [History] QUEtiapine FUMARATE [SEROquel] 400 mg PO HS@209912/27/18 [History] Aspirin 81 mg PO DAILY@89903/14/21 [History] Bismuth Subsalicylate [Pepto-Bismol] 524 mg PO Q4H PRN 03/14/21 [History] Calcium Carbonate [Tums] 1,000 mg PO Q6H PRN 03/14/21 [History] Dextran/Hypromellose/Glycerin [Genteal Tears 0.1%-0.2%-0.3%] 1 drop LEFT EYE Q12H PRN 03/14/21 [History] Phenyleph/Mineral Oil/Petrolat [Preparation H Ointment] 1 applic RECTAL QID PRN 03/14/21 [History] Suvorexant [Belsomra] 5 mg PO HS@209903/14/21 [History] metFORMIN HCL ER [Glucophage XR] 500 mg PO DAILY@0900 03/14/21 [History] HYDROcodone/APAP 5-325MG [Whitt 5-325] 1 tab PO Q6H PRN #20 tab 03/15/21 [Rx] Levofloxacin [Levaquin] 500 mg PO DAILY 5 Days #5 tab 03/15/21 [Rx] Follow up Appointment(s)/Referral(s): Todd Rushing MD [Primary Care Provider] - 1-2 days
[2021-03-15 15:38] VITALS: BP 132/66; PULSE 87
[2021-03-16] MEDS ORDERED: LEVOFLOXACIN 500MG-D5W PMX 500 MG in DEXTROSE/WATER 1 100ML.BAG IVPB SCH (09:00)
== END 2021-03-15 15:54 ==
LOC: EC 09:02 → 3SCARD 12:21
PROVIDERS: ADMIT Internal Medicine; ATTEND Internal Medicine
DX: R50.9 Fever, unspecified (principal); J32.9 Chronic sinusitis, unspecified; R79.89 Other specified abnormal findings of blood chemistry; J44.9 Chronic obstructive pulmonary disease, unspecified; I25.10 Atherosclerotic heart disease of native coronary artery without angina pectoris; G40.909 Epilepsy, unspecified, not intractable, without status epilepticus; I11.0 Hypertensive heart disease with heart failure; I50.9 Heart failure, unspecified; J90 Pleural effusion, not elsewhere classified; R91.8 Other nonspecific abnormal finding of lung field; R53.1 Weakness; R09.02 Hypoxemia; E55.9 Vitamin D deficiency, unspecified; K21.9 Gastro-esophageal reflux disease without esophagitis; E03.9 Hypothyroidism, unspecified; G30.9 Alzheimer's disease, unspecified; F02.80 Dementia in other diseases classified elsewhere, unspecified severity, without behavioral disturbance, psychotic disturbance, mood disturbance, and anxiety; G47.00 Insomnia, unspecified; G89.29 Other chronic pain; M54.9 Dorsalgia, unspecified; I45.10 Unspecified right bundle-branch block; K57.90 Diverticulosis of intestine, part unspecified, without perforation or abscess without bleeding; R82.90 Unspecified abnormal findings in urine; F25.9 Schizoaffective disorder, unspecified; F32.A Depression, unspecified; F41.9 Anxiety disorder, unspecified; Z20.822 Contact with and (suspected) exposure to COVID-19; Z79.82 Long term (current) use of aspirin; Z79.84 Long term (current) use of oral hypoglycemic drugs; Z79.899 Other long term (current) drug therapy; Z88.1 Allergy status to other antibiotic agents; Z91.040 Latex allergy status; Z88.5 Allergy status to narcotic agent; Z88.8 Allergy status to other drugs, medicaments and biological substances; Z91.048 Other nonmedicinal substance allergy status; Z91.81 History of falling; Z98.49 Cataract extraction status, unspecified eye; Z16.12 Extended spectrum beta lactamase (ESBL) resistance; Z87.19 Personal history of other diseases of the digestive system; Z87.891 Personal history of nicotine dependence; Z90.49 Acquired absence of other specified parts of digestive tract; Z98.890 Other specified postprocedural states; Z82.0 Family history of epilepsy and other diseases of the nervous system
CPT/HCPCS: 96365; 99285; 36415; 93005; 85379; 83880; 80053 ×2; 83605; 84484 ×2; 85025 ×2; 85610; 85730; 81001; 87040; 87086; 87502; 87635; 71046 ×2; 71275; 74177; G0378 ×2; J1956; Q9967

== ENCOUNTER 2021-04-23 16:45 | Emergency (ER) | payer MEDICARE, OTHER ==
[2021-04-23 17:44] LABS: Glucose,Whole Blood 70 mg/dL (75-99)
[2021-04-23 17:56] LABS: Basophils % (A) 1 %; Eosinophils # (A) 0.2 k/uL (0-0.7); Eosinophils % (A) 5 %; HCT 44.6 % (34.0-46.0); HGB 13.9 gm/dL (11.4-16.0); Hypochromasia Slight; Lymphocytes # (A) 1.9 k/uL (1.0-4.8); Lymphocytes % (A) 37 %; MCH 27.7 pg (25.0-35.0); MCHC 31.2 g/dL (31.0-37.0); MCV 88.7 fL (80.0-100.0); Mean Platelet Volume 7.3; Monocytes # (A) 0.4 k/uL (0-1.0); Monocytes % (A) 8 %; Neutrophils # (A) 2.4 k/uL (1.3-7.7); Neutrophils % (A) 47 %; Platelet Count 249 k/uL (150-450); RBC 5.03 m/uL (3.80-5.40); RDW 14.9 % (11.5-15.5); WBC 5.1 k/uL (3.8-10.6)
[2021-04-23 18:00] LABS: Albumin 4.3 g/dL (3.5-5.0); Calcium 10.1 mg/dL (8.4-10.2); Partial Thromboplastin Time 23.9 sec (22.0-30.0); Potassium 4.6 mmol/L (3.5-5.1); Prothrombin Time 10.7 sec (9.0-12.0); Total Bilirubin 0.9 mg/dL (0.2-1.3); Total Protein 7.4 g/dL (6.3-8.2)
--- NOTE | 2021-04-23 18:20 | XR ---
EXAMINATION TYPE: XR chest 2V DATE OF EXAM: 04/23/2021 COMPARISON: 03/24/2021 HISTORY: Chest pain. Altered mental status TECHNIQUE: FINDINGS: There is no heart failure nor confluent pneumonic infiltrate. Costophrenic angles are clear . There are chest leads. Thoracic aorta is atheromatous. There is slight thickening of the right luann r fissure. IMPRESSION: Minimal right pleural thickening without change compared to recent exam. No heart failure .
--- NOTE | 2021-04-23 18:31 | CT ---
EXAMINATION TYPE: CT brain wo con DATE OF EXAM: 04/23/2021 COMPARISON: 03/07/2021 HISTORY: Altered mental status. CT DLP: 1087.6 mGycm Automated exposure control for dose reduction was used. There is diffuse cerebral atrophy. There is no mass effect nor midline shift. There is no sign of int racranial hemorrhage. Calvarium is intact. There is mild ectasia of the basilar artery. There is muco jr thickening left maxillary sinus. There is normal aeration of the mastoid sinuses. There is mild white matter hypodensity around the frontal horns of the lateral ventricles. 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 Left maxilla ry sinusitis. Cerebral atrophy. No acute intracranial abnormality. Mild chronic small vessel ischemia.
--- NOTE | 2021-04-23 18:54 | ED ---
General Adult HPI - General Chief complaint: Weakness Stated complaint: AMS Time Seen by Provider: 04/23/21 16:46 Source: patient, EMS, RN notes reviewed, old records reviewed Mode of arrival: EMS Limitations: altered mental status - History of Present Illness Initial comments: 80-year-old female presenting with increased confusion and dyspnea. Patient presenting from [facility] where she resides. She had been less alert than usual. She herself has no complaints time my evaluation. She is alert and oriented 2. She denies headache. Denies chest pain. Denies abdominal pain. She does appear mildly dyspneic. - Related Data Home Medications Medication Instructions Recorded Confirmed Atorvastatin [Lipitor] 20 mg PO HS@209904/12/15 04/23/21 carvediloL [Coreg] 3.125 mg PO BID@09,209912/25/15 04/23/21 Acetaminophen [Tylenol] 650 mg PO Q6H PRN 04/24/17 04/23/21 Divalproex [Depakote] 250 mg PO BID@1700,209904/24/17 04/23/21 Famotidine [Pepcid] 20 mg PO DAILY@0912/27/18 04/23/21 Melatonin 10 mg PO HS@209912/27/18 04/23/21 QUEtiapine FUMARATE [SEROquel] 400 mg PO HS@209912/27/18 04/23/21 Aspirin 81 mg PO DAILY@89903/14/21 04/23/21 Bismuth Subsalicylate 524 mg PO Q4H PRN 03/14/21 04/23/21 [Pepto-Bismol] Calcium Carbonate [Tums] 1,000 mg PO Q6H PRN 03/14/21 04/23/21 Dextran/Hypromellose/Glycerin 1 drop LEFT EYE Q12H PRN 03/14/21 04/23/21 [Genteal Tears 0.1%-0.2%-0.3%] Phenyleph/Mineral Oil/Petrolat 1 applic RECTAL QID PRN 03/14/21 04/23/21 [Preparation H Ointment] Suvorexant [Belsomra] 5 mg PO HS@2100 03/14/21 04/23/21 metFORMIN HCL ER [Glucophage XR] 500 mg PO DAILY@0900 03/14/21 04/23/21 Baclofen 5 mg PO TID@0600,1400,2200 03/24/21 04/23/21 Previous Rx's Medication Instructions Recorded QUEtiapine FUMARATE [SEROquel] 200 mg PO BID@0900,1700 #6 tablet 01/12/18 HYDROcodone/APAP 5-325MG [[place] 1 tab PO Q6H PRN #20 tab 03/15/21 5-325] Levofloxacin [Levaquin] 500 mg PO DAILY 3 Days #3 tab 04/23/21 Allergies Allergy/AdvReac Type Severity Reaction Status Date / Time adhesive tape Allergy Unknown Verified 04/23/21 17:32 ceftriaxone [From Rocephin] Allergy Rash/Hives Verified 04/23/21 17:32 cephalexin monohydrate Allergy Unknown Verified 04/23/21 17:32 [From Keflex] fluoxetine HCl [From Prozac] Allergy Unknown Verified 04/23/21 17:32 ketorolac tromethamine Allergy Unknown Verified 04/23/21 17:32 [From Toradol] latex Allergy Unknown Verified 04/23/21 17:32 phenelzine sulfate Allergy Unknown Verified 04/23/21 17:32 [From Nardil] Phenothiazines Allergy Unknown Verified 04/23/21 17:32 propoxyphene napsylate Allergy Unknown Verified 04/23/21 17:32 [From Darvocet-N 100] Review of Systems ROS Statement: Those systems with pertinent positive or pertinent negative responses have been documented in the HPI. ROS Other: All systems not noted in ROS Statement are negative. Past Medical History Past Medical History: Coronary Artery Disease (CAD), Heart Failure, COPD, Dementia, GERD/Reflux, Hypertension, Seizure Disorder, Thyroid Disorder Additional Past Medical History / Comment(s): Chronic back pain, Alzheimer's, vitamin D deficiency, right bundle branch block, hypothyroid, insomnia, epilepsy -unknown date of last seizure, diverticulosis, blood in stool, hx falls, can sta nd to transfer with assistance., Pt resides at [facility]. History of Any Multi-Drug Resistant Organisms: ESBL Date of last positivie culture/infection: 03/20/18 MDRO Source:: ESBL URINE Past Surgical History: Orthopedic Surgery Additional Past Surgical History / Comment(s): Right leg fracture w/ surgery, L upper back lipoma removed, cataracts Past Anesthesia/Blood Transfusion Reactions: Unable to Obtain Past Psychological History: Anxiety, Depression, Schizoaffective Disorder, Schizophrenia Smoking Status: Former smoker Past Alcohol Use History: None Reported Past Drug Use History: None Reported - Past Family History Mother Family Medical History: Unable to Obtain Additional Family Medical History / Comment(s): Migraines. Father Family Medical History: Unable to Obtain Additional Family Medical History / Comment(s): . General Exam Limitations: altered mental status General appearance: alert, in distress (mild resp distress) Eye exam: Present: normal appearance, PERRL ENT exam: Present: mucous membranes dry Neck exam: Present: normal inspection. Absent: tenderness, meningismus Respiratory exam: Present: wheezes, accessory muscle use, decreased breath sounds Cardiovascular Exam: Present: regular rate, normal rhythm GI/Abdominal exam: Present: soft, tenderness. Absent: distended, guarding Extremities exam: Present: normal inspection, normal capillary refill. Absent: pedal edema Neurological exam: Present: alert. Absent: oriented X3 (2), motor sensory deficit Skin exam: Present: warm, dry, intact. Absent: cyanosis, diaphoretic Course Vital Signs 04/23/21 04/23/21 16:58 19:37 Temperature 97.1 F L 97.4 F L Pulse Rate 71 74 Respiratory 16 18 Rate Blood Pressure 182/95 178/93 O2 Sat by Pulse 93 L 94 L Oximetry EKG Findings - EKG Comments: EKG Findings:: EKG: Sinus rhythm, right bundle-branch block, rate of 69, ME interval 179, QRS duration 152, QTC [address] segment elevation. Medical Decision Making - Medical Decision Making 80-year-old female presented from the halfway with increased confusion. Patient does improve while in the emergency department she is alert and oriented 3 and eager to return home to the halfway. She denies any complaints. She receives CT had which is negative, chest x-ray which is negative, she has a normal CBC. Her blood sugar was slightly low at 70. She did have signs of urinary tract infection. She is given steroids as well as Levaquin and emergency department. She wishes to be discharged back to the halfway. She can be closely monitored. - Lab Data Result diagrams: 04/23/21 17:41 04/23/21 17:41 Lab Results 04/23/21 04/23/21 04/23/21 Range/Units 17:41 17:41 17:41 WBC 5.1 (3.8-10.6) k/uL RBC 5.03 (3.80-5.40) m/uL Hgb 13.9 (11.4-16.0) gm/dL Hct 44.6 (34.0-46.0) % MCV 88.7 (80.0-100.0) fL MCH 27.7 (25.0-35.0) pg MCHC 31.2 (31.0-37.0) g/dL RDW 14.9 (11.5-15.5) % Plt Count 249 (150-450) k/uL MPV 7.3 Neutrophils % 47 % Lymphocytes % 37 % Monocytes % 8 % Eosinophils % 5 % Basophils % 1 % Neutrophils # 2.4 (1.3-7.7) k/uL Lymphocytes # 1.9 (1.0-4.8) k/uL Monocytes # 0.4 (0-1.0) k/uL Eosinophils # 0.2 (0-0.7) k/uL Basophils # 0.0 (0-0.2) k/uL Hypochromasia Slight PT 10.7 (9.0-12.0) sec INR 1.0 (<1.2) APTT 23.9 (22.0-30.0) sec Sodium 142 (137-145) mmol/L Potassium 4.6 (3.5-5.1) mmol/L Chloride 106 (98-107) mmol/L Carbon Dioxide 31 H (22-30) mmol/L Anion Gap 5 mmol/L BUN 25 H (7-17) mg/dL Creatinine 0.79 (0.52-1.04) mg/dL Est GFR (CKD-EPI)AfAm 83 (>60 ml/min/1.73 sqM) Est GFR (CKD-EPI)NonAf 72 (>60 ml/min/1.73 sqM) Glucose 91 (74-99) mg/dL POC Glucose (mg/dL) (75-99) mg/dL POC Glu Tube Blower ID Calcium 10.1 (8.4-10.2) mg/dL Total Bilirubin 0.9 (0.2-1.3) mg/dL AST 29 (14-36) U/L ALT 17 (4-34) U/L Alkaline Phosphatase 114 (38-126) U/L Troponin I (0.000-0.034) ng/mL NT-Pro-B Natriuret Pep pg/mL Total Protein 7.4 (6.3-8.2) g/dL Albumin 4.3 (3.5-5.0) g/dL Urine Color Urine Appearance (Clear) Urine pH (5.0-8.0) Ur Specific Logan (1.001-1.035) Urine Protein (Negative) Urine Glucose (UA) (Negative) Urine Ketones (Negative) Urine Blood (Negative) Urine Nitrite (Negative) Urine Bilirubin (Negative) Urine Urobilinogen (<2.0) mg/dL Ur Leukocyte Esterase (Negative) Urine RBC (0-5) /hpf Urine WBC (0-5) /hpf Ur Squamous Epith Cells (0-4) /hpf Urine Bacteria (None) /hpf Hyaline Casts (0-2) /lpf Urine Mucus (None) /hpf 04/23/21 04/23/21 04/23/21 Range/Units 17:41 17:41 17:42 WBC (3.8-10.6) k/uL RBC (3.80-5.40) m/uL Hgb (11.4-16.0) gm/dL Hct (34.0-46.0) % MCV (80.0-100.0) fL MCH (25.0-35.0) pg MCHC (31.0-37.0) g/dL RDW (11.5-15.5) % Plt Count (150-450) k/uL MPV Neutrophils % % Lymphocytes % % Monocytes % % Eosinophils % % Basophils % % Neutrophils # (1.3-7.7) k/uL Lymphocytes # (1.0-4.8) k/uL Monocytes # (0-1.0) k/uL Eosinophils # (0-0.7) k/uL Basophils # (0-0.2) k/uL Hypochromasia PT (9.0-12.0) sec INR (<1.2) APTT (22.0-30.0) sec Sodium (137-145) mmol/L Potassium (3.5-5.1) mmol/L Chloride (98-107) mmol/L Carbon Dioxide (22-30) mmol/L Anion Gap mmol/L BUN (7-17) mg/dL Creatinine (0.52-1.04) mg/dL Est GFR (CKD-EPI)AfAm (>60 ml/min/1.73 sqM) Est GFR (CKD-EPI)NonAf (>60 ml/min/1.73 sqM) Glucose (74-99) mg/dL POC Glucose (mg/dL) 70 L (75-99) mg/dL POC Glu Tube Blower ID Kaylee Arnett Calcium (8.4-10.2) mg/dL Total Bilirubin (0.2-1.3) mg/dL AST (14-36) U/L ALT (4-34) U/L Alkaline Phosphatase (38-126) U/L Troponin I <0.012 (0.000-0.034) ng/mL NT-Pro-B Natriuret Pep 205 pg/mL Total Protein (6.3-8.2) g/dL Albumin (3.5-5.0) g/dL Urine Color Urine Appearance (Clear) Urine pH (5.0-8.0) Ur Specific Logan (1.001-1.035) Urine Protein (Negative) Urine Glucose (UA) (Negative) Urine Ketones (Negative) Urine Blood (Negative) Urine Nitrite (Negative) Urine Bilirubin (Negative) Urine Urobilinogen (<2.0) mg/dL Ur Leukocyte Esterase (Negative) Urine RBC (0-5) /hpf Urine WBC (0-5) /hpf Ur Squamous Epith Cells (0-4) /hpf Urine Bacteria (None) /hpf Hyaline Casts (0-2) /lpf Urine Mucus (None) /hpf 04/23/21 Range/Units 19:10 WBC (3.8-10.6) k/uL RBC (3.80-5.40) m/uL Hgb (11.4-16.0) gm/dL Hct (34.0-46.0) % MCV (80.0-100.0) fL MCH (25.0-35.0) pg MCHC (31.0-37.0) g/dL RDW (11.5-15.5) % Plt Count (150-450) k/uL MPV Neutrophils % % Lymphocytes % % Monocytes % % Eosinophils % % Basophils % % Neutrophils # (1.3-7.7) k/uL Lymphocytes # (1.0-4.8) k/uL Monocytes # (0-1.0) k/uL Eosinophils # (0-0.7) k/uL Basophils # (0-0.2) k/uL Hypochromasia PT (9.0-12.0) sec INR (<1.2) APTT (22.0-30.0) sec Sodium (137-145) mmol/L Potassium (3.5-5.1) mmol/L Chloride (98-107) mmol/L Carbon Dioxide (22-30) mmol/L Anion Gap mmol/L BUN (7-17) mg/dL Creatinine (0.52-1.04) mg/dL Est GFR (CKD-EPI)AfAm (>60 ml/min/1.73 sqM) Est GFR (CKD-EPI)NonAf (>60 ml/min/1.73 sqM) Glucose (74-99) mg/dL POC Glucose (mg/dL) (75-99) mg/dL POC Glu Tube Blower ID Calcium (8.4-10.2) mg/dL Total Bilirubin (0.2-1.3) mg/dL AST (14-36) U/L ALT (4-34) U/L Alkaline Phosphatase (38-126) U/L Troponin I (0.000-0.034) ng/mL NT-Pro-B Natriuret Pep pg/mL Total Protein (6.3-8.2) g/dL Albumin (3.5-5.0) g/dL Urine Color Yellow Urine Appearance Cloudy H (Clear) Urine pH 6.5 (5.0-8.0) Ur Specific Logan 1.022 (1.001-1.035) Urine Protein Trace H (Negative) Urine Glucose (UA) Negative (Negative) Urine Ketones Negative (Negative) Urine Blood Negative (Negative) Urine Nitrite Negative (Negative) Urine Bilirubin Negative (Negative) Urine Urobilinogen 2.0 (<2.0) mg/dL Ur Leukocyte Esterase Moderate H (Negative) Urine RBC 8 H (0-5) /hpf Urine WBC 20 H (0-5) /hpf Ur Squamous Epith Cells 2 (0-4) /hpf Urine Bacteria Many H (None) /hpf Hyaline Casts 6 H (0-2) /lpf Urine Mucus Occasional H (None) /hpf Disposition Clinical Impression: Urinary tract infection, High risk for readmission Disposition: HOME SELF-CARE Condition: Fair Instructions (If sedation given, give patient instructions): Urinary Tract Infection in Women (ED) Prescriptions: Levofloxacin [Levaquin] 500 mg PO DAILY 3 Days #3 tab Is patient prescribed a controlled substance at d/c from ED?: No Referrals: Todd Rushing MD [Primary Care Provider] - 1-2 days
[2021-04-23 19:35] LABS: Appearance,Urine Cloudy (Clear); Bacteria,Urine Many /hpf; Bilirubin,Urine Negative (Negative); Blood,Urine Negative (Negative); Color,Urine Yellow; Glucose,Urine (UA) Negative (Negative); Hyaline Casts,Urine 6 /lpf (0-2); Ketones,Urine Negative (Negative); Leukocyte Esterase,Urine Moderate (Negative); Mucus,Urine Occasional /hpf; Nitrite,Urine Negative (Negative); PH, Urine 6.5 (5.0-8.0); Protein,Urine Trace (Negative); RBC,Urine 8 /hpf (0-5); Specific Gravity,Urine 1.022 (1.001-1.035); Squamous Epithelial Cell,Urine 2 /hpf (0-4); WBC,Urine 20 /hpf (0-5)
[2021-04-23] MEDS ORDERED: LEVOFLOXACIN 500MG-D5W PMX 500 MG in DEXTROSE/WATER 1 100ML.BAG IVPB STA (19:38)
[2021-04-23] MEDS ORDERED: methylPREDNISolone SOD SUCCI 125 MG/2 ML VIAL IV STA (19:38)
[2021-04-23 19:39] VITALS: BP 178/93; PULSE 74; RESP 18; TEMP 97.4
[2021-04-23] MEDS ORDERED: HYDROcodone/APAP 5-325MG 1 EACH TAB PO STA (21:14)
== END 2021-04-23 22:15 | disposition home or self-care (01) ==
LOC: EC 16:45
DX: N39.0 Urinary tract infection, site not specified (principal); I25.10 Atherosclerotic heart disease of native coronary artery without angina pectoris; I11.0 Hypertensive heart disease with heart failure; I50.9 Heart failure, unspecified; J44.9 Chronic obstructive pulmonary disease, unspecified; F03.90 Unspecified dementia, unspecified severity, without behavioral disturbance, psychotic disturbance, mood disturbance, and anxiety; K21.9 Gastro-esophageal reflux disease without esophagitis; E07.9 Disorder of thyroid, unspecified; F41.9 Anxiety disorder, unspecified; F25.9 Schizoaffective disorder, unspecified; F32.A Depression, unspecified; Z91.89 Other specified personal risk factors, not elsewhere classified; Z79.82 Long term (current) use of aspirin; Z79.899 Other long term (current) drug therapy; Z79.84 Long term (current) use of oral hypoglycemic drugs; Z88.1 Allergy status to other antibiotic agents; Z91.040 Latex allergy status; Z87.891 Personal history of nicotine dependence
CPT/HCPCS: 99285; 96365; 96375; 36415; 93005; 83880; 80053; 84484; 85025; 85610; 85730; 81001; 87086; 71046; 70450; J2930; J1956; 85379; 87077; 87186

== ENCOUNTER 2021-09-04 13:02 | Inpatient (IN) | payer MEDICARE, OTHER ==
[2021-09-04 13:39] LABS: Basophils % (A) 0 %; Eosinophils # (A) 0.1 k/uL (0-0.7); Eosinophils % (A) 1 %; HCT 39.9 % (34.0-46.0); HGB 12.5 gm/dL (11.4-16.0); Hypochromasia Slight; Lymphocytes # (A) 1.2 k/uL (1.0-4.8); Lymphocytes % (A) 15 %; MCHC 31.2 g/dL (31.0-37.0); MCV 86.6 fL (80.0-100.0); Mean Platelet Volume 7.9; Monocytes # (A) 1.1 k/uL (0-1.0); Monocytes % (A) 13 %; Neutrophils # (A) 5.7 k/uL (1.3-7.7); Neutrophils % (A) 68 %; Platelet Count 211 k/uL (150-450); RBC 4.61 m/uL (3.80-5.40); RDW 14.8 % (11.5-15.5); WBC 8.4 k/uL (3.8-10.6)
[2021-09-04 13:47] LABS: INR 0.9 (<1.2); Partial Thromboplastin Time 24.9 sec (22.0-30.0); Prothrombin Time 10.1 sec (9.0-12.0)
[2021-09-04 13:50] LABS: Albumin 3.7 g/dL (3.5-5.0); Calcium 9.9 mg/dL (8.4-10.2); Potassium 4.8 mmol/L (3.5-5.1); Total Bilirubin 0.7 mg/dL (0.2-1.3); Total Protein 6.4 g/dL (6.3-8.2)
--- NOTE | 2021-09-04 14:19 | ED ---
SOB HPI - General Chief Complaint: Shortness of Breath Stated Complaint: LOW OXYGEN Source: patient, EMS Mode of arrival: EMS Limitations: altered mental status - History of Present Illness Initial Comments: 80-year-old female past medical history of dementia, heart failure, COPD not oxygen presents to the emergency department from [facility]. They report that for the past day the patient has had increased respiratory insufficiency. Today was found that the patient had a pulse ox of 80. She was placed on 3 L of oxygen improved to 96%. She does have rhonchi at her right lung base. She cannot provide any history due to her history of Alzheimer's and schizophrenia. She de nies any chest pain. She does have some lower extremity edema. No known fevers. No other alleviating, Perceptin modifying factors - Related Data Home Medications Medication Instructions Recorded Confirmed Atorvastatin [Lipitor] 20 mg PO HS 04/12/15 09/04/21 carvediloL [Coreg] 3.125 mg PO BID 12/25/15 09/04/21 Acetaminophen [Tylenol] 650 mg PO Q6H PRN 04/24/17 09/04/21 Divalproex [Depakote] 250 mg PO BID@1700,2100 04/24/17 09/04/21 Famotidine [Pepcid] 20 mg PO HS 12/27/18 09/04/21 Melatonin [Melatonin ER] 10 mg PO HS 12/27/18 09/04/21 QUEtiapine FUMARATE [SEROquel] 400 mg PO HS 12/27/18 09/04/21 Aspirin 81 mg PO DAILY 03/14/21 09/04/21 Bismuth Subsalicylate 524 mg PO Q4H PRN 03/14/21 09/04/21 [Pepto-Bismol] Calcium Carbonate [Tums] 1,000 mg PO Q6H PRN 03/14/21 09/04/21 Dextran/Hypromellose/Glycerin 1 drop LEFT EYE Q12H PRN 03/14/21 09/04/21 [Genteal Tears 0.1%-0.2%-0.3%] Phenyleph/Mineral Oil/Petrolat 1 applic RECTAL QID PRN 03/14/21 09/04/21 [Preparation H Ointment] Suvorexant [Belsomra] 5 mg PO HS@2100 03/14/21 09/04/21 metFORMIN HCL ER [Glucophage XR] 500 mg PO DAILY 03/14/21 09/04/21 Previous Rx's Medication Instructions Recorded QUEtiapine FUMARATE [SEROquel] 200 mg PO BID@0900,1700 #6 tablet 01/12/18 HYDROcodone/APAP 5-325MG [Thurman 1 tab PO Q6H PRN #20 tab 03/15/21 5-325] Allergies Allergy/AdvReac Type Severity Reaction Status Date / Time adhesive tape Allergy Unknown Verified 09/04/21 13:55 ceftriaxone [From Rocephin] Allergy Rash/Hives Verified 09/04/21 13:55 cephalexin monohydrate Allergy Unknown Verified 09/04/21 13:55 [From Keflex] fluoxetine HCl [From Prozac] Allergy Unknown Verified 09/04/21 13:55 ketorolac tromethamine Allergy Unknown Verified 09/04/21 13:55 [From Toradol] latex Allergy Unknown Verified 09/04/21 13:55 phenelzine sulfate Allergy Unknown Verified 09/04/21 13:55 [From Nardil] Phenothiazines Allergy Unknown Verified 09/04/21 13:55 propoxyphene napsylate Allergy Unknown Verified 09/04/21 13:55 [From Darvocet-N 100] Review of Systems ROS Statement: Those systems with pertinent positive or pertinent negative responses have been documented in the HPI. ROS Other: All systems not noted in ROS Statement are negative. Past Medical History Past Medical History: Coronary Artery Disease (CAD), Heart Failure, COPD, Dementia, GERD/Reflux, Hypertension, Seizure Disorder, Thyroid Disorder Additional Past Medical History / Comment(s): Chronic back pain, Alzheimer's, vitamin D deficiency, right bundle branch block, hypothyroid, insomnia, epilepsy -unknown date of last seizure, diverticulosis, blood in stool, hx falls, can stand to transfer with assistance., Pt resides at [facility]. History of Any Multi-Drug Resistant Organisms: ESBL Date of last positivie culture/infection: 03/20/18 MDRO Source:: ESBL URINE Past Surgical History: Orthopedic Surgery Additional Past Surgical History / Comment(s): Right leg fracture w/ surgery, L upper back lipoma removed, cataracts Past Anesthesia/Blood Transfusion Reactions: Unable to Obtain Past Psychological History: Anxiety, Depression, Schizoaffective Disorder, Schizophrenia Smoking Status: Former smoker Past Alcohol Use History: None Reported Past Drug Use History: None Reported - Past Family History Mother Family Medical History: Unable to Obtain Additional Family Medical History / Comment(s): Migraines. Father Family Medical History: Unable to Obtain Additional Family Medical History / Comment(s): . General Exam Limitations: altered mental status Course Vital Signs 09/04/21 09/04/21 09/04/21 13:06 13:11 13:15 Temperature 98.8 F Pulse Rate 77 Respiratory 18 20 20 Rate Blood Pressure 130/50 O2 Sat by Pulse 96 89 L Oximetry Medical Decision Making - Medical Decision Making Upon arrival the patient was placed into room 9. She is saturating 89% therefore she is placed on 3 L. IV is established laboratory studies are conducted. Troponin elevated at 0.039. BNP 559. Chest x-ray demonstrates some atelectasis at the lung bases. I did cover with a dose of antibiotics for possible pneumonia. She is also given a DuoNeb breathing treatment and 125 of Solu-Medrol. I will hold off on diuresis at this time as there is no signs of congestive heart failure on imaging. Patient will be admitted to [facility]. Spoke with who agreed to admit the patient. - Lab Data Result diagrams: 09/04/21 13:27 09/04/21 13:27 Lab Results 09/04/21 09/04/21 09/04/21 Range/Units 13:27 13:27 13:27 WBC 8.4 (3.8-10.6) k/uL RBC 4.61 (3.80-5.40) m/uL Hgb 12.5 (11.4-16.0) gm/dL Hct 39.9 (34.0-46.0) % MCV 86.6 (80.0-100.0) fL MCH 27.0 (25.0-35.0) pg MCHC 31.2 (31.0-37.0) g/dL RDW 14.8 (11.5-15.5) % Plt Count 211 (150-450) k/uL MPV 7.9 Neutrophils % 68 % Lymphocytes % 15 % Monocytes % 13 % Eosinophils % 1 % Basophils % 0 % Neutrophils # 5.7 (1.3-7.7) k/uL Lymphocytes # 1.2 (1.0-4.8) k/uL Monocytes # 1.1 H (0-1.0) k/uL Eosinophils # 0.1 (0-0.7) k/uL Basophils # 0.0 (0-0.2) k/uL Hypochromasia Slight PT 10.1 (9.0-12.0) sec INR 0.9 (<1.2) APTT 24.9 (22.0-30.0) sec Sodium 141 (137-145) mmol/L Potassium 4.8 (3.5-5.1) mmol/L Chloride 107 (98-107) mmol/L Carbon Dioxide 26 (22-30) mmol/L Anion Gap 8 mmol/L BUN 39 H (7-17) mg/dL Creatinine 1.18 H (0.52-1.04) mg/dL Est GFR (CKD-EPI)AfAm 51 (>60 ml/min/1.73 sqM) Est GFR (CKD-EPI)NonAf 44 (>60 ml/min/1.73 sqM) Glucose 132 H (74-99) mg/dL Plasma Lactic Acid Sergio (0.7-2.0) mmol/L Calcium 9.9 (8.4-10.2) mg/dL Total Bilirubin 0.7 (0.2-1.3) mg/dL AST 17 (14-36) U/L ALT 10 (4-34) U/L Alkaline Phosphatase 87 (38-126) U/L Troponin I (0.000-0.034) ng/mL NT-Pro-B Natriuret Pep pg/mL Total Protein 6.4 (6.3-8.2) g/dL Albumin 3.7 (3.5-5.0) g/dL Influenza Type A (PCR) (Not Detectd) Influenza Type B (PCR) (Not Detectd) RSV (PCR) (Not Detectd) SARS-CoV-2 (PCR) (Not Detectd) 09/04/21 09/04/21 09/04/21 Range/Units 13:27 13:27 13:27 WBC (3.8-10.6) k/uL RBC (3.80-5.40) m/uL Hgb (11.4-16.0) gm/dL Hct (34.0-46.0) % MCV (80.0-100.0) fL MCH (25.0-35.0) pg MCHC (31.0-37.0) g/dL RDW (11.5-15.5) % Plt Count (150-450) k/uL MPV Neutrophils % % Lymphocytes % % Monocytes % % Eosinophils % % Basophils % % Neutrophils # (1.3-7.7) k/uL Lymphocytes # (1.0-4.8) k/uL Monocytes # (0-1.0) k/uL Eosinophils # (0-0.7) k/uL Basophils # (0-0.2) k/uL Hypochromasia PT (9.0-12.0) sec INR (<1.2) APTT (22.0-30.0) sec Sodium (137-145) mmol/L Potassium (3.5-5.1) mmol/L Chloride (98-107) mmol/L Carbon Dioxide (22-30) mmol/L Anion Gap mmol/L BUN (7-17) mg/dL Creatinine (0.52-1.04) mg/dL Est GFR (CKD-EPI)AfAm (>60 ml/min/1.73 sqM) Est GFR (CKD-EPI)NonAf (>60 ml/min/1.73 sqM) Glucose (74-99) mg/dL Plasma Lactic Acid Sergio 1.2 (0.7-2.0) mmol/L Calcium (8.4-10.2) mg/dL Total Bilirubin (0.2-1.3) mg/dL AST (14-36) U/L ALT (4-34) U/L Alkaline Phosphatase (38-126) U/L Troponin I 0.039 H* (0.000-0.034) ng/mL NT-Pro-B Natriuret Pep 559 pg/mL Total Protein (6.3-8.2) g/dL Albumin (3.5-5.0) g/dL Influenza Type A (PCR) (Not Detectd) Influenza Type B (PCR) (Not Detectd) RSV (PCR) (Not Detectd) SARS-CoV-2 (PCR) (Not Detectd) 09/04/21 Range/Units 13:32 WBC (3.8-10.6) k/uL RBC (3.80-5.40) m/uL Hgb (11.4-16.0) gm/dL Hct (34.0-46.0) % MCV (80.0-100.0) fL MCH (25.0-35.0) pg MCHC (31.0-37.0) g/dL RDW (11.5-15.5) % Plt Count (150-450) k/uL MPV Neutrophils % % Lymphocytes % % Monocytes % % Eosinophils % % Basophils % % Neutrophils # (1.3-7.7) k/uL Lymphocytes # (1.0-4.8) k/uL Monocytes # (0-1.0) k/uL Eosinophils # (0-0.7) k/uL Basophils # (0-0.2) k/uL Hypochromasia PT (9.0-12.0) sec INR (<1.2) APTT (22.0-30.0) sec Sodium (137-145) mmol/L Potassium (3.5-5.1) mmol/L Chloride (98-107) mmol/L Carbon Dioxide (22-30) mmol/L Anion Gap mmol/L BUN (7-17) mg/dL Creatinine (0.52-1.04) mg/dL Est GFR (CKD-EPI)AfAm (>60 ml/min/1.73 sqM) Est GFR (CKD-EPI)NonAf (>60 ml/min/1.73 sqM) Glucose (74-99) mg/dL Plasma Lactic Acid Sergio (0.7-2.0) mmol/L Calcium (8.4-10.2) mg/dL Total Bilirubin (0.2-1.3) mg/dL AST (14-36) U/L ALT (4-34) U/L Alkaline Phosphatase (38-126) U/L Troponin I (0.000-0.034) ng/mL NT-Pro-B Natriuret Pep pg/mL Total Protein (6.3-8.2) g/dL Albumin (3.5-5.0) g/dL Influenza Type A (PCR) Not Detected (Not Detectd) Influenza Type B (PCR) Not Detected (Not Detectd) RSV (PCR) Not Detected (Not Detectd) SARS-CoV-2 (PCR) Not Detected (Not Detectd) 09/04/21 14:19 EKG demonstrates a sinus rhythm with a rate of 77. UT interval 199. QRS 148. QTC of 406. Right bundle branch block. No acute ST segment elevations Disposition Clinical Impression: Hypoxia, CAP (community acquired pneumonia), COPD exacerbation, NSTEMI (non-ST elevated myocardial infarction) Disposition: ADMITTED IP TO THIS [facility] Condition: Stable Is patient prescribed a controlled substance at d/c from ED?: No Referrals: Todd Rushing MD [Primary Care Provider] - 1-2 days Time of Disposition: 15:23 Decision to Admit Reason: Admit from EC Decision Date: 09/04/21 Decision Time: 15:23
--- NOTE | 2021-09-04 15:00 | XR ---
EXAMINATION TYPE: XR chest 2V DATE OF EXAM: 09/04/2021 COMPARISON: 04/23/2021 HISTORY: Difficulty breathing TECHNIQUE: 2 views FINDINGS: There is some patchy atelectasis at the lung bases. No heart failure. There is some thicken ing of the right minor fissure. Heart is probably enlarged. Bony thorax is intact. IMPRESSION: There is some pleural thickening or atelectasis at the lung bases which is increased comp ared to old exams no heart failure seen.
[2021-09-04] MEDS ORDERED: methylPREDNISolone SOD SUCCI 125 MG/2 ML VIAL IV STA (15:05)
[2021-09-04] MEDS ORDERED: IPRATROPIUM-ALBUTEROL 3 ML NEB INHALATION STA (15:05)
[2021-09-04] MEDS ORDERED: LEVOFLOXACIN 750MG-D5W PMX 750 MG in DEXTROSE/WATER 1 150ML.BAG IVPB STA (15:06)
[2021-09-04] MEDS ORDERED: NALOXONE 0.4 MG/ML 1 ML VIAL IV PRN (15:23)
[2021-09-04] MEDS ORDERED: ACETAMINOPHEN TAB 325 MG TAB PO PRN (16:26)
[2021-09-04] MEDS ORDERED: CALCIUM CARBONATE 500 MG CHEWABLE PO PRN (16:26)
[2021-09-04] MEDS ORDERED: MINERAL OIL RECTAL PRN (16:26)
[2021-09-04] MEDS ORDERED: PETROLATUM RECTAL PRN (16:26)
[2021-09-04] MEDS ORDERED: PHENYLEPHRINE RECTAL PRN (16:26)
[2021-09-04] MEDS ORDERED: BISMUTH SUBSALICYLATE 4,192 MG/240 ML BOTTLE PO PRN (16:26)
[2021-09-04] MEDS: QUEtiapine 200 MG TAB PO SCH (17:45)
[2021-09-04] MEDS: DIVALPROEX 250 MG TABLET.DR PO SCH ×2 (17:46→20:44)
--- NOTE | 2021-09-04 18:01 | HP ---
HISTORY AND PHYSICAL DATE OF SERVICE: 09/04/2021 CHIEF COMPLAINTS: Change in mental status, shortness of breath. HISTORY OF PRESENT ILLNESS: This 80-year-old woman with a past medical history of multiple medical problems, including COPD, dementia, CAD, being followed by Dr. Rushing in the [facility], was apparently found to have some change in mental status and hypoxia, and the patient was found to have atelectasis. Patient admitted for further evaluation and treatment. D-dimer is not available. There is no history of any fever, rigor or chills at this time. The patient is confused and unable to provide a coherent history. COVID- 19 is negative. PAST MEDICAL HISTORY: Reviewed and includes CHF, COPD, dementia. HOME MEDICATIONS: Reviewed and include Coreg. Doses and the rest of the medications are reviewed. ALLERGIES: ALLERGIES INCLUDE ADHESIVE TAPE. Family history, social history and review of systems could not be taken; the patient is confused. PHYSICAL EXAMINATION: Pulse is 84, blood pressure ntd_, respiration 18, pulse ox 89% on room air. HEENT: Conjunctivae normal. NECK: No jugular venous distention. CARDIOVASCULAR: S1, S2 muffled. RESPIRATION: Breath sounds diminished at the bases. Bilateral scattered rhonchi and crackles. ABDOMEN: Soft, nontender. LEGS: No edema. No swelling. NERVOUS SYSTEM: Diffusely weak. SKIN: No ulcer, rash, bleeding. JOINTS: No active deforming arthropathy. LABS: Reviewed. Chest x-ray reviewed personally. Creatinine is 1.18. ASSESSMENT: 1. Hypoxia; possible atelectasis. Rule out pulmonary embolism. 2. Chronic obstructive pulmonary disease. 3. Dementia. 4. Gastroesophageal reflux disease. 5. Multiple medical issues. RECOMMENDATIONS AND DISCUSSION: In this 80-year-old woman who presented with multiple complex medical issues, we will monitor the patient closely. I would recommend D-dimer, and if the D-dimer is positive, CT angio of the chest. Otherwise, resume the home medication, bronchodilators, steroids. Pulmonary consultation. Prognosis guarded because of multiple complex medical issues. Further recommendations to follow. See orders for details. MMODL / IJN: [id number] / MTDD
[2021-09-04] MEDS ORDERED: IPRATROPIUM-ALBUTEROL 3 ML NEB INHALATION SCH (20:00)
[2021-09-04] MEDS: HYDROcodone/APAP 5-325MG 1 EACH TAB PO PRN (20:43)
[2021-09-04] MEDS: HEPARIN SODIUM,PORCINE/PF 5,000 UNIT/0.5 ML SYRINGE SQ SCH (20:43)
[2021-09-04] MEDS: SUVOREXANT 5 MG PO SCH (20:44)
[2021-09-04] MEDS: ATORVASTATIN 20 MG TAB PO SCH (20:44)
[2021-09-04] MEDS: QUEtiapine 400 MG TAB PO SCH (20:44)
[2021-09-04] MEDS: carvediloL 3.125 MG TAB PO SCH (20:44)
[2021-09-04] MEDS: MELATONIN 5 MG TABLET PO SCH (20:44)
[2021-09-04] MEDS: FORMOTEROL FUMARATE 20 MCG/2 ML NEBU INHALATION SCH (21:22)
[2021-09-04] MEDS: BUDESONIDE 1 MG/2 ML NEBU INHALATION SCH (21:22)
[2021-09-04] MEDS ORDERED: IPRATROPIUM-ALBUTEROL 3 ML NEB INHALATION PRN (21:25)
[2021-09-04] MEDS ORDERED: DEXTROSE 50% SYRINGE 50 ML IVP PRN ×2 (23:31)
[2021-09-05] MEDS: HYDROcodone/APAP 5-325MG 1 EACH TAB PO PRN ×2 (02:37→12:27)
[2021-09-05 06:01] LABS: Glucose,Whole Blood 154 mg/dL (70-110)
[2021-09-05] MEDS: INSULIN ASPART (NovoLOG) 100 UNIT/ML VIAL SQ SCH ×4 (06:26→20:53)
[2021-09-05] MEDS: carvediloL 3.125 MG TAB PO SCH ×2 (06:26→16:23)
[2021-09-05 07:39] LABS: Basophils % (A) 0 %; Eosinophils % (A) 0 %; HGB 11.8 gm/dL (11.4-16.0); Hypochromasia Slight; Lymphocytes # (A) 0.7 k/uL (1.0-4.8); Lymphocytes % (A) 14 %; MCH 26.5 pg (25.0-35.0); MCHC 30.3 g/dL (31.0-37.0); MCV 87.5 fL (80.0-100.0); Mean Platelet Volume 7.9; Monocytes # (A) 0.2 k/uL (0-1.0); Monocytes % (A) 4 %; Neutrophils # (A) 3.8 k/uL (1.3-7.7); Neutrophils % (A) 80 %; Platelet Count 183 k/uL (150-450); RBC 4.45 m/uL (3.80-5.40); RDW 14.7 % (11.5-15.5); WBC 4.8 k/uL (3.8-10.6)
[2021-09-05 07:51] LABS: Albumin 3.5 g/dL (3.5-5.0); Calcium 9.7 mg/dL (8.4-10.2); Potassium 4.7 mmol/L (3.5-5.1); Total Bilirubin 0.4 mg/dL (0.2-1.3); Total Protein 6.3 g/dL (6.3-8.2)
[2021-09-05] MEDS ORDERED: IPRATROPIUM-ALBUTEROL 3 ML NEB INHALATION SCH (08:00)
[2021-09-05] MEDS ORDERED: methylPREDNISolone SOD SUCCI 40 MG/ML 1 ML VIAL IV SCH (08:00)
[2021-09-05] MEDS: BUDESONIDE 1 MG/2 ML NEBU INHALATION SCH (08:28)
[2021-09-05] MEDS: FORMOTEROL FUMARATE 20 MCG/2 ML NEBU INHALATION SCH (08:28)
[2021-09-05] MEDS: ASPIRIN 81 MG PO SCH (10:09)
[2021-09-05] MEDS: HEPARIN SODIUM,PORCINE/PF 5,000 UNIT/0.5 ML SYRINGE SQ SCH ×2 (10:10→20:53)
[2021-09-05] MEDS: QUEtiapine 200 MG TAB PO SCH ×2 (10:12→16:23)
--- NOTE | 2021-09-05 10:27 | CT ---
CT CHEST FOR PULMONARY EMBOLISM. EXAMINATION TYPE: CT chest angio for PE DATE OF EXAM: 09/05/2021 INDICATION: SOB and cough CT DLP: 405.1 mGycm, Automated exposure control for dose reduction was used. CONTRAST: Patient injected with 78 mL of Isovue 370. COMPARISON: 02/07/2018 TECHNIQUE: CT of the chest is performed on a spiral scan at 2 mm thick sections. Study is performed with intravenous contrast timed for evaluation for pulmonary embolism. This will limit additional po rtions of the evaluation. 3-D MIP images reconstructed by the technologist are reviewed on the compu ter in the coronal and sagittal planes. FINDINGS: No persistent filling defects are evident to suggest an acute pulmonary embolism. No mediastinal or hilar adenopathy enlarged by CT criteria is evident. The ascending aorta diameter at the level of the main pulmonary artery is 3.9 cm. The main pulmonary artery diameter at the bifur cation is 2.1 cm. Bibasilar infiltrates are present likely on the basis of compressive atelectasis. Limited CT section through the upper abdomen. There is a 3 cm transverse dimension cyst in the settlement processor ior lateral right mid lobe liver. IMPRESSIONS: 1. No acute pulmonary embolism. 2. Compressive atelectasis within the dependent portions of the lung bases bilaterally.
[2021-09-05] MEDS: IPRATROPIUM-ALBUTEROL 3 ML NEB INHALATION SCH ×3 (11:10→21:14)
[2021-09-05 11:36] LABS: Glucose,Whole Blood 127 mg/dL (70-110)
--- NOTE | 2021-09-05 12:36 | P.CNPUL ---
History of Present Illness Consult date: 09/05/21 Requesting physician: Tayler Thomas Reason for consult: dyspnea, cough Chief complaint: Shortness of breath and altered mental status History of present illness: This is an 80-year-old female with known history of dementia, patient is a resident of the [facility] and she is being followed normally by Dr. Rushing. Patient is mostly bedbound, she does not ambulate and she is unable to walk. She has a questionable history of COPD, and she had a very minimal smoking history. She was sent to the ER yesterday by the [facility] mostly because of confusion, and her O2 saturations were noted to be low. Chest x-ray showed mostly atelectasis with left hemidiaphragm elevation, patient was admitted and this consult was initiated. Patient is not a great historian, but she is mostly complaining of generalized aches and pains, and chest wall pain with significant tenderness over the anterior chest wall, she also had aches and pains in her lower extremities. She had a CT of the chest which came back negative for pulmonary embolism she had mostly atelectasis. At any rate patient was tested for COVID-19 and she came back negative patient was admitted and this consult was initiated. She is on 4 L nasal cannula and her O2 saturation was 94%. At one point she had O2 sat sugar 97% on room air. CBC is relatively unremarkable electrolytes are unremarkable, patient tested negative for influenza A, influenza B, RSV and COVID-19 BNP level is normal. D-dimer is 0.73. Review of Systems Constitutional: Weakness and generalized aches and pains HEENT: Negative Pulmonary: Chest pain and shortness of breath Cardiac: Negative GI: Negative Genitourinary: Negative Musculoskeletal: Mostly aches and pains and weakness Neurologic: Patient is weak and bed bound. No headache no blurred vision no dizziness Psychiatric: History of dementia. Endocrine: Negative Skin: Negative Past Medical History Past Medical History: Coronary Artery Disease (CAD), Heart Failure, COPD, Dementia, GERD/Reflux, Hypertension, Seizure Disorder, Thyroid Disorder Additional Past Medical History / Comment(s): Chronic back pain, Alzheimer's, vitamin D deficiency, right bundle branch block, hypothyroid, insomnia, epilepsy -unknown date of last seizure, diverticulosis, blood in stool, hx falls, can stand to transfer with assistance., Pt resides at [facility] on the [place]. History of Any Multi-Drug Resistant Organisms: ESBL Date of last positivie culture/infection: 03/20/18 MDRO Source:: ESBL URINE Past Surgical History: Orthopedic Surgery Additional Past Surgical History / Comment(s): Right leg fracture w/ surgery, L upper back lipoma removed, cataracts Past Anesthesia/Blood Transfusion Reactions: Unable to Obtain Smoking Status: Former smoker - Past Family History Mother Family Medical History: Unable to Obtain Additional Family Medical History / Comment(s): Migraines. Father Family Medical History: Unable to Obtain Additional Family Medical History / Comment(s): . Medications and Allergies Home Medications Medication Instructions Recorded Confirmed Type Atorvastatin [Lipitor] 20 mg PO HS 04/12/15 09/04/21 History carvediloL [Coreg] 3.125 mg PO BID 12/25/15 09/04/21 History Acetaminophen [Tylenol] 650 mg PO Q6H PRN 04/24/17 09/04/21 History Divalproex [Depakote] 250 mg PO BID@1700,2100 04/24/17 09/04/21 History QUEtiapine FUMARATE [SEROquel] 200 mg PO BID@0900,1700 #6 tablet 01/12/18 09/04/21 Rx Famotidine [Pepcid] 20 mg PO HS 12/27/18 09/04/21 History Melatonin [Melatonin ER] 10 mg PO HS 12/27/18 09/04/21 History QUEtiapine FUMARATE [SEROquel] 400 mg PO HS 12/27/18 09/04/21 History Aspirin 81 mg PO DAILY 03/14/21 09/04/21 History Bismuth Subsalicylate 524 mg PO Q4H PRN 03/14/21 09/04/21 History [Pepto-Bismol] Calcium Carbonate [Tums] 1,000 mg PO Q6H PRN 03/14/21 09/04/21 History Dextran/Hypromellose/Glycerin 1 drop LEFT EYE Q12H PRN 03/14/21 09/04/21 History [Genteal Tears 0.1%-0.2%-0.3%] Phenyleph/Mineral Oil/Petrolat 1 applic RECTAL QID PRN 03/14/21 09/04/21 History [Preparation H Ointment] Suvorexant [Belsomra] 5 mg PO HS@2100 03/14/21 09/04/21 History metFORMIN HCL ER [Glucophage XR] 500 mg PO DAILY 03/14/21 09/04/21 History HYDROcodone/APAP 5-325MG [Lyman 1 tab PO Q6H PRN #20 tab 03/15/21 09/04/21 Rx 5-325] Allergies Allergy/AdvReac Type Severity Reaction Status Date / Time adhesive tape Allergy Unknown Verified 09/04/21 13:55 ceftriaxone [From Rocephin] Allergy Rash/Hives Verified 09/04/21 13:55 cephalexin monohydrate Allergy Unknown Verified 09/04/21 13:55 [From Keflex] fluoxetine HCl [From Prozac] Allergy Unknown Verified 09/04/21 13:55 ketorolac tromethamine Allergy Unknown Verified 09/04/21 13:55 [From Toradol] latex Allergy Unknown Verified 09/04/21 13:55 phenelzine sulfate Allergy Unknown Verified 09/04/21 13:55 [From Nardil] Phenothiazines Allergy Unknown Verified 09/04/21 13:55 propoxyphene napsylate Allergy Unknown Verified 09/04/21 13:55 [From Darvocet-N 100] Physical Exam Vitals: Vital Signs Temp Pulse Pulse Resp BP BP Pulse Ox 09/05/21 12:00 82 16 151/82 94 L 09/05/21 08:00 97.4 F L 85 16 154/76 97 09/05/21 04:00 97.6 F 83 18 110/63 92 L 09/05/21 00:00 97.3 F L 87 18 96/58 93 L 09/04/21 20:00 98.4 F 87 18 124/78 93 L 09/04/21 18:01 80 16 94 L 09/04/21 17:44 99.0 F 89 18 123/52 95 09/04/21 15:47 84 09/04/21 15:38 86 09/04/21 15:21 84 18 122/57 97 09/04/21 13:15 20 89 L 09/04/21 13:11 20 09/04/21 13:06 98.8 F 77 18 130/50 96 Intake and Output 09/04/21 09/05/21 09/05/21 22:59 06:59 14:59 Intake Total 240 520 Output Total 200 200 Balance 40 320 Intake: Oral 240 520 Output: Urine 200 200 Other: # Voids 2 2 Weight 83.915 kg Physical Exam: Revealed 80-year-old female in no distress Head: Atraumatic, normocephalic. HEENT:[Neck is supple.] [No neck masses.] [No thyromegaly.] [No JVD.] Chest: [Clear throughout diminished breath sounds at the bases no crackles, no rhonchi and no wheezes, tenderness over the anterior chest wall. Cardiac Exam: [Normal S1 and S2, no S3 gallop, no murmur.] Abdomen: [Soft, nontender, no megaly, no rebound, no guarding, normal bowel sounds.] Extremities: [No clubbing, no edema, no cyanosis.] Tenderness in both lower extremities noted Neurological Exam: [Alert and oriented 3, does not seem to be confused. No gross focal deficits. She is noted to be generally weak. Psychiatric: Normal mood, affect and normal mental status examination. Skin: No rashes Results - Laboratory Findings CBC and BMP: 09/05/21 07:09 09/05/21 07:09 PT/INR, D-dimer PT 10.1 sec (9.0-12.0) 09/04/21 13:27 INR 0.9 (<1.2) 09/04/21 13:27 D-Dimer 0.73 mg/L FEU (<0.60) H 09/04/21 13:27 Abnormal lab findings: Abnormal Labs 09/04/21 09/04/21 09/04/21 13:27 13:27 13:27 MCHC Lymphocytes # Monocytes # 1.1 H D-Dimer Chloride BUN 39 H Creatinine 1.18 H Glucose 132 H POC Glucose (mg/dL) Troponin I 0.039 H* 09/04/21 09/05/21 09/05/21 13:27 05:59 07:09 MCHC Lymphocytes # Monocytes # D-Dimer 0.73 H Chloride 111 H BUN 44 H Creatinine Glucose 143 H POC Glucose (mg/dL) 154 H Troponin I 09/05/21 09/05/21 07:09 11:34 MCHC 30.3 L Lymphocytes # 0.7 L Monocytes # D-Dimer Chloride BUN Creatinine Glucose POC Glucose (mg/dL) 127 H Troponin I - Diagnostic Findings CT scan - chest: image reviewed (No evidence of pulmonary embolism on CT angiogram of the chest, chest x-ray showed mostly atelectasis) Assessment and Plan Assessment: Impression: Acute hypoxic respiratory failure, most likely secondary to atelectasis may have some component of COPD, not quite appreciated on physical examination. Acute tracheobronchitis, no clear-cut evidence of pneumonia History of multiple comorbidities including coronary artery disease, dementia, hypertension, seizure disorder, hypothyroidism, insomnia, and medical debility. Recommendation: Continue present supportive care measures Encourage incentive spirometry Continue bronchodilators Consider placement in [facility], patient may or may not qualify for home O2 and that's to be decided upon when the patient is being discharged. We will continue to follow and we'll recommend discharge planning and placement back to the [facility] in the next 24 hours. Time with Patient: Greater than 30
--- NOTE | 2021-09-05 12:41 | US ---
EXAMINATION TYPE: US venous doppler duplex LE DATE OF EXAM: 09/05/2021 12:03 PM COMPARISON: NONE CLINICAL HISTORY: elevated d-dimer. SIDE PERFORMED: Bilateral TECHNIQUE: The lower extremity deep venous system is examined utilizing real time linear array sonog roseline with graded compression, doppler sonography and color-flow sonography. VESSELS IMAGED: Common Femoral Vein Deep Femoral Vein Greater Saphenous Vein * Femoral Vein (* superficial vessels) Right Leg: Patient refused to let laborer shipyard do groin compressions or any pictures behind the knee do to painfulness of test. Portions visualized appear negative for DVT. Left Leg: Patient refused to let laborer shipyard do distal compression of femoral vein or any pictures b ehind the knee do to painfulness of test. Portions visualized appear negative for DVT. IMPRESSION: 1. Examination is extremely limited to the nondiagnostic due to patient's refusal. Visualized venous structures within the lower extremities appeared unremarkable.
[2021-09-05] MEDS ORDERED: VANCOMYCIN IV PER PHARMACY 1 EACH MISC MISCELLANE PRN (14:46)
--- NOTE | 2021-09-05 15:28 | PN ---
PROGRESS NOTE DATE OF SERVICE: 09/05/2021 This 80-year-old woman who was admitted with COPD, acute exacerbation, also had bilateral extensive atelectasis. There is no evidence of pulmonary embolism at this time. No chest pain. No palpitations. PHYSICAL EXAMINATION: Pulse 82, blood pressure 159/80, respiration 16. CHEST: A few scattered rhonchi. CARDIOVASCULAR: S1, S2 muffled. ABDOMEN: Soft. NERVOUS SYSTEM: No focal deficit. LABS: Reviewed. ASSESSMENT: 1. Chronic obstructive pulmonary disease, acute exacerbation. 2. Severe atelectasis. 3. Dementia. 4. Gastroesophageal reflux disease. 5. Multiple medical issues. RECOMMENDATIONS AND DISCUSSION: I recommend to continue current medications, continue with the monitoring, symptomatic treatment. Continue with the bronchodilators. Continue steroids. Continue the rest of the medication. Prognosis guarded. Closely follow with Pulmonary. MMBREAL / TOBIN: [id number] /
[2021-09-05] MEDS ORDERED: VANCOMYCIN 1,750 MG in SODIUM CHLORIDE 0.9% 500 ML 500 ML IVPB ONE (16:00)
[2021-09-05] MEDS: LEVOFLOXACIN 750MG-D5W PMX 750 MG in DEXTROSE/WATER 1 150ML.BAG IVPB SCH (16:22)
[2021-09-05] MEDS: DIVALPROEX 250 MG TABLET.DR PO SCH ×2 (16:23→20:52)
[2021-09-05 16:35] LABS: Glucose,Whole Blood 169 mg/dL (70-110)
[2021-09-05 20:48] LABS: Glucose,Whole Blood 127 mg/dL (70-110)
[2021-09-05] MEDS: QUEtiapine 400 MG TAB PO SCH (20:52)
[2021-09-05] MEDS: MELATONIN 5 MG TABLET PO SCH (20:52)
[2021-09-05] MEDS: ATORVASTATIN 20 MG TAB PO SCH (20:52)
[2021-09-05] MEDS: SUVOREXANT 5 MG PO SCH (20:53)
--- NOTE | 2021-09-05 22:38 | P.CONS ---
History of Present Illness - Reason for Consult Consult date: 09/05/21 - History of Present Illness Patient is a 80-year-old female with multiple comorbidities including dementia heart failure COPD resident of a local [facility] presenting to the ER yesterday afternoon for evaluation of shortness of breath and hypoxemia with O2 sats of 80% patient also complaining of shortness of breath and did have audible rhonchi no clear history of any nausea vomiting choking on the food cielo ent did have occasional cough without bringing up any sputum no abdominal pain or any diarrhea patient on presentation to the hospital was afebrile and no fever have been recorded subsequently patient did have a normal white count with no left shift creatinine has been normal liver enzymes are normal patient did have a negative SARS-CoV-2 and influenza serology patient did have a chest x-ray some pleural thickening or atelectasis lung bases which is increased compared to the overall exam CT angiogram of the chest was negative for PE compressive atelectasis within the dependent portion of the lung bases patient blood cultures came back positive with gram-positive cocci infectious disease was consulted for further management most information has been obtained from review the chart at the patient herself not very good historian Past Medical History Past Medical History: Coronary Artery Disease (CAD), Heart Failure, COPD, Dementia, GERD/Reflux, Hypertension, Seizure Disorder, Thyroid Disorder Additional Past Medical History / Comment(s): Chronic back pain, Alzheimer's, vitamin D deficiency, right bundle branch block, hypothyroid, insomnia, epilepsy -unknown date of last seizure, diverticulosis, blood in stool, hx falls, can stand to transfer with assistance., Pt resides at [facility]. History of Any Multi-Drug Resistant Organisms: ESBL Year Discovered:: 03/20/18 MDRO Source:: ESBL URINE Past Surgical History: Orthopedic Surgery Additional Past Surgical History / Comment(s): Right leg fracture w/ surgery, L upper back lipoma removed, cataracts Past Anesthesia/Blood Transfusion Reactions: Unable to Obtain Smoking Status: Former smoker - Past Family History Mother Family Medical History: Unable to Obtain Additional Family Medical History / Comment(s): Migraines. Father Family Medical History: Unable to Obtain Additional Family Medical History / Comment(s): . Medications and Allergies Home Medications Medication Instructions Recorded Confirmed Type Atorvastatin [Lipitor] 20 mg PO HS 04/12/15 09/04/21 History carvediloL [Coreg] 3.125 mg PO BID 12/25/15 09/04/21 History Acetaminophen [Tylenol] 650 mg PO Q6H PRN 04/24/17 09/04/21 History Divalproex [Depakote] 250 mg PO BID@1700,2100 04/24/17 09/04/21 History QUEtiapine FUMARATE [SEROquel] 200 mg PO BID@0900,1700 #6 tablet 01/12/18 09/04/21 Rx Famotidine [Pepcid] 20 mg PO HS 12/27/18 09/04/21 History Melatonin [Melatonin ER] 10 mg PO HS 12/27/18 09/04/21 History QUEtiapine FUMARATE [SEROquel] 400 mg PO HS 12/27/18 09/04/21 History Aspirin 81 mg PO DAILY 03/14/21 09/04/21 History Bismuth Subsalicylate 524 mg PO Q4H PRN 03/14/21 09/04/21 History [Pepto-Bismol] Calcium Carbonate [Tums] 1,000 mg PO Q6H PRN 03/14/21 09/04/21 History Dextran/Hypromellose/Glycerin 1 drop LEFT EYE Q12H PRN 03/14/21 09/04/21 History [Genteal Tears 0.1%-0.2%-0.3%] Phenyleph/Mineral Oil/Petrolat 1 applic RECTAL QID PRN 03/14/21 09/04/21 History [Preparation H Ointment] Suvorexant [Belsomra] 5 mg PO HS@2100 03/14/21 09/04/21 History metFORMIN HCL ER [Glucophage XR] 500 mg PO DAILY 03/14/21 09/04/21 History HYDROcodone/APAP 5-325MG [[place] 1 tab PO Q6H PRN #20 tab 03/15/21 09/04/21 Rx 5-325] Allergies Allergy/AdvReac Type Severity Reaction Status Date / Time adhesive tape Allergy Unknown Verified 09/04/21 13:55 ceftriaxone [From Rocephin] Allergy Rash/Hives Verified 09/04/21 13:55 cephalexin monohydrate Allergy Unknown Verified 09/04/21 13:55 [From Keflex] fluoxetine HCl [From Prozac] Allergy Unknown Verified 09/04/21 13:55 ketorolac tromethamine Allergy Unknown Verified 09/04/21 13:55 [From Toradol] latex Allergy Unknown Verified 09/04/21 13:55 phenelzine sulfate Allergy Unknown Verified 09/04/21 13:55 [From Nardil] Phenothiazines Allergy Unknown Verified 09/04/21 13:55 propoxyphene napsylate Allergy Unknown Verified 09/04/21 13:55 [From Darvocet-N 100] Physical Exam Vitals: Vital Signs Temp Pulse Pulse Resp BP BP Pulse Ox 09/05/21 12:00 82 16 151/82 94 L 09/05/21 08:00 97.4 F L 85 16 154/76 97 09/05/21 04:00 97.6 F 83 18 110/63 92 L 09/05/21 00:00 97.3 F L 87 18 96/58 93 L 09/04/21 20:00 98.4 F 87 18 124/78 93 L 09/04/21 18:01 80 16 94 L 09/04/21 17:44 99.0 F 89 18 123/52 95 09/04/21 15:47 84 09/04/21 15:38 86 09/04/21 15:21 84 18 122/57 97 Intake and Output 09/04/21 09/05/21 09/05/21 22:59 06:59 14:59 Intake Total 240 700 Output Total 200 200 Balance 40 500 Intake: Oral 240 700 Output: Urine 200 200 Other: # Voids 2 2 Weight 83.915 kg Results CBC & Chem 7: 09/05/21 07:09 09/05/21 07:09 Labs: Abnormal Lab Results - Last 24 Hours (Table) 09/04/21 09/05/21 09/05/21 Range/Units 13:27 05:59 07:09 MCHC (31.0-37.0) g/dL Lymphocytes # (1.0-4.8) k/uL D-Dimer 0.73 H (<0.60) mg/L FEU Chloride 111 H (98-107) mmol/L BUN 44 H (7-17) mg/dL Glucose 143 H (74-99) mg/dL POC Glucose (mg/dL) 154 H (70-110) mg/dL 09/05/21 09/05/21 Range/Units 07:09 11:34 MCHC 30.3 L (31.0-37.0) g/dL Lymphocytes # 0.7 L (1.0-4.8) k/uL D-Dimer (<0.60) mg/L FEU Chloride (98-107) mmol/L BUN (7-17) mg/dL Glucose (74-99) mg/dL POC Glucose (mg/dL) 127 H (70-110) mg/dL Microbiology - Last 24 Hours (Table) 09/04/21 17:15 Blood Culture - Final Blood Assessment and Plan Plan: 1patient with a positive blood culture with gram-positive cocci questionably skin contaminant as the patient is currently not running any fever no elevated white count patient did have some compressive atelectasis not behaving as pneumonia though not entirely excluded. 2patient with multiple antibiotic allergies that would limit the number of antibiotics safe to use. 3we will empirically add vancomycin while waiting for the ID sensitivity of this pathogen. 4blood cultures will be repeated document clearance of bacteremia. We will follow on clinical condition and cultures to further adjust medication if needed Thank you for this consultation will follow this patient along with you Time with Patient: Greater than 30
[2021-09-06] MEDS ORDERED: VANCOMYCIN 1,500 MG in SODIUM CHLORIDE 0.9% 250 ML IVPB SCH (04:00)
[2021-09-06 06:06] LABS: Glucose,Whole Blood 100 mg/dL (70-110)
[2021-09-06] MEDS: carvediloL 3.125 MG TAB PO SCH ×2 (06:15→16:55)
[2021-09-06] MEDS: INSULIN ASPART (NovoLOG) 100 UNIT/ML VIAL SQ SCH ×4 (06:15→20:30)
[2021-09-06] MEDS: IPRATROPIUM-ALBUTEROL 3 ML NEB INHALATION SCH ×4 (08:11→19:50)
[2021-09-06] MEDS: ASPIRIN 81 MG PO SCH (08:47)
[2021-09-06] MEDS: HEPARIN SODIUM,PORCINE/PF 5,000 UNIT/0.5 ML SYRINGE SQ SCH ×2 (08:48→20:44)
[2021-09-06] MEDS: QUEtiapine 200 MG TAB PO SCH ×2 (08:48→16:55)
[2021-09-06 11:39] LABS: Glucose,Whole Blood 145 mg/dL (70-110)
--- NOTE | 2021-09-06 12:27 | P.PN ---
Subjective Progress Note Date: 09/06/21 Principal diagnosis: Shortness of breath. This is an 80-year-old female with known history of dementia, patient is a resident of the [facility] and she is being followed normally by Dr. Rushing. Patient is mostly bedbound, she does not ambulate and she is unable to walk. She has a questionable history of COPD, and she had a very minimal smoking history. She [facility] by the [facility] mostly because of confusion, and her O2 saturations were noted to be low. Chest x-ray showed mostly atelectasis with left hemidiaphragm elevation, patient was admitted and this consult was initiated. Patient is not a great historian, but she is mostly complaining of generalized aches and pains, and chest wall pain with significant tenderness over the anterior chest wall, she also had aches and pains in her lower extremities. She had a CT of the chest which came back negative for pulmonary embolism she had mostly atelectasis. At any rate patient was tested for COVID-19 and she came back negative patient was admitted and this consult was initiated. She is on 4 L nasal cannula and her O2 saturation was 94%. At one point she had O2 sat sugar 97% on room air. CBC is relatively unremarkable electrolytes are unremarkable, patient tested negative for influenza A, influenza B, RSV and COVID-19 BNP level is normal. D-dimer is 0.73. Progress note dated 09/06/2021. The patient seems to be doing well, and is resting comfortably, in room 367. She's getting O2 at 3 L. She is on saline at 20 mL an hour. The patient has a known history of dementia, and resides at [facility]. She was seen by my partner yesterday. His impression was that she had acute hypoxemic respiratory failure most likely secondary to atelectasis, and possibly a mild component of COPD. There is no clearcut evidence of pneumonia, and the patient may have tracheobronchitis. No new labs today other than a glucose of 145. Doppler of the lower extremities were negative. The studies were limited because the patient refused a portion of the test. CT angiogram was negative for pulmonary embolism. Chest x-ray shows basilar atelectasis. Objective - Vital Signs Vital signs: Vital Signs Temp 98.5 F 09/06/21 11:40 Pulse 72 08/01/22 11:57 Resp 20 09/06/21 11:40 BP 135/76 09/06/21 11:40 Pulse Ox 95 09/06/21 11:40 FiO2 Intake & Output 09/05/21 09/06/21 09/06/21 18:59 06:59 18:59 Intake Total 900 180 Output Total 200 550 Balance 700 -550 180 Intake: Oral 900 180 Output: Urine 200 550 Other: Voiding Method External Catheter # Voids 2 1 - Exam No acute distress, sleeping, in no respiratory distress. Currently on 3 L. HEENT examination is grossly unremarkable. Neck supple. Full range of motion. No adenopathy thyromegaly or neck vein distention. Cardiovascular examination reveals regular rhythm rate. S1-S2 normal. No S3 or S4. No discernible murmur noted. Heart rate 72 bpm. Lungs reveal minimal bilateral rhonchi. No wheezes or crackles. 3 L saturation is 95%. Abdomen soft bowel sounds are heard. No masses or tenderness. Extremities are intact. No cyanosis clubbing or edema. Skin is without rash or lesion. Neurologic examination is brief but nonfocal. - Labs CBC & Chem 7: 09/05/21 07:09 09/05/21 07:09 Labs: Abnormal Lab Results - Last 24 Hours (Table) 09/05/21 09/05/21 09/06/21 Range/Units 16:34 20:47 11:38 POC Glucose (mg/dL) 169 H 127 H 145 H (70-110) mg/dL Microbiology - Last 24 Hours (Table) 09/05/21 14:39 Blood Culture Gram Stain - Preliminary Blood 09/05/21 14:39 Blood Culture - Final Blood 09/04/21 17:30 Blood Culture - Preliminary Blood No Growth after 24 hours 09/04/21 17:15 Blood Culture Gram Stain - Preliminary Blood Blood Culture - Preliminary Coagulase Negative Staph 09/04/21 17:15 Blood Culture - Final Blood Assessment and Plan Assessment: Acute hypoxemic respiratory failure, stable, likely secondary to basilar atelectasis, and possibly COPD. Acute tracheobronchitis, without clear-cut evidence of pneumonia. History of CAD. History of dementia. History of essential hypertension. History of seizure disorder. History of hypothyroidism. History of insomnia. General medical debility. Plan: Plan dated 09/06/2021. The patient is currently on Levaquin, hemoglobin breathing treatments. We encourage deep breathing, coughing, and clearing of secretions. In addition, the patient should use an incentive spirometer, every hour while awake. Additional recommendations and suggestions are forthcoming. Prognosis is guarded. We will continue to follow make recommendations along the way. Time with Patient: Less than 30
[2021-09-06 16:27] LABS: Glucose,Whole Blood 98 mg/dL (70-110)
[2021-09-06] MEDS: DIVALPROEX 250 MG TABLET.DR PO SCH ×2 (16:56→20:44)
[2021-09-06] MEDS: LEVOFLOXACIN 750MG-D5W PMX 750 MG in DEXTROSE/WATER 1 150ML.BAG IVPB SCH (17:00)
[2021-09-06 19:42] LABS: Glucose,Whole Blood 114 mg/dL (70-110)
[2021-09-06] MEDS: SUVOREXANT 5 MG PO SCH (20:30)
[2021-09-06] MEDS: QUEtiapine 400 MG TAB PO SCH (20:44)
[2021-09-06] MEDS: MELATONIN 5 MG TABLET PO SCH (20:44)
[2021-09-06] MEDS: ATORVASTATIN 20 MG TAB PO SCH (20:44)
[2021-09-06] MEDS ORDERED: VANCOMYCIN IV PER PHARMACY 1 EACH MISC MISCELLANE PRN (22:28)
[2021-09-06] MEDS ORDERED: VANCOMYCIN 1,750 MG in SODIUM CHLORIDE 0.9% 500 ML 500 ML IVPB ONE (23:00)
--- NOTE | 2021-09-06 23:28 | P.PN ---
Subjective Progress Note Date: 09/06/21 Principal diagnosis: Bacteremia Patient is a 80-year-old female with multiple comorbidities who was brought into the hospital from the group home concerning for increasing shortness of breath and hypoxemia CT was negative for PE tissue some compressive atelectasis, did have a positive blood culture. On today's evaluation that is 09/06/2021, the patient is afebrile, the patient is currently breathing comfortably and is on oxygen denies having chest pain occasional cough no abdominal pain no diarrhea Objective - Vital Signs Vital signs: Vital Signs Temp 98.5 F 09/06/21 11:40 Pulse 72 09/06/21 11:57 Resp 20 09/06/21 11:40 BP 135/76 09/06/21 11:40 Pulse Ox 95 09/06/21 11:40 FiO2 Intake & Output 09/05/21 09/06/21 09/06/21 18:59 06:59 18:59 Intake Total 900 180 Output Total 200 550 Balance 700 -550 180 Intake: Oral 900 180 Output: Urine 200 550 Other: Voiding Method External Catheter # Voids 2 1 - Exam GENERAL DESCRIPTION: An elderly female lying in bed in no distress RESPIRATORY SYSTEM: Unlabored breathing , decreased breath sounds at bases HEART: S1 S2 regular rate and rhythm , ABDOMEN: Soft , no tenderness EXTREMITIES: No edema feet - Labs CBC & Chem 7: 09/05/21 07:09 09/05/21 07:09 Labs: Abnormal Lab Results - Last 24 Hours (Table) 09/05/21 09/05/21 09/06/21 Range/Units 16:34 20:47 11:38 POC Glucose (mg/dL) 169 H 127 H 145 H (70-110) mg/dL Microbiology - Last 24 Hours (Table) 09/05/21 14:39 Blood Culture Gram Stain - Preliminary Blood 09/05/21 14:39 Blood Culture - Final Blood 09/04/21 17:30 Blood Culture - Preliminary Blood No Growth after 24 hours 09/04/21 17:15 Blood Culture Gram Stain - Preliminary Blood Blood Culture - Preliminary Coagulase Negative Staph 09/04/21 17:15 Blood Culture - Final Blood Assessment and Plan (1) Bacteremia Current Visit: Yes Status: Acute Code(s): R78.81 - BACTEREMIA SNOMED Code(s): 1954728 Plan: 1patient with a positive blood culture with gram-positive cocci questionably skin contaminant as the patient is currently not running any fever no elevated white count patient did have some compressive atelectasis not behaving as pneumonia though not entirely excluded. 2patient with multiple antibiotic allergies that would limit the number of antibiotics safe to use. 3 initial blood culture with staph epi likely skin contaminant however repeat blood culture showing Streptococcus species, vancomycin has been restarted as the patient is ALLERGIC to cephalexin and blood cultures will be repeated to document clearance of bacteremia Time with Patient: Less than 30
--- NOTE | 2021-09-07 05:02 | P.PN ---
Subjective Progress Note Date: 09/06/21 This is an 80-year-old female who was recently admitted with COPD exacerbation and also bilateral extensive 8 atelectasis. Patient underwent CTA which was negative for PE. Patient also having some positive blood cultures and maintain on IV antibiotics and infectious disease was consulted. Recommend repeat daily blood cultures to monitor for parents of bacteremia. Patient continues to be confused and denies any chest pain or shortness of breath at this time. Patient normally on 4 L of oxygen and per nursing staff will continuously remove her oxygen tubing. Patient needs encouragement as patient continues to be confused. Patient is a resident at [facility] on [facility]. Review of systems: Unable to obtain as patient is confused All medications have been reviewed Active Medications Acetaminophen (Acetaminophen Tab 325 Mg Tab) 650 mg PO Q6H PRN PRN Reason: GENERAL DISCOMFORT Hydrocodone Bitart/Acetaminophen (Hydrocodone/Apap 5-325mg 1 Each Tab) 1 each PO Q6H PRN PRN Reason: Pain Last Admin: 09/05/21 12:27 Dose: 1 each Albuterol/Ipratropium (Ipratropium-Albuterol 3 Ml Neb) 3 ml INHALATION RT-Q2H PRN PRN Reason: Shortness Of Breath Or Wheezing Albuterol/Ipratropium (Ipratropium-Albuterol 3 Ml Neb) 3 ml INHALATION RT-QID [facility] Last Admin: 09/06/21 11:47 Dose: 3 ml Aspirin (Aspirin 81 Mg) 81 mg PO DAILY [facility] Last Admin: 09/06/21 08:47 Dose: 81 mg Atorvastatin Calcium (Atorvastatin 20 Mg Tab) 20 mg PO HS [facility] Last Admin: 09/05/21 20:52 Dose: 20 mg Bismuth Subsalicylate (Bismuth Subsalicylate 4,192 Mg/240 Ml Bottle) 524 mg PO Q4H PRN PRN Reason: GI Upset Calcium Carbonate/Glycine (Calcium Carbonate 500 Mg Chewable) 1,000 mg PO Q6H PRN PRN Reason: GI Upset Carvedilol (Carvedilol 3.125 Mg Tab) 3.125 mg PO AC-BID [facility] Last Admin: 09/06/21 06:15 Dose: 3.125 mg Dextrose/Water (Dextrose 50% Syringe 50 Ml) 25 ml IVP PER PROTOCOL PRN; Protocol PRN Reason: Hypoglycemia Dextrose/Water (Dextrose 50% Syringe 50 Ml) 50 ml IVP PER PROTOCOL PRN; Protocol PRN Reason: Hypoglycemia Divalproex Sodium (Divalproex 250 Mg Tablet.Dr) 250 mg PO BID@1700,2100 [facility] Last Admin: 09/05/21 20:52 Dose: 250 mg Heparin Sodium (Porcine) (Heparin Sodium,Porcine/Pf 5,000 Unit/0.5 Ml Syringe) 5,000 unit SQ Q12HR [facility] Last Admin: 09/06/21 08:48 Dose: 5,000 unit Levofloxacin 750 mg/ IV (Solution) 150 mls @ 100 mls/hr IVPB Q24H [facility]; Protocol Last Admin: 09/05/21 16:22 Dose: 100 mls/hr Insulin Aspart (Insulin Aspart (Novolog) 100 Unit/Ml Vial) 0 unit SQ ACHS [facility]; Protocol Last Admin: 09/06/21 11:41 Dose: Not Given Melatonin (Melatonin 5 Mg Tablet) 10 mg PO [facility] Last Admin: 09/05/21 20:52 Dose: 10 mg Naloxone HCl (Naloxone 0.4 Mg/Ml 1 Ml Vial) 0.2 mg IV Q2M PRN PRN Reason: Opioid Reversal Non-Formulary Medication (Suvorexant [Belsomra]) 5 mg PO HS@2100 [facility] Last Admin: 09/05/21 20:53 Dose: Not Given Quetiapine Fumarate (Quetiapine 400 Mg Tab) 400 mg PO HS [facility] Last Admin: 09/05/21 20:52 Dose: 400 mg Quetiapine Fumarate (Quetiapine 200 Mg Tab) 200 mg PO BID@0900,1700 [facility] Last Admin: 09/06/21 08:48 Dose: 200 mg PHYSICAL EXAMINATION: GENERAL: The patient is awake and confused, Well developed, well nourished. HEENT: Pupils are round and equally reacting to light. EOMI. no scleral icterus. No conjunctival pallor. Normocephalic, atraumatic. No pharyngeal erythema. No thyromegaly. Nasal cannula found in her mouth and not in nares on exam CARDIOVASCULAR: S1 and S2 muffled PULMONARY: diminished breath sounds bilaterally with some scattered rhonchi noted. ABDOMEN: soft. Nontender on exam. obese. non-distended, normoactive bowel sounds. No palpable organomegaly. MUSCULOSKELETAL: No joint swelling or deformity. EXTREMITIES: No cyanosis, clubbing, or pedal edema. NEUROLOGICAL: Gross neurological examination did not reveal any focal deficits. Diffuse weakness SKIN: No rashes. Assessment: Chronic obstructive pulmonary disease, acute exacerbation Bacteremia Severe atelectasis dementia gastroesophageal reflux disease Multiple medical issues GI prophylaxis DVT prophylaxis Full code Plan: Recommend to continue with current medications and management with pulmonary and infectious disease following. Patient is maintained IV antibiotics although repeat blood culture showing streptococcus species and have reordered daily blood cultures to monitor for clearance of bacteremia. Patient with basilar atelectasis and recommending using incentive spirometer at least 10 times per hour while awake. Patient is confused and needs encouragement to keep 02 tubing on nose. Patient resides at [facility] and the plan is to return there on discharge. Recommend repeat labs and blood cultures. Most recent repeat blood culture has been negative for 24 hours thus far. Will await finalized cultures. Antibiotics being adjusted to vancomycin and ID is following. Prognosis is guarded. The impression and plan of care has been dictated by Heather Mercado, nurse practitioner as directed. MD Alexis I have performed a history and examination and MDM of this patient, discussed the same with the dictator, and agree with the dictator's assessment and plan as written ,documented as a scribe. Based on total visit time, I have performed more than 50% of the visit. Any additional findings or plans will be noted. Objective - Vital Signs Vital signs: Vital Signs Temp 98 F 09/05/21 20:45 Pulse 68 09/06/21 08:21 Resp 19 09/06/21 04:45 BP 129/75 09/06/21 04:45 Pulse Ox 95 09/06/21 04:45 FiO2 Intake & Output 09/05/21 09/06/21 09/06/21 18:59 06:59 18:59 Intake Total 900 180 Output Total 200 550 Balance 700 -550 180 Intake: Oral 900 180 Output: Urine 200 550 Other: # Voids 2 1 - Labs CBC & Chem 7: 09/05/21 07:09 09/05/21 07:09 Labs: Abnormal Lab Results - Last 24 Hours (Table) 09/05/21 09/05/21 09/05/21 Range/Units 11:34 16:34 20:47 POC Glucose (mg/dL) 127 H 169 H 127 H (70-110) mg/dL Microbiology - Last 24 Hours (Table) 09/05/21 14:39 Blood Culture Gram Stain - Preliminary Blood 09/05/21 14:39 Blood Culture - Final Blood 09/04/21 17:30 Blood Culture - Preliminary Blood No Growth after 24 hours 09/04/21 17:15 Blood Culture Gram Stain - Preliminary Blood Blood Culture - Preliminary Coagulase Negative Staph 09/04/21 17:15 Blood Culture - Final Blood
[2021-09-07 06:08] LABS: Glucose,Whole Blood 86 mg/dL (70-110)
[2021-09-07] MEDS: INSULIN ASPART (NovoLOG) 100 UNIT/ML VIAL SQ SCH ×4 (06:15→20:26)
[2021-09-07] MEDS: carvediloL 3.125 MG TAB PO SCH ×2 (06:23→17:49)
[2021-09-07 08:22] LABS: Basophils % (A) 1 %; Eosinophils # (A) 0.2 k/uL (0-0.7); Eosinophils % (A) 4 %; HGB 12.3 gm/dL (11.4-16.0); Hypochromasia Marked; Lymphocytes # (A) 1.6 k/uL (1.0-4.8); Lymphocytes % (A) 27 %; MCH 27.3 pg (25.0-35.0); MCHC 30.7 g/dL (31.0-37.0); Mean Platelet Volume 7.8; Monocytes # (A) 0.7 k/uL (0-1.0); Monocytes % (A) 12 %; Neutrophils # (A) 3.1 k/uL (1.3-7.7); Neutrophils % (A) 54 %; Platelet Count 223 k/uL (150-450); RBC 4.49 m/uL (3.80-5.40); RDW 14.7 % (11.5-15.5); WBC 5.7 k/uL (3.8-10.6)
[2021-09-07 08:32] LABS: African American GFR (CKD) >90 (>60 ml/min/1.73 sqM); Anion Gap 4 mmol/L; Blood Urea Nitrogen 23 mg/dL (7-17); Calcium 9.2 mg/dL (8.4-10.2); Carbon Dioxide 27 mmol/L (22-30); Chloride 110 mmol/L (98-107); Glucose 93 mg/dL (74-99); Non-African American GFR(CKD) 81 (>60 ml/min/1.73 sqM); Potassium 4.4 mmol/L (3.5-5.1); Sodium 141 mmol/L (137-145)
[2021-09-07] MEDS: IPRATROPIUM-ALBUTEROL 3 ML NEB INHALATION SCH ×4 (08:33→20:26)
[2021-09-07] MEDS: QUEtiapine 200 MG TAB PO SCH ×2 (10:19→16:05)
[2021-09-07] MEDS: ASPIRIN 81 MG PO SCH (10:19)
[2021-09-07] MEDS: HEPARIN SODIUM,PORCINE/PF 5,000 UNIT/0.5 ML SYRINGE SQ SCH ×2 (10:19→20:16)
[2021-09-07 11:32] LABS: Glucose,Whole Blood 99 mg/dL (70-110)
[2021-09-07] MEDS: HYDROcodone/APAP 5-325MG 1 EACH TAB PO PRN (13:09)
--- NOTE | 2021-09-07 13:32 | P.PN ---
Subjective Progress Note Date: 09/07/21 Principal diagnosis: Shortness of breath. This is an 80-year-old female with known history of dementia, patient is a resident of the [facility] and she is being followed normally by Dr. Rushing. Patient is mostly bedbound, she does not ambulate and she is unable to walk. She has a questionable history of COPD, and she had a very minimal smoking history. [facility] mostly because of confusion, and her O2 saturations were noted to be low. Chest x-ray showed mostly atelectasis with left hemidiaphragm elevation, patient was admitted and this consult was initiated. Patient is not a great historian, but she is mostly complaining of generalized aches and pains, and chest wall pain with significant tenderness over the anterior chest wall, she also had aches and pains in her lower extremities. She had a CT of the chest which came back negative for pulmonary embolism she had mostly atelectasis. At any rate patient was tested for COVID-19 and she came back negative patient was admitted and this consult was initiated. She is on 4 L nasal cannula and her O2 saturation was 94%. At one point she had O2 sat sugar 97% on room air. CBC is relatively unremarkable electrolytes are unremarkable, patient tested negative for influenza A, influenza B, RSV and COVID-19 BNP level is normal. D-dimer is 0.73. Progress note dated 09/06/2021. The patient seems to be doing well, and is resting comfortably, in room 367. She's getting O2 at 3 L. She is on saline at 20 mL an hour. The patient has a known history of dementia, and resides at [facility]. She was seen by my partner yesterday. His impression was that she had acute hypoxemic respiratory failure most likely secondary to atelectasis, and possibly a mild component of COPD. There is no clearcut evidence of pneumonia, and the patient may have tracheobronchitis. No new labs today other than a glucose of 145. Doppler of the lower extremities were negative. The studies were limited because the patient refused a portion of the test. CT angiogram was negative for pulmonary embolism. Chest x-ray shows basilar atelectasis. Progress note dated 09/07/2021. The patient is again seen in room 367. She is resting comfortably and seems to be doing relatively well. The patient is on 2 L of nasal O2. The patient is also getting saline at 20 mL an hour. The patient is hoping to be discharged soon. She resides at one of the local nursing homes. The patient was admitted with a diagnosis of acute hypoxemic respiratory failure secondary to atelectasis, and possibly mild COPD. There is no clearcut evidence of pneumonia. CT angiogram was negative for pulmonary embolism. Chest x-ray was consistent with atelectasis. CBC is completely normal. Sodium 141, potassium 4.4, chlorides 110, CO2 27, with a BUN of 23 and a creatinine 0.71. No recent chest x-ray to report. Objective - Vital Signs Vital signs: Vital Signs Temp 98.3 F 09/07/21 08:00 Pulse 72 09/07/21 08:53 Resp 18 09/07/21 08:00 BP 147/79 09/07/21 08:00 Pulse Ox 99 09/07/21 08:00 FiO2 Intake & Output 09/06/21 09/07/21 09/07/21 18:59 06:59 18:59 Intake Total 480 Output Total 1 250 Balance 480 -1 -250 Intake: Oral 480 Output: Urine 1 250 Other: Voiding Method External Catheter External Catheter External Catheter # Voids 1 - Exam No acute distress, sleeping, in no respiratory distress. Currently on 3 L. HEENT examination is grossly unremarkable. Neck supple. Full range of motion. No adenopathy thyromegaly or neck vein distention. Cardiovascular examination reveals regular rhythm rate. S1-S2 normal. No S3 or S4. No discernible murmur noted. Heart rate 72 bpm. Lungs reveal minimal bilateral rhonchi. No wheezes or crackles. 3 L saturation is 99%. Abdomen soft bowel sounds are heard. No masses or tenderness. Extremities are intact. No cyanosis clubbing or edema. Skin is without rash or lesion. Neurologic examination is brief but nonfocal. - Labs CBC & Chem 7: 09/07/21 07:50 09/07/21 07:50 Labs: Abnormal Lab Results - Last 24 Hours (Table) 09/06/21 09/07/21 09/07/21 Range/Units 19:40 07:50 07:50 MCHC 30.7 L (31.0-37.0) g/dL Chloride 110 H (98-107) mmol/L BUN 23 H (7-17) mg/dL POC Glucose (mg/dL) 114 H (70-110) mg/dL Microbiology - Last 24 Hours (Table) 09/04/21 17:15 Blood Culture Gram Stain - Final Blood Blood Culture - Final Coagulase Negative Staph 09/05/21 14:39 Blood Culture Gram Stain - Preliminary Blood Blood Culture - Preliminary Alpha Hemolytic Streptococcus 09/04/21 17:30 Blood Culture - Preliminary Blood No Growth after 48 hours 09/05/21 14:56 Blood Culture - Preliminary Blood No Growth after 24 hours Assessment and Plan Assessment: Acute hypoxemic respiratory failure, stable, likely secondary to basilar atelectasis, and possibly COPD. Acute tracheobronchitis, without clear-cut evidence of pneumonia. History of CAD. History of dementia. History of essential hypertension. History of seizure disorder. History of hypothyroidism. History of insomnia. General medical debility. Plan: Plan dated 09/06/2021. The patient is currently on Levaquin, hemoglobin breathing treatments. We encourage deep breathing, coughing, and clearing of secretions. In addition, the patient should use an incentive spirometer, every hour while awake. Additional recommendations and suggestions are forthcoming. Prognosis is guarded. We will continue to follow make recommendations along the way. Plan dated 09/07/2021. The patient appears be relatively well. Her saturations are adequate. She is hoping to be discharged soon. [facility] Labs, x-rays, and medications are reviewed. Blood cultures done on September 04 in September 05 showed alpha-hemolytic streptococci and coag-negative staph. She is currently on Levaquin, and vancomycin. This obviously may hold up her discharge. In addition, she is getting Duo-nebs. We will continue to follow and make recommendations. Prognosis is guarded. Time with Patient: Less than 30
[2021-09-07] MEDS: DIVALPROEX 250 MG TABLET.DR PO SCH ×2 (16:05→20:15)
[2021-09-07] MEDS: LEVOFLOXACIN 750MG-D5W PMX 750 MG in DEXTROSE/WATER 1 150ML.BAG IVPB SCH (16:05)
[2021-09-07] MEDS: VANCOMYCIN 1,500 MG in SODIUM CHLORIDE 0.9% 250 ML IVPB SCH (16:06)
[2021-09-07 16:26] LABS: Glucose,Whole Blood 108 mg/dL (70-110)
[2021-09-07] MEDS: MELATONIN 5 MG TABLET PO SCH (20:15)
[2021-09-07] MEDS: QUEtiapine 400 MG TAB PO SCH (20:15)
[2021-09-07] MEDS: ATORVASTATIN 20 MG TAB PO SCH (20:15)
[2021-09-07] MEDS: SUVOREXANT 5 MG PO SCH (20:22)
[2021-09-07 20:26] LABS: Glucose,Whole Blood 108 mg/dL (70-110)
--- NOTE | 2021-09-08 01:05 | P.PN ---
Subjective Progress Note Date: 09/07/21 This is an 80-year-old female who was recently admitted with COPD exacerbation and also bilateral extensive atelectasis. Patient underwent CTA which was negative for PE. Patient also having some positive blood cultures and maintain on IV antibiotics and infectious disease was consulted. Recommend repeat daily blood cultures to monitor for parents of bacteremia. Patient continues to be confused and denies any chest pain or shortness of breath at this time. Patient normally on 4 L of oxygen and per nursing staff will continuously remove her oxygen tubing. Patient needs encouragement as patient continues to be confused. Patient is a resident at [facility] on the [place]. 09/07/2021 Patient is seen in follow up today and continues on IV antibiotics in the form of vancomycin and also levaquin with ID and pulmonary following. Some of the blood cultures showing alpha hemolytic strep and awaiting finalized cultures. Most recent repeat cultures have been negative for 48 hours. Patient is continue d on 3-4L via NC. Patient is also continued on duonebs and will continue. Patient appears more awake today on exam. Will follow up with chest xray in the am. Review of systems: Unable to obtain as patient is confused All medications have been reviewed Active Medications Acetaminophen (Acetaminophen Tab 325 Mg Tab) 650 mg PO Q6H PRN PRN Reason: GENERAL DISCOMFORT Last Admin: 09/06/21 17:07 Dose: 650 mg Hydrocodone Bitart/Acetaminophen (Hydrocodone/Apap 5-325mg 1 Each Tab) 1 each PO Q6H PRN PRN Reason: Pain Last Admin: 09/07/21 13:09 Dose: 1 each Albuterol/Ipratropium (Ipratropium-Albuterol 3 Ml Neb) 3 ml INHALATION RT-Q2H PRN PRN Reason: Shortness Of Breath Or Wheezing Albuterol/Ipratropium (Ipratropium-Albuterol 3 Ml Neb) 3 ml INHALATION RT-QID KRISTA Last Admin: 09/07/21 20:26 Dose: 3 ml Aspirin (Aspirin 81 Mg) 81 mg PO DAILY COUNTS INCLUDE 234 BEDS AT THE [facility] Last Admin: 09/07/21 10:19 Dose: 81 mg Atorvastatin Calcium (Atorvastatin 20 Mg Tab) 20 mg PO HS COUNTS INCLUDE 234 BEDS AT THE [facility] Last Admin: 09/07/21 20:15 Dose: 20 mg Bismuth Subsalicylate (Bismuth Subsalicylate 4,192 Mg/240 Ml Bottle) 524 mg PO Q4H PRN PRN Reason: GI Upset Calcium Carbonate/Glycine (Calcium Carbonate 500 Mg Chewable) 1,000 mg PO Q6H PRN PRN Reason: GI Upset Carvedilol (Carvedilol 3.125 Mg Tab) 3.125 mg PO AC-BID COUNTS INCLUDE 234 BEDS AT THE [facility] Last Admin: 09/07/21 17:49 Dose: 3.125 mg Dextrose/Water (Dextrose 50% Syringe 50 Ml) 25 ml IVP PER PROTOCOL PRN; Protocol PRN Reason: Hypoglycemia Dextrose/Water (Dextrose 50% Syringe 50 Ml) 50 ml IVP PER PROTOCOL PRN; Protocol PRN Reason: Hypoglycemia Divalproex Sodium (Divalproex 250 Mg Tablet.Dr) 250 mg PO BID@1700,2100 COUNTS INCLUDE 234 BEDS AT THE [facility] Last Admin: 09/07/21 20:15 Dose: 250 mg Heparin Sodium (Porcine) (Heparin Sodium,Porcine/Pf 5,000 Unit/0.5 Ml Syringe) 5,000 unit SQ Q12HR COUNTS INCLUDE 234 BEDS AT THE [facility] Last Admin: 09/07/21 20:16 Dose: 5,000 unit Levofloxacin 750 mg/ IV (Solution) 150 mls @ 100 mls/hr IVPB Q24H COUNTS INCLUDE 234 BEDS AT THE [facility]; Protocol Last Admin: 09/07/21 16:05 Dose: 100 mls/hr Vancomycin HCl 1,500 mg/ (Sodium Chloride) 250 mls @ 125 mls/hr IVPB Q16H COUNTS INCLUDE 234 BEDS AT THE [facility] Last Admin: 09/07/21 16:06 Dose: 125 mls/hr Insulin Aspart (Insulin Aspart (Novolog) 100 Unit/Ml Vial) 0 unit SQ [facility] COUNTS INCLUDE 234 BEDS AT THE [facility]; Protocol Last Admin: 09/07/21 20:26 Dose: Not Given Melatonin (Melatonin 5 Mg Tablet) 10 mg PO [facility] Last Admin: 09/07/21 20:15 Dose: 10 mg Miscellaneous Information (Vancomycin Iv Per Pharmacy 1 Each Misc) 1 each MISCELLANE DIRECTED PRN; Protocol PRN Reason: Per Protocol Naloxone HCl (Naloxone 0.4 Mg/Ml 1 Ml Vial) 0.2 mg IV Q2M PRN PRN Reason: Opioid Reversal Non-Formulary Medication (Suvorexant [Belsomra]) 5 mg PO HS@2100 COUNTS INCLUDE 234 BEDS AT THE [facility] Last Admin: 09/07/21 20:22 Dose: Not Given Quetiapine Fumarate (Quetiapine 400 Mg Tab) 400 mg PO [facility] Last Admin: 09/07/21 20:15 Dose: 400 mg Quetiapine Fumarate (Quetiapine 200 Mg Tab) 200 mg PO BID@0900,1700 KRISTA Last Admin: 09/07/21 16:05 Dose: 200 mg PHYSICAL EXAMINATION: GENERAL: The patient is more awake today and confused, Well developed, well nourished. HEENT: Pupils are round and equally reacting to light. EOMI. no scleral icterus. No conjunctival pallor. Normocephalic, atraumatic. No pharyngeal erythema. No thyromegaly. CARDIOVASCULAR: S1 and S2 muffled PULMONARY: diminished breath sounds bilaterally with some scattered rhonchi noted. ABDOMEN: soft. Nontender on exam. obese. non-distended, normoactive bowel sounds. No palpable organomegaly. MUSCULOSKELETAL: No joint swelling or deformity. EXTREMITIES: No cyanosis, clubbing, or pedal edema. NEUROLOGICAL: Gross neurological examination did not reveal any focal deficits. Diffuse weakness SKIN: No rashes. Assessment: Chronic obstructive pulmonary disease, acute exacerbation Bacteremia Severe atelectasis dementia gastroesophageal reflux disease Multiple medical issues GI prophylaxis DVT prophylaxis Full code Plan: Recommend to continue with current medications and management with pulmonary and infectious disease following. Patient is maintained IV antibiotics and repeat blood culture showing alpha hemolytic strep and most recent cultures have been negative for 48 hours. Recommend to monitor for clearance of bacteremia. Patient with basilar atelectasis and recommending using incentive spirometer at least 10 times per hour while awake. Patient is confused although appears more awake and alert today. Patient resides at [facility] and the plan is to return there on discharge. Recommend repeat labs and am chest xray. Most recent repeat blood culture has been negative for 48 hours thus far. Will await finalized cultures. Antibiotics in the form of levaquin and vancomycin and ID is following. Prognosis is guarded. Possible discharge in 24-48 hours The impression and plan of care has been dictated by Heather Mercado nurse practitioner as directed. MD Alexis I have performed a history and examination and MDM of this patient, discussed the same with the dictator, and agree with the dictator's assessment and plan as written ,documented as a scribe. Based on total visit time, I have performed more than 50% of the visit. Any additional findings or plans will be noted. Objective - Vital Signs Vital signs: Vital Signs Temp 97.7 F 09/06/21 20:45 Pulse 72 09/07/21 08:53 Resp 17 09/07/21 03:45 BP 148/88 09/07/21 03:45 Pulse Ox 97 09/07/21 03:45 FiO2 Intake & Output 09/06/21 09/07/21 09/07/21 18:59 06:59 18:59 Intake Total 480 Output Total 1 250 Balance 480 -1 -250 Intake: Oral 480 Output: Urine 1 250 Other: Voiding Method External Catheter External Catheter # Voids 1 - Labs CBC & Chem 7: 09/07/21 07:50 09/07/21 07:50 Labs: Abnormal Lab Results - Last 24 Hours (Table) 09/06/21 09/06/21 09/07/21 Range/Units 11:38 19:40 07:50 MCHC 30.7 L (31.0-37.0) g/dL Chloride (98-107) mmol/L BUN (7-17) mg/dL POC Glucose (mg/dL) 145 H 114 H (70-110) mg/dL 09/07/21 Range/Units 07:50 MCHC (31.0-37.0) g/dL Chloride 110 H (98-107) mmol/L BUN 23 H (7-17) mg/dL POC Glucose (mg/dL) (70-110) mg/dL Microbiology - Last 24 Hours (Table) 09/05/21 14:39 Blood Culture Gram Stain - Preliminary Blood Blood Culture - Preliminary Alpha Hemolytic Streptococcus 09/04/21 17:30 Blood Culture - Preliminary Blood No Growth after 48 hours 09/05/21 14:56 Blood Culture - Preliminary Blood No Growth after 24 hours 09/05/21 14:39 Blood Culture - Final Blood
[2021-09-08] MEDS: INSULIN ASPART (NovoLOG) 100 UNIT/ML VIAL SQ SCH ×3 (06:13→17:58)
[2021-09-08 06:15] LABS: Glucose,Whole Blood 97 mg/dL (70-110)
[2021-09-08] MEDS: carvediloL 3.125 MG TAB PO SCH ×2 (06:17→16:07)
--- NOTE | 2021-09-08 07:40 | XR ---
EXAMINATION TYPE: XR chest 1V portable DATE OF EXAM: 09/08/2021 COMPARISON: Chest x-ray 09/04/2021 HISTORY: Shortness of breath TECHNIQUE: Single frontal view of the chest is obtained. FINDINGS: Some improvement in lung volume noted. Bandlike area of increased attenuation in the right midlung is less confluent. Cardiac mediastinal sweat shows a similar appearance, patient is rotated. No evident pneumothorax. There are overlying leads. Aorta is dense. There is a spinal curvature. IMPRESSION: Suspect some improvement in aeration, follow-up PA and lateral chest x-ray could BE perf ormed for better evaluation when patient is stable.
[2021-09-08] MEDS: VANCOMYCIN 1,500 MG in SODIUM CHLORIDE 0.9% 250 ML IVPB SCH (08:23)
[2021-09-08] MEDS: HEPARIN SODIUM,PORCINE/PF 5,000 UNIT/0.5 ML SYRINGE SQ SCH (08:23)
[2021-09-08] MEDS: ASPIRIN 81 MG PO SCH (08:23)
[2021-09-08] MEDS: QUEtiapine 200 MG TAB PO SCH ×2 (08:23→16:19)
[2021-09-08] MEDS: IPRATROPIUM-ALBUTEROL 3 ML NEB INHALATION SCH ×3 (08:55→16:17)
--- NOTE | 2021-09-08 11:30 | P.PN ---
Subjective Progress Note Date: 09/08/21 Principal diagnosis: Shortness of breath. This is an 80-year-old female with known history of dementia, patient is a resident of the [facility] and she is being followed normally by Dr. Rushing. Patient is mostly bedbound, she does not ambulate and she is unable to walk. She has a questionable history of COPD, and she had a very minimal smoking history. [facility] mostly because of confusion, and her O2 saturations were noted to be low. Chest x-ray showed mostly atelectasis with left hemidiaphragm elevation, patient was admitted and this consult was initiated. Patient is not a great historian, but she is mostly complaining of generalized aches and pains, and chest wall pain with significant tenderness over the anterior chest wall, she also had aches and pains in her lower extremities. She had a CT of the chest which came back negative for pulmonary embolism she had mostly atelectasis. At any rate patient was tested for COVID-19 and she came back negative patient was admitted and this consult was initiated. She is on 4 L nasal cannula and her O2 saturation was 94%. At one point she had O2 sat sugar 97% on room air. CBC is relatively unremarkable electrolytes are unremarkable, patient tested negative for influenza A, influenza B, RSV and COVID-19 BNP level is normal. D-dimer is 0.73. Progress note dated 09/06/2021. The patient seems to be doing well, and is resting comfortably, in room 367. She's getting O2 at 3 L. She is on saline at 20 mL an hour. The patient has a known history of dementia, and resides at [facility]. She was seen by my partner yesterday. His impression was that she had acute hypoxemic respiratory failure most likely secondary to atelectasis, and possibly a mild component of COPD. There is no clearcut evidence of pneumonia, and the patient may have tracheobronchitis. No new labs today other than a glucose of 145. Doppler of the lower extremities were negative. The studies were limited because the patient refused a portion of the test. CT angiogram was negative for pulmonary embolism. Chest x-ray shows basilar atelectasis. Progress note dated 09/07/2021. The patient is again seen in room 367. She is resting comfortably and seems to be doing relatively well. The patient is on 2 L of nasal O2. The patient is also getting saline at 20 mL an hour. The patient is hoping to be discharged soon. She resides at one of the local nursing homes. The patient was admitted with a diagnosis of acute hypoxemic respiratory failure secondary to atelectasis, and possibly mild COPD. There is no clearcut evidence of pneumonia. CT angiogram was negative for pulmonary embolism. Chest x-ray was consistent with atelectasis. CBC is completely normal. Sodium 141, potassium 4.4, chlorides 110, CO2 27, with a BUN of 23 and a creatinine 0.71. No recent chest x-ray to report. Progress note dated 09/08/2021. The patient is seen again today in room 367. The patient is currently on saline at 20 mL an hour, and receiving oxygen at 3 L. The patient does not appear to be in any distress. In fact, initially, she was sleeping when I first walked into the room. There are no new labs today other than a glucose of 97. Chest x-ray shows improvement in aeration, with less atelectasis. Objective - Vital Signs Vital signs: Vital Signs Temp 98.2 F 09/08/21 08:16 Pulse 75 09/08/21 08:16 Resp 18 09/08/21 08:16 BP 123/59 09/08/21 08:16 Pulse Ox 92 L 09/08/21 08:16 FiO2 Intake & Output 09/07/21 09/08/21 09/08/21 18:59 06:59 18:59 Intake Total 100 Output Total 350 650 Balance -350 -650 100 Intake: Oral 100 Output: Urine 350 650 Other: Voiding Method External Catheter External Catheter - Exam No acute distress, sleeping, in no respiratory distress. Currently on 3 L. HEENT examination is grossly unremarkable. Neck supple. Full range of motion. No adenopathy thyromegaly or neck vein distention. Cardiovascular examination reveals regular rhythm rate. S1-S2 normal. No S3 or S4. No discernible murmur noted. Heart rate 75 bpm. Lungs reveal minimal bilateral rhonchi. No wheezes or crackles. 3 L saturation is 95 %. Abdomen soft bowel sounds are heard. No masses or tenderness. Extremities are intact. No cyanosis clubbing or edema. Skin is without rash or lesion. Neurologic examination is brief but nonfocal. - Labs CBC & Chem 7: 09/07/21 07:50 09/08/21 08:36 Labs: Microbiology - Last 24 Hours (Table) 09/04/21 17:30 Blood Culture - Preliminary Blood No Growth after 72 hours 09/05/21 14:56 Blood Culture - Preliminary Blood No Growth after 48 hours 09/04/21 17:15 Blood Culture Gram Stain - Final Blood Blood Culture - Final Coagulase Negative Staph 09/05/21 14:39 Blood Culture Gram Stain - Preliminary Blood Blood Culture - Preliminary Alpha Hemolytic Streptococcus Assessment and Plan Assessment: Acute hypoxemic respiratory failure, stable, likely secondary to basilar atelectasis, and possibly COPD. Acute tracheobronchitis, without clear-cut evidence of pneumonia. History of CAD. History of dementia. History of essential hypertension. History of seizure disorder. History of hypothyroidism. History of insomnia. General medical debility. Plan: Plan dated 09/06/2021. The patient is currently on Levaquin, hemoglobin breathing treatments. We encourage deep breathing, coughing, and clearing of secretions. In addition, the patient should use an incentive spirometer, every hour while awake. Additional recommendations and suggestions are forthcoming. Prognosis is guarded. We will continue to follow make recommendations along the way. Plan dated 09/07/2021. The patient appears be relatively well. Her saturations are adequate. She is hoping to be discharged soon. [facility]. Labs, x-rays, and medications are reviewed. Blood cultures done on September 04 in September 05 showed alpha-hemolytic streptococci and coag-negative staph. She is currently on Levaquin, and vancomycin. This obviously may hold up her discharge. In addition, she is getting Duo-nebs. We will continue to follow and make recommendations. Prognosis is guarded. Plan dated 09/08/2021. The patient resides at one of the local nursing homes. She is hoping to be discharged soon. Blood cultures showed evidence of alpha-hemolytic streptococci and coag-negative staph. She is currently on Levaquin and continues on vancomycin as per infectious diseases. From the pulmonary status, she is stable. No additional recommendations are made at this time. Prognosis is certainly guarded. Chest x-ray is improved. Time with Patient: Less than 30
[2021-09-08 11:58] LABS: Glucose,Whole Blood 89 mg/dL (70-110)
[2021-09-08 12:11] VITALS: TEMP 98.6
--- NOTE | 2021-09-08 12:57 | P.PN ---
Subjective Progress Note Date: 09/07/21 Principal diagnosis: Bacteremia Patient is a 80-year-old female with multiple comorbidities who was brought into the hospital from the longterm concerning for increasing shortness of breath and hypoxemia CT was negative for PE tissue some compressive atelectasis, did have a positive blood culture. On today's evaluation that is 09/07/2021, the patient is afebrile the patient is currently breathing comfortably on 4 L nasal cannula, patient denies having any chest pain she did have a cough not bringing any sputum no abdominal pain and no diarrhea Objective - Vital Signs Vital signs: Vital Signs Temp 98.3 F 09/07/21 08:00 Pulse 72 09/07/21 08:53 Resp 18 09/07/21 08:00 BP 147/79 09/07/21 08:00 Pulse Ox 99 09/07/21 08:00 FiO2 Intake & Output 09/06/21 09/07/21 09/07/21 18:59 06:59 18:59 Intake Total 480 Output Total 1 250 Balance 480 -1 -250 Intake: Oral 480 Output: Urine 1 250 Other: Voiding Method External Catheter External Catheter External Catheter # Voids 1 - Exam GENERAL DESCRIPTION: An elderly female lying in bed in no distress RESPIRATORY SYSTEM: Unlabored breathing , decreased breath sounds at bases HEART: S1 S2 regular rate and rhythm , ABDOMEN: Soft , no tenderness EXTREMITIES: No edema feet - Labs CBC & Chem 7: 09/07/21 07:50 09/08/21 08:36 Labs: Abnormal Lab Results - Last 24 Hours (Table) 09/06/21 09/07/21 09/07/21 Range/Units 19:40 07:50 07:50 MCHC 30.7 L (31.0-37.0) g/dL Chloride 110 H (98-107) mmol/L BUN 23 H (7-17) mg/dL POC Glucose (mg/dL) 114 H (70-110) mg/dL Microbiology - Last 24 Hours (Table) 09/04/21 17:15 Blood Culture Gram Stain - Final Blood Blood Culture - Final Coagulase Negative Staph 09/05/21 14:39 Blood Culture Gram Stain - Preliminary Blood Blood Culture - Preliminary Alpha Hemolytic Streptococcus 09/04/21 17:30 Blood Culture - Preliminary Blood No Growth after 48 hours 09/05/21 14:56 Blood Culture - Preliminary Blood No Growth after 24 hours 09/05/21 14:39 Blood Culture - Final Blood Assessment and Plan (1) Bacteremia Current Visit: Yes Status: Acute Code(s): R78.81 - BACTEREMIA SNOMED Code(s): 9806813 Plan: 1patient with a positive blood culture with gram-positive cocci questionably skin contaminant as the patient is currently not running any fever no elevated white count patient did have some compressive atelectasis not behaving as pneumonia though not entirely excluded. 2patient with multiple antibiotic allergies that would limit the number of antibiotics safe to use. 3 initial blood culture with staph epi likely skin contaminant however repeat blood culture showing Streptococcus species, Patient did have a cephalosporin allergy and is currently on vancomycin to cover for the positive blood cultures waiting for sensitivities and monitor clinical course closely Time with Patient: Less than 30
--- NOTE | 2021-09-08 13:00 | P.PN ---
Subjective Progress Note Date: 09/08/21 Principal diagnosis: Bacteremia Patient is a 80-year-old female with multiple comorbidities who was brought [facility] the [facility] concerning for increasing shortness of breath and hypoxemia CT was negative for PE tissue some compressive atelectasis, did have a positive blood culture. On today's visit that is 09/08/2021 the patient remains to be afebrile, patient is breathing comfortably on nasal cannula oxygen, the patient denies having any chest pain she did have a cough but not bring up any sputum no abdominal pain or diarrhea Objective - Vital Signs Vital signs: Vital Signs Temp 98.6 F 09/08/21 12:10 Pulse 69 09/08/21 12:10 Resp 18 09/08/21 12:10 BP 139/87 09/08/21 12:10 Pulse Ox 96 09/08/21 12:10 FiO2 Intake & Output 09/07/21 09/08/21 09/08/21 18:59 06:59 18:59 Intake Total 100 Output Total 350 650 300 Balance -350 -650 -200 Intake: Oral 100 Output: Urine 350 650 300 Other: Voiding Method External Catheter External Catheter - Exam GENERAL DESCRIPTION: An elderly female lying in bed in no distress RESPIRATORY SYSTEM: Unlabored breathing , decreased breath sounds at bases HEART: S1 S2 regular rate and rhythm , ABDOMEN: Soft , no tenderness EXTREMITIES: No edema feet - Labs CBC & Chem 7: 09/07/21 07:50 09/08/21 08:36 Labs: Microbiology - Last 24 Hours (Table) 09/04/21 17:30 Blood Culture - Preliminary Blood No Growth after 72 hours 09/05/21 14:56 Blood Culture - Preliminary Blood No Growth after 48 hours 09/04/21 17:15 Blood Culture Gram Stain - Final Blood Blood Culture - Final Coagulase Negative Staph 09/05/21 14:39 Blood Culture Gram Stain - Preliminary Blood Blood Culture - Preliminary Alpha Hemolytic Streptococcus Assessment and Plan (1) Bacteremia Current Visit: Yes Status: Acute Code(s): R78.81 - BACTEREMIA SNOMED Code(s): 4100326 Plan: 1patient with a positive blood culture with gram-positive cocci questionably skin contaminant as the patient is currently not running any fever no elevated white count patient did have some compressive atelectasis not behaving as pneumonia though not entirely excluded. 2patient with multiple antibiotic allergies that would limit the number of antibiotics safe to use. 3 initial blood culture with staph epi likely skin contaminant however repeat blood culture showing Streptococcus species, Patient did have a cephalosporin allergy and is currently on vancomycin and Levaquin, the patient did have repeat chest x-ray which shows improvement in the area of aeration recommend finishing therapy with oral Levaquin x10 days Time with Patient: Less than 30
--- NOTE | 2021-09-08 14:27 | P.DS ---
Providers Date of admission: 09/04/21 15:26 Expected date of discharge: 09/08/21 Attending physician: Maged Maldonado MD Consults: 09/04/21 15:23 Consult Physician Urgent Consulting Provider: Vu Arias Consult Reason/Comments: acute hypoxic resp failure, CAP, AECOPD Do you want consulting provider notified?: Yes 09/05/21 13:55 Consult Physician Routine Consulting Provider: Angelique Schilling Consult Reason/Comments: positive blood cultures Do you want consulting provider notified?: Yes Primary care physician: Todd Rushing Hospital Course: Final diagnosis Chronic obstructive pulmonary disease, acute exacerbation Bacteremia Severe atelectasis dementia gastroesophageal reflux disease Multiple medical issues GI prophylaxis DVT prophylaxis Full code Discharge disposition Patient is being discharged in a stable condition with guarded prognosis to [facility]. Patient will follow-up with Dr. Rushing in the outpatient setting upon discharge. Patient is to continue with oral Levaquin 750 mg daily for the next 10 days to complete the course. Recommend outpatient follow-up with pulmonary. Patient is continue on DuoNeb treatments 4 times a day and as needed. Total time taken is greater than 35 minutes. Hospital course This is a 80-year-old female who was recently admitted with COPD exacerbation and also bilateral extensive atelectasis. Patient did have a mildly elevated d- dimer and CTA was negative for PE. Patient also having some positive blood cultures and most recent blood cultures have been negative. Previous culture showing strep series alpha hemolytic strep. Patient was a followed by infectious disease and maintained on IV antibiotics along with vancomycin and will continue with oral Levaquin for the next 10 days to complete the course. Encouraged the patient to continue with breathing inhalational treatments 4 times a day and when necessary and continue to encourage wearing oxygen. Patient is maintained on 4 L currently. Recommend outpatient follow-up with pulmonary in the outpatient setting. Recommend repeat labs of CBC, BMP, magnesium in the next 2-3 days. Recommend continue monitoring Accu-Cheks before meals and at bedtime. Encouraged incentive spirometer use at least 10 times every hour while awake. Patient reports to feeling better and is asking when she can go home. Currently no reports of chest pain, shortness of breath, or palpitations. Patient is afebrile. No reports of nausea or vomiting and patient is tolerating diet. Patient will be discharged to [facility] the [facility] today. Guarded prognosis as patient is high risk for readmissions. Physical exam: Gen: This is a 80-year-old female awake, well-developed, well-nourished. HEENT: Head is atraumatic, normocephalic. Pupils equal, round. Sclerae is anicteric. NECK: Supple. No JVD. No lymphadenopathy. No thyromegaly. LUNGS: Diminished breath sounds bilaterally with some scattered rhonchi noted No intercostal retractions. HEART: S1, S2 are muffled ABDOMEN: Soft. Bowel sounds are present. No masses. No tenderness. EXTREMITIES: No pedal edema. No calf tenderness. NEUROLOGICAL: Patient is awake, alert and oriented x1-2. Cranial nerves 2 through 12 are grossly intact. Diffusely weak Please refer to medication reconciliation sheet for a list of medications. The impression and plan of care has been dictated by Heather Mercado, Nurse Practitioner as directed. Dr. William MD I have performed a history and examination and MDM of this patient, discussed the same with the dictator, and agree with the dictator's assessment and plan as written ,documented as a scribe. Based on total visit time, I have performed more than 50% of the visit. Patient Condition at Discharge: Fair Plan - Discharge Summary Discharge Rx Participant: Yes New Discharge Prescriptions: New Ipratropium-Albuterol Nebulize [Duoneb 0.5 mg-3 mg/3 ml Soln] 3 ml INHALATION RT-QID each Ipratropium-Albuterol Nebulize [Duoneb 0.5 mg-3 mg/3 ml Soln] 3 ml INHALATION RT-Q2H PRN each PRN Reason: Shortness Of Breath Or Wheezing Heparin Sodium,Porcine [Heparin Sodium] 5,000 unit SQ Q12HR 30 Days #60 each Levofloxacin [Levaquin] 750 mg PO DAILY 10 Days #10 tab Continue Atorvastatin [Lipitor] 20 mg PO HS carvediloL [Coreg] 3.125 mg PO BID Acetaminophen [Tylenol] 650 mg PO Q6H PRN PRN Reason: GENERAL DISCOMFORT Divalproex [Depakote] 250 mg PO BID@1700,2100 QUEtiapine FUMARATE [SEROquel] 200 mg PO BID@0900,1700 #6 tablet Famotidine [Pepcid] 20 mg PO HS Melatonin [Melatonin ER] 10 mg PO HS QUEtiapine FUMARATE [SEROquel] 400 mg PO HS Bismuth Subsalicylate [Pepto-Bismol] 524 mg PO Q4H PRN PRN Reason: Gi Upset Phenyleph/Mineral Oil/Petrolat [Preparation H Ointment] 1 applic RECTAL QID PRN PRN Reason: Hemorrhoids Suvorexant [Belsomra] 5 mg PO HS@2100 Calcium Carbonate [Tums] 1,000 mg PO Q6H PRN PRN Reason: Gi Upset Dextran/Hypromellose/Glycerin [Genteal Tears 0.1%-0.2%-0.3%] 1 drop LEFT EYE Q12H PRN PRN Reason: Dry Eye(S) metFORMIN HCL ER [Glucophage XR] 500 mg PO DAILY Aspirin 81 mg PO DAILY HYDROcodone/APAP 5-325MG [[place] 5-325] 1 tab PO Q6H PRN #6 tab PRN Reason: Pain Discharge Medication List Atorvastatin [Lipitor] 20 mg PO HS 04/12/15 [History] carvediloL [Coreg] 3.125 mg PO BID 12/25/15 [History] Acetaminophen [Tylenol] 650 mg PO Q6H PRN 04/24/17 [History] Divalproex [Depakote] 250 mg PO BID@1700,2100 04/24/17 [History] QUEtiapine FUMARATE [SEROquel] 200 mg PO BID@0900,1700 #6 tablet 01/12/18 [Rx] Famotidine [Pepcid] 20 mg PO HS 12/27/18 [History] Melatonin [Melatonin ER] 10 mg PO HS 12/27/18 [History] QUEtiapine FUMARATE [SEROquel] 400 mg PO HS 12/27/18 [History] Aspirin 81 mg PO DAILY 03/14/21 [History] Bismuth Subsalicylate [Pepto-Bismol] 524 mg PO Q4H PRN 03/14/21 [History] Calcium Carbonate [Tums] 1,000 mg PO Q6H PRN 03/14/21 [History] Dextran/Hypromellose/Glycerin [Genteal Tears 0.1%-0.2%-0.3%] 1 drop LEFT EYE Q12H PRN 03/14/21 [History] Phenyleph/Mineral Oil/Petrolat [Preparation H Ointment] 1 applic RECTAL QID PRN 03/14/21 [History] Suvorexant [Belsomra] 5 mg PO HS@2100 03/14/21 [History] metFORMIN HCL ER [Glucophage XR] 500 mg PO DAILY 03/14/21 [History] HYDROcodone/APAP 5-325MG [[place] 5-325] 1 tab PO Q6H PRN #6 tab 09/08/21 [Rx] Heparin Sodium,Porcine [Heparin Sodium] 5,000 unit SQ Q12HR 30 Days #60 each 09/08/21 [Rx] Ipratropium-Albuterol Nebulize [Duoneb 0.5 mg-3 mg/3 ml Soln] 3 ml INHALATION RT-Q2H PRN each 09/08/21 [Rx] Ipratropium-Albuterol Nebulize [Duoneb 0.5 mg-3 mg/3 ml Soln] 3 ml INHALATION RT-QID each 09/08/21 [Rx] Levofloxacin [Levaquin] 750 mg PO DAILY 10 Days #10 tab 09/08/21 [Rx] Follow up Appointment(s)/Referral(s): Todd Rushing MD [Primary Care Provider] - 1-2 days Ambulatory/Diagnostic Orders: Complete Blood Count w/diff [LAB.AMB] Time Frame: 3 Days, Location: None Selected Activity/Diet/Wound Care/Special Instructions: Patient is going to [facility] on the [employer] Activity as tolerated Follow-up with Dr. Rushing outpatient Continue taking antibiotics for 10 days until finished Continue with breathing treatments 4 times a day and as needed Continue with supplemental oxygen at 3-4 L Continue heart healthy diet Recommend repeat labs of CBC and BMP in the next 2-3 days Discharge Disposition: TRANSFER TO SNF/ECF
[2021-09-08] MEDS: LEVOFLOXACIN 750MG-D5W PMX 750 MG in DEXTROSE/WATER 1 150ML.BAG IVPB SCH (16:07)
[2021-09-08 16:11] VITALS: BP 146/70; PULSE 70; RESP 16
[2021-09-08] MEDS: DIVALPROEX 250 MG TABLET.DR PO SCH (16:19)
[2021-09-08 17:01] LABS: Glucose,Whole Blood 98 mg/dL (70-110)
[2021-09-08] MEDS ORDERED: VANCOMYCIN TROUGH DUE 1 EACH MISC MISCELLANE ONE (23:00)
== END 2021-09-08 18:06 | DRG 190 ==
LOC: EC 13:02 → 3SCARD 15:26
PROVIDERS: ADMIT Internal Medicine; ATTEND Internal Medicine
DX: J44.1 Chronic obstructive pulmonary disease with (acute) exacerbation (principal); J96.01 Acute respiratory failure with hypoxia; J98.11 Atelectasis; R78.81 Bacteremia; J44.0 Chronic obstructive pulmonary disease with (acute) lower respiratory infection; J20.9 Acute bronchitis, unspecified; K21.9 Gastro-esophageal reflux disease without esophagitis; E03.9 Hypothyroidism, unspecified; G30.9 Alzheimer's disease, unspecified; F02.80 Dementia in other diseases classified elsewhere, unspecified severity, without behavioral disturbance, psychotic disturbance, mood disturbance, and anxiety; G47.00 Insomnia, unspecified; G89.29 Other chronic pain; E55.9 Vitamin D deficiency, unspecified; F25.9 Schizoaffective disorder, unspecified; G40.909 Epilepsy, unspecified, not intractable, without status epilepticus; I50.9 Heart failure, unspecified; I25.10 Atherosclerotic heart disease of native coronary artery without angina pectoris; I11.0 Hypertensive heart disease with heart failure; Z79.82 Long term (current) use of aspirin; Z79.84 Long term (current) use of oral hypoglycemic drugs; Z79.899 Other long term (current) drug therapy; Z87.891 Personal history of nicotine dependence; Z74.01 Bed confinement status; Z20.822 Contact with and (suspected) exposure to COVID-19; Z88.1 Allergy status to other antibiotic agents; Z88.5 Allergy status to narcotic agent; Z91.040 Latex allergy status; Z91.81 History of falling; Z87.440 Personal history of urinary (tract) infections
CPT/HCPCS: 36415; 71045; 71046; 71275; 80048; 80053; 80164; 82565; 83605; 83880; 84145; 84484; 85025; 85379; 85610; 85730; 87040; 87636; 93005; 93970; 94640; 94760; 96374; 96375; 99285

== ENCOUNTER 2022-12-31 10:53 | Inpatient (IN) | payer MEDICARE, OTHER ==
[2022-12-31 11:59] LABS: Basophils % (A) 0 %; Eosinophils # (A) 0.3 k/uL (0-0.7); Eosinophils % (A) 6 %; HCT 42.7 % (34.0-46.0); HGB 13.4 gm/dL (11.4-16.0); Hypochromasia Slight; Lymphocytes # (A) 1.7 k/uL (1.0-4.8); Lymphocytes % (A) 30 %; MCH 27.9 pg (25.0-35.0); MCHC 31.3 g/dL (31.0-37.0); MCV 89.2 fL (80.0-100.0); Mean Platelet Volume 8.4; Monocytes # (A) 0.4 k/uL (0-1.0); Monocytes % (A) 8 %; Neutrophils % (A) 54 %; Platelet Count 155 k/uL (150-450); RBC 4.78 m/uL (3.80-5.40); RDW 14.3 % (11.5-15.5); WBC 5.6 k/uL (3.8-10.6)
[2022-12-31 12:10] LABS: ALT 21 U/L (4-34); AST 34 U/L (14-36); African American GFR (CKD) 70 (>60 ml/min/1.73 sqM); Albumin 3.7 g/dL (3.5-5.0); Alkaline Phosphatase 95 U/L (38-126); Anion Gap 7 mmol/L; Blood Urea Nitrogen 35 mg/dL (7-17); Calcium 10.3 mg/dL (8.4-10.2); Carbon Dioxide 30 mmol/L (22-30); Chloride 109 mmol/L (98-107); Glucose 91 mg/dL (74-99); Magnesium 1.7 mg/dL (1.6-2.3); Non-African American GFR(CKD) 61 (>60 ml/min/1.73 sqM); Phosphorus 3.2 mg/dL (2.5-4.5); Potassium 4.4 mmol/L (3.5-5.1); Sodium 146 mmol/L (137-145); Total Bilirubin 0.7 mg/dL (0.2-1.3); Total Protein 6.5 g/dL (6.3-8.2)
[2022-12-31 12:12] LABS: Partial Thromboplastin Time 24.8 sec (22.0-30.0); Prothrombin Time 10.5 sec (10.0-12.5)
--- NOTE | 2022-12-31 12:29 | XR ---
EXAMINATION TYPE: XR knee complete RT DATE OF EXAM: 12/31/2022 CLINICAL HISTORY: pain TECHNIQUE: Three views of the right knee are obtained. COMPARISON: None. FINDINGS: There is no acute fracture/dislocation. Vargus deformity of the right knee. Meniscal chond rocalcinosis. Widening of the lateral tibiofemoral joint space. The tri-compartment joint spaces appe ar within normal limits. The overlying soft tissue appears unremarkable. IMPRESSION: There is no acute fracture or dislocation. ICD 10 NO FRACTURE, INITIAL EVALUATION
--- NOTE | 2022-12-31 12:30 | XR ---
EXAMINATION TYPE: XR chest 2V DATE OF EXAM: 12/31/2022 COMPARISON: 09/08/2021 HISTORY: Shortness of breath TECHNIQUE: Frontal and lateral views of the chest are obtained. FINDINGS: Scattered senescent parenchymal changes noted. Hyperinflation compatible with COPD. No evidence for infiltrate. Strandy basilar linear atelectasis. Small amount of fluid within the righ t minor fissure. Heart size is stable. Mediastinal structures are stable and grossly unremarkable. No evidence for hilar prominence. Degenerative changes dorsal spine. IMPRESSION: 1. No evidence for acute pulmonary disease.
--- NOTE | 2022-12-31 12:31 | XR ---
EXAMINATION TYPE: XR Hip Bilateral and AP pelvis DATE OF EXAM: 12/31/2022 CLINICAL HISTORY: pain TECHNIQUE: Single view the pelvis is submitted. Bilateral hips also evaluated. FINDINGS: No evidence for fracture, dislocation or bony lesion. Joint spaces are well-preserved. S I joints appear symmetric. IMPRESSION: 1. No acute fracture or dislocation seen. ICD 10 NO FRACTURE, INITIAL EVALUATION
--- NOTE | 2022-12-31 12:35 | ED ---
Weakness HPI - General Chief complaint: Weakness Stated complaint: Fall Time Seen by Provider: 12/31/22 11:05 Source: patient, EMS, RN notes reviewed Mode of arrival: EMS - History of Present Illness Initial comments: Patient is an 82-year-old female presenting to the ER via EMS with chief complaint of weakness. Patient is a resident at [facility] and staff states that she's been having frequent falls and acting lethargic. Staff told EMS that she was found laying next to her bed this morning. Her bed is only a foot off the ground. Patient was also found slumping while on the toilet this morning. Patient is complaining of eye pain and leg pain. Per EMS, there are COVID cases in the facility. Patient denies any chest pain, shortness of breath, dysuria, abdominal pain. - Related Data Home Medications Medication Instructions Recorded Confirmed Atorvastatin [Lipitor] 20 mg PO HS 04/12/15 09/04/21 carvediloL [Coreg] 3.125 mg PO BID 12/25/15 09/04/21 Divalproex [Depakote] 250 mg PO BID@1700,2100 04/24/17 09/04/21 QUEtiapine FUMARATE [SEROquel] 400 mg PO HS 12/27/18 09/04/21 Aspirin 81 mg PO DAILY 03/14/21 09/04/21 Bismuth Subsalicylate 524 mg PO Q4H PRN 03/14/21 09/04/21 [Pepto-Bismol] Dextran/Hypromellose/Glycerin 1 drop LEFT EYE Q12H PRN 03/14/21 09/04/21 [Genteal Tears 0.1%-0.2%-0.3%] Phenyleph/Mineral Oil/Petrolat 1 applic RECTAL QID PRN 03/14/21 09/04/21 [Preparation H Ointment] Suvorexant [Belsomra] 5 mg PO HS@2100 03/14/21 09/04/21 Famotidine [Pepcid] 20 mg PO HS 12/31/22 12/31/22 HYDROcodone/APAP 5-325MG [[place] 1 tab PO BID 12/31/22 12/31/22 5-325] HYDROcodone/APAP 5-325MG [[place] 1 tab PO Q6H PRN 12/31/22 12/31/22 5-325] clonazePAM [KlonoPIN] 0.5 mg PO BID 12/31/22 12/31/22 metFORMIN HCL ER [Glucophage XR] 500 mg PO DAILY 12/31/22 12/31/22 Previous Rx's Medication Instructions Recorded QUEtiapine FUMARATE [SEROquel] 200 mg PO BID@0900,1700 #6 tablet 01/12/18 Allergies Allergy/AdvReac Type Severity Reaction Status Date / Time adhesive tape Allergy Unknown Verified 12/31/22 17:57 ceftriaxone [From Rocephin] Allergy Rash/Hives Verified 12/31/22 17:57 cephalexin monohydrate Allergy Unknown Verified 12/31/22 17:57 [From Keflex] fluoxetine HCl [From Prozac] Allergy Unknown Verified 12/31/22 17:57 ketorolac tromethamine Allergy Unknown Verified 12/31/22 17:57 [From Toradol] latex Allergy Unknown Verified 12/31/22 17:57 phenelzine sulfate Allergy Unknown Verified 12/31/22 17:57 [From Nardil] Phenothiazines Allergy Unknown Verified 12/31/22 17:57 propoxyphene napsylate Allergy Unknown Verified 12/31/22 17:57 [From Darvocet-N 100] Review of Systems ROS Statement: Those systems with pertinent positive or pertinent negative responses have been documented in the HPI. ROS Other: All systems not noted in ROS Statement are negative. Past Medical History Past Medical History: Coronary Artery Disease (CAD), Heart Failure, COPD, Dementia, GERD/Reflux, Hypertension, Seizure Disorder, Thyroid Disorder Additional Past Medical History / Comment(s): Chronic back pain, Alzheimer's, vitamin D deficiency, right bundle branch block, hypothyroid, insomnia, epilepsy -unknown date of last seizure, diverticulosis, blood in stool, hx falls, can stand to transfer with assistance., Pt resides at [facility]. History of Any Multi-Drug Resistant Organisms: ESBL Date of last positivie culture/infection: 03/20/18 MDRO Source:: ESBL URINE Past Surgical History: Orthopedic Surgery Additional Past Surgical History / Comment(s): Right leg fracture w/ surgery, L upper back lipoma removed, cataracts Past Anesthesia/Blood Transfusion Reactions: Unable to Obtain Past Psychological History: Anxiety, Depression, Schizoaffective Disorder, Schizophrenia Smoking Status: Former smoker - Past Family History Mother Family Medical History: Unable to Obtain Additional Family Medical History / Comment(s): Migraines. Father Family Medical History: Unable to Obtain Additional Family Medical History / Comment(s): . General Exam General appearance: alert, in no apparent distress Head exam: Present: atraumatic, normocephalic, normal inspection Respiratory exam: Present: normal lung sounds bilaterally. Absent: respiratory distress, wheezes, rales, rhonchi, stridor Cardiovascular Exam: Present: regular rate, normal rhythm, normal heart sounds. Absent: systolic murmur, diastolic murmur, rubs, gallop, clicks GI/Abdominal exam: Present: soft, normal bowel sounds. Absent: distended, tenderness, guarding, rebound, rigid Extremities exam: Present: other (Valgus deformity of right knee appears chr onic. 2+ bilateral dorsalis pedis pulse.) Psychiatric exam: Present: normal affect, normal mood Skin exam: Present: warm, dry, intact, normal color. Absent: rash Course Vital Signs 12/31/22 12/31/22 12/31/22 11:07 13:31 15:00 Temperature 98.4 F Pulse Rate 65 74 71 Respiratory 18 18 18 Rate Blood Pressure 127/85 149/81 140/77 O2 Sat by Pulse 97 94 L 96 Oximetry 12/31/22 12/31/22 17:00 17:52 Temperature Pulse Rate 70 74 Respiratory 19 20 Rate Blood Pressure 144/84 146/82 O2 Sat by Pulse 96 98 Oximetry Medical Decision Making - Medical Decision Making Was pt. sent in by a medical professional or institution (BETZAIDA Parr, INTERNAL MEDICINE PHYSICIAN ASSISTANT, urgent care, hospital, or care home...) When possible be specific @ -No Did you speak to anyone other than the patient for history (EMS, parent, family, police, friend...)? What history was obtained from this source @ -[EMS Did you review nursing and triage notes (agree or disagree)? Why? @ -I reviewed and agree with nursing and triage notes Were old charts reviewed (outside hosp., previous admission, EMS record, old EKG, old radiological studies, urgent care reports/EKG's, care home records)? Report findings @ -No old charts were reviewed Differential Diagnosis (chest pain, altered mental status, abdominal pain women, abdominal pain men, vaginal bleeding, weakness, fever, dyspnea, syncope, he adache, dizziness, GI bleed, back pain, seizure, CVA, palpatations, mental health, musculoskeletal)? @ -Differential Weakness: Hypoglycemia, shock, sepsis, hyponatremia, anemia, infection, DC, ETOH, adverse medicine reaction, overdose, stroke, this is not meant to be an all-inclusive list.able EKG interpreted by me (3pts min.). @ -As above X-rays interpreted by me (1pt min.). @ -Chest x-ray showed no acute cardiopulmonary processes. Right knee x-ray shows no acute fractures or dislocations. Bilateral hip and pelvis x-ray shows no acute fractures or dislocations. CT interpreted by me (1pt min.). @ -None done U/S interpreted by me (1pt. min.). @ -None done What testing was considered but not performed or refused? (CT, X-rays, U/S, labs)? Why? @ -None What meds were considered but not given or refused? Why? @ -None Did you discuss the management of the patient with other professionals (professionals i.e. , PA, INTERNAL MEDICINE PHYSICIAN ASSISTANT, lab, RT, psych nurse, social human services assistants, internet marketing executive, teacher, ordnance officer, field nurse case manager)? Give summary @ -Yes, I discussed this case with Dr. Tim for admission. Was smoking cessation discussed for >3mins.? @ -No Was critical care preformed (if so, how long)? @ -No Were there social determinants of health that impacted care today? How? (Homelessness, low income, unemployed, alcoholism, drug addiction, transportation, low edu. Level, literacy, decrease access to med. care, nursing home, rehab)? @ -No Was there de-escalation of care discussed even if they declined (Discuss DNR or withdrawal of care, Hospice)? DNR status @ -No What co-morbidities impacted this encounter? (DM, HTN, Smoking, COPD, CAD, Cancer, CVA, ARF, Chemo, Hep., AIDS, mental health diagnosis, sleep apnea, morbid obesity)? @ -COPD, dementia Was patient admitted / discharged? Hospital course, mention meds given and route, prescriptions, significant lab abnormalities, going to OR and other pertinent info. @ -Admitted. Patient's oxygen saturation was 94 on room air. Patient was started on 2 L nasal cannula oxygen. Patient was also complaining of bilateral hip pain. Labs obtained in the ER were unimpressive. Viral swabs were negative. Chest x-ray showed no acute cardiopulmonary processes. Right knee x- ray shows no acute fractures or dislocations. Bilateral hip and pelvis x-ray shows no acute fractures or dislocations. ER nurse spoke with nurse at [facility] who stated that patient has been weak since the increase of her Seroquel dose. [facility] nurse believes it is the Seroquel that is causing these symptoms. Patient will be admitted for medication adjustment and hypoxia. I spoke with Dr. Tim for admission. Neurology and pulmonology will be on consult. Patient expressed understanding and agreement with care plan. Undiagnosed new problem with uncertain prognosis? @ -No Drug Therapy requiring intensive monitoring for toxicity (Heparin, Nitro, Insulin, Cardizem)? @ -No Were any procedures done? @ -No Diagnosis/symptom? @ -Acute encephalopathy / hypoxia Acute, or Chronic, or Acute on Chronic? @ -Acute Uncomplicated (without systemic symptoms) or Complicated (systemic symptoms)? @ -Uncomplicated Side effects of treatment? @ -No Exacerbation, Progression, or Severe Exacerbation? @ -No Poses a threat to life or bodily function? How? (Chest pain, USA, DC, pneumonia, PE, COPD, DKA, ARF, appy, cholecystitis, CVA, Diverticulitis, Homicidal, Suicidal, threat to staff... and all critical care pts) @ -No - Lab Data Result diagrams: 12/31/22 11:51 12/31/22 11:51 Lab Results 12/31/22 12/31/22 12/31/22 Range/Units 11:51 11:51 11:51 WBC 5.6 (3.8-10.6) k/uL RBC 4.78 (3.80-5.40) m/uL Hgb 13.4 (11.4-16.0) gm/dL Hct 42.7 (34.0-46.0) % MCV 89.2 (80.0-100.0) fL MCH 27.9 (25.0-35.0) pg MCHC 31.3 (31.0-37.0) g/dL RDW 14.3 (11.5-15.5) % Plt Count 155 (150-450) k/uL MPV 8.4 Neutrophils % 54 % Lymphocytes % 30 % Monocytes % 8 % Eosinophils % 6 % Basophils % 0 % Neutrophils # 3.0 (1.3-7.7) k/uL Lymphocytes # 1.7 (1.0-4.8) k/uL Monocytes # 0.4 (0-1.0) k/uL Eosinophils # 0.3 (0-0.7) k/uL Basophils # 0.0 (0-0.2) k/uL Hypochromasia Slight PT 10.5 (10.0-12.5) sec INR 1.0 (<1.2) APTT 24.8 (22.0-30.0) sec Sodium 146 H (137-145) mmol/L Potassium 4.4 (3.5-5.1) mmol/L Chloride 109 H (98-107) mmol/L Carbon Dioxide 30 (22-30) mmol/L Anion Gap 7 mmol/L BUN 35 H (7-17) mg/dL Creatinine 0.89 (0.52-1.04) mg/dL Est GFR (CKD-EPI)AfAm 70 (>60 ml/min/1.73 sqM) Est GFR (CKD-EPI)NonAf 61 (>60 ml/min/1.73 sqM) Glucose 91 (74-99) mg/dL Plasma Lactic Acid Sergio (0.7-2.0) mmol/L Calcium 10.3 H (8.4-10.2) mg/dL Phosphorus 3.2 (2.5-4.5) mg/dL Magnesium 1.7 (1.6-2.3) mg/dL Total Bilirubin 0.7 (0.2-1.3) mg/dL AST 34 (14-36) U/L ALT 21 (4-34) U/L Alkaline Phosphatase 95 (38-126) U/L Troponin I (0.000-0.034) ng/mL Total Protein 6.5 (6.3-8.2) g/dL Albumin 3.7 (3.5-5.0) g/dL TSH 1.740 (0.465-4.680) mIU/L Urine Color Urine Appearance (Clear) Urine pH (5.0-8.0) Ur Specific [place] (1.001-1.035) Urine Protein (Negative) Urine Glucose (UA) (Negative) Urine Ketones (Negative) Urine Blood (Negative) Urine Nitrite (Negative) Urine Bilirubin (Negative) Urine Urobilinogen (<2.0) mg/dL Ur Leukocyte Esterase (Negative) Influenza Type A (PCR) (Not Detectd) Influenza Type B (PCR) (Not Detectd) RSV (PCR) (Not Detectd) SARS-CoV-2 (PCR) (Not Detectd) 12/31/22 12/31/22 12/31/22 Range/Units 11:51 11:51 11:56 WBC (3.8-10.6) k/uL RBC (3.80-5.40) m/uL Hgb (11.4-16.0) gm/dL Hct (34.0-46.0) % MCV (80.0-100.0) fL MCH (25.0-35.0) pg MCHC (31.0-37.0) g/dL RDW (11.5-15.5) % Plt Count (150-450) k/uL MPV Neutrophils % % Lymphocytes % % Monocytes % % Eosinophils % % Basophils % % Neutrophils # (1.3-7.7) k/uL Lymphocytes # (1.0-4.8) k/uL Monocytes # (0-1.0) k/uL Eosinophils # (0-0.7) k/uL Basophils # (0-0.2) k/uL Hypochromasia PT (10.0-12.5) sec INR (<1.2) APTT (22.0-30.0) sec Sodium (137-145) mmol/L Potassium (3.5-5.1) mmol/L Chloride (98-107) mmol/L Carbon Dioxide (22-30) mmol/L Anion Gap mmol/L BUN (7-17) mg/dL Creatinine (0.52-1.04) mg/dL Est GFR (CKD-EPI)AfAm (>60 ml/min/1.73 sqM) Est GFR (CKD-EPI)NonAf (>60 ml/min/1.73 sqM) Glucose (74-99) mg/dL Plasma Lactic Acid Sergio 1.3 (0.7-2.0) mmol/L Calcium (8.4-10.2) mg/dL Phosphorus (2.5-4.5) mg/dL Magnesium (1.6-2.3) mg/dL Total Bilirubin (0.2-1.3) mg/dL AST (14-36) U/L ALT (4-34) U/L Alkaline Phosphatase (38-126) U/L Troponin I <0.012 (0.000-0.034) ng/mL Total Protein (6.3-8.2) g/dL Albumin (3.5-5.0) g/dL TSH (0.465-4.680) mIU/L Urine Color Urine Appearance (Clear) Urine pH (5.0-8.0) Ur Specific [place] (1.001-1.035) Urine Protein (Negative) Urine Glucose (UA) (Negative) Urine Ketones (Negative) Urine Blood (Negative) Urine Nitrite (Negative) Urine Bilirubin (Negative) Urine Urobilinogen (<2.0) mg/dL Ur Leukocyte Esterase (Negative) Influenza Type A (PCR) (Not Detectd) Influenza Type B (PCR) (Not Detectd) RSV (PCR) (Not Detectd) SARS-CoV-2 (PCR) Not Detected (Not Detectd) 12/31/22 12/31/22 Range/Units 13:28 13:28 WBC (3.8-10.6) k/uL RBC (3.80-5.40) m/uL Hgb (11.4-16.0) gm/dL Hct (34.0-46.0) % MCV (80.0-100.0) fL MCH (25.0-35.0) pg MCHC (31.0-37.0) g/dL RDW (11.5-15.5) % Plt Count (150-450) k/uL MPV Neutrophils % % Lymphocytes % % Monocytes % % Eosinophils % % Basophils % % Neutrophils # (1.3-7.7) k/uL Lymphocytes # (1.0-4.8) k/uL Monocytes # (0-1.0) k/uL Eosinophils # (0-0.7) k/uL Basophils # (0-0.2) k/uL Hypochromasia PT (10.0-12.5) sec INR (<1.2) APTT (22.0-30.0) sec Sodium (137-145) mmol/L Potassium (3.5-5.1) mmol/L Chloride (98-107) mmol/L Carbon Dioxide (22-30) mmol/L Anion Gap mmol/L BUN (7-17) mg/dL Creatinine (0.52-1.04) mg/dL Est GFR (CKD-EPI)AfAm (>60 ml/min/1.73 sqM) Est GFR (CKD-EPI)NonAf (>60 ml/min/1.73 sqM) Glucose (74-99) mg/dL Plasma Lactic Acid Sergio (0.7-2.0) mmol/L Calcium (8.4-10.2) mg/dL Phosphorus (2.5-4.5) mg/dL Magnesium (1.6-2.3) mg/dL Total Bilirubin (0.2-1.3) mg/dL AST (14-36) U/L ALT (4-34) U/L Alkaline Phosphatase (38-126) U/L Troponin I (0.000-0.034) ng/mL Total Protein (6.3-8.2) g/dL Albumin (3.5-5.0) g/dL TSH (0.465-4.680) mIU/L Urine Color Yellow Urine Appearance Clear (Clear) Urine pH 6.0 (5.0-8.0) Ur Specific [place] 1.021 (1.001-1.035) Urine Protein Trace H (Negative) Urine Glucose (UA) Negative (Negative) Urine Ketones Negative (Negative) Urine Blood Negative (Negative) Urine Nitrite Negative (Negative) Urine Bilirubin Negative (Negative) Urine Urobilinogen <2.0 (<2.0) mg/dL Ur Leukocyte Esterase Negative (Negative) Influenza Type A (PCR) Not Detected (Not Detectd) Influenza Type B (PCR) Not Detected (Not Detectd) RSV (PCR) Not Detected (Not Detectd) SARS-CoV-2 (PCR) Not Detected (Not Detectd) - EKG Data -: EKG Interpreted by Me EKG Comments: EKG taken at 11:52 shows a normal sinus rhythm with a right bundle branch block. No ST segment or T-wave abnormalities noted. - Radiology Data Radiology results: report reviewed, image reviewed Disposition Clinical Impression: Acute encephalopathy Disposition: ADMITTED IP TO THIS [facility] Condition: Stable Referrals: Сергей,Todd, MD [Primary Care Provider] - 1-2 days Time of Disposition: 16:35
[2022-12-31 14:53] LABS: Appearance,Urine Clear (Clear); Bilirubin,Urine Negative (Negative); Blood,Urine Negative (Negative); Color,Urine Yellow; Glucose,Urine (UA) Negative (Negative); Ketones,Urine Negative (Negative); Leukocyte Esterase,Urine Negative (Negative); Nitrite,Urine Negative (Negative); Protein,Urine Trace (Negative); Specific Gravity,Urine 1.021 (1.001-1.035); Urobilinogen,Urine <2.0 mg/dL (<2.0)
[2022-12-31] MEDS ORDERED: ACETAMINOPHEN TAB 325 MG TAB PO PRN (17:55)
[2022-12-31] MEDS ORDERED: NALOXONE 0.4 MG/ML 1 ML VIAL IV PRN (17:55)
[2022-12-31] MEDS ORDERED: QUEtiapine 400 MG TAB PO SCH (21:15)
[2022-12-31] MEDS: carvediloL 3.125 MG TAB PO SCH (22:32)
[2022-12-31] MEDS: FAMOTIDINE 20 MG TAB PO SCH (22:32)
[2022-12-31] MEDS: clonazePAM 0.5 MG TAB PO SCH (22:32)
[2022-12-31] MEDS: HYDROcodone/APAP 5-325MG 1 EACH TAB PO PRN (22:32)
[2023-01-01] MEDS: carvediloL 3.125 MG TAB PO SCH ×2 (06:20→17:52)
[2023-01-01] MEDS: HYDROcodone/APAP 5-325MG 1 EACH TAB PO PRN ×2 (08:37→21:24)
[2023-01-01] MEDS: clonazePAM 0.5 MG TAB PO SCH ×2 (08:37→21:27)
[2023-01-01] MEDS ORDERED: IPRATROPIUM-ALBUTEROL 3 ML NEB INHALATION PRN (09:04)
[2023-01-01] MEDS ORDERED: DEXTROSE 50% SYRINGE 50 ML IVP PRN ×2 (09:05)
--- NOTE | 2023-01-01 09:46 | CT ---
EXAMINATION TYPE: CT brain wo con CT DLP: 1029.9 mGycm, Automated exposure control for dose reduction was used. DATE OF EXAM: 01/01/2023 9:35 AM COMPARISON: CT head 04/23/2021. CLINICAL INDICATION:Female, 82 years old with history of Altered mental status, ams TECHNIQUE: Brain: Axial CT images of the brain were obtained with coronal and sagittal reformats created and rev iewed. Contrast used: None. Oral contrast used: None. FINDINGS: Brain: Extra-axial spaces: No abnormal extra-axial fluid collections. Ventricular system: Within normal limits Cerebral parenchyma: No acute intraparenchymal hemorrhage or mass effect. The kent-white junction is well differentiated. Scattered hypoattenuating areas are seen within the white matter, most consiste nt with chronic ischemic small vessel disease. Suspected lacunar injuries involving the bilateral bas al ganglia. Mild generalized cerebral parenchymal volume loss, more pronounced on the left than the r ight.. Cerebellum: Unremarkable. Mass effect: No evidence of midline shift. Intracranial vasculature: Atherosclerotic calcifications of the intracranial vessels. Soft tissues: Normal. Calvarium/osseous structures: No depressed skull fracture. Paranasal sinuses and mastoid air cells: Coastal thickening on the left maxillary sinus. Visualized orbits: Bilateral aphakia IMPRESSION: 1. No acute intracranial process. 2. 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 3. Generalized parenchymal volume loss, left greater than right, although nonspecific this can be see n with some neurodegenerative disorder/dementia.
[2023-01-01 12:57] LABS: Glucose,Whole Blood 74 mg/dL (70-110)
[2023-01-01] MEDS: INSULIN ASPART (NovoLOG) 100 UNIT/ML VIAL SQ SCH ×3 (12:58→21:28)
--- NOTE | 2023-01-01 13:34 | P.CNPUL ---
History of Present Illness Consult date: 01/01/23 Requesting physician: Tonia Tim Reason for consult: hypoxemia Chief complaint: Weakness, falls History of present illness: This is an 82-year-old female patient with a known history of coronary artery disease, congestive heart failure, chronic obstructive pulmonary disease, dementia, hypertension, seizure disorder, schizoaffective disorder, hypothyroidism and resides at [facility]. She was brought to the emergency room yesterday after having developed increased weakness and frequent falling and acting lethargic. They found her on the floor next to her bed. Earlier found slumping over while on the toilet. Chest x-ray reveals no evidence for acute pulmonary disease. Right knee x-ray revealed no fracture. Bilateral hip x-rays revealed no fractures. EKG reveals normal sinus rhythm. Computed tomography scan of brain revealed no acute intracranial process. White count 5.6. Hemoglobin 13.4. Platelets 155. Sodium 146. Potassium 4.4. Bicarb 30. BUN 35. Creatinine 0.89. AST 34. AST 21. Troponin negative 1. Urinalysis clean. Viral screen negative. Her O2 saturation was 94% on room air. She's currently 97% on room air. She is seen today in consultation on the regular medical floor. She is awake and alert. She is a poor historian. Not much information obtained from the patient. She is afebrile. Hemodynamically stable. Review of Systems ROS unobtainable: due to mental status Past Medical History Past Medical History: Coronary Artery Disease (CAD), Heart Failure, COPD, Dementia, GERD/Reflux, Hypertension, Seizure Disorder, Thyroid Disorder Additional Past Medical History / Comment(s): Chronic back pain, Alzheimer's, vitamin D deficiency, right bundle branch block, hypothyroid, insomnia, epilepsy -unknown date of last seizure, diverticulosis, blood in stool, hx falls, can stand to transfer with assistance., Pt resides at [facility]. History of Any Multi-Drug Resistant Organisms: ESBL Date of last positivie culture/infection: 03/20/18 MDRO Source:: ESBL URINE Past Surgical History: Orthopedic Surgery Additional Past Surgical History / Comment(s): Right leg fracture w/ surgery, L upper back lipoma removed, cataracts Past Anesthesia/Blood Transfusion Reactions: Unable to Obtain Past Psychological History: Anxiety, Depression, Schizoaffective Disorder, Schizophrenia Additional Psychological History / Comment(s): . Smoking Status: Former smoker Past Alcohol Use History: None Reported Additional Past Alcohol Use History / Comment(s): Pt states she only smoked for a short while and quit yrs ago. Past Drug Use History: None Reported - Past Family History Mother Family Medical History: Unable to Obtain Additional Family Medical History / Comment(s): Migraines. Father Family Medical History: Unable to Obtain Additional Family Medical History / Comment(s): . Medications and Allergies Home Medications Medication Instructions Recorded Confirmed Type Atorvastatin [Lipitor] 20 mg PO HS 04/12/15 12/31/22 History carvediloL [Coreg] 3.125 mg PO BID 12/25/15 12/31/22 History Divalproex [Depakote] 250 mg PO BID@1700,2100 04/24/17 12/31/22 History QUEtiapine FUMARATE [SEROquel] 200 mg PO BID@0900,1700 #6 tablet 01/12/1812/08 Rx QUEtiapine FUMARATE [SEROquel] 400 mg PO HS 12/27/18 12/31/22 History Aspirin 81 mg PO DAILY 03/14/21 12/31/22 History Bismuth Subsalicylate 524 mg PO Q4H PRN 03/14/21 12/31/22 History [Pepto-Bismol] Dextran/Hypromellose/Glycerin 1 drop LEFT EYE Q12H PRN 03/14/21 12/31/22 History [Genteal Tears 0.1%-0.2%-0.3%] Phenyleph/Mineral Oil/Petrolat 1 applic RECTAL QID PRN 03/14/21 12/31/22 History [Preparation H Ointment] Suvorexant [Belsomra] 5 mg PO HS 03/14/21 12/31/22 History Famotidine [Pepcid] 20 mg PO HS 12/31/22 12/31/22 History HYDROcodone/APAP 5-325MG [[place] 1 tab PO BID 12/31/22 12/31/22 History 5-325] HYDROcodone/APAP 5-325MG [[place] 1 tab PO Q6H PRN 12/31/22 12/31/22 History 5-325] clonazePAM [KlonoPIN] 0.5 mg PO BID 12/31/22 12/31/22 History metFORMIN HCL ER [Glucophage XR] 500 mg PO DAILY 12/31/22 12/31/22 History Allergies Allergy/AdvReac Type Severity Reaction Status Date / Time adhesive tape Allergy Unknown Verified 12/31/22 17:57 ceftriaxone [From Rocephin] Allergy Rash/Hives Verified 12/31/22 17:57 cephalexin monohydrate Allergy Unknown Verified 12/31/22 17:57 [From Keflex] fluoxetine HCl [From Prozac] Allergy Unknown Verified 12/31/22 17:57 ketorolac tromethamine Allergy Unknown Verified 12/31/22 17:57 [From Toradol] latex Allergy Unknown Verified 12/31/22 17:57 phenelzine sulfate Allergy Unknown Verified 12/31/22 17:57 [From Nardil] Phenothiazines Allergy Unknown Verified 12/31/22 17:57 propoxyphene napsylate Allergy Unknown Verified 12/31/22 17:57 [From Darvocet-N 100] Physical Exam Vitals: Vital Signs Temp Pulse Pulse Resp BP BP Pulse Ox 01/01/23 11:46 93 L 01/01/23 08:00 80 19 01/01/23 07:00 97.8 F 80 19 133/78 97 01/01/23 03:14 97.7 F 84 18 118/74 93 L 12/31/22 20:13 97.4 F L 69 18 139/79 97 12/31/22 20:00 69 18 12/31/22 19:35 97.7 F 71 20 131/73 96 12/31/22 17:52 74 20 146/82 98 12/31/22 17:00 70 19 144/84 96 12/31/22 15:00 71 18 140/77 96 12/31/22 13:31 74 18 149/81 94 L Intake and Output 12/31/22 01/01/23 01/01/23 22:59 06:59 14:59 Other: Voiding Method Diaper Diaper External Catheter External Catheter # Voids 1 Weight 83.915 kg GENERAL EXAM: Alert, 82-year-old female, on 2 L nasal cannula, comfortable in no apparent distress. HEAD: Normocephalic. EYES: Normal reaction of pupils, equal size. NOSE: Clear with pink turbinates. THROAT: No erythema or exudates. NECK: No masses, no JVD. CHEST: No chest wall deformity. LUNGS: Equal air entry with no crackles, wheeze, rhonchi or dullness. CVS: S1 and S2 normal with a loud audible murmur, regular rhythm. ABDOMEN: No hepatosplenomegaly, normal bowel sounds, no guarding or rigidity. SPINE: No scoliosis or deformity SKIN: No rashes CENTRAL NERVOUS SYSTEM: No focal deficits, tone is normal in all 4 extremities. EXTREMITIES: There is no peripheral edema. No clubbing, no cyanosis. Peripheral pulses are intact. Results - Laboratory Findings CBC and BMP: 12/31/22 11:51 12/31/22 11:51 PT/INR, D-dimer PT 10.5 sec (10.0-12.5) 12/31/22 11:51 INR 1.0 (<1.2) 12/31/22 11:51 D-Dimer 2.81 mg/L FEU (<0.60) H 01/01/23 11:55 Abnormal lab findings: Abnormal Labs 12/31/22 12/31/22 01/01/23 11:51 13:28 11:55 D-Dimer 2.81 H Sodium 146 H Chloride 109 H BUN 35 H Calcium 10.3 H Urine Protein Trace H - Diagnostic Findings Chest x-ray: image reviewed Assessment and Plan Assessment: Acute hypoxic respiratory failure of unclear etiology. Chest x-ray reveals no acute pulmonary process Generalized weakness, lethargy and frequent falls History of dementia History of schizoaffective disorder Coronary artery disease Hypertension Seizure disorder Hypothyroidism Diabetes mellitus Chronic back pain Plan: The patient was seen and evaluated Chest x-ray, CT brain, labs and medications reviewed Order a d-dimer Order echocardiogram Continue bronchodilator Titrate the FiO2 as tolerated We will continue to follow and make further recommendations based on her cl inical status I have personally seen and examined the patient, performed the documentation and the assessment and plan as written. Number of minutes spent on the visit: 20.
--- NOTE | 2023-01-01 13:48 | P.HPIM ---
History of Present Illness H&P Date: 01/01/23 History of present illness; patient is a 82-year-old lady with past medical his tory significant for hypertension, hyperlipidemia, dementia, COPD, diabetes mellitus who presented to the hospital for increased weakness. Patient is a resident of [facility] and nursing staff have noted the patient has been more weak the last few days. Patient was found laying next to the bed on the floor. There was no complete loss of consciousness. No complain of jerking movement of any extremity. No complain of fecal or urine incontinence. Patient has been more unsteady on her gait has been falling a lot. There was no complain of any fever or chills. No cough or shortness of breath. No complain of any nausea, vomiting or abdominal pain. Patient has been having good appetite. Because of this increased weakness patient was brought to the ER. Initial lab work done in the ER showed WBC 5.6, hemoglobin 13.4, platelet count 155, sodium 146, peak potassium 4.4, BUN 35, creatinine 0.89, calcium 10.3, magnesium 1.7, troponin 0.012, UA was negative for infection. Influenza a not detected Influenza B not detected RSV nondetected COVID-19 not detected EKG done in the ER showed heart rate of 77, previously seen, no ST segment elevation or T-wave inversion seen X-ray right knee negative for any fracture X-ray of pelvis and bilateral hip negative for any fracture or dislocation Chest x-ray done in the ER showed no acute cardiopulmonary process ER physician did talk to the nursing staff at the nursing facility, they think patient Seroquel could be be contributing to patient's symptoms. REVIEW OF SYSTEMS: Review of systems cannot be obtained as patient is confused PHYSICAL EXAMINATION: GENERAL: The patient is alert , not in any acute distress. Well developed, well nourished. HEENT: Pupils are round and equally reacting to light. EOMI. No scleral icterus. No conjunctival pallor. Normocephalic, atraumatic. No pharyngeal erythema. No thyromegaly. CARDIOVASCULAR: S1 and S2 present. No murmurs, rubs, or gallops. PULMONARY: Chest is clear to auscultation, no wheezing or crackles. ABDOMEN: Soft, nontender, nondistended, normoactive bowel sounds. No palpable organomegaly. MUSCULOSKELETAL: No joint swelling or deformity. EXTREMITIES: No cyanosis, clubbing, or pedal edema. NEUROLOGICAL: Gross neurological examination did not reveal any focal deficits. SKIN: No rashes. Assessment and plan Acute metabolic encephalopathy Hypoxia Generalized lethargy History of coronary artery disease Dementia History of hypertension History of seizure disorder Hypothyroidism Monitor vital signs Monitor CBC Monitor CMP Continue telemetry monitoring Ordered ammonia levels Ordered pro-Al Ordered folate and vitamin B12 levels. TSH already checked. continue breathing treatments Ordered CT head Monitor blood sugar levels, continue sliding scale insulin Consult neurology Consult pulmonology Labs and medication were reviewed.. Continue same treatment. Continue with symptomatic treatment. Resume home medication. Monitor labs and vitals. DVT and GI prophylaxis. Further recommendations as per clinical course of the patient Dictation was produced using [employer] dictation software. please excuse any grammatical, word or spelling errors. Past Medical History Past Medical History: Coronary Artery Disease (CAD), Heart Failure, COPD, Dementia, GERD/Reflux, Hypertension, Seizure Disorder, Thyroid Disorder Additional Past Medical History / Comment(s): Chronic back pain, Alzheimer's, vitamin D deficiency, right bundle branch block, hypothyroid, insomnia, epilepsy -unknown date of last seizure, diverticulosis, blood in stool, hx falls, can stand to transfer with assistance., Pt resides at [facility]. History of Any Multi-Drug Resistant Organisms: ESBL Date of last positivie culture/infection: 03/20/18 MDRO Source:: ESBL URINE Past Surgical History: Orthopedic Surgery Additional Past Surgical History / Comment(s): Right leg fracture w/ surgery, L upper back lipoma removed, cataracts Past Anesthesia/Blood Transfusion Reactions: Unable to Obtain Past Psychological History: Anxiety, Depression, Schizoaffective Disorder, Schizophrenia Additional Psychological History / Comment(s): . Smoking Status: Former smoker Past Alcohol Use History: None Reported Additional Past Alcohol Use History / Comment(s): Pt states she only smoked for a short while and quit yrs ago. Past Drug Use History: None Reported - Past Family History Mother Family Medical History: Unable to Obtain Additional Family Medical History / Comment(s): Migraines. Father Family Medical History: Unable to Obtain Additional Family Medical History / Comment(s): . Medications and Allergies Home Medications Medication Instructions Recorded Confirmed Type Atorvastatin [Lipitor] 20 mg PO HS 04/12/15 12/31/22 History carvediloL [Coreg] 3.125 mg PO BID 12/25/15 12/31/22 History Divalproex [Depakote] 250 mg PO BID@1700,2100 04/24/17 12/31/22 History QUEtiapine FUMARATE [SEROquel] 200 mg PO BID@0900,1700 #6 tablet 01/12/18 12/31/22 Rx QUEtiapine FUMARATE [SEROquel] 400 mg PO HS 12/27/18 12/31/22 History Aspirin 81 mg PO DAILY 03/14/21 12/31/22 History Bismuth Subsalicylate 524 mg PO Q4H PRN 03/14/21 12/31/22 History [Pepto-Bismol] Dextran/Hypromellose/Glycerin 1 drop LEFT EYE Q12H PRN 03/14/21 12/31/22 History [Genteal Tears 0.1%-0.2%-0.3%] Phenyleph/Mineral Oil/Petrolat 1 applic RECTAL QID PRN 03/14/21 12/31/22 History [Preparation H Ointment] Suvorexant [Belsomra] 5 mg PO HS 03/14/21 12/31/22 History Famotidine [Pepcid] 20 mg PO HS 12/31/22 12/31/22 History HYDROcodone/APAP 5-325MG [[place] 1 tab PO BID 12/31/22 12/31/22 History 5-325] HYDROcodone/APAP 5-325MG [[place] 1 tab PO Q6H PRN 12/31/22 12/31/22 History 5-325] clonazePAM [KlonoPIN] 0.5 mg PO BID 12/31/22 12/31/22 History metFORMIN HCL ER [Glucophage XR] 500 mg PO DAILY 12/31/22 12/31/22 History Allergies Allergy/AdvReac Type Severity Reaction Status Date / Time adhesive tape Allergy Unknown Verified 12/31/22 17:57 ceftriaxone [From Rocephin] Allergy Rash/Hives Verified 12/31/22 17:57 cephalexin monohydrate Allergy Unknown Verified 12/31/22 17:57 [From Keflex] fluoxetine HCl [From Prozac] Allergy Unknown Verified 12/31/22 17:57 ketorolac tromethamine Allergy Unknown Verified 12/31/22 17:57 [From Toradol] latex Allergy Unknown Verified 12/31/22 17:57 phenelzine sulfate Allergy Unknown Verified 12/31/22 17:57 [From Nardil] Phenothiazines Allergy Unknown Verified 12/31/22 17:57 propoxyphene napsylate Allergy Unknown Verified 12/31/22 17:57 [From Darvocet-N 100] Physical Exam Vitals: Vital Signs Temp Pulse Pulse Resp BP BP Pulse Ox 01/01/23 07:00 97.8 F 80 19 133/78 97 01/01/23 03:14 97.7 F 84 18 118/74 93 L 12/31/22 20:13 97.4 F L 69 18 139/79 97 12/31/22 20:00 69 18 12/31/22 19:35 97.7 F 71 20 131/73 96 12/31/22 17:52 74 20 146/82 98 12/31/22 17:00 70 19 144/84 96 12/31/22 15:00 71 18 140/77 96 12/31/22 13:31 74 18 149/81 94 L 12/31/22 11:07 98.4 F 65 18 127/85 97 Intake and Output 12/31/22 01/01/23 01/01/23 22:59 06:59 14:59 Other: Voiding Method Diaper External Catheter # Voids 1 Weight 83.915 kg Results CBC & Chem 7: 12/31/22 11:51 12/31/22 11:51 Labs: Abnormal Lab Results - Last 24 Hours (Table) 12/31/22 12/31/22 Range/Units 11:51 13:28 Sodium 146 H (137-145) mmol/L Chloride 109 H (98-107) mmol/L BUN 35 H (7-17) mg/dL Calcium 10.3 H (8.4-10.2) mg/dL Urine Protein Trace H (Negative) Thrombosis Risk Factor Assmnt - Choose All That Apply Any of the Below Risk Factors Present?: Yes Each Factor Represents 1 point: Obesity (BMI >25) Other Risk Factors: Yes Each Risk Factor Represents 3 Points: Age 75 years or older Other congenital or acquired thrombophilia - If yes, enter type in comment: No Thrombosis Risk Factor Assessment Total Risk Factor Score: 4 Thrombosis Risk Factor Assessment Level: Moderate Risk
[2023-01-01] MEDS ORDERED: RX INFO: IV CONTRAST WAS GIVEN 1 EACH MISC MISCELLANE PRN (17:02)
[2023-01-01 17:28] LABS: Glucose,Whole Blood 94 mg/dL (70-110)
[2023-01-01] MEDS: DIVALPROEX 250 MG TABLET.DR PO SCH ×2 (17:52→21:28)
--- NOTE | 2023-01-01 19:06 | CT ---
EXAMINATION TYPE: CT chest angio for PE, CT thor lumbar spine wo con CT DLP: combined 2056.70 mGycm, Automated exposure control for dose reduction was used. DATE OF EXAM: 01/01/2023 6:49 PM COMPARISON: 09/05/2021. CLINICAL INDICATION:Female, 82 years old with history of Elevated d-dimer, rule out pulmonary embolis m; Elevated d-dimer, rule out pulmonary embolism. (accession [id number]), pain after fall xfew days ago (accession [id number]) TECHNIQUE/CONTRAST: CTA scan of the thorax is performed with IV Contrast, patient injected with 60ml mL of Isovue 300, MN P images are created and reviewed these are created on a separate workstation.. Axial imaging of the thoracic and lumbar spine with sagittal coronal reformats. FINDINGS: Pulmonary Artery: There is no evidence for a central filling defect within the pulmonary vasculature to suggest acute pulmonary embolism. Limited evaluation of the segmental and subsegmental branches se condary to bolus timing. The pulmonary artery is of normal size. Lungs/Pleura: No evidence of focal consolidation, pleural effusion or pneumothorax. Mild centrilobula r emphysema changes. There are scattered streaky atelectasis throughout the lungs. Airway: Large airways are patent. Heart: Heart is within normal limits for size. Vasculature: No evidence of aortic aneurysm. Mediastinum: No gross evidence of adenopathy. Musculoskeletal: No acute osseous abnormalities Soft Tissues: Unremarkable. Lower neck: No significant findings. Upper Abdomen: Hypodense area within the liver measuring 3.9 x 2.8 cm. Nonobstructing renal calculi o n the left.. Spine: The thoracic and lumbar spine demonstrate moderate to severe degeneration with some scoliosis changes . There is facet joint arthropathy with varying degrees of neural foraminal stenosis throughout the s pine and worse in the lower lumbar spine. T7 vertebral body bone island. Pseudoarthrosis of the spino us processes. IMPRESSION: 1. No evidence of pulmonary embolism. 2. No evidence for spinal fracture. 3. Moderate to severe degeneration changes throughout the spine with scoliosis changes. No evidence f or significant spinal canal or neural foraminal stenosis. 4. 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 5. Nonobstructing left renal calculi.
[2023-01-01 20:13] LABS: Glucose,Whole Blood 103 mg/dL (70-110)
[2023-01-01] MEDS: ATORVASTATIN 20 MG TAB PO SCH (21:28)
[2023-01-01] MEDS: FAMOTIDINE 20 MG TAB PO SCH (21:28)
[2023-01-02] MEDS: carvediloL 3.125 MG TAB PO SCH ×2 (05:54→17:32)
[2023-01-02 05:59] LABS: Glucose,Whole Blood 96 mg/dL (70-110)
[2023-01-02] MEDS: INSULIN ASPART (NovoLOG) 100 UNIT/ML VIAL SQ SCH ×5 (06:10→21:18)
[2023-01-02] MEDS: ASPIRIN 81 MG PO SCH (09:11)
[2023-01-02] MEDS: clonazePAM 0.5 MG TAB PO SCH ×2 (09:11→21:11)
--- NOTE | 2023-01-02 09:58 | P.CNNES ---
History of Present Illness Consult date: 01/01/23 Requesting physician: Anabella Aguirre Reason for Consult: acute encephalopathy/medication adjustment History of Present Illness: Patient is a 82-year-old female came to the hospital by ambulance yesterday at 10:53 AM for altered mental status. Patient not able to provide detailed history. As per EMS flow sheet, when they arrived, patient was in the bed, asleep. Staph mentioned that patient has been more lethargic than normal causing increased falls. Upon patient assessment, she was alert to loud verbal stimuli with minor shoulder shaking, when asked questions patient was slow to respond. Patient was alert and oriented 2, which is her normal baseline. She was not able to stay awake and stated she was tired. Patient's oxygen saturation was 86% on room air and was placed on oxygen by nasal cannula at 4 L per minute. Her saturation improved to 97%. Patient normally not on O2. Patient did not appear to be in any respiratory distress and lung sounds were clear. Her vitals at the scene was blood pressure 1:30/56, pulse rate 68, respiration 14 saturation 87% Vital signs on arrival blood pressure 127/85, pulse is 65, and patient has been afebrile. Blood test shows normal CBC, PT/PTT, sodium 146 potassium 4.4, BUN 35, creatinine 0.89. Hepatic panel is normal, troponin negative. TSH is normal, UA negative, influenza, RSV, Diaz virus PCR negative. Her ammonia is mildly elevated 34. Right Knee x-ray showed no acute fracture or dislocation. Chest x-ray is normal, hip x-ray showed no acute fracture or dislocation. EKG shows sinus rhythm. CT head showed no acute intracranial process. 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 Generalized parenchymal volume loss, left greater than right, although nonspecific, this can be seen with some neuro degenerative disease/dementia. I personally reviewed CT head agree with the findings. Patient states that she suffered from a fall on her back 2 times and her back has been painful. Her stomach also has been hurting since she fell. She states that she lives in a fci. She walks by herself, does not use any cane or walker. Review of Systems Constitutional: Denies chills, Denies fever Eyes: denies blurred vision, denies diplopia, denies pain Ears: bilateral: decreased hearing, deny: ear discharge Ears, nose, mouth and throat: Denies headache, Denies sore throat Cardiovascular: Denies chest pain, Denies shortness of breath Respiratory: Denies cough, Denies excessive sputum Gastrointestinal: Reports abdominal pain, Reports constipation, Denies diarrhea, Denies nausea, Denies vomiting Musculoskeletal: Reports low back pain, Denies neck pain Integumentary: Denies pruritus, Denies rash Neurological: Reports as per HPI Psychiatric: Reports anxiety, Reports depression Past Medical History Past Medical History: Coronary Artery Disease (CAD), Heart Failure, COPD, Dementia, GERD/Reflux, Hypertension, Seizure Disorder, Thyroid Disorder Additional Past Medical History / Comment(s): Chronic back pain, Alzheimer's, vitamin D deficiency, right bundle branch block, hypothyroid, insomnia, epilepsy -unknown date of last seizure, diverticulosis, blood in stool, hx falls, can stand to transfer with assistance., Pt resides at [facility]. History of Any Multi-Drug Resistant Organisms: ESBL Date of last positivie culture/infection: 03/20/18 MDRO Source:: ESBL URINE Past Surgical History: Orthopedic Surgery Additional Past Surgical History / Comment(s): Right leg fracture w/ surgery, L upper back lipoma removed, cataracts Past Anesthesia/Blood Transfusion Reactions: Unable to Obtain Past Psychological History: Anxiety, Depression, Schizoaffective Disorder, Schizophrenia Additional Psychological History / Comment(s): . Smoking Status: Former smoker Past Alcohol Use History: None Reported Additional Past Alcohol Use History / Comment(s): Pt states she only smoked for a short while and quit yrs ago. Past Drug Use History: None Reported - Past Family History Mother Family Medical History: Unable to Obtain Additional Family Medical History / Comment(s): Migraines. Father Family Medical History: Unable to Obtain Additional Family Medical History / Comment(s): . Medications and Allergies Home Medications Medication Instructions Recorded Confirmed Type Atorvastatin [Lipitor] 20 mg PO HS 04/12/15 12/31/22 History carvediloL [Coreg] 3.125 mg PO BID 12/25/15 12/31/22 History Divalproex [Depakote] 250 mg PO BID@1700,2100 04/24/17 12/31/22 History QUEtiapine FUMARATE [SEROquel] 200 mg PO BID@0900,1700 #6 tablet 01/12/18 12/31/22 Rx QUEtiapine FUMARATE [SEROquel] 400 mg PO HS 12/27/18 12/31/22 History Aspirin 81 mg PO DAILY 03/14/21 12/31/22 History Bismuth Subsalicylate 524 mg PO Q4H PRN 03/14/21 12/31/22 History [Pepto-Bismol] Dextran/Hypromellose/Glycerin 1 drop LEFT EYE Q12H PRN 03/14/21 12/31/22 History [Genteal Tears 0.1%-0.2%-0.3%] Phenyleph/Mineral Oil/Petrolat 1 applic RECTAL QID PRN 03/14/21 12/31/22 History [Preparation H Ointment] Suvorexant [Belsomra] 5 mg PO HS 03/14/21 12/31/22 History Famotidine [Pepcid] 20 mg PO HS 12/31/22 12/31/22 History HYDROcodone/APAP 5-325MG [[place] 1 tab PO BID 12/31/22 12/31/22 History 5-325] HYDROcodone/APAP 5-325MG [[place] 1 tab PO Q6H PRN 12/31/22 12/31/22 History 5-325] clonazePAM [KlonoPIN] 0.5 mg PO BID 12/31/22 12/31/22 History metFORMIN HCL ER [Glucophage XR] 500 mg PO DAILY 12/31/22 12/31/22 History Allergies Allergy/AdvReac Type Severity Reaction Status Date / Time adhesive tape Allergy Unknown Verified 12/31/22 17:57 ceftriaxone [From Rocephin] Allergy Rash/Hives Verified 12/31/22 17:57 cephalexin monohydrate Allergy Unknown Verified 12/31/22 17:57 [From Keflex] fluoxetine HCl [From Prozac] Allergy Unknown Verified 12/31/22 17:57 ketorolac tromethamine Allergy Unknown Verified 12/31/22 17:57 [From Toradol] latex Allergy Unknown Verified 12/31/22 17:57 phenelzine sulfate Allergy Unknown Verified 12/31/22 17:57 [From Nardil] Phenothiazines Allergy Unknown Verified 12/31/22 17:57 propoxyphene napsylate Allergy Unknown Verified 12/31/22 17:57 [From Darvocet-N 100] Physical Examination - Vital Signs Vital Signs: Vital Signs Temp Pulse Pulse Resp BP BP Pulse Ox 01/01/23 14:29 98.2 F 54 L 16 121/78 99 01/01/23 14:00 18 01/01/23 11:46 93 L 01/01/23 08:00 80 19 01/01/23 07:00 97.8 F 80 19 133/78 97 01/01/23 03:14 97.7 F 84 18 118/74 93 L 12/31/22 20:13 97.4 F L 69 18 139/79 97 12/31/22 20:00 69 18 12/31/22 19:35 97.7 F 71 20 131/73 96 12/31/22 17:52 74 20 146/82 98 Intake and Output 01/01/23 01/01/23 01/01/23 06:59 14:59 22:59 Other: Voiding Method Diaper External Catheter # Voids 2 Weight 83.915 kg Patient is an elderly female, laying in the bed, in no acute distress. Patient has nasal cannula on. Patient is alert awake. Patient is oriented only partially. She said it is the month of December but the year was January. She could not tell the year. She could not tell what city and state she lives in. She does not know name of the current president. Speech and language functions are normal. Patient can name and repeat very well. No aphasia or dysarthria. Her voice is slightly hoarse. Attention, concentration is impaired and fund of knowledge is limited. Patient has slow mentation, prolonged latency time to answer question. On cranial nerve examination, pupils are equal, round and reacting to light, visual nails are full on confrontation, with no neglect on double simultaneous stimulation. Extraocular muscles are intact with no nystagmus. Face is symmetric, tongue protrudes to the midline. Palatal elevation and sensation normal, hearing and shoulder shrug normal, facial sensation normal. On muscle strength testing, there is no pronator drift and the strength is normal in arms distally and proximally. In the lower limbs, her ankles are about 3+ with the ankle dorsiflexion and plantar flexion bilaterally. Left ankle is painful. Hip flexion is also 3-3+ bilaterally. Deep tendon reflexes are symmetric 1+ in the upper limbs, 2 at the knees and ankles, plantars is possibly up versus withdrawal bilaterally. Sensory to touch is equal with no neglect on double simultaneous stimulation. Cerebellar function showed no ataxia for [id number] testing. No dysdiadochokinesia. Cannot perform [id number] testing on either side. Tone and bulk of muscles normal. Gait deferred.. On general examination, there is no carotid bruit or murmur, S1-S2 audible. Chest is clear on consultation. Abdomen is soft nontender. No organomegaly, bowel sounds present. Peripheral pulses are present. No peripheral edema. Results - Laboratory Findings CBC and BMP: 12/31/22 11:51 12/31/22 11:51 Abnormal Lab Findings: Abnormal Labs 12/31/22 12/31/22 01/01/23 11:51 13:28 11:55 D-Dimer 2.81 H Sodium 146 H Chloride 109 H BUN 35 H Calcium 10.3 H Ammonia Urine Protein Trace H 01/01/23 11:55 D-Dimer Sodium Chloride BUN Calcium Ammonia 34 H Urine Protein Assessment and Plan Assessment: * Altered mental status, possible metabolic encephalopathy. * Elevated ammonia (mild degree 34), rule out hepatic encephalopathy * Mild hypernatremia * CT had revealed generalized atrophy. Probable underlying cognitive impairment/dementia. * Recent falls 2, rule out compression fracture * CAD * Heart failure * COPD * Hypertension * Seizure disorder * History of psychiatric disorder (schizophrenia as per previous psych notes) * Chronic back pain Plan: * Patient's examination revealed significant weakness of bilateral lower limbs. Uncertain, if patient not able to cooperate with examination, or actual weakness. Patient claims that she walks by herself without any assistive device, whereas her leg weakness on examination does not appear that she would be able to walk. Patient's examination is nonfocal involving the upper limbs or the cranial region, therefore CVA appears very unlikely. * Check CT of the thoracic and lumbar spine to rule out compression fracture * Repeat ammonia in the morning, check B12, folate, hemoglobin A1c, ESR, CRP. TSH is normal. No obvious signs of infection. * Patient has history of psychiatric disorder, also on fairly high dose of Seroquel 800 mg a day, also on Depakote and clonazepam. Consider psychiatry consultation to adjust psych medication. * There is report of ?seizure disorder. We will check EEG to evaluate for epileptiform activity, rule out encephalopathy. * PT, OT evaluate gait. * Neurology will follow. Thank you for the consult. Time with Patient: Greater than 30
[2023-01-02 11:20] LABS: C Reactive Protein 0.3 mg/dL (0.00-0.80)
[2023-01-02 11:25] LABS: Basophils % (A) 1 %; Eosinophils # (A) 0.3 k/uL (0-0.7); Eosinophils % (A) 7 %; HCT 42.8 % (34.0-46.0); HGB 13.3 gm/dL (11.4-16.0); Hypochromasia Marked; Lymphocytes # (A) 1.4 k/uL (1.0-4.8); Lymphocytes % (A) 34 %; MCH 28.2 pg (25.0-35.0); MCHC 30.9 g/dL (31.0-37.0); MCV 91.2 fL (80.0-100.0); Mean Platelet Volume 8.5; Monocytes # (A) 0.4 k/uL (0-1.0); Monocytes % (A) 11 %; Neutrophils # (A) 1.9 k/uL (1.3-7.7); Neutrophils % (A) 45 %; Platelet Count 152 k/uL (150-450); RDW 14.4 % (11.5-15.5); WBC 4.2 k/uL (3.8-10.6)
[2023-01-02 12:12] LABS: ALT 18 U/L (4-34); African American GFR (CKD) >90 (>60 ml/min/1.73 sqM); Albumin 3.6 g/dL (3.5-5.0); Albumin/Globulin Ratio 1.3; Anion Gap 7 mmol/L; Blood Urea Nitrogen 26 mg/dL (7-17); Calcium 10.1 mg/dL (8.4-10.2); Carbon Dioxide 27 mmol/L (22-30); Chloride 109 mmol/L (98-107); Globulin 2.8 g/dL; Glucose 88 mg/dL (74-99); Non-African American GFR(CKD) 83 (>60 ml/min/1.73 sqM); Sodium 143 mmol/L (137-145); Total Bilirubin 0.7 mg/dL (0.2-1.3); Total Protein 6.4 g/dL (6.3-8.2)
[2023-01-02 12:15] LABS: AST 30 U/L (14-36); Alkaline Phosphatase 78 U/L (38-126); Potassium 4.8 mmol/L (3.5-5.1)
[2023-01-02 12:26] LABS: Glucose,Whole Blood 176 mg/dL (70-110)
--- NOTE | 2023-01-02 12:35 | P.PN ---
Subjective Progress Note Date: 01/02/23 patient is a 82-year-old lady with past medical history significant for hypertension, hyperlipidemia, dementia, COPD, diabetes mellitus who presented to the hospital for increased weakness. Patient is a resident of [facility] and nursing staff have noted the patient has been more weak the last few days. Patient was found laying next to the bed on the floor. There was no complete loss of consciousness. No complain of jerking movement of any extremity. No complain of fecal or urine incontinence. Patient has been more unsteady on her gait has been falling a lot. There was no complain of any fever or chills. No cough or shortness of breath. No complain of any nausea, vomiting or abdominal pain. Patient has been having good appetite. Because of this increased weakness patient was brought to the ER. Initial lab work done in the ER showed WBC 5.6, hemoglobin 13.4, platelet count 155, sodium 146, peak potassium 4.4, BUN 35, creatinine 0.89, calcium 10.3, magnesium 1.7, troponin 0.012, UA was negative for infection. Influenza a not detected Influenza B not detected RSV nondetected COVID-19 not detected EKG done in the ER showed heart rate of 77, previously seen, no ST segment elevation or T-wave inversion seen X-ray right knee negative for any fracture X-ray of pelvis and bilateral hip negative for any fracture or dislocation Chest x-ray done in the ER showed no acute cardiopulmonary process ER physician did talk to the nursing staff at the nursing facility, they think patient Seroquel could be be contributing to patient's symptom 01/02. Patient seen and examined. Ammonia level was normal. D-dimer was elevated, CTA chest done was negative for PE. CT thoracic and lumbar spine done showed moderate to severe degenerative changes throughout the spine with scoliosis changes, no evidence for significant spinal canal stenosis. Patient much more alert, closer to baseline. REVIEW OF SYSTEMS: CONSTITUTIONAL: No fever, no malaise,. CARDIOVASCULAR: No chest pain, no palpitations, no syncope. PULMONARY: No shortness of breath, no cough, GASTROINTESTINAL: No diarrhea, no nausea, no vomiting, no abdominal pain. NEUROLOGICAL: No headaches, no weakness, PHYSICAL EXAMINATION: GENERAL: The patient is alert, not in any acute distress. Chronically ill- looking HEENT: Pupils are round and equally reacting to light. EOMI. No scleral icterus. No conjunctival pallor. Normocephalic, atraumatic. No pharyngeal erythema. No thyromegaly. CARDIOVASCULAR: S1 and S2 present. No murmurs, rubs, or gallops. PULMONARY: Chest is clear to auscultation, no wheezing or crackles. ABDOMEN: Soft, nontender, nondistended, normoactive bowel sounds. No palpable organomegaly. MUSCULOSKELETAL: No joint swelling or deformity. EXTREMITIES: No cyanosis, clubbing, or pedal edema. NEUROLOGICAL: Gross neurological examination did not reveal any focal deficits. SKIN: No rashes. Assessment and plan Acute metabolic encephalopathy Hypoxia Generalized lethargy History of coronary artery disease Dementia History of hypertension History of seizure disorder Hypothyroidism Monitor vital signs Monitor CBC Monitor CMP Continue telemetry monitoring ammonia levels was normal Ordered pro-Al Ordered folate and vitamin B12 levels. TSH already checked. CTA chest negative for PE continue breathing treatments CT head done showed no acute intrarenal process, showed generalized parenchymal volume loss seen in neurodegenerative/dementia. Remote bilateral lacunar infarcts Monitor blood sugar levels, continue sliding scale insulin EEG ordered Consult neurology Pulmonology following, ordered 2-D echo Labs and medication were reviewed.. Continue same treatment. Continue with symptomatic treatment. Resume home medication. Monitor labs and vitals. DVT and GI prophylaxis. Further recommendations as per clinical course of the patient Dictation was produced using [employer] dictation software. please excuse any grammatical, word or spelling errors. Objective - Vital Signs Vital signs: Vital Signs Temp 98.3 F 01/02/23 07:00 Pulse 66 01/02/23 07:00 Resp 15 01/02/23 07:00 BP 129/80 01/02/23 07:00 Pulse Ox 94 L 01/02/23 07:00 FiO2 Intake & Output 01/01/23 01/02/23 01/02/23 18:59 06:59 18:59 Output Total 500 Balance -500 Output: Urine 500 Other: Voiding Method Diaper Diaper External Catheter External Catheter # Voids 2 1 - Labs CBC & Chem 7: 01/02/23 06:53 01/02/23 06:53 Labs: Abnormal Lab Results - Last 24 Hours (Table) 01/01/23 01/01/23 01/02/23 Range/Units 11:55 11:55 06:53 D-Dimer 2.81 H (<0.60) mg/L FEU Ammonia 34 H 32 H (<30) umol/L
--- NOTE | 2023-01-02 13:29 | P.CN ---
Psychiatric Consult - . Consult date: 01/02/23 Consult:: 01/02/23 13:01 IDENTIFYING DATA: This patient is a [] 82-year-old female, history of dementia, currently residing at [facility]. Patient came in for weakness, frequent falls and lethargy. Patient is believed to be having encephalopathy, neurology on board, EEG pending. Health Evaluator reviewed patient's chart and spoke with hospitalist and also patient's nurse however at the bedside patient was fairly lethargic, unable to open her eyes Zhang and did not respond to any of technical document writer's questions. attempt to cut down on sedating meds, including BZD and opiates and will hold off on seroquel. will attempt to re-evaluate cielo ent once she is more awake. 01/02/23 13:28
[2023-01-02 17:20] LABS: Glucose,Whole Blood 120 mg/dL (70-110)
[2023-01-02 20:42] LABS: Glucose,Whole Blood 186 mg/dL (70-110)
[2023-01-02] MEDS: ATORVASTATIN 20 MG TAB PO SCH (21:13)
[2023-01-02] MEDS: FAMOTIDINE 20 MG TAB PO SCH (21:13)
[2023-01-02] MEDS: DIVALPROEX 250 MG TABLET.DR PO SCH (21:14)
--- NOTE | 2023-01-03 04:14 | EEG ---
ELECTROENCEPHALOGRAM REPORT PREAMBLE: This is an 82-year-old female with history of epilepsy. She came with altered mental status. The patient currently on Depakote, Klonopin, Lipitor, and aspirin. EEG FINDINGS: This is a 21-channel digital EEG recorded with video component, utilizing 10/20 international system with referential and bipolar montages. The background consists of some disorganized activity, and mixed theta and delta slowing in bihemispheric region. Background is not clearly posterior dominant, and does not seem to be reactive to eye opening or closing. Photic stimulation was not performed. Different stages of sleep were not seen. No definitive focal or generalized epileptiform activity was seen. IMPRESSION: This is an abnormal EEG due to background slowing of at least moderate degree. This is suggestive of generalized cerebral dysfunction as can be seen with toxic metabolic encephalopathy or related to diffuse structural brain abnormality. Clinical correlation is recommended. No definitive epileptiform activity was seen. If your suspicion for seizures is high, suggest prolonged, sleep-deprived EEG. MMODL / IJN: [id number] /
[2023-01-03] MEDS: carvediloL 3.125 MG TAB PO SCH ×2 (06:09→17:45)
[2023-01-03 06:18] LABS: Glucose,Whole Blood 163 mg/dL (70-110)
[2023-01-03] MEDS: INSULIN ASPART (NovoLOG) 100 UNIT/ML VIAL SQ SCH ×4 (06:42→20:28)
[2023-01-03 07:28] LABS: ALT 23 U/L (4-34); AST 30 U/L (14-36); African American GFR (CKD) >90 (>60 ml/min/1.73 sqM); Albumin 3.7 g/dL (3.5-5.0); Albumin/Globulin Ratio 1.4; Alkaline Phosphatase 95 U/L (38-126); Anion Gap 10 mmol/L; Blood Urea Nitrogen 22 mg/dL (7-17); Calcium 10.4 mg/dL (8.4-10.2); Carbon Dioxide 29 mmol/L (22-30); Chloride 107 mmol/L (98-107); Globulin 2.7 g/dL; Glucose 104 mg/dL (74-99); Non-African American GFR(CKD) 82 (>60 ml/min/1.73 sqM); Potassium 3.9 mmol/L (3.5-5.1); Sodium 146 mmol/L (137-145); Total Bilirubin 0.7 mg/dL (0.2-1.3); Total Protein 6.4 g/dL (6.3-8.2)
[2023-01-03 08:21] LABS: Basophils % (A) 1 %; Eosinophils # (A) 0.2 k/uL (0-0.7); Eosinophils % (A) 4 %; HCT 44.4 % (34.0-46.0); HGB 14.2 gm/dL (11.4-16.0); Hypochromasia Slight; Lymphocytes # (A) 1.3 k/uL (1.0-4.8); Lymphocytes % (A) 23 %; MCH 28.6 pg (25.0-35.0); MCV 89.4 fL (80.0-100.0); Mean Platelet Volume 9.2; Monocytes # (A) 0.6 k/uL (0-1.0); Monocytes % (A) 10 %; Neutrophils # (A) 3.3 k/uL (1.3-7.7); Neutrophils % (A) 59 %; Platelet Count 164 k/uL (150-450); RBC 4.97 m/uL (3.80-5.40); RDW 14.1 % (11.5-15.5); WBC 5.7 k/uL (3.8-10.6)
[2023-01-03] MEDS: ASPIRIN 81 MG PO SCH (08:52)
[2023-01-03] MEDS: clonazePAM 0.5 MG TAB PO SCH ×2 (08:52→20:53)
--- NOTE | 2023-01-03 11:44 | CA ---
Transthoracic Echo Report Name: Cindy Bailey Age: 82 Gender: F : 1940 Exam Date: 01/03/2023 08:05 Exam Location: [facility] Ht (in): 70 Wt (lb): 185 Ordering Physician: Tracey Pepper Attending/Referring Phys: Systems Requirements Planner Cynthia Pittman RDCS Procedure CPT: Indications: murmur, dyspnea Cardiac Hx: Technical Quality: Technically difficult study Contrast 1: Total Dose (mL): Contrast 2: Total Dose (mL): MEASUREMENTS (Male / Female) Normal Values 2D ECHO LV Diastolic Diameter PLAX 3.7 cm 4.2 - 5.9 / 3.9 - 5.3 cm LV Systolic Diameter PLAX 3.0 cm IVS Diastolic Thickness 1.8 cm 0.6 - 1.0 / 0.6 - 0.9 cm LVPW Diastolic Thickness 1.4 cm 0.6 - 1.0 / 0.6 - 0.9 cm LV Relative Wall Thickness 0.9 LA Volume 58.3 cm??? 18 - 58 / 22 - 52 cm??? LA Volume Index 28.5 cm???/m??? 16 - 28 cm???/m??? M-MODE Aortic Root Diameter MM 3.6 cm LA Systolic Diameter MM 2.9 cm LA Ao Ratio MM 0.8 DOPPLER AV Peak Velocity 240.3 cm/s AV Peak Gradient 23.1 mmHg AV Mean Velocity 172.9 cm/s AV Mean Gradient 13.3 mmHg AV Velocity Time Integral 52.6 cm LVOT Peak Velocity 288.9 cm/s LVOT Peak Gradient 33.4 mmHg LVOT Velocity Time Integral 57.6 cm MV Area PHT 2.2 cm??? Mitral E Point Velocity 84.2 cm/s Mitral A Point Velocity 132.1 cm/s Mitral E to A Ratio 0.6 MV Deceleration Time 346.2 ms MV E' Velocity 6.2 cm/s Mitral E to MV E' Ratio 13.5 FINDINGS Left Ventricle Severely increased septal wall thickness. Moderately increased posterior wall thickness. Normal left ventricular systolic function with no obvious regional wall motion abnormalities. Left ventricular ejection fraction is estimated at 55 %. Suspect LVOT obstruction. Right Ventricle Right ventricle not well visualized. Right Atrium Right atrium not well visualized. Left Atrium Mildly increased left atrial volume. Mitral Valve Moderate mitral annular calcification. Moderate mitral regurgitation. Aortic Valve Mild aortic stenosis with a peak gradient of 23 mmHg and a mean gradient of 13 mmHg. Tricuspid Valve Tricuspid valve not well visualized. Pulmonic Valve Pulmonic valve not well visualized. Pericardium No pericardial effusion. Aorta Normal size aortic root and proximal ascending aorta. CONCLUSIONS Normal LV systolic function Moderate mitral regurgitation Mild aortic stenosis Technically suboptimal study Previewed by: Dr. Kulwant Osman MD (Electronically Signed) Final Date: 03 January 2023 11:43
[2023-01-03 12:08] LABS: Glucose,Whole Blood 104 mg/dL (70-110)
[2023-01-03] MEDS: CYANOCOBALAMIN 1,000 MCG/ML 1 ML VIAL IM SCH (13:11)
[2023-01-03] MEDS: HYDROcodone/APAP 5-325MG 1 EACH TAB PO PRN (13:19)
--- NOTE | 2023-01-03 16:00 | P.CN ---
Psychiatric Consult - . Consult date: 01/03/23 Consult:: 01/03/23 14:39 IDENTIFYING DATA: This patient is a 82-year-old female, coming from [facility]. Patient has a public guardian. REASON FOR REFERRAL: Psychiatry was consulted for altered mental status HISTORY OF PRESENT ILLNESS: The patient presented to the hospital for weakness, recurrent falls and lethargy. Patient is being followed by neurology, EEG was completed was suggested encephalopathy. Patient was accompanied his CD seen yesterday by property underwriter however was too sedated. Patient has a history of dementia. Also has a legal guardian. Depakote was decreased along with Seroquel and also Klonopin was cut in half. Patient was seen today resting in her bed. She states "it her name is "Aysha" and knows that she is in [facility]. She was able to follow most commands by property underwriter today. Attempted to participate as best as she could. Attention span seems to be fairly fair. She did not know today's date. She does note the situation that she is in the hospital because "I was too weak". She knows that she lives in a [facility]. She claims that her sleep and appetite are fair. At this time patient denies any suicidal or homical ideations, intent or plan. Patient denies any auditory, visual hallucinations and denies any paranoia or delusions. Patients admits to using no recreational drugs Patient was a fairly poor historian and did not give much information for social and past psychiatric history. PAST PSYCHIATRIC HISTORY: Patient has a a history of dementia and either bipolar vs schizoaffective disorder. Patient is currently on Depakote, Seroquel, Klonopin. PAST MEDICAL HISTORY: As per medical H&P ALLERGIES: as per EMR. CHEMICAL DEPENDENCY HISTORY: as per HPI. FAMILY PSYCHIATRIC/SUBSTANCE USE HISTORY: Unable to gather SOCIAL HISTORY: Patient currently resides at [facility], she has a public guardian. Unable to gather further social history. MENTAL STATUS EXAM: General Appearance: Patient appears to be stated age is alert, pleasant, and attempts to be cooperative. Patient appears to have fair hygiene and grooming wearing hospital gown with fair eye contact. Behavior: Patient is calmly lying in bed without any agitated behavior. Follows commands. Speech: Patient's speech is fluent and nonpressured. [place] Mood/Affect: Patient reports their mood is "ok", affect is congruent and constricted Suicidality/Homicidality: Patient denies having any suicidal or homicidal ideation intent or plan. Perceptions: Patient denies any visual hallucinations and denies any auditory hallucinations Though content/process: There is no evidence of any delusional thought content and thought process is linear and goal-directed. [place] Memory and concentration: AOX3, grossly intact for the purposes of this session. Can spell "WORLD" backwards Judgment and insight: Chronically limited IMPRESSIONS: Delirium unknown etiology Major neurocognitive disorder History of bipolar disorder versus schizoaffective disorder PLAN: -At this time patient DOES NOT meet criteria for inpatient psychiatric admission. -Patient DOES NOT have decision making capacity at this time and is unable to reason through and communicate/appreciate the risks, benefits and alternatives to treatment. -Delirium precautions recommended with patient including - avoiding use of narcotics and [employer] sedatives, limit anticholinergic medications when possible, frequent re-orientation, minimize use of restraints, open window shades during the day and close them at night -Would recommend the following medication changes/additions: Decreased Klonopin to 0.25 mg twice a day for anxiety as this may cause increasing confusion if increased. Depakote 250 mg daily at bedtime for mood stabilization. Melatonin 2 mg daily at bedtime for sleep -Communicated plan to patient's nurse -Psychiatry will sign off at this time -Please contact with any questions.
[2023-01-03] MEDS ORDERED: DEXTROSE 5% IN WATER 1,000 ML IV ONE (16:25)
[2023-01-03 17:23] LABS: Glucose,Whole Blood 90 mg/dL (70-110)
[2023-01-03 20:23] LABS: Glucose,Whole Blood 123 mg/dL (70-110)
[2023-01-03] MEDS: FAMOTIDINE 20 MG TAB PO SCH (20:55)
[2023-01-03] MEDS: ATORVASTATIN 20 MG TAB PO SCH (20:55)
[2023-01-03] MEDS: DIVALPROEX 250 MG TABLET.DR PO SCH (20:55)
[2023-01-03] MEDS ORDERED: MELATONIN 1 MG TAB PO SCH (21:00)
--- NOTE | 2023-01-03 22:24 | P.PN ---
Subjective Progress Note Date: 01/03/23 Patient evaluated on medical floor today currently alert x 2 appears back to baseline. Patient has no acute complaints. She is more awake and alert. Pending psychiatric evaluation today. Patient has been taken off seroquel and klonopin has been cut back. EEG done revealing encephalopathy and no epileptiform activity. Echocardiogram done showing EF 55% with suspected LVOT obstruction with moderate MR and mild aortic stenosis. Sodium 146 today. Review of Systems Constitutional: Denied any fatigue denied any fever. Cardio vascular: denied any chest pain, palpitations Gastrointestinal: denied any nausea, vomiting, diarrhea Pulmonary: Denied any shortness of breath cough Neurologic denied any new focal deficits All inpatient medications were reviewed and appropriate changes in these medications as dictated in the interval history and assessment and plan. PHYSICAL EXAMINATION: GENERAL: The patient is alert and oriented x2, not in any acute distress. Well developed, well nourished. HEENT: Pupils are round and equally reacting to light. EOMI. No scleral icterus. No conjunctival pallor. Normocephalic, atraumatic. No pharyngeal erythema. No thyromegaly. CARDIOVASCULAR: S1 and S2 present. No murmurs, rubs, or gallops. PULMONARY: Chest is clear to auscultation, no wheezing or crackles. ABDOMEN: Soft, nontender, nondistended, normoactive bowel sounds. No palpable organomegaly. MUSCULOSKELETAL: No joint swelling or deformity. EXTREMITIES: No cyanosis, clubbing, or pedal edema. NEUROLOGICAL: Gross neurological examination did not reveal any focal deficits. Fatigue and generalized weakness. SKIN: No rashes. Assessment Altered mental status due to acute metabolic encephalopathy from hyperglycemia and medication affect rule out seizure Hypoxia unclear etiology Generalized lethargy Hypernatremia likely from poor free water intake Elevated D-Dimer CTA negative for pulmonary embolism Moderate mitral regurgitation, mild aortic stenosis and possible LVOT obstruction History of coronary artery disease Prediabetes hemoglobin A1C 6.1 Dementia History of hypertension History of seizure disorder History of stroke with imaging revealing remote lacunar infarct bilaterally Hypothyroidism GI prophylaxis DVT prophylaxis Plan Neurology following Cardiology consultation regarding echocardiogram findings Labs reviewed procalcitonin normal CTA negative for pulmonary embolism recommending doppler rule out DVT Psychiatry to re-evaluate patient today as mentation has improved Continue with accuchecks ACHS and sliding scale insulin, hemoglobin A1C compatible with prediabetes recommending diet modifications. Blood glucose is fairly well controlled. Folate and B12 levels low/normal. Add D5 gtt at 50 mls/hr overnight and repeat labs in AM monitor sodium level Return to ECF on discharge possibly in the next 24 to 48 hours The impression and plan of care has been dictated by Ginny Robledo, Nurse Practitioner as directed. Dr. Ricky MD I have performed a history and physical examination and medical decision making of this patient, discussed the same with the dictator, and agree with the dictators assessment and plan as written, documented as a scribe. Based on total visit time, I have performed more than 50% of this visit. Objective - Vital Signs Vital signs: Vital Signs Temp 98 F 01/03/23 14:26 Pulse 71 01/03/23 14:26 Resp 20 01/03/23 14:26 BP 152/89 01/03/23 14:26 Pulse Ox 98 01/03/23 14:26 FiO2 Intake & Output 01/02/23 01/03/23 01/03/23 18:59 06:59 18:59 Intake Total 180 Output Total 200 250 Balance -200 -250 180 Intake: Oral 180 Output: Urine 200 250 Other: Voiding Method Diaper Diaper External Catheter External Catheter # Voids 3 1 1 # Bowel Movements 1 - Labs CBC & Chem 7: 01/03/23 06:27 01/03/23 06:27 Labs: Abnormal Lab Results - Last 24 Hours (Table) 01/02/23 01/02/23 01/03/23 Range/Units 17:14 20:40 06:18 Sodium (137-145) mmol/L BUN (7-17) mg/dL Glucose (74-99) mg/dL POC Glucose (mg/dL) 120 H 186 H 163 H (70-110) mg/dL Calcium (8.4-10.2) mg/dL 01/03/23 Range/Units 06:27 Sodium 146 H (137-145) mmol/L BUN 22 H (7-17) mg/dL Glucose 104 H (74-99) mg/dL POC Glucose (mg/dL) (70-110) mg/dL Calcium 10.4 H (8.4-10.2) mg/dL Assessment and Plan Time with Patient: Less than 30
[2023-01-04] MEDS: HYDROcodone/APAP 5-325MG 1 EACH TAB PO PRN (00:11)
[2023-01-04] MEDS: INSULIN ASPART (NovoLOG) 100 UNIT/ML VIAL SQ SCH ×2 (05:56→12:45)
[2023-01-04 05:58] LABS: Glucose,Whole Blood 114 mg/dL (70-110)
[2023-01-04] MEDS: carvediloL 3.125 MG TAB PO SCH (05:58)
[2023-01-04 06:59] LABS: African American GFR (CKD) >90 (>60 ml/min/1.73 sqM); Anion Gap 8 mmol/L; Blood Urea Nitrogen 22 mg/dL (7-17); Calcium 10.1 mg/dL (8.4-10.2); Carbon Dioxide 26 mmol/L (22-30); Chloride 108 mmol/L (98-107); Glucose 102 mg/dL (74-99); Non-African American GFR(CKD) 89 (>60 ml/min/1.73 sqM); Sodium 142 mmol/L (137-145)
[2023-01-04 07:07] LABS: Potassium 4.3 mmol/L (3.5-5.1)
--- NOTE | 2023-01-04 07:25 | US ---
EXAMINATION TYPE: US venous doppler duplex LE DATE OF EXAM: 01/03/2023 11:12 PM COMPARISON: 09/05/21 (limited exam) CLINICAL INDICATION: Female, 82 years old with history of elevated D Dimer; elevated D-dimer SIDE PERFORMED: Bilateral Severely limited exam due to pt not letting tech do compression images on entire left leg and bel ow mid femoral vein on right leg. Pt stated it hurt when attempting to get color images on popliteal veins TECHNIQUE: The lower extremity deep venous system is examined utilizing real time linear array sonog roseline with graded compression, doppler sonography and color-flow sonography. VESSELS IMAGED: Common Femoral Vein Deep Femoral Vein Greater Saphenous Vein * Femoral Vein Popliteal Vein Small Saphenous Vein * Proximal Calf Veins (* superficial vessels) Right Leg: Severely limited due to pt complaining of pain during test. There appears to be color chava w in CFV, prox fem, mid fem, and dist fem vein. Compression in CFV, prox fem, and mid fem vein. Left Leg: Severely limited due to pt complaining of pain during test. There appears to be color flow in CFV, prox fem, mid fem, and dist fem vein. IMPRESSION: Grayscale, color doppler, spectral doppler imaging performed of the deep veins of the lo wer extremities. There is normal flow, compressibility, vascular waveforms.
[2023-01-04 08:05] VITALS: TEMP 97.7
[2023-01-04] MEDS ORDERED: HEPARIN SODIUM,PORCINE 5,000 UNIT/ML 1 ML VIAL SQ SCH (09:00)
[2023-01-04] MEDS: ASPIRIN 81 MG PO SCH (09:23)
[2023-01-04] MEDS: clonazePAM 0.5 MG TAB PO SCH (09:23)
[2023-01-04] MEDS: CYANOCOBALAMIN 1,000 MCG/ML 1 ML VIAL IM SCH (09:23)
[2023-01-04 11:47] LABS: Glucose,Whole Blood 120 mg/dL (70-110)
--- NOTE | 2023-01-04 11:48 | P.CRDCN ---
History of Present Illness Consult date: 01/04/23 Reason for Consult (text): LVOT obstruction History of present illness: History of present illness: This is an 82-year-old female patient with past medical history of dementia, hypertension, seizure disorder, history of stroke, hypothyroidism. We have been asked to evaluate the patient for LVOT obstruction. Patient presented to the hospital on 12/31 from [facility] due to frequent falls and lethargy. Patient has had all workup for altered mental status thought to be from hyperglycemia and medication effect rule out seizure. Multiple consultants are following the patient. She underwent echocardiogram on 01/03 which revealed normal LV systolic function. Moderate mitral regurgitation, mild aortic stenosis, technically suboptimal study. There was also note of suspected LVOT OBSTRUCTION. Review Of Systems: At the time of my evaluation: Unable to obtain from the patient due to underlying dementia. Physical examination: Gen: This is 82-year-old female. She is resting in bed in no acute distress. VS: reviewed HEENT: Head is atraumatic, normocephalic. Pupils equal, round. Sclerae is anicteric. NECK: Supple. No JVD. LUNGS: Clear to auscultation. No wheezes or rhonchi. No intercostal retractions. HEART: Regular rate and rhythm 4/6 systolic ejection murmur the right peristernal border. EXTREMITIES: No pedal edema. No calf tenderness. NEUROLOGICAL: Patient is awake, alert and confused. 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 Cardiology will sign off this case and follow on an as-needed basis. Please reconsult for any new concerns. Nurse practitioner note has been reviewed, I agree with documented findings and plan of care. Patient was seen and examined. Past Medical History Past Medical History: Coronary Artery Disease (CAD), Heart Failure, COPD, Dementia, GERD/Reflux, Hypertension, Seizure Disorder, Thyroid Disorder Additional Past Medical History / Comment(s): Chronic back pain, Alzheimer's, vitamin D deficiency, right bundle branch block, hypothyroid, insomnia, epilepsy -unknown date of last seizure, diverticulosis, blood in stool, hx falls, can stand to transfer with assistance., Pt resides at [facility] on the [address]. History of Any Multi-Drug Resistant Organisms: ESBL Date of last positivie culture/infection: 03/20/18 MDRO Source:: ESBL URINE Past Surgical History: Orthopedic Surgery Additional Past Surgical History / Comment(s): Right leg fracture w/ surgery, L upper back lipoma removed, cataracts Past Anesthesia/Blood Transfusion Reactions: Unable to Obtain Past Psychological History: Anxiety, Depression, Schizoaffective Disorder, Schizophrenia Additional Psychological History / Comment(s): . Smoking Status: Former smoker Past Alcohol Use History: None Reported Additional Past Alcohol Use History / Comment(s): Pt states she only smoked for a short while and quit yrs ago. Past Drug Use History: None Reported - Past Family History Mother Family Medical History: Unable to Obtain Additional Family Medical History / Comment(s): Migraines. Father Family Medical History: Unable to Obtain Additional Family Medical History / Comment(s): . Medications and Allergies Home Medications Medication Instructions Recorded Confirmed Type Atorvastatin [Lipitor] 20 mg PO HS 04/12/15 12/31/22 History carvediloL [Coreg] 3.125 mg PO BID 12/25/15 12/31/22 History Divalproex [Depakote] 250 mg PO BID@1700,2100 04/24/17 12/31/22 History QUEtiapine FUMARATE [SEROquel] 200 mg PO BID@0900,1700 #6 tablet 01/12/18 Rx QUEtiapine FUMARATE [SEROquel] 400 mg PO HS 12/27/18 12/31/22 History Aspirin 81 mg PO DAILY 03/14/21 12/31/22 History Bismuth Subsalicylate 524 mg PO Q4H PRN 03/14/21 12/31/22 History [Pepto-Bismol] Dextran/Hypromellose/Glycerin 1 drop LEFT EYE Q12H PRN 03/14/21 12/31/22 History [Genteal Tears 0.1%-0.2%-0.3%] Phenyleph/Mineral Oil/Petrolat 1 applic RECTAL QID PRN 03/14/21 12/31/22 History [Preparation H Ointment] Suvorexant [Belsomra] 5 mg PO HS 03/14/21 12/31/22 History Famotidine [Pepcid] 20 mg PO HS 12/31/22 12/31/22 History HYDROcodone/APAP 5-325MG [[place] 1 tab PO BID 12/31/22 12/31/22 History 5-325] HYDROcodone/APAP 5-325MG [[place] 1 tab PO Q6H PRN 12/31/22 12/31/22 History 5-325] clonazePAM [KlonoPIN] 0.5 mg PO BID 12/31/22 12/31/22 History metFORMIN HCL ER [Glucophage XR] 500 mg PO DAILY 12/31/22 12/31/22 History Allergies Allergy/AdvReac Type Severity Reaction Status Date / Time adhesive tape Allergy Unknown Verified 12/31/22 17:57 ceftriaxone [From Rocephin] Allergy Rash/Hives Verified 12/31/22 17:57 cephalexin monohydrate Allergy Unknown Verified 12/31/22 17:57 [From Keflex] fluoxetine HCl [From Prozac] Allergy Unknown Verified 12/31/22 17:57 ketorolac tromethamine Allergy Unknown Verified 12/31/22 17:57 [From Toradol] latex Allergy Unknown Verified 12/31/22 17:57 phenelzine sulfate Allergy Unknown Verified 12/31/22 17:57 [From Nardil] Phenothiazines Allergy Unknown Verified 12/31/22 17:57 propoxyphene napsylate Allergy Unknown Verified 12/31/22 17:57 [From Darvocet-N 100] Physical Exam Vitals: Vital Signs Temp Pulse Resp BP Pulse Ox 01/04/23 07:00 97.7 F 71 15 145/89 92 L 01/04/23 02:00 98.4 F 74 17 158/85 95 01/03/23 20:53 69 01/03/23 19:35 98.1 F 69 17 172/84 94 L 01/03/23 14:26 98 F 71 20 152/89 98 Intake and Output 01/03/23 01/04/23 01/04/23 22:59 06:59 14:59 Output Total 300 200 Balance -300 -200 Output: Urine 300 200 Other: Voiding Method Diaper External Catheter Results 01/03/23 06:27 01/04/23 06:16 Comprehensive Metabolic Panel 01/04/23 Range/Units 06:16 Sodium 142 (137-145) mmol/L Potassium 4.3 (3.5-5.1) mmol/L Chloride 108 H (98-107) mmol/L Carbon Dioxide 26 (22-30) mmol/L BUN 22 H (7-17) mg/dL Creatinine 0.53 (0.52-1.04) mg/dL Glucose 102 H (74-99) mg/dL Calcium 10.1 (8.4-10.2) mg/dL Current Medications Generic Name Dose Route Start Last Admin Trade Name Freq PRN Reason Stop Dose Admin Acetaminophen 650 mg 12/31/22 17:55 Acetaminophen Tab 325 Mg Tab PO Q6HR PRN Mild Pain or Fever > 100.5 Hydrocodone Bitart/Acetaminophen 1 each 12/31/22 21:10 01/03/23 13:19 Hydrocodone/Apap 5-325mg 1 Each Tab PO 1 each Q6H PRN Administration Pain Albuterol/Ipratropium 3 ml 01/01/23 09:04 Ipratropium-Albuterol 3 Ml Neb INHALATION RT-QID PRN Shortness Of Breath Or Wheezing Aspirin 81 mg 01/02/23 09:00 01/04/23 09:23 Aspirin 81 Mg PO 81 mg DAILY KRISTA Administration Atorvastatin Calcium 20 mg 01/01/23 21:00 01/03/23 20:55 Atorvastatin 20 Mg Tab PO 20 mg HS KRISTA Administration Carvedilol 3.125 mg 12/31/22 21:15 01/04/23 05:58 Carvedilol 3.125 Mg Tab PO 3.125 mg BID-W/MEALS KRISTA Administration Clonazepam 0.25 mg 01/02/23 21:00 01/04/23 09:23 Clonazepam 0.5 Mg Tab PO 0.25 mg BID KRISTA Administration Cyanocobalamin 1,000 mcg 01/03/23 12:45 01/04/23 09:23 Cyanocobalamin 1,000 Mcg/Ml 1 Ml Vial IM 01/05/23 12:46 1,000 mcg DAILY KRISTA Administration Dextrose/Water 25 ml 01/01/23 09:05 Dextrose 50% Syringe 50 Ml IVP PER PROTOCOL PRN Hypoglycemia Protocol Dextrose/Water 50 ml 01/01/23 09:05 Dextrose 50% Syringe 50 Ml IVP PER PROTOCOL PRN Hypoglycemia Protocol Divalproex Sodium 250 mg 01/02/23 21:00 01/03/23 20:55 Divalproex 250 Mg Tablet.Dr PO 250 mg HS KRISTA Administration Famotidine 20 mg 12/31/22 21:15 01/03/23 20:55 Famotidine 20 Mg Tab PO 20 mg HS KRISTA Administration Heparin Sodium (Porcine) 5,000 unit 01/04/23 09:00 01/04/23 09:23 Heparin Sodium,Porcine 5,000 Unit/Ml 1 Ml Vial SQ 5,000 unit Q12HR KRISTA Administration Dextrose/Water 1,000 mls @ 50 mls/hr 01/03/23 16:25 01/03/23 17:05 Dextrose 5%-Water Iv Soln IV 01/04/23 12:24 50 mls/hr .Q20H ONE Administration Insulin Aspart 0 unit 01/01/23 12:30 01/04/23 05:56 Insulin Aspart (Novolog) 100 Unit/Ml Vial SQ Not Given ACHS [facility] Protocol Melatonin 2 mg 01/03/23 21:00 01/03/23 20:55 Melatonin 1 Mg Tab PO 2 mg HS KRISTA Administration Naloxone HCl 0.2 mg 12/31/22 17:55 Naloxone 0.4 Mg/Ml 1 Ml Vial IV Q2M PRN Opioid Reversal Intake and Output 01/03/23 01/04/23 01/04/23 22:59 06:59 14:59 Output Total 300 200 Balance -300 -200 Output: Urine 300 200 Other: Voiding Method Diaper External Catheter 01/03/23 06:27 01/04/23 06:16
--- NOTE | 2023-01-04 12:27 | P.PN ---
Subjective Progress Note Date: 01/02/23 Patient was seen for a follow-up. Patient is laying comfortably in the bed. Patient admits to having some headache. Denies any new focal symptoms. Objective - Vital Signs Vital signs: Vital Signs Temp 99.0 F 01/02/23 14:06 Pulse 72 01/02/23 14:06 Resp 19 01/02/23 14:06 BP 159/86 01/02/23 14:06 Pulse Ox 93 L 01/02/23 14:06 FiO2 Intake & Output 01/02/23 01/02/23 01/03/23 06:59 18:59 06:59 Output Total 500 200 Balance -500 -200 Output: Urine 500 200 Other: Voiding Method Diaper External Catheter # Voids 1 3 - Exam Examination essentially unchanged. Patient states it is December 07 and could not tell the year. She knows that she is in [facility]. Speech and language functions are normal. - Labs CBC & Chem 7: 01/03/23 06:27 01/04/23 06:16 Labs: Abnormal Lab Results - Last 24 Hours (Table) 12/31/22 01/02/23 01/02/23 Range/Units 11:51 06:53 06:53 MCHC 30.9 L (31.0-37.0) g/dL Chloride (98-107) mmol/L BUN (7-17) mg/dL POC Glucose (mg/dL) (70-110) mg/dL Hemoglobin A1c 6.1 H (<=6.0) % Ammonia 32 H (<30) umol/L 01/02/23 01/02/23 01/02/23 Range/Units 06:53 12:24 17:14 MCHC (31.0-37.0) g/dL Chloride 109 H (98-107) mmol/L BUN 26 H (7-17) mg/dL POC Glucose (mg/dL) 176 H 120 H (70-110) mg/dL Hemoglobin A1c (<=6.0) % Ammonia (<30) umol/L Assessment and Plan Assessment: * Altered mental status, possible metabolic encephalopathy. * Elevated ammonia (mild degree 34), rule out hepatic encephalopathy * Mild hypernatremia * CT had revealed generalized atrophy. Probable underlying cognitive impairment /dementia. * Recent falls 2, rule out compression fracture * CAD * B12 deficiency * Heart failure * COPD * Hypertension * Seizure disorder * Schizoaffective disorder * Chronic back pain Plan: * Patient's examination revealed significant weakness of bilateral lower limbs. Uncertain, if patient not able to cooperate with examination, or actual weakness. Patient claims that she walks by herself without any assistive device, whereas her leg weakness on examination does not appear that she would be able to walk. Patient's examination is nonfocal involving the upper limbs or the cranial region, therefore CVA appears very unlikely. * CT of the thoracic and lumbar spine revealed no evidence of spinal fracture. Moderate to severe degeneration changes throughout the spine with scoliosis changes. No evidence for significant spinal canal or neural foraminal stenosis. 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 * Repeat ammonia still mildly elevated 32. B12 284, RBC folate 446, hemoglobin A1c 6.1, ESR 5, CRP 0.30 normal. TSH is normal. No obvious signs of infection. Patient has B12 deficiency. We will start B12 replacement. * Patient has history of psychiatric disorder, also on fairly high dose of Seroquel 800 mg a day, also on Depakote and clonazepam. Consider psychiatry consultation to adjust psych medication. * There is report of ?seizure disorder. EEG was performed, which was abnormal due to background slowing of at least moderate degree, suggestive of generalized cerebral dysfunction as can be seen with encephalopathy. No epileptiform activity was seen. * PT, OT evaluate gait.
--- NOTE | 2023-01-04 12:31 | P.PN ---
Subjective Progress Note Date: 01/03/23 Patient was seen for a follow-up. Patient is laying comfortably in the bed. Patient admits to having some headache. Denies any new focal symptoms. Objective - Vital Signs Vital signs: Vital Signs Temp 97.8 F 01/03/23 07:00 Pulse 76 01/03/23 07:00 Resp 16 01/03/23 07:00 BP 152/89 01/03/23 07:00 Pulse Ox 93 L 01/03/23 07:00 FiO2 Intake & Output 01/02/23 01/03/23 01/03/23 18:59 06:59 18:59 Intake Total 180 Output Total 200 250 Balance -200 -250 180 Intake: Oral 180 Output: Urine 200 250 Other: Voiding Method Diaper Diaper External Catheter External Catheter # Voids 3 1 # Bowel Movements 1 - Exam Examination essentially unchanged. Patient does not know what month or year is, or what city or state she is in. Her speech is clear. Her face is symmetric. [employer] is normal and equal. Biceps triceps appears fairly normal. Patient not lifting her legs off the bed. She is not wiggling her feet although she says she can do, but she is not doing it. Any pressure on the ankles or feet or toes produces severe pain bilaterally. Admits to having back pain. - Labs CBC & Chem 7: 01/03/23 06:27 01/04/23 06:16 Labs: Abnormal Lab Results - Last 24 Hours (Table) 01/02/23 01/02/23 01/03/23 Range/Units 17:14 20:40 06:18 Sodium (137-145) mmol/L BUN (7-17) mg/dL Glucose (74-99) mg/dL POC Glucose (mg/dL) 120 H 186 H 163 H (70-110) mg/dL Calcium (8.4-10.2) mg/dL 01/03/23 Range/Units 06:27 Sodium 146 H (137-145) mmol/L BUN 22 H (7-17) mg/dL Glucose 104 H (74-99) mg/dL POC Glucose (mg/dL) (70-110) mg/dL Calcium 10.4 H (8.4-10.2) mg/dL Assessment and Plan Assessment: * Altered mental status, possible delirium due to metabolic encephalopathy. * Elevated ammonia (mild degree 34, repeat level 32), rule out hepatic e ncephalopathy * Mild hypernatremia, now resolved * B12 deficiency * CT had revealed generalized atrophy. Probable underlying cognitive impairment/dementia. * Recent falls 2, no evidence of compression fracture. * Chronic back pain * CAD * Heart failure * COPD * Hypertension * Seizure disorder * Schizoaffective disorder * Chronic back pain Plan: * Patient's examination revealed significant weakness of bilateral lower limbs. Uncertain, if patient not able to cooperate with examination, or actual weakness. Patient claims that she walks by herself without any assistive device, whereas her leg weakness on examination does not appear that she would be able to walk. Patient's examination is nonfocal involving the upper limbs or the cranial region, therefore CVA appears very unlikely. * CT of the thoracic and lumbar spine revealed no evidence of spinal fracture. Moderate to severe degeneration changes throughout the spine with scoliosis changes. No evidence for significant spinal canal or neural foraminal stenosis. 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 * Recommend patient follow up with neurologist outpatient for possible EMG and nerve conductions of bilateral lower limbs. * Repeat ammonia still mildly elevated 32. B12 284, RBC folate 446, hemoglobin A1c 6.1, ESR 5, CRP 0.30 normal. TSH is normal. No obvious signs of infection. Patient has B12 deficiency. We will start B12 replacement. * Psychiatry has seen the patient. [place] delirium, major neurocognitive disorder, history of bipolar disorder versus schizoaffective disorder. Patient's Klonopin decreased to 0.25 mg twice a day, Depakote 250 mg daily and melatonin 2 mg. * There is report of ?seizure disorder. EEG was performed, which was abnormal due to background slowing of at least moderate degree, suggestive of generalized cerebral dysfunction as can be seen with encephalopathy. No epileptiform activity was seen. Patient on Depakote. Dose of Depakote was decreased from 250 mg twice a day to 250 mg daily per psychiatry. * PT, OT evaluate gait.
--- NOTE | 2023-01-04 12:34 | P.DS ---
Providers Date of admission: 01/02/23 09:03 Attending physician: Tonia Tim MD Consults: 12/31/22 17:55 Consult Physician Stat Consulting Provider: Vu Arias Consult Reason/Comments: hypoxia Do you want consulting provider notified?: Yes, Notify in am Consult Physician Stat Consulting Provider: Fortino Ross Consult Reason/Comments: acute encephalopathy/medication adjustment Do you want consulting provider notified?: Yes, Notify in am 01/02/23 12:34 Consult Physician Routine Consulting Provider: Román Shelton Consult Reason/Comments: Confusion, adjustment of patient's psychiatric medications Do you want consulting provider notified?: Yes 01/03/23 14:30 Consult Physician Routine Consulting Provider: Kulwant Osman Consult Reason/Comments: possible LVOT obstruction Do you want consulting provider notified?: Yes Primary care physician: Todd Rushing Hospital Course: Final Diagnosis Altered mental status due to acute metabolic encephalopathy from hypoglycemia and medication affect rule out seizure Hypoxia unclear etiology Generalized lethargy Hypernatremia likely from poor free water intake, improved. Elevated D-Dimer CTA negative for pulmonary embolism, venous doppler was a difficult study. Moderate mitral regurgitation, mild aortic stenosis and possible LVOT obstruction cardiology recommending no intervention and f/u echo in 1 year. History of coronary artery disease Prediabetes hemoglobin A1C 6.1 Dementia History of hypertension History of seizure disorder History of stroke with imaging revealing remote lacunar infarct bilaterally Hypothyroidism GI prophylaxis DVT prophylaxis Discharge Disposition patient is stable for return to [facility]. Mentation has improved currently awake and alert and oriented. Cardiology recommending to repeat echocardiogram in 1 year. Psychiatry evaluated the patient and medications were adjusted. Sodium has normalized. Recommend patient to follow up with her neurologist on discharge and repeat labs in 2 to 3 days. Hospital Course Patient is a 82-year-old lady with past medical history significant for hypertension, hyperlipidemia, dementia, COPD, diabetes mellitus who presented to the hospital for increased weakness. Patient is a resident of [facility] and nursing staff have noted the patient has been more weak the last few days. Patient was found laying next to the bed on the floor. There was no complete loss of consciousness. No complain of jerking movement of any extremity. No complain of fecal or urine incontinence. Patient has been more unsteady on her gait has been falling a lot. There was no complain of any fever or chills. No cough or shortness of breath. No complain of any nausea, vomiting or abdominal pain. Patient has been having good appetite. Because of this increased weakness patient was brought to the ER. Initial lab work done in the ER showed WBC 5.6, hemoglobin 13.4, platelet count 155, sodium 146, peak potassium 4.4, BUN 35, creatinine 0.89, calcium 10.3, magnesium 1.7, troponin 0.012, Urinalysis negative, viral panel negative. Xrays taken, negative for acute pelvic, hip, or right knee fractures. Chest xray negative. Ammonia level was normal. D-dimer was elevated, CTA chest done was negative for PE. CT thoracic and lumbar spine done showed moderate to severe degenerative changes throughout the spine with scoliosis changes, no evidence for significant spinal canal stenosis. Patient admitted to the hospital with neurology consultation. Patient has no acute complaints. She is more awake and alert. Psychiatry has evaluated the patient and no need for inpatient treatment, medications were adjusted. Patient has been taken off seroquel and klonopin has been cut back. EEG done revealing encephalopathy and no epileptiform activity. Echocardiogram done showing EF 55% with suspected LVOT obstruction with moderate MR and mild aortic stenosis. Cardiology evaluated the patient and due to age and comorbidities no intervention recommended and patient will have repeat echocardiogram in 1 year. Patient at baseline and cleared for return to [facility] today. Lungs are clear, S1 S2 auscultated abdomen soft and nontender. Hemodynamically stable. Please see medication reconciliation for a list of current medication. Thank you for allowing us to participate in the care of this patient. The impression and plan of care has been dictated by Ginny Robledo, Nurse Practitioner as directed. Dr. Ricky MD I have performed a history and physical examination and medical decision making of this patient, discussed the same with the dictator, and agree with the dictators assessment and plan as written, documented as a scribe. Based on total visit time, I have performed more than 50% of this visit. Patient Condition at Discharge: Fair Plan - Discharge Summary New Discharge Prescriptions: New Divalproex [Depakote] 250 mg PO HS tab clonazePAM [KlonoPIN] 0.25 mg PO BID #4 tab Melatonin 2 mg PO HS tab Cyanocobalamin [Vitamin B-12] 1,000 mcg PO DAILY #15 tablet Acetaminophen Tab [Tylenol] 650 mg PO Q6HR PRN tab PRN Reason: Mild Pain Or Fever > 100.5 Continue Atorvastatin [Lipitor] 20 mg PO HS carvediloL [Coreg] 3.125 mg PO BID Phenyleph/Mineral Oil/Petrolat [Preparation H Ointment] 1 applic RECTAL QID PRN PRN Reason: Hemorrhoids Famotidine [Pepcid] 20 mg PO HS HYDROcodone/APAP 5-325MG [[place] 5-325] 1 tab PO Q6H PRN #4 tab PRN Reason: Pain Dextran/Hypromellose/Glycerin [Genteal Tears 0.1%-0.2%-0.3%] 1 drop LEFT EYE Q12H PRN PRN Reason: Dry Eye(S) Aspirin 81 mg PO DAILY metFORMIN HCL ER [Glucophage XR] 500 mg PO DAILY Discontinued Divalproex [Depakote] 250 mg PO BID@1700,2100 QUEtiapine FUMARATE [SEROquel] 200 mg PO BID@0900,1700 #6 tablet QUEtiapine FUMARATE [SEROquel] 400 mg PO HS Bismuth Subsalicylate [Pepto-Bismol] 524 mg PO Q4H PRN PRN Reason: Gi Upset Suvorexant [Belsomra] 5 mg PO HS HYDROcodone/APAP 5-325MG [[place] 5-325] 1 tab PO BID clonazePAM [KlonoPIN] 0.5 mg PO BID Discharge Medication List Atorvastatin [Lipitor] 20 mg PO HS 04/12/15 [History] carvediloL [Coreg] 3.125 mg PO BID 12/25/15 [History] Aspirin 81 mg PO DAILY 03/14/21 [History] Dextran/Hypromellose/Glycerin [Genteal Tears 0.1%-0.2%-0.3%] 1 drop LEFT EYE Q12H PRN 03/14/21 [History] Phenyleph/Mineral Oil/Petrolat [Preparation H Ointment] 1 applic RECTAL QID PRN 03/14/21 [History] Famotidine [Pepcid] 20 mg PO HS 12/31/22 [History] metFORMIN HCL ER [Glucophage XR] 500 mg PO DAILY 12/31/22 [History] Acetaminophen Tab [Tylenol] 650 mg PO Q6HR PRN tab 01/04/23 [Rx] Cyanocobalamin [Vitamin B-12] 1,000 mcg PO DAILY #15 tablet 01/04/23 [Rx] Divalproex [Depakote] 250 mg PO HS tab 01/04/23 [Rx] HYDROcodone/APAP 5-325MG [[place] 5-325] 1 tab PO Q6H PRN #4 tab 01/04/23 [Rx] Melatonin 2 mg PO HS tab 01/04/23 [Rx] clonazePAM [KlonoPIN] 0.25 mg PO BID #4 tab 01/04/23 [Rx] Follow up Appointment(s)/Referral(s): Todd Rushing MD [Primary Care Provider] - 1-2 days Ambulatory/Diagnostic Orders: Basic Metabolic Panel [LAB.AMB] Time Frame: 3 Days, Location: None Selected Activity/Diet/Wound Care/Special Instructions: Patient to follow up with her neurologist on discharge. Discharge Disposition: HOME SELF-CARE
[2023-01-04 14:44] VITALS: BP 164/81; PULSE 63; RESP 14
--- NOTE | 2023-01-05 10:04 | P.PN ---
Subjective Progress Note Date: 01/04/23 Patient was seen for a follow-up. Patient is laying comfortably in the bed. Patient admits to having some headache. Denies any new focal symptoms. Objective - Vital Signs Vital signs: Vital Signs Temp 97.7 F 01/04/23 07:00 Pulse 71 01/04/23 07:00 Resp 15 01/04/23 07:00 BP 145/89 01/04/23 07:00 Pulse Ox 92 L 01/04/23 12:20 FiO2 Intake & Output 01/03/23 01/04/23 01/04/23 18:59 06:59 18:59 Intake Total 180 118 Output Total 500 Balance 180 -500 118 Intake: Oral 180 118 Output: Urine 500 Other: Voiding Method Diaper Diaper External Catheter External Catheter # Voids 1 - Exam Examination essentially unchanged. Patient does not know what month or year is, or what city or state she is in. Her speech is clear. Her face is symmetric. Lie Detector Operator is normal and equal. Biceps triceps appears fairly normal. Patient not lifting her legs off the bed. She is not wiggling her feet although she says she can do, but she is not doing it. Any pressure on the ankles or feet or toes produces severe pain bilaterally. Admits to having back pain. - Labs CBC & Chem 7: 01/03/23 06:27 01/04/23 06:16 Labs: Abnormal Lab Results - Last 24 Hours (Table) 01/03/23 01/04/23 01/04/23 Range/Units 20:22 05:56 06:16 Chloride 108 H (98-107) mmol/L BUN 22 H (7-17) mg/dL Glucose 102 H (74-99) mg/dL POC Glucose (mg/dL) 123 H 114 H (70-110) mg/dL 01/04/23 Range/Units 11:45 Chloride (98-107) mmol/L BUN (7-17) mg/dL Glucose (74-99) mg/dL POC Glucose (mg/dL) 120 H (70-110) mg/dL Assessment and Plan Assessment: * Altered mental status, possible delirium due to metabolic encephalopathy. * Elevated ammonia (mild degree 34, repeat level 32), rule out hepatic encephalopathy * Mild hypernatremia, now resolved * B12 deficiency * CT had revealed generalized atrophy. Probable underlying cognitive impairment/dementia. * Recent falls 2, no evidence of compression fracture. * Chronic back pain * CAD * Heart failure * COPD * Hypertension * Seizure disorder * Schizoaffective disorder * Chronic back pain Plan: * Patient's examination revealed significant weakness of bilateral lower limbs. I spoke to patient's sister Ayanna on the phone. She informed me that [facility]. She is wheelchair bound for last 2 years. She is very inactive as well. It appears that her lower extremity weakness is chronic, not new. Patient's examination is nonfocal involving the upper limbs or the cranial region, therefore CVA appears very unlikely. Reviewed notes of PT and OT. * CT of the thoracic and lumbar spine revealed no evidence of spinal fracture. Moderate to severe degeneration changes throughout the spine with scoliosis changes. No evidence for significant spinal canal or neural foraminal stenosis. 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 * Recommend patient follow up with neurologist outpatient for possible EMG and nerve conductions of bilateral lower limbs. * Repeat ammonia still mildly elevated 32. B12 284, RBC folate 446, hemoglobin A1c 6.1, ESR 5, CRP 0.30 normal. TSH is normal. No obvious signs of infection. Patient has B12 deficiency. We will start B12 replacement. * Psychiatry has seen the patient. Camillus delirium, major neurocognitive disorder, history of bipolar disorder versus schizoaffective disorder. Pa kelli's Klonopin decreased to 0.25 mg twice a day, Depakote 250 mg daily and melatonin 2 mg. * There is report of ?seizure disorder. EEG was performed, which was abnormal due to background slowing of at least moderate degree, suggestive of generalized cerebral dysfunction as can be seen with encephalopathy. No epileptiform activity was seen. Patient on Depakote. Dose of Depakote was decreased from 250 mg twice a day to 250 mg daily per psychiatry. * Patient being transferred to subacute rehab.
== END 2023-01-04 16:35 | DRG 70 ==
LOC: EC 10:53 → 6NMEDSUR 18:08 → OBSVTOIN 01-02 09:03
PROVIDERS: ADMIT Internal Medicine; ATTEND Internal Medicine
DX: G93.41 Metabolic encephalopathy (principal); J96.01 Acute respiratory failure with hypoxia; E87.0 Hyperosmolality and hypernatremia; F02.84 Dementia in other diseases classified elsewhere, unspecified severity, with anxiety; F02.83 Dementia in other diseases classified elsewhere, unspecified severity, with mood disturbance; G30.9 Alzheimer's disease, unspecified; F25.9 Schizoaffective disorder, unspecified; I11.0 Hypertensive heart disease with heart failure; G92.8 Other toxic encephalopathy; E11.65 Type 2 diabetes mellitus with hyperglycemia; J44.9 Chronic obstructive pulmonary disease, unspecified; G40.909 Epilepsy, unspecified, not intractable, without status epilepticus; Z20.822 Contact with and (suspected) exposure to COVID-19; I25.10 Atherosclerotic heart disease of native coronary artery without angina pectoris; I34.0 Nonrheumatic mitral (valve) insufficiency; K21.9 Gastro-esophageal reflux disease without esophagitis; G89.29 Other chronic pain; M54.9 Dorsalgia, unspecified; E55.9 Vitamin D deficiency, unspecified; I45.10 Unspecified right bundle-branch block; E03.9 Hypothyroidism, unspecified; K57.90 Diverticulosis of intestine, part unspecified, without perforation or abscess without bleeding; E53.8 Deficiency of other specified B group vitamins; E78.5 Hyperlipidemia, unspecified; R26.81 Unsteadiness on feet; M25.552 Pain in left hip; M25.551 Pain in right hip; H57.10 Ocular pain, unspecified eye; R29.6 Repeated falls; G47.00 Insomnia, unspecified; M41.9 Scoliosis, unspecified; Z79.82 Long term (current) use of aspirin; Z79.84 Long term (current) use of oral hypoglycemic drugs; Z79.891 Long term (current) use of opiate analgesic; Z79.899 Other long term (current) drug therapy; Z87.891 Personal history of nicotine dependence; Z91.81 History of falling; Z86.19 Personal history of other infectious and parasitic diseases; Z86.73 Personal history of transient ischemic attack (TIA), and cerebral infarction without residual deficits; Z88.5 Allergy status to narcotic agent; Z88.8 Allergy status to other drugs, medicaments and biological substances; Z88.1 Allergy status to other antibiotic agents; Z91.040 Latex allergy status; I50.9 Heart failure, unspecified
CPT/HCPCS: 36415; 70450; 71046; 71275; 72128; 72131; 73521; 80048; 80053; 81003; 82140; 82607; 82728; 82746; 82747; 83036; 83605; 83735; 84100; 84145; 84443; 84484; 85025; 85379; 85610; 85652; 85730; 86140; 87635; 87636; 93005; 93306; 93970; 94760; 95816; 99285

== ENCOUNTER 2024-07-16 15:46 | Emergency (ER) | payer MEDICARE, OTHER ==
[2024-07-16 15:58] VITALS: TEMP 98.5
--- NOTE | 2024-07-16 16:18 | ED ---
Altered Mental Status HPI - General Chief Complaint: Altered Mental Status Stated Complaint: AMS Time Seen by Provider: 07/16/24 15:49 Source: EMS, RN notes reviewed, old records reviewed Mode of arrival: EMS Limitations: altered mental status - History of Present Illness Initial Comments: This is a 83[facility] for evaluation of altered mental status and possible near syncopal event patient presents to the ER with decreased responsiveness no diaphoresis and unable to provide complaint. Patient does suffer from severe dementia MD Complaint: altered mental status Severity: mild Consistency of Symptoms: waxing and waning Context: history of similar presentation Associated Symptoms: denies other symptoms Treatments Prior to Arrival: IV fluid, oxygen - Related Data Home Medications Medication Instructions Recorded Confirmed Atorvastatin [Lipitor] 20 mg PO HS 04/12/15 12/31/22 carvediloL [Coreg] 3.125 mg PO BID 12/25/15 12/31/22 Aspirin 81 mg PO DAILY 03/14/21 12/31/22 Dextran/Hypromellose/Glycerin 1 drop LEFT EYE Q12H PRN 03/14/21 12/31/22 [Genteal Tears 0.1%-0.2%-0.3%] Phenyleph/Mineral Oil/Petrolat 1 applic RECTAL QID PRN 03/14/21 12/31/22 [Preparation H Ointment] Famotidine [Pepcid] 20 mg PO HS 12/31/22 12/31/22 metFORMIN HCL ER [Glucophage XR] 500 mg PO DAILY 12/31/22 12/31/22 Previous Rx's Medication Instructions Recorded Acetaminophen Tab [Tylenol] 650 mg PO Q6HR PRN tab 01/04/23 Cyanocobalamin [Vitamin B-12] 1,000 mcg PO DAILY #15 tablet 01/04/23 Divalproex [Depakote] 250 mg PO HS tab 01/04/23 HYDROcodone/APAP 5-325MG [[place] 1 tab PO Q6H PRN #4 tab 01/04/23 5-325] Melatonin 2 mg PO HS tab 01/04/23 clonazePAM [KlonoPIN] 0.25 mg PO BID #4 tab 01/04/23 Allergies Allergy/AdvReac Type Severity Reaction Status Date / Time adhesive tape Allergy Unknown Verified 07/16/24 15:58 ceftriaxone [From Rocephin] Allergy Rash/Hives Verified 07/16/24 15:58 cephalexin monohydrate Allergy Unknown Verified 07/16/24 15:58 [From Keflex] fluoxetine HCl [From Prozac] Allergy Unknown Verified 07/16/24 15:58 ketorolac tromethamine Allergy Unknown Verified 07/16/24 15:58 [From Toradol] latex Allergy Unknown Verified 07/16/24 15:58 phenelzine sulfate Allergy Unknown Verified 07/16/24 15:58 [From Nardil] Phenothiazines Allergy Unknown Verified 07/16/24 15:58 propoxyphene napsylate Allergy Unknown Verified 07/16/24 15:58 [From Darvocet-N 100] Review of Systems ROS Statement: Those systems with pertinent positive or pertinent negative responses have been documented in the HPI. ROS Other: All systems not noted in ROS Statement are negative. Past Medical History Past Medical History: Coronary Artery Disease (CAD), Heart Failure, COPD, Dementia, GERD/Reflux, Hypertension, Seizure Disorder, Thyroid Disorder Additional Past Medical History / Comment(s): Chronic back pain, Alzheimer's, vitamin D deficiency, right bundle branch block, hypothyroid, insomnia, epilepsy -unknown date of last seizure, diverticulosis, blood in stool, hx falls, can stand to transfer with assistance., Pt resides at [facility]. History of Any Multi-Drug Resistant Organisms: ESBL Date of last positivie culture/infection: 03/20/18 MDRO Source:: ESBL URINE Past Surgical History: Orthopedic Surgery Additional Past Surgical History / Comment(s): Right leg fracture w/ surgery, L upper back lipoma removed, cataracts Past Anesthesia/Blood Transfusion Reactions: Unable to Obtain Past Psychological History: Anxiety, Depression, Schizoaffective Disorder, Schizophrenia Smoking Status: Former smoker Past Alcohol Use History: None Reported Past Drug Use History: None Reported - Past Family History Mother Family Medical History: Unable to Obtain Additional Family Medical History / Comment(s): Migraines. Father Family Medical History: Unable to Obtain Additional Family Medical History / Comment(s): . General Exam General appearance: alert, in no apparent distress Head exam: Present: atraumatic, normocephalic, normal inspection Eye exam: Present: normal appearance, PERRL, EOMI. Absent: scleral icterus, conjunctival injection, periorbital swelling ENT exam: Present: normal exam, mucous membranes moist Neck exam: Present: normal inspection. Absent: tenderness, meningismus, lymphadenopathy Respiratory exam: Present: normal lung sounds bilaterally. Absent: respiratory distress, wheezes, rales, rhonchi, stridor Cardiovascular Exam: Present: regular rate, normal rhythm, normal heart sounds. Absent: systolic murmur, diastolic murmur, rubs, gallop, clicks GI/Abdominal exam: Present: soft, normal bowel sounds. Absent: distended, tenderness, guarding, rebound, rigid Extremities exam: Present: normal inspection, full ROM, normal capillary refill. Absent: tenderness, pedal edema, joint swelling, calf tenderness Back exam: Present: normal inspection Neurological exam: Present: alert, oriented X3, CN II-XII intact Psychiatric exam: Present: normal affect, normal mood Skin exam: Present: warm, dry, intact, normal color. Absent: rash Course Vital Signs 07/16/24 15:49 Temperature 98.5 F Pulse Rate 85 Respiratory 20 Rate Blood Pressure 117/68 O2 Sat by Pulse 96 Oximetry - Reevaluation(s) Reevaluation #1: 07/16/24 18:39 Medical records reviewed Reevaluation #2: 07/16/24 18:39 Patient symptoms relatively unchanged here in the ER but no syncopal events Reevaluation #3: 07/16/24 18:40 Patient informed of results questions answered Reevaluation #4: Was pt. sent in by a medical professional or institution (, PA, DATA ADMINISTRATOR, urgent care, hospital, or intermediate...) When possible be specific @ -no Did you speak to anyone other than the patient for history (EMS, parent, family, police, friend...)? What history was obtained from this source @ -no Did you review nursing and triage notes (agree or disagree)? Why? @ -agree Are old charts reviewed (outside hosp., previous admission, EMS record, old EKG, old radiological studies, urgent care reports/EKG's, intermediate records)? Report findings @ -yes Differential Diagnosis (chest pain, altered mental status, abdominal pain women, abdominal pain men, vaginal bleeding, weakness, fever, dyspnea, syncope, headache, dizziness, GI bleed, back pain, seizure, CVA, palpatations, mental health, musculoskeletal)? @ -prior EKG interpreted by me (3pts min.). @ -yes X-rays interpreted by me (1pt min.). @ -yes negative for acute disease CT interpreted by me (1pt min.). @ -no U/S interpreted by me (1pt. min.). @ -no What testing was considered but not performed or refused? (CT, X-rays, U/S, labs)? Why? @ -none What meds were considered but not given or refused? Why? @ -none Did you discuss the management of the patient with other professionals (professionals i.e. , PA, DATA ADMINISTRATOR, lab, RT, psych nurse, manager social, wedding photographer, teacher, ordnance officer, manager of case management)? Give summary @ -no Was smoking cessation discussed for >3mins.? @ -no Was critical care preformed (if so, how long)? @ -no Were there social determinants of health that impacted care today? How? (Homelessness, low income, unemployed, alcoholism, drug addiction, transportation, low edu. Level, literacy, decrease access to med. care, usp, rehab)? @ -none Was there de-escalation of care discussed even if they declined (Discuss DNR or withdrawal of care, Hospice)? DNR status @ -no What co-morbidities impacted this encounter? (DM, HTN, Smoking, COPD, CAD, Cancer, CVA, ARF, Chemo, Hep., AIDS, mental health diagnosis, sleep apnea, morbid obesity)? @ -none Was patient admitted / discharged? Hospital course, mention meds given and route, prescriptions, significant lab abnormalities, going to OR and other pertinent info. @ - Undiagnosed new problem with uncertain prognosis? @ -no Drug Therapy requiring intensive monitoring for toxicity (Heparin, Nitro, Insulin, Cardizem)? @ -no Were any procedures done? @ -no Diagnosis/symptom? @ - Acute, or Chronic, or Acute on Chronic? @ -Acute Uncomplicated (without systemic symptoms) or Complicated (systemic symptoms)? @ -Complicated Side effects of treatment? @ -no Exacerbation, Progression, or Severe Exacerbation? @ -exacerbation Poses a threat to life or bodily function? How? (Chest pain, USA, IA, pneumonia, PE, COPD, DKA, ARF, appy, cholecystitis, CVA, Diverticulitis, Homicidal, Suicidal, threat to staff... and all critical care pts) @ -yes Reevaluation #5: Differential Altered Mental Status: Hypoglycemia, DKA, hypercapnia, ETOH, overdose, CO poisoning, trauma, myxedema coma, HTN encephalopathy, infection, encephalitis, psychosis, intercranial hemorrhage, hepatic encephalopathy, meningitis, CVA, this is not meant to be an all-inclusive list Medical Decision Making - Medical Decision Making 83 female to ER altered mental status. Patient has no acute findings here in the ER can be discharged home - Lab Data Result diagrams: 07/16/24 16:34 07/16/24 16:34 Lab Results 07/16/24 07/16/24 07/16/24 Range/Units 16:34 16:34 16:34 WBC 9.30 (4.50-10.00) 10*3/uL RBC 4.23 (4.10-5.20) 10*6/uL Hgb 12.1 (12.0-15.0) g/dL Hct 37.9 (37.2-46.3) % MCV 89.6 (80.0-97.0) fL MCH 28.6 (27.0-32.0) pg MCHC 31.9 L (32.0-37.0) g/dL Plt Count 188 (140-440) 10*3/uL MPV 10.8 (9.5-12.2) fL Immature Gran % (Auto) 0.3 % Neutrophils % 70.3 % Lymphocytes % 15.3 % Monocytes % 11.4 % Eosinophils % 2.3 % Basophils % 0.4 % Immature Gran # 0.03 (0.00-0.04) 10*3/uL Neutrophils # 6.54 (1.80-7.70) 10*3/uL Lymphocytes # 1.42 (0.90-5.00) 10*3/uL Monocytes # 1.06 H (0.20-1.00) 10*3/uL Eosinophils # 0.21 (0.04-0.35) 10*3/uL Basophils # 0.04 (0.00-0.10) 10*3/uL PT 11.8 (10.0-12.5) sec INR 1.1 (<1.2) APTT 24.5 (22.0-30.0) sec Sodium 140 (137-145) mmol/L Potassium 4.2 (3.5-5.1) mmol/L Chloride 105 (98-107) mmol/L Carbon Dioxide 29 (22-30) mmol/L Anion Gap 6 mmol/L BUN 37 H (7-17) mg/dL Creatinine 0.70 (0.52-1.04) mg/dL Est GFR (CKD-EPI)AfAm >90 (>60 ml/min/1.73 sqM) Est GFR (CKD-EPI)NonAf 80 (>60 ml/min/1.73 sqM) Glucose 101 H (74-99) mg/dL Plasma Lactic Acid Sergio (0.7-2.0) mmol/L Calcium 11.3 H (8.4-10.2) mg/dL Phosphorus 2.9 (2.5-4.5) mg/dL Magnesium 1.5 L (1.6-2.3) mg/dL Total Bilirubin 0.4 (0.2-1.3) mg/dL AST 24 (14-36) U/L ALT 12 (4-34) U/L Alkaline Phosphatase 59 (38-126) U/L Ammonia (<30) umol/L Troponin I (0.000-0.034) ng/mL NT-Pro-B Natriuret Pep 677 pg/mL Total Protein 6.2 L (6.3-8.2) g/dL Albumin 3.6 (3.5-5.0) g/dL TSH 1.120 (0.465-4.680) mIU/L 07/16/24 07/16/24 Range/Units 16:34 16:34 WBC (4.50-10.00) 10*3/uL RBC (4.10-5.20) 10*6/uL Hgb (12.0-15.0) g/dL Hct (37.2-46.3) % MCV (80.0-97.0) fL MCH (27.0-32.0) pg MCHC (32.0-37.0) g/dL Plt Count (140-440) 10*3/uL MPV (9.5-12.2) fL Immature Gran % (Auto) % Neutrophils % % Lymphocytes % % Monocytes % % Eosinophils % % Basophils % % Immature Gran # (0.00-0.04) 10*3/uL Neutrophils # (1.80-7.70) 10*3/uL Lymphocytes # (0.90-5.00) 10*3/uL Monocytes # (0.20-1.00) 10*3/uL Eosinophils # (0.04-0.35) 10*3/uL Basophils # (0.00-0.10) 10*3/uL PT (10.0-12.5) sec INR (<1.2) APTT (22.0-30.0) sec Sodium (137-145) mmol/L Potassium (3.5-5.1) mmol/L Chloride (98-107) mmol/L Carbon Dioxide (22-30) mmol/L Anion Gap mmol/L BUN (7-17) mg/dL Creatinine (0.52-1.04) mg/dL Est GFR (CKD-EPI)AfAm (>60 ml/min/1.73 sqM) Est GFR (CKD-EPI)NonAf (>60 ml/min/1.73 sqM) Glucose (74-99) mg/dL Plasma Lactic Acid Sergio 2.0 (0.7-2.0) mmol/L Calcium (8.4-10.2) mg/dL Phosphorus (2.5-4.5) mg/dL Magnesium (1.6-2.3) mg/dL Total Bilirubin (0.2-1.3) mg/dL AST (14-36) U/L ALT (4-34) U/L Alkaline Phosphatase (38-126) U/L Ammonia 20 (<30) umol/L Troponin I 0.021 (0.000-0.034) ng/mL NT-Pro-B Natriuret Pep pg/mL Total Protein (6.3-8.2) g/dL Albumin (3.5-5.0) g/dL TSH (0.465-4.680) mIU/L - EKG Data -: EKG Interpreted by Me (EKG is sinus 81 PA 161 QRS 139 QTc 460) Disposition Clinical Impression: Delirium due to general medical condition, Dementia, Altered mental status Disposition: HOME SELF-CARE Condition: Fair Instructions (If sedation given, give patient instructions): Altered Mental Status (ED) Is patient prescribed a controlled substance at d/c from ED?: No Referrals: Todd Rushing MD [Primary Care Provider] - 1-2 days Time of Disposition: 18:30
[2024-07-16] MEDS: SODIUM CHLORIDE 0.9% 1,000 ML IV ONE ×2 (16:35→18:46)
[2024-07-16 16:43] LABS: Basophils # (A) 0.04 10*3/uL (0.00-0.10); Basophils % (A) 0.4 %; Eosinophils # (A) 0.21 10*3/uL (0.04-0.35); Eosinophils % (A) 2.3 %; HCT 37.9 % (37.2-46.3); HGB 12.1 g/dL (12.0-15.0); Lymphocytes # (A) 1.42 10*3/uL (0.90-5.00); Lymphocytes % (A) 15.3 %; MCH 28.6 pg (27.0-32.0); MCHC 31.9 g/dL (32.0-37.0); MCV 89.6 fL (80.0-97.0); Mean Platelet Volume 10.8 fL (9.5-12.2); Monocytes # (A) 1.06 10*3/uL (0.20-1.00); Monocytes % (A) 11.4 %; Neutrophils # (A) 6.54 10*3/uL (1.80-7.70); Neutrophils % (A) 70.3 %; Platelet Count 188 10*3/uL (140-440); RBC 4.23 10*6/uL (4.10-5.20); RDW 13.8 % (11.5-14.5)
[2024-07-16 17:05] LABS: INR 1.1 (<1.2); Partial Thromboplastin Time 24.5 sec (22.0-30.0); Prothrombin Time 11.8 sec (10.0-12.5)
[2024-07-16 17:06] LABS: ALT 12 U/L (4-34); AST 24 U/L (14-36); African American GFR (CKD) >90 (>60 ml/min/1.73 sqM); Albumin 3.6 g/dL (3.5-5.0); Alkaline Phosphatase 59 U/L (38-126); Anion Gap 6 mmol/L; Blood Urea Nitrogen 37 mg/dL (7-17); Calcium 11.3 mg/dL (8.4-10.2); Carbon Dioxide 29 mmol/L (22-30); Chloride 105 mmol/L (98-107); Glucose 101 mg/dL (74-99); Magnesium 1.5 mg/dL (1.6-2.3); Non-African American GFR(CKD) 80 (>60 ml/min/1.73 sqM); Phosphorus 2.9 mg/dL (2.5-4.5); Potassium 4.2 mmol/L (3.5-5.1); Sodium 140 mmol/L (137-145); Total Bilirubin 0.4 mg/dL (0.2-1.3); Total Protein 6.2 g/dL (6.3-8.2)
[2024-07-16 17:16] LABS: NT-Pro-B-Type Natriuretic Pept 677 pg/mL
[2024-07-16] MEDS: MAGNESIUM SULFATE-D5W PMX 1 GM in DEXTROSE/WATER 1 100ML.BAG IVPB ONE (18:47)
[2024-07-16 19:46] VITALS: BP 130/58; PULSE 79; RESP 20
== END 2024-07-16 19:46 | disposition home or self-care (01) ==
LOC: EC 15:46
DX: R41.82 Altered mental status, unspecified (principal); F03.90 Unspecified dementia, unspecified severity, without behavioral disturbance, psychotic disturbance, mood disturbance, and anxiety; F05 Delirium due to known physiological condition; Z87.891 Personal history of nicotine dependence; Z91.040 Latex allergy status; Z88.1 Allergy status to other antibiotic agents; Z88.6 Allergy status to analgesic agent; Z88.8 Allergy status to other drugs, medicaments and biological substances; Z91.048 Other nonmedicinal substance allergy status
CPT/HCPCS: 93005; 83880; 80053; 82140; 83605; 83735; 84100; 84443; 84484; 85025; 85610; 85730; 99285; 96365; 96361 ×2; J3475; 36415